=== PATIENT | male | born 1945 | race Caucasian/White ===

== ENCOUNTER 2017-01-31 17:18 | Emergency (ER) | payer OTHER, MEDICARE ==
--- NOTE | 2017-01-31 17:57 | ER Document Report ---
ED Medical Screen (RME) - General Chief Complaint: Breathing Difficulty Stated Complaint: DIFFICULTY BREATHING Time Seen by Provider: 01/31/17 17:48 Notes: Patient is complaining of chest pain that starts in the lower left mid axillary line region and goes across the front of his chest to the right side. It started today and the [facility] where the patient [facility] called the patient's daughter to come and pick him up and taken for medical care. Patient has a history of COPD and still smokes. He had a CT of his chest due to pulmonary nodules in December, exactly a month ago. He has these pulmonary nodules and no other description of his lesions. Patient has no history of heart disease. Has been a lifelong smoker. 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 Ever since then, his memory is not good. TRAVEL OUTSIDE OF THE [place] IN LAST 30 DAYS: No - Related Data Allergies/Adverse Reactions: No Known Allergies Allergy (Verified 01/31/17 17:23) Past Medical History Renal/ Medical History: Denies: Hx Peritoneal Dialysis Physical Exam - Vital signs Vitals: Temp Pulse Resp BP Pulse Ox 97.6 F 57 L 25 H 109/57 L 96 01/31/17 17:23 01/31/17 17:23 01/31/17 17:23 01/31/17 17:23 01/31/17 17:23 Course - Vital Signs Vital signs: Temp Pulse Resp BP Pulse Ox 97.6 F 57 L 25 H 109/57 L 96 01/31/17 17:23 01/31/17 17:23 01/31/17 17:23 01/31/17 17:23 01/31/17 17:23
--- NOTE | 2017-01-31 18:33 | RADIOLOGY REPORT (SQ) ---
EXAM DESCRIPTION: CHEST PA/LAT COMPLETED DATE/TIME: 01/31/2017 6:19 pm REASON FOR STUDY: Chest pain COMPARISON: None. EXAM PARAMETERS: NUMBER OF VIEWS: two views TECHNIQUE: Digital Frontal and Lateral radiographic views of the chest acquired. RADIATION DOSE: NA LIMITATIONS: none FINDINGS: LUNGS AND PLEURA: Limited ill-defined areas of opacity are seen in each lower lung field. A 15 mm nodule cannot be ruled out in the right lung. On the left, the area of opacity of concern m ay be related to a healing rib fracture. No localized pneumonia is appreciated. The lungs are hyper expanded. MEDIASTINUM AND HILAR STRUCTURES: No masses or contour abnormalities. HEART AND VASCULAR STRUCTURES: Heart normal size. No evidence for failure. BONES: No acute findings. HARDWARE: None in the chest. OTHER: No other significant finding. IMPRESSION: 1. Chronic lung changes with no acute infiltrates. 2. A right pulmonary nodule cannot be ruled out. This is not appreciated on the lateral view. 3. Possible healing rib fracture on the left TECHNICAL DOCUMENTATION: JOB ID: [id number] 1925[employer]- All Rights Reserved
[2017-01-31 19:31] LABS: ABSOLUTE BASOPHILS # (AUTO) 0.1 10^3/uL (0.0-0.2); ABSOLUTE EOSINOPHILS # (AUTO) 0.2 10^3/uL (0.0-0.6); ABSOLUTE LYMPHOCYTES (AUTO) 1.5 10^3/uL (0.5-4.7); ABSOLUTE MONOCYTES (AUTO) 0.5 10^3/uL (0.1-1.4); EOSINOPHILS % (AUTO) 4.7 % (0-6); HEMATOCRIT 40.9 % (37.9-51.0); HEMOGLOBIN 13.3 g/dL (13.5-17.0); LYMPHOCYTES % (AUTO) 28.2 % (13-45); MEAN CORPUSCULAR HEMOGLOBIN 29.9 pg (27.0-33.4); MEAN CORPUSCULAR HGB CONC 32.4 g/dL (32.0-36.0); MEAN CORPUSCULAR VOLUME 92 fl (80-97); MONOCYTES % (AUTO) 9.4 % (3-13); RED BLOOD COUNT 4.44 10^6/uL (4.35-5.55); RED CELL DISTRIBUTION WIDTH 14.8 % (11.5-14.0); SEGMENTED NEUTROPHILS % (AUTO) 56.7 % (42-78); WHITE BLOOD COUNT 5.3 10^3/uL (4.0-10.5)
[2017-01-31 19:32] LABS: APPEARANCE,URINE CLEAR; BILIRUBIN,URINE NEGATIVE (NEGATIVE); GLUCOSE, URINE NEGATIVE (NEGATIVE); KETONES,URINE NEGATIVE (NEGATIVE); LEUKOCYTE ESTERASE,URINE NEGATIVE (NEGATIVE); NITRITE,URINE NEGATIVE (NEGATIVE); PROTEIN,URINE NEGATIVE (NEGATIVE); URINE SPECIFIC GRAVITY 1.002; UROBILINOGEN,URINE NEGATIVE mg/dL (<2.0)
[2017-01-31 19:46] LABS: ALANINE AMINOTRANSFERASE 18 U/L (21-72); ALBUMIN 4.6 g/dL (3.5-5.0); ALKALINE PHOSPHATASE 81 U/L (38-126); ANION GAP 10 (5-19); ASPARTATE AMINO TRANSFERASE 15 U/L (17-59); BILIRUBIN,DIRECT 0.2 mg/dL (0.0-0.4); BILIRUBIN,TOTAL 0.4 mg/dL (0.2-1.3); BLOOD UREA NITROGEN 11 mg/dL (7-20); CALCIUM 9.3 mg/dL (8.4-10.2); CARBON DIOXIDE 32 mmol/L (22-30); CHLORIDE 96 mmol/L (98-107); CREATININE RESULT 0.93 mg/dL (0.52-1.25); GLUCOSE 94 mg/dL (75-110); POTASSIUM 4.5 mmol/L (3.6-5.0); SODIUM 138.3 mmol/L (137-145); TOTAL PROTEIN 8.3 g/dL (6.3-8.2)
[2017-01-31 19:58] LABS: CREATINE KINASE MB 1.54 ng/mL (<4.55)
[2017-01-31 19:59] LABS: TROPONIN I < 0.012 ng/mL
[2017-01-31] MEDS ORDERED: IPRATROPIUM/ALBUTEROL 0.5-2.5 MG/3 ML AMPUL NEB ONE ×2 (20:22→20:23)
--- NOTE | 2017-01-31 20:44 | RADIOLOGY REPORT (SQ) ---
EXAM DESCRIPTION: CHEST SINGLE VIEW COMPLETED DATE/TIME: 01/31/2017 8:28 pm REASON FOR STUDY: cp COMPARISON: 01/31/2017 EXAM PARAMETERS: NUMBER OF VIEWS: One view. TECHNIQUE: Single frontal radiographic view of the chest acquired. RADIATION DOSE: NA LIMITATIONS: None. FINDINGS: LUNGS AND PLEURA: The previously described chronic appearing changes appears stable. Agai n the possibility of a pulmonary nodule on the right cannot be excluded. No definite acute changes a re identified. MEDIASTINUM AND HILAR STRUCTURES: No masses. Contour normal. HEART AND VASCULAR STRUCTURES: The configuration of the heart and mediastinal structures is unchanged . BONES: No acute findings. HARDWARE: None in the chest. OTHER: No other significant finding. IMPRESSION: No significant interval change. No acute findings. Other findings as noted above TECHNICAL DOCUMENTATION: JOB ID: [id number]
--- NOTE | 2017-01-31 21:12 | EKG REPORT ---
SEVERITY:- NORMAL ECG - SINUS RHYTHM : Confirmed by: Karla Weiner 31-Jan-2017 21:12:12
--- NOTE | 2017-01-31 22:13 | ER Document Report ---
ED General - General Chief Complaint: Breathing Difficulty Stated Complaint: DIFFICULTY BREATHING Time Seen by Provider: 01/31/17 17:48 Mode of Arrival: Ambulatory Information source: Patient, Relative Notes: 71-year-old male history of COPD presents with complaints of wheezing left- sided muscle wall pain when he raises his arm. Patient denies any fevers or chills nausea vomiting or diarrhea. Patient has not been on steroids in the past year TRAVEL OUTSIDE OF THE [place] IN LAST 30 DAYS: No - HPI Onset: This morning Onset/Duration: Intermittent Quality of pain: Sharp Severity: Mild Pain Level: 1 Associated symptoms: Body/muscle aches, Nonproductive cough, Shortness of breath Exacerbated by: Movement, Deep breathing Relieved by: Denies Similar symptoms previously: Yes Recently seen / treated by doctor: Yes - Related Data Allergies/Adverse Reactions: No Known Allergies Allergy (Verified 01/31/17 17:23) Past Medical History - Social History Smoking Status: Current Every Day Smoker Cigarette use (# per day): Yes Chew tobacco use (# tins/day): No Smoking Education Provided: No Drug Abuse: None Family History: Reviewed & Not Pertinent Patient has suicidal ideation: No Patient has homicidal ideation: No Renal/ Medical History: Denies: Hx Peritoneal Dialysis Review of Systems - Review of Systems Notes: REVIEW OF SYSTEMS: CONSTITUTIONAL : Denies fever, chills, or sweats. Denies recent illness. EENT: Denies eye, ear, throat, or mouth pain or symptoms. Denies nasal or sinus congestion or discharge. Denies throat, tongue, or mouth swelling or difficulty swallowing. CARDIOVASCULAR: Denies chest pain. Denies palpitations or racing or irregular heart beat. Denies ankle edema. RESPIRATORY: Admits to shortness of breath GASTROINTESTINAL: Denies abdominal pain or distention. Denies nausea, vomiting , or diarrhea. Denies blood in vomitus, stools, or per rectum. Denies black, tarry stools. Denies constipation. GENITOURINARY: Denies difficulty urinating, painful urination, burning, frequency, blood in urine, or discharge. MUSCULOSKELETAL: Denies back or neck pain or stiffness. Denies joint pain or swelling. Admits to left chest wall tenderness when he bends his arms up SKIN: Denies rash, lesions or sores. HEMATOLOGIC : Denies easy bruising or bleeding. LYMPHATIC: Denies swollen, enlarged glands. NEUROLOGICAL: Denies confusion or altered mental status. Denies passing out or loss of consciousness. Denies dizziness or lightheadedness. Denies headache. Denies weakness or paralysis or loss of use of either side. Denies problems with gait or speech. Denies sensory loss, numbness, or tingling. Denies seizures. PSYCHIATRIC: Denies anxiety or stress. Denies depression, suicidal ideation, or homicidal ideation. ALL OTHER SYSTEMS REVIEWED AND NEGATIVE. Dictation was performed using [employer] voice recognition software PHYSICAL EXAMINATION: GENERAL: Well-appearing, well-nourished and in no acute distress. HEAD: Atraumatic, normocephalic. EYES: Pupils equal round and reactive to light, extraocular movements intact, sclera anicteric, conjunctiva are normal. ENT: Nares patent, oropharynx clear without exudates. Moist mucous membranes. NECK: Normal range of motion, supple without lymphadenopathy LUNGS: Coarse wheezing bilateral 100% O2 sat no respiratory distress HEART: Regular rate and rhythm without murmurs reproducible chest wall tenderness ABDOMEN: Soft, nontender, nondistended abdomen. No guarding, no rebound. No masses appreciated. Musculoskeletal: Normal range of motion, no pitting or edema. No cyanosis. NEUROLOGICAL: Cranial nerves grossly intact. Normal speech, normal gait. Normal sensory, motor exams PSYCH: Normal mood, normal affect. SKIN: Warm, Dry, normal turgor, no rashes or lesions noted. Physical Exam - Vital signs Vitals: Temp Pulse Resp BP Pulse Ox 97.6 F 57 L 25 H 109/57 L 96 01/31/17 17:23 01/31/17 17:23 01/31/17 17:23 01/31/17 17:23 01/31/17 17:23 Course - Re-evaluation Re-evalutation: 01/31/17 22:10 Was given duo nebs, and notes that he is breathing much better, he does become hypoxic when he is sleeping, I have explained to the daughter my concerns for sleep apnea otherwise the patient looks well is in no distress and wishes to be discharged home I will discharge home with steroids After performing a Medical Screening Examination, I estimate there is LOW risk for ACUTE CORONARY SYNDROME, RESPIRATORY FAILURE, SEPSIS OR MENINGITIS, thus I consider the discharge disposition reasonable. I have reevaluated this patient multiple times and no significant life threatening changes are noted. The patient and I have discussed the diagnosis and risks, and we agree with discharging home with close follow-up. We also discussed returning to the Emergency Department immediately if new or worsening symptoms occur. We have discussed the symptoms which are most concerning (e.g., changing or worsening pain, trouble swallowing or breathing, neck stiffness, fever) that necessitate immediate return. - Vital Signs Vital signs: Temp Pulse Resp BP Pulse Ox 97.4 F 57 L 14 101/79 100 01/31/17 20:05 01/31/17 17:23 01/31/17 20:22 01/31/17 20:10 01/31/17 20:22 - Laboratory Result Diagrams: 01/31/17 19:15 01/31/17 19:15 Laboratory results interpreted by me: 01/31/17 01/31/17 01/31/17 19:15 19:15 19:15 Hgb 13.3 L RDW 14.8 H Chloride 96 L Carbon Dioxide 32 H AST 15 L ALT 18 L Total Protein 8.3 H Urine Blood SMALL H - Diagnostic Test Radiology reviewed: Image reviewed, Reports reviewed Discharge - Discharge Clinical Impression: COPD exacerbation, Chest wall pain Condition: Stable Disposition: HOME, SELF-CARE Instructions: Chest Wall Pain ([facility]) Additional Instructions: Follow up with your physician tomorrow for further care or return to the ED IMMEDIATELY if symptoms worsen or new concerns occur. If you cannot afford to follow up with your primary care physician a list of low cost clinics have been provided at the end of your discharge papers as well. Prescriptions: Prednisone [Deltasone 20 mg Tablet] 3 tab PO DAILY 5 Days
[2017-01-31] MEDS ORDERED: PREDNISONE 20 MG TABLET PO ONE (22:21)
[2017-01-31 23:11] VITALS: BP 107/91
== END 2017-01-31 23:10 | disposition home or self-care (01) ==
LOC: ER 17:18
DX: J44.1 Chronic obstructive pulmonary disease with (acute) exacerbation (principal); R07.89 Other chest pain; R05 Cough; R06.02 Shortness of breath; F17.210 Nicotine dependence, cigarettes, uncomplicated
CPT/HCPCS: 93005; 94640 ×2; 99285; 36415; 82553; 85025; 80053; 81001; 84484; 71020; 71010; 93010; J7512; J7620

== ENCOUNTER 2017-03-03 10:08 | Emergency (ER) | payer OTHER, MEDICARE ==
[2017-03-03] MEDS ORDERED: IPRATROPIUM/ALBUTEROL 0.5-2.5 MG/3 ML AMPUL NEB ONE (10:31)
[2017-03-03] MEDS ORDERED: ASPIRIN 81 MG TABLET, CHEWABLE PO ONE (10:32)
--- NOTE | 2017-03-03 10:34 | ER Document Report ---
ED Medical Screen (RME) - General Chief Complaint: Breathing Difficulty Stated Complaint: DIFFICULTY BREATHING Time Seen by Provider: 03/03/17 10:31 Mode of Arrival: Wheelchair Information source: Patient, Relative Notes: Patient reports cough and difficulty breathing for the past 5 days. Family states that caregiver reported that he had an oxygen saturation of 70% today. Oxygen saturation on arrival was in the mid 90s. Patient has not had fever. Patient has had cough and complains of left-sided chest pain. hx: COPD TRAVEL OUTSIDE OF THE [place] IN LAST 30 DAYS: No - Related Data Allergies/Adverse Reactions: No Known Allergies Allergy (Verified 03/03/17 10:13) Past Medical History - Social History Chew tobacco use (# tins/day): No Frequency of alcohol use: None Drug Abuse: None - Past Medical History Cardiac Medical History: Reports: Hx Hypercholesterolemia Pulmonary Medical History: Reports: Hx COPD Renal/ Medical History: Denies: Hx Peritoneal Dialysis Surgical Hx: Negative - Immunizations Hx Diphtheria, Pertussis, Tetanus Vaccination: Yes Physical Exam - Vital signs Vitals: Temp Pulse Resp BP Pulse Ox 97.8 F 62 18 105/65 97 03/03/17 10:13 03/03/17 10:13 03/03/17 10:13 03/03/17 10:13 03/03/17 10:13 - Respiratory Respiratory status: No respiratory distress. No: Labored Breath sounds: Nonproductive cough, Rhonchi, Wheezing - coarse Course - Vital Signs Vital signs: Temp Pulse Resp BP Pulse Ox 97.8 F 62 16 105/65 97 03/03/17 10:13 03/03/17 10:13 03/03/17 10:25 03/03/17 10:13 03/03/17 10:13
[2017-03-03 11:25] LABS: ABSOLUTE EOSINOPHILS # (AUTO) 0.1 10^3/uL (0.0-0.6); ABSOLUTE LYMPHOCYTES (AUTO) 1.2 10^3/uL (0.5-4.7); ABSOLUTE MONOCYTES (AUTO) 0.8 10^3/uL (0.1-1.4); ABSOLUTE NEUT (AUTO) 7.6 10^3/uL (1.7-8.2); BASOPHILS % (AUTO) 0.3 % (0-2); HEMATOCRIT 43.8 % (37.9-51.0); HEMOGLOBIN 14.2 g/dL (13.5-17.0); HGB HCT DIFFERENCE -1.2; LYMPHOCYTES % (AUTO) 12.3 % (13-45); MEAN CORPUSCULAR HEMOGLOBIN 29.9 pg (27.0-33.4); MEAN CORPUSCULAR HGB CONC 32.4 g/dL (32.0-36.0); MEAN CORPUSCULAR VOLUME 92 fl (80-97); MONOCYTES % (AUTO) 7.9 % (3-13); RED BLOOD COUNT 4.74 10^6/uL (4.35-5.55); RED CELL DISTRIBUTION WIDTH 15.1 % (11.5-14.0); SEGMENTED NEUTROPHILS % (AUTO) 78.5 % (42-78); WHITE BLOOD COUNT 9.7 10^3/uL (4.0-10.5)
--- NOTE | 2017-03-03 11:38 | RADIOLOGY REPORT (SQ) ---
EXAM DESCRIPTION: CHEST PA/LAT COMPLETED DATE/TIME: 03/03/2017 11:25 am REASON FOR STUDY: cough, diff breathing COMPARISON: 01/31/2017 EXAM PARAMETERS: NUMBER OF VIEWS: two views TECHNIQUE: Digital Frontal and Lateral radiographic views of the chest acquired. RADIATION DOSE: NA LIMITATIONS: none FINDINGS: LUNGS AND PLEURA: The previously described ill-defined areas of opacity in the lower lung luna are again identified and appear unchanged. The appearance would suggest chronic changes. No acute changes are identified. There is some blunting of the left costophrenic angle most consistent with pleural reaction. I cannot exclude a component of obstructive lung disease. MEDIASTINUM AND HILAR STRUCTURES: No masses or contour abnormalities. HEART AND VASCULAR STRUCTURES: Heart normal size. No evidence for failure. BONES: No acute findings. HARDWARE: None in the chest. OTHER: No other significant finding. IMPRESSION: No significant interval change. No acute findings. Other findings as noted above. TECHNICAL DOCUMENTATION: JOB ID: [id number] [employer]- All Rights Reserved
[2017-03-03 12:14] LABS: TROPONIN I < 0.012 ng/mL
[2017-03-03] MEDS ORDERED: ALBUTEROL SULFATE 0.083% NEB 2.5 MG/3 ML AMPUL NEB ONE (12:15)
[2017-03-03] MEDS ORDERED: METHYLPREDNISOLONE INJ 125 MG/2 ML SDV IV ONE (12:15)
[2017-03-03] MEDS ORDERED: DOXYCYCLINE HYCLATE INJ 100 MG VIAL IV ONE (12:15)
[2017-03-03 12:25] LABS: ANION GAP 13 (5-19); BLOOD UREA NITROGEN 17 mg/dL (7-20); CALCIUM 9.3 mg/dL (8.4-10.2); CARBON DIOXIDE 26 mmol/L (22-30); CHLORIDE 106 mmol/L (98-107); CREATININE RESULT 0.92 mg/dL (0.52-1.25); GLUCOSE 97 mg/dL (75-110); POTASSIUM 4.1 mmol/L (3.6-5.0); SODIUM 144.6 mmol/L (137-145)
[2017-03-03] MEDS ORDERED: ALBUTEROL SULFATE HFA (90 MCG/PUFF) 8 GM MDI (1 MDI/ER DISP) IH ONE (14:33)
--- NOTE | 2017-03-03 14:54 | ER Document Report ---
ED General - General Chief Complaint: Breathing Difficulty Stated Complaint: DIFFICULTY BREATHING Time Seen by Provider: 03/03/17 10:31 Mode of Arrival: Wheelchair TRAVEL OUTSIDE OF THE [place] IN LAST 30 DAYS: No - HPI Patient complains to provider of: Difficulty in breathing Notes: Patient presents today for difficulty breathing. This been ongoing for approximately 2-3 days. Patient does have a history of COPD. According to the family patient was found to be hypoxic at a local [facility] however patient vital signs have been stable here on room air. Patient does have a inhaler however no access to nebulized bronchodilators. No recent travel no recent antibiotics. Patient looks comfortable, evaluation no signs of obvious distress. - Related Data Allergies/Adverse Reactions: No Known Allergies Allergy (Verified 03/03/17 10:13) Past Medical History - General Information source: Patient, Relative - Social History Smoking Status: Current Every Day Smoker Chew tobacco use (# tins/day): No Frequency of alcohol use: None Drug Abuse: None Family History: Reviewed & Not Pertinent Patient has suicidal ideation: No Patient has homicidal ideation: No - Past Medical History Cardiac Medical History: Reports: Hx Hypercholesterolemia Pulmonary Medical History: Reports: Hx COPD Renal/ Medical History: Denies: Hx Peritoneal Dialysis Surgical Hx: Negative - Immunizations Hx Diphtheria, Pertussis, Tetanus Vaccination: Yes Review of Systems - Review of Systems Constitutional: No symptoms reported EENT: No symptoms reported Cardiovascular: No symptoms reported Respiratory: Short of breath Gastrointestinal: No symptoms reported Genitourinary: No symptoms reported Male Genitourinary: No symptoms reported Musculoskeletal: No symptoms reported Skin: No symptoms reported Hematologic/Lymphatic: No symptoms reported Neurological/Psychological: No symptoms reported -: Yes All other systems reviewed and negative Physical Exam - Vital signs Vitals: Temp Pulse Resp BP Pulse Ox 97.8 F 62 18 105/65 97 03/03/17 10:13 03/03/17 10:13 03/03/17 10:13 03/03/17 10:13 03/03/17 10:13 Interpretation: Normal - General General appearance: Appears well, Alert - HEENT Head: Normocephalic, Atraumatic Eyes: Normal Pupils: PERRL - Respiratory Respiratory status: No respiratory distress Chest status: Nontender Breath sounds: Normal Chest palpation: Normal - Cardiovascular Rhythm: Regular Heart sounds: Normal auscultation Murmur: No - Abdominal Inspection: Normal Distension: No distension Bowel sounds: Normal Tenderness: Nontender Organomegaly: No organomegaly - Back Back: Normal, Nontender - Extremities General upper extremity: Normal inspection, Nontender, Normal color, Normal ROM , Normal temperature General lower extremity: Normal inspection, Nontender, Normal color, Normal ROM , Normal temperature, Normal weight bearing. No: Momo's sign - Neurological Neuro grossly intact: Yes Cognition: Normal [place] Coma Scale Verbal: Oriented Sofie Coma Scale Motor: Obeys Commands Speech: Normal - Psychological Associated symptoms: Normal affect, Normal mood - Skin Skin Temperature: Warm Skin Moisture: Dry Skin Color: Normal Course - Re-evaluation Re-evalutation: 03/08/17 06:56 Patient was given multiple breathing treatments here with resolution of symptoms patient was able to ambulate without any signs of hypoxia. Patient was given to the family member for nebulizer albuterol patient will be treated for COPD exacerbation. At this time the need for hospitalization patient was encouraged follow-up with primary care physician. - Vital Signs Vital signs: Temp Pulse Resp BP Pulse Ox 97.8 F 69 20 110/71 95 03/03/17 10:13 03/03/17 15:35 03/03/17 15:35 03/03/17 15:35 03/03/17 15:35 - Laboratory Result Diagrams: 03/03/17 11:10 03/03/17 11:10 Laboratory results interpreted by me: 03/03/17 03/03/17 03/03/17 11:10 11:10 14:30 RDW 15.1 H Seg Neutrophils % 78.5 H Lymphocytes % 12.3 L Creatine Kinase 41 L Urine Ascorbic Acid 20 H Discharge - Discharge Clinical Impression: Bronchitis Condition: Good Disposition: HOME, SELF-CARE Instructions: Bronchitis ([facility]) Additional Instructions: Please use the inhaler or nebulizer treatment every 4 hours for the next 5 days. Take steroids and antibiotics as prescribed. Follow with primary care physician. Prescriptions: Albuterol Sulfate [Albuterol Sulfate 2.5mg/3 mL] 2.5 mg IH Q4 #60 vial Doxycycline Hyclate [Vibramycin 100 mg Tablet] 100 mg PO BID #20 tablet Nebulizer [Nebulizer Machine] 1 each MC ASDIR PRN #1 kit PRN Reason: Prednisone [Deltasone] 60 mg PO DAILY 5 Days Referrals: ROSITA FARRIS NP [Primary Care Provider] - Follow up as needed
[2017-03-03 15:01] LABS: APPEARANCE,URINE CLEAR; BILIRUBIN,URINE NEGATIVE (NEGATIVE); GLUCOSE, URINE NEGATIVE (NEGATIVE); KETONES,URINE NEGATIVE (NEGATIVE); LEUKOCYTE ESTERASE,URINE NEGATIVE (NEGATIVE); NITRITE,URINE NEGATIVE (NEGATIVE); PROTEIN,URINE NEGATIVE (NEGATIVE); UROBILINOGEN,URINE NEGATIVE mg/dL (<2.0)
[2017-03-03 15:37] VITALS: BP 110/71
--- NOTE | 2017-03-03 18:07 | EKG REPORT ---
SEVERITY:- OTHERWISE NORMAL ECG - SINUS RHYTHM BORDERLINE LEFT AXIS DEVIATION : Confirmed by: Fredi Blair MD 03-Mar-2017 18:06:44
== END 2017-03-03 15:25 | disposition home or self-care (01) ==
LOC: ER 10:08
DX: J40 Bronchitis, not specified as acute or chronic (principal); R06.02 Shortness of breath; J44.9 Chronic obstructive pulmonary disease, unspecified; F17.200 Nicotine dependence, unspecified, uncomplicated
CPT/HCPCS: 93005; 99285; 36415; 87040; 82553; 82550; 85025; 80048; 81001; 84484; 71020; 93010; J3490 ×2; J2930; J7620

== ENCOUNTER → 2017-06-07 | Outpatient (CLI) | payer OTHER ==
--- NOTE | 2017-06-08 10:48 | RADIOLOGY REPORT (SQ) ---
EXAM DESCRIPTION: PET CT LIMITED COMPLETED DATE/TIME: 06/07/2017 9:03 pm REASON FOR STUDY: PULMONARY NODULE R91.8 OTHER NONSPECIFIC ABNORMAL FINDING OF LUNG FIELD COMPARISON: Report only, CT chest [facility], 12/31/2016 RADIONUCLIDE AND DOSE: 9.6 mCi F18 FDG The route of agent administration: Intravenous FASTING BLOOD SUGAR: 92 mg/dl CONTRAST TYPE AND DOSE: No CT contrast given. TECHNIQUE: Blood glucose level was verified. Above dose of FDG was injected intravenously. 2-D seg mented attenuation correction images were obtained from the base of the skull to the midthighs. Nonc ontrast CT images were obtained for attenuation correction and fusion with emission images. CT image s were performed without oral or intravenous contrast and are not sensitive for parenchymal lesions. A series of overlapping emission PET images were obtained. Images reviewed and manipulated at [facility] work station by the radiologist. Images stored on PACS. LIMITATIONS: None. FINDINGS: HEAD AND NECK: No areas of abnormal metabolic activity in the soft tissues of the head and neck. CHEST: There is right upper lobe bandlike scarring adjacent to the minor fissure, 2.7 x 1 cm in size on axial image 101. This is not metabolically active. There is airspace disease in the left posterior costophrenic sulcus on axial image 115. SUV 2.2 whic h is just above baseline liver activity, likely atelectasis or pneumonia. No pleural effusions. No pneumothorax. No worrisome pulmonary nodules. ABDOMEN AND PELVIS: No areas of abnormal metabolic activity in the abdomen or pelvis. Expected physi ologic activity is present in the genitourinary system and bowel. PROXIMAL LOWER EXTREMITIES: No areas of abnormal metabolic activity in the soft tissues of the lower extremities. BONES: No abnormal metabolic activity in the visualized skeleton. ADDITIONAL CT FINDINGS: 2.1 cm left upper pole renal cortical cyst. 7 mm intrarenal nonobstructive l eft lower pole stone, [address]. Moderate obstructive lung disease. OTHER: Liver background SUV 2.0. Blood pool background activity 1.7. IMPRESSION: Bandlike scarring in the right upper lobe near the minor fissure. Minimal airspace disease left posterior costophrenic sulcus. No worrisome pulmonary nodules. TECHNICAL DOCUMENTATION: JOB ID: [id number]- All Rights Reserved
== END ==
LOC: RAD 15:08
PROVIDERS: ATTEND Internal Medicine Pulmonary Disease
DX: R91.8 Other nonspecific abnormal finding of lung field (principal)
CPT/HCPCS: 78814; A9552

== ENCOUNTER 2017-09-03 13:35 | Emergency (ER) | payer OTHER, MEDICARE ==
--- NOTE | 2017-09-03 14:47 | ER Document Report ---
ED Medical Screen (RME) - General Chief Complaint: Fall Injury Stated Complaint: FELL/HEAD INJURY Time Seen by Provider: 09/03/17 14:41 Notes: 72-year-old male patient going into the garage to get a tubular soda, had unwitnessed fall. Has a large hematoma with abrasion to his right forehead. Has tenderness and pain to his right ribs. Has pain and tenderness to his right shoulder. There are minor abrasions on the left hand and wrist dorsally. His breathing is somewhat loud, family reports it is close to his baseline but has been a little worse the past few days with an increase in his cough. The respiratory symptoms started after the snow and extremely cold weather the past few days. I have greeted and performed a rapid initial assessment of this patient. A comprehensive ED assessment and evaluation of the patient, analysis of test results and completion of the medical decision making process will be conducted by additional ED providers. TRAVEL OUTSIDE OF THE [place] IN LAST 30 DAYS: No - Related Data Allergies/Adverse Reactions: No Known Allergies Allergy (Verified 03/03/17 10:13) Past Medical History - Social History Chew tobacco use (# tins/day): No Frequency of alcohol use: None Drug Abuse: None - Past Medical History Cardiac Medical History: Reports: Hx Hypercholesterolemia Pulmonary Medical History: Reports: Hx COPD Renal/ Medical History: Denies: Hx Peritoneal Dialysis Past Surgical History: Reports: Hx Appendectomy - Immunizations Hx Diphtheria, Pertussis, Tetanus Vaccination: Yes Physical Exam - Vital signs Vitals: Temp Pulse Resp BP Pulse Ox 99.7 F 72 16 113/62 98 09/03/17 13:46 09/03/17 13:46 09/03/17 13:46 09/03/17 13:46 09/03/17 13:46 Course - Vital Signs Vital signs: Temp Pulse Resp BP Pulse Ox 99.7 F 72 16 113/62 98 09/03/17 13:46 09/03/17 13:46 09/03/17 13:46 09/03/17 13:46 09/03/17 13:46
--- NOTE | 2017-09-03 15:17 | RADIOLOGY REPORT (SQ) ---
EXAM DESCRIPTION: CT HEAD WITHOUT COMPLETED DATE/TIME: 09/03/2017 3:08 pm REASON FOR STUDY: fall on concrete, hit forehead, ribs, shoulder COMPARISON: None. TECHNIQUE: Axial images acquired through the brain without intravenous contrast. Images reviewed wi th bone, brain and subdural windows. Images stored on PACS. All CT scanners at this facility use dose modulation, iterative reconstruction, and/or weight based d osing when appropriate to reduce radiation dose to as low as reasonably achievable (ALARA). [facility]: Dose Right [facility]: CareDose [facility]: Dose Right [facility]: Teradose 4D [facility]: Posse RADIATION DOSE: mGy. LIMITATIONS: None. FINDINGS: VENTRICLES: Prominent. CEREBRUM: No masses. No hemorrhage. No midline shift. Areas of low density in the white matter mos t likely due to chronic micro-vascular ischemic change. No evidence for acute infarction. CEREBELLUM: No masses. No hemorrhage. No alteration of density. No evidence for acute infarction. EXTRAAXIAL SPACES: Mild age-related involutional change. No fluid collections. No masses. ORBITS AND GLOBE: No intra- or extraconal masses. Normal contour of globe without masses. CALVARIUM: No fracture. PARANASAL SINUSES: No fluid or mucosal thickening. SOFT TISSUES: Right frontal scalp hematoma. OTHER: No other significant finding. IMPRESSION: SCALP HEMATOMA WITHOUT FRACTURE OR ACUTE INTRACRANIAL PROCESS IDENTIFIED. EVIDENCE OF ACUTE STROKE: NO. TECHNICAL DOCUMENTATION: JOB ID: [id number] Quality ID # [id number]: Final reports with documentation of one or more dose reduction techniques (e.g., Au tomated exposure control, adjustment of the mA and/or kV according to patient size, use of iterative reconstruction technique) 2010 [employer]- All Rights Reserved
--- NOTE | 2017-09-03 15:23 | RADIOLOGY REPORT (SQ) ---
EXAM DESCRIPTION: SHOULDER RIGHT 2 OR MORE VIEWS COMPLETED DATE/TIME: 09/03/2017 3:11 pm REASON FOR STUDY: fall on concrete, hit forehead, ribs, shoulder COMPARISON: None. NUMBER OF VIEWS: Three views. TECHNIQUE: Internal rotation, external rotation, and Y view images acquired of the right shoulder. LIMITATIONS: None. FINDINGS: MINERALIZATION: Normal. BONES: No acute fracture or dislocation. No worrisome bone lesions. JOINTS: No dislocation. VISUALIZED LUNGS AND RIBS: No pneumothorax. No rib fracture. SOFT TISSUES: No radiopaque foreign body. OTHER: No other significant finding. IMPRESSION: NEGATIVE STUDY OF THE RIGHT SHOULDER. NO RADIOGRAPHIC EVIDENCE OF ACUTE INJURY. TECHNICAL DOCUMENTATION: JOB ID: [id number] [employer]- All Rights Reserved
--- NOTE | 2017-09-03 15:23 | RADIOLOGY REPORT (SQ) ---
EXAM DESCRIPTION: RIBS RIGHT W/PA CHEST COMPLETED DATE/TIME: 09/03/2017 3:11 pm REASON FOR STUDY: fall on concrete, hit forehead, ribs, shoulder COMPARISON: Chest radiograph from 03/03/2017. TECHNIQUE: Frontal view of the chest and additional views of the right ribs acquired. NUMBER OF VIEWS: Four view. LIMITATIONS: None. FINDINGS: FRONTAL CXR: No pneumothorax. No pleural effusion. Stable chronic lung change/scarring. RIBS: Old healed right-sided rib fractures. No displaced rib fractures. No lytic or blastic bony le sions. OTHER: No other significant finding. IMPRESSION: NO PNEUMOTHORAX. NO DISPLACED RIB FRACTURES. COMMENT: SITE OF TRAUMA/COMPLAINT MARKED/STAMP COMPLETED: NO. TECHNICAL DOCUMENTATION: JOB ID: [id number] [employer]- All Rights Reserved
--- NOTE | 2017-09-03 15:43 | ER Document Report ---
ED Fall - General Chief Complaint: Fall Injury Stated Complaint: FELL/HEAD INJURY Time Seen by Provider: 09/03/17 14:41 Notes: The patient is a 72-year-old male who presents after he tripped and fell in his garage earlier today and hit the right side of his forehead and right shoulder. His tetanus is up-to-date. He also has some pain to his right ribs and noticed some abrasions on his left hand and wrist, but he is not having any pain in his hands or wrists. Patient is breathing loudly, but family says this is normal for him. He has had a increased cough over these past few days and takes albuterol with relief of the cough. He denies fevers, LOC, numbness, tingling, neck pain, blurry vision, chest pain, shortness of breath, syncope or back pain. TRAVEL OUTSIDE OF THE [place] IN LAST 30 DAYS: No - Related data Allergies/Adverse Reactions: No Known Allergies Allergy (Verified 03/03/17 10:13) Past Medical History - General Information source: Patient - Social History Smoking Status: Current Every Day Smoker Chew tobacco use (# tins/day): No Frequency of alcohol use: None Drug Abuse: None Family History: Reviewed & Not Pertinent Patient has suicidal ideation: No Patient has homicidal ideation: No - Past Medical History Cardiac Medical History: Reports: Hx Hypercholesterolemia Pulmonary Medical History: Reports: Hx COPD Renal/ Medical History: Denies: Hx Peritoneal Dialysis Past Surgical History: Reports: Hx Appendectomy - Immunizations Hx Diphtheria, Pertussis, Tetanus Vaccination: Yes Review of Systems - Review of Systems Notes: REVIEW OF SYSTEMS: CONSTITUTIONAL: -fevers, -chills EENT: -eye pain, -difficulty swallowing, -nasal congestion CARDIOVASCULAR: +right-sided chest pain, -syncope. RESPIRATORY: -cough, -SOB GASTROINTESTINAL: -abdominal pain, -nausea, -vomiting, -diarrhea GENITOURINARY: -dysuria, -hematuria MUSCULOSKELETAL: +right shoulder pain, -back pain, -neck pain HEMATOLOGIC: -easy bruising or bleeding. LYMPHATIC: -swollen, enlarged glands. NEUROLOGICAL: -altered mental status or loss of consciousness, +headache, - neurologic symptoms PSYCHIATRIC: -anxiety, -depression. ALL OTHER SYSTEMS REVIEWED AND NEGATIVE. Physical Exam - Vital signs Vitals: Temp Pulse Resp BP Pulse Ox 99.7 F 72 16 113/62 98 01/06/18 13:46 09/03/17 13:46 09/03/17 13:46 09/03/17 13:46 09/03/17 13:46 - Notes Notes: PHYSICAL EXAMINATION: GENERAL: Well-appearing, well-nourished and in no acute distress. HEAD: Right forehead contusion with abrasions, normocephalic. EYES: Pupils equal round and reactive to light, extraocular movements intact, sclera anicteric, conjunctiva are normal. ENT: nares patent, oropharynx clear without exudates. Moist mucous membranes. NECK: Normal range of motion, supple without lymphadenopathy LUNGS: Upper airway noise when breathing. Breath sounds clear to auscultation bilaterally and equal. No wheezes rales or rhonchi. HEART: Regular rate and rhythm without murmurs. CHEST WALL: Mild tenderness over right lateral ribs, no step-offs. ABDOMEN: Soft, nontender, normoactive bowel sounds. No guarding, no rebound. No masses appreciated. EXTREMITIES: Tenderness over right shoulder. Normal range of motion, no pitting or edema. No cyanosis. NEUROLOGICAL: Cranial nerves grossly intact. Normal speech, normal gait. Normal sensory and motor exams. PSYCH: Normal mood, normal affect. SKIN: Small abrasions over left hand and wrist. Course - Re-evaluation Re-evalutation: Patient appears well and is in no acute distress. His CT scan just shows a right frontal hematoma, but no skull fracture or intracranial bleed. His right shoulder and rib x-rays do not show any acute fractures. Patient's lungs are clear and he is in no respiratory distress. He has upper airway noise, which is normal for him per the family. He also has a history of COPD. - Vital Signs Vital signs: Temp Pulse Resp BP Pulse Ox 99.7 F 79 19 125/54 L 96 09/03/17 13:46 09/03/17 16:06 09/03/17 16:06 09/03/17 16:09/03/17 16:06 - Diagnostic Test Radiology reviewed: Image reviewed, Reports reviewed Radiology results interpreted by me: CT Head: Right frontal hematoma. Right shoulder x-ray: NAD Right rib x-ray: NAD - EKG Interpretation by Me Additional EKG results interpreted by me: CT HEAD: Right frontal hematoma Right rib x-rays: No rib fractures or PTX. Right shoulder x-ray: NAD Discharge - Discharge Clinical Impression: Shoulder contusion Qualifiers: Encounter type: initial encounter Laterality: right Qualified Code(s): S40.011A - Contusion of right shoulder, initial encounter Hematoma of scalp Qualifiers: Encounter type: initial encounter Qualified Code(s): S00.03XA - Contusion of scalp, initial encounter Condition: Stable Disposition: HOME, SELF-CARE Additional Instructions: Contusion Your injury has resulted in a contusion -- a crushing of the deep tissues. No injury to important structures was detected during the physician's exam. Contusions vary in the amount of pain they cause, and in the length of time required for healing. Typically, the area will become bruised, and will remain painful to touch for two or three weeks. However, most patients are back to working and playing within a few days. After the initial period of rest and cold-packs, your symptoms (together with the doctor's recommendations) will determine how rapidly you can get back to full activity. Usually this means "do what feels okay, but don't do things that hurt." If re-examination was recommended, it's important to follow up as instructed. Call the doctor or return any time if pain increases, if swelling becomes severe, if you develop numbness or weakness in an injured extremity, or if any other alarming symptoms occur.
[2017-09-03 16:07] VITALS: BP 125/54
== END 2017-09-03 16:26 | disposition home or self-care (01) ==
LOC: ER 13:35
DX: S40.011A Contusion of right shoulder, initial encounter (principal); S00.03XA Contusion of scalp, initial encounter; S00.83XA Contusion of other part of head, initial encounter; S60.512A Abrasion of left hand, initial encounter; S60.812A Abrasion of left wrist, initial encounter; R07.81 Pleurodynia; W19.XXXA Unspecified fall, initial encounter; J44.9 Chronic obstructive pulmonary disease, unspecified; R05 Cough; F17.200 Nicotine dependence, unspecified, uncomplicated
CPT/HCPCS: 70450; 99284

== ENCOUNTER 2018-05-04 18:15 | Emergency (ER) | payer OTHER, MEDICARE ==
--- NOTE | 2018-05-04 19:20 | ER Document Report ---
ED Medical Screen (RME) - General TRAVEL OUTSIDE OF THE [place] IN LAST 30 DAYS: No <JOSH TSAI - Last Filed: 05/04/18 19:17> <AIDEN ASCENCIO - Last Filed: 05/05/18 07:21> - General Chief Complaint: General Weakness Stated Complaint: UNABLE TO WALK/SIT UP Time Seen by Provider: 05/04/18 19:16 Notes: Patient is here to be evaluated for difficulty and inability to use his legs. This problem started last night and it has happened about 3 times and the patient is unable to stand or walk or bear weight on his legs, not even able to keep his balance sitting on a bed. He has never had this before. 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 He also walks with a very notable shuffle, almost like Parkinson's disease. He currently sees a neurologist in [place] and his last visit was just 2 days ago. The neurologist said that it could be his Neurontin that he is taking for this shuffle and plans to switch him out to another medication, but that is which has not occurred yet. Patient has had some diarrhea, but no vomiting. Slight cough. Denies shortness of breath. Family noted a low-grade fever at home this evening. Patient remains a cigarette smoker. (JOSH TSAI) Patient's daughter and son-in-law in the room with patient. daughter states this morning noted patient to have a temperature of 100.9 Fahrenheit daughter stated at that time patient was more weak than normal, could not lift his legs to get out of the car. Family had to help the patient into the house. Daughter then stated patient could move his legs normally and went to his adults daycare. Daughter states intermittently throughout the last 3 days patient will have bouts of weakness. They were to patient's neurologist Dr. Reddy at the [facility] in [place] 2 days ago who told the family they were going to try and take he Pt. off his Depakote due to him "having a shuffled gate and feeling weak." Family is very concerned because this evening he dropped his glasses and was unable to bend and move to pick them up which is very abnormal for him. Family stated he "is too weak to go home." (AIDEN ASCENCIO) - Related Data Allergies/Adverse Reactions: No Known Allergies Allergy (Verified 05/04/18 18:20) Past Medical History - Social History Chew tobacco use (# tins/day): Yes Frequency of alcohol use: None Drug Abuse: None - Past Medical History Cardiac Medical History: Reports: Hx Hypercholesterolemia Pulmonary Medical History: Reports: Hx COPD Renal/ Medical History: Denies: Hx Peritoneal Dialysis Past Surgical History: Reports: Hx Appendectomy - Immunizations Hx Diphtheria, Pertussis, Tetanus Vaccination: Yes <JOSH TSAI - Last Filed: 05/04/18 19:17> - General Information source: Patient - Social History Lives with: Family Family history: Reviewed & Not Pertinent <AIDEN ASCENCIO - Last Filed: 05/05/18 07:21> Review of Systems - Review of Systems Constitutional: See HPI EENT: No symptoms reported Cardiovascular: No symptoms reported Respiratory: No symptoms reported Gastrointestinal: No symptoms reported Genitourinary: No symptoms reported Male Genitourinary: No symptoms reported Musculoskeletal: See HPI Skin: No symptoms reported Hematologic/Lymphatic: No symptoms reported Neurological/Psychological: See HPI <AIDEN ASCENCIO - Last Filed: 05/05/18 07:21> Physical Exam <JOSH TSAI - Last Filed: 05/04/18 19:17> <AIDEN ASCENCIO - Last Filed: 05/05/18 07:21> - Vital signs Vitals: Temp Pulse Resp BP Pulse Ox 99.2 F 85 20 104/59 L 96 05/04/18 18:24 05/04/18 18:24 05/04/18 18:24 05/04/18 18:24 05/04/18 18:24 - Notes Notes: GENERAL: Alert, interacts well. Mentally at baseline. No acute distress. HEAD: Normocephalic, slight bruising noted under right eye family states that is from a fall weeks ago.. EYES: Pupils equal, round, and reactive to light. Extraocular movements intact. ENT: Oral mucosa moist, tongue midline. NECK: Full range of motion. Supple. Trachea midline. LUNGS: Clear to auscultation bilaterally, no wheezes, rales, or rhonchi. No respiratory distress. HEART: Regular rate and rhythm. No murmur ABDOMEN: Soft, non-tender. Non-distended. Bowel sounds present in all 4 quadrants. EXTREMITIES: Moves all 4 extremities spontaneously. No edema, normal radial and dorsalis pedis pulses bilaterally. No cyanosis. BL UE +4 strength, BL LE +4 strength. BACK: no cervical, thoracic, lumbar midline tenderness. No saddle anesthesia, normal distal neurovascular exam. NEUROLOGICAL: Alert and oriented to baseline per family. Normal speech. PSYCH: Normal affect, normal mood. SKIN: Warm, dry, normal turgor. No rashes or lesions noted. (AIDEN ASCENCIO) Course <EULALIOJOSH - Last Filed: 05/04/18 19:17> - Laboratory Result Diagrams: 05/04/18 19:50 05/04/18 19:50 <AIDEN ASCENCIO - Last Filed: 05/05/18 07:21> - Re-evaluation Re-evalutation: Talked to Dr. Estrada about Pt. presentation, lab results, imaging results, urine. Also discussed with her concern of son-in-law about patient currently being at baseline yet son-in-law wanted patient to be admitted. Dr. Estrada agrees with patient workup and will talk to patient and family. Dr. Estrada states she offered the family to admit or transferred pt. to another facility for neurology follow-up. Family now states patient is back at baseline , able to walk around the room with no difficulty. Patient has always been mentally at baseline. They feel comfortable with following up with Dr. Reddy, the patient's neurologist in the morning. Return precautions given. (AIDEN ASCENCIO) - Vital Signs Vital signs: Temp Pulse Resp BP Pulse Ox 99.2 F 85 17 102/78 92 05/04/18 18:24 05/04/18 18:24 05/04/18 23:26 05/04/18 23:01 05/04/18 23:26 - Laboratory Laboratory results interpreted by oh: 05/04/18 05/04/18 05/04/18 19:50 19:50 23:07 WBC 11.2 H RBC 4.20 L Hgb 12.9 L RDW 15.4 H Plt Count 143 L Seg Neuts % (Manual) 86 H Band Neutrophils % 1 L Lymphocytes % (Manual) 8 L Abs Neuts (Manual) 9.7 H ALT 17 L Urine Protein 100 H Urine Glucose (UA) 50 H Urine Blood LARGE H Urine Urobilinogen 4.0 H Doctor's Discharge <JOSH TSAI - Last Filed: 05/04/18 19:17> <AIDEN ASCENCIO - Last Filed: 05/05/18 07:21> - Discharge Clinical Impression: Weakness Condition: Stable Disposition: HOME, SELF-CARE Additional Instructions: As discussed your blood and urine will be sent for culture. Should results come back positive the hospital will contact you. Chest x-ray showed no signs of pneumonia, CT also showed no signs of bleeding. You should have close follow -up with your neurologist and Primary Care Doctor. Return to the emergency department should you have any chest discomfort, shortness of breath, increased weakness.
[2018-05-04 20:35] LABS: HEMATOCRIT 38.3 % (37.9-51.0); HEMOGLOBIN 12.9 g/dL (13.5-17.0); MEAN CORPUSCULAR HEMOGLOBIN 30.9 pg (27.0-33.4); MEAN CORPUSCULAR HGB CONC 33.8 g/dL (32.0-36.0); MEAN CORPUSCULAR VOLUME 91 fl (80-97); PLATELET COUNT 143 10^3/uL (150-450); RED CELL DISTRIBUTION WIDTH 15.4 % (11.5-14.0); WHITE BLOOD COUNT 11.2 10^3/uL (4.0-10.5)
--- NOTE | 2018-05-04 20:38 | RADIOLOGY REPORT (SQ) ---
EXAM DESCRIPTION: CHEST 2 VIEWS COMPLETED DATE/TIME: 05/04/2018 8:22 pm REASON FOR STUDY: COPD, cough. COMPARISON: 03/03/2017 EXAM PARAMETERS: NUMBER OF VIEWS: two views TECHNIQUE: Digital Frontal and Lateral radiographic views of the chest acquired. RADIATION DOSE: NA LIMITATIONS: none FINDINGS: LUNGS AND PLEURA: Hyperexpansion of the lungs. No acute infiltrate or effusion. No mass is appreciated. MEDIASTINUM AND HILAR STRUCTURES: No masses or contour abnormalities. HEART AND VASCULAR STRUCTURES: Heart normal size. No evidence for failure. BONES: No acute findings. HARDWARE: None in the chest. OTHER: No other significant finding. IMPRESSION: Chronic lung changes with no acute cardiopulmonary disease. TECHNICAL DOCUMENTATION: JOB ID: [id number] [employer]- All Rights Reserved Reading location - IP/workstation name: [email or web address]
[2018-05-04 20:51] LABS: ALANINE AMINOTRANSFERASE 17 U/L (21-72); ALBUMIN 4.1 g/dL (3.5-5.0); ALKALINE PHOSPHATASE 71 U/L (38-126); ANION GAP 10 (5-19); ASPARTATE AMINO TRANSFERASE 17 U/L (17-59); BILIRUBIN,DIRECT 0.2 mg/dL (0.0-0.4); BILIRUBIN,TOTAL 0.5 mg/dL (0.2-1.3); BLOOD UREA NITROGEN 20 mg/dL (7-20); CALCIUM 9.2 mg/dL (8.4-10.2); CARBON DIOXIDE 29 mmol/L (22-30); CHLORIDE 105 mmol/L (98-107); CREATINE KINASE 75 U/L (55-170); GLUCOSE 79 mg/dL (75-110); POTASSIUM 3.7 mmol/L (3.6-5.0); SODIUM 143.9 mmol/L (137-145); TOTAL PROTEIN 7.6 g/dL (6.3-8.2)
--- NOTE | 2018-05-04 20:52 | RADIOLOGY REPORT (SQ) ---
EXAM DESCRIPTION: CT HEAD WITHOUT COMPLETED DATE/TIME: 05/04/2018 8:40 pm REASON FOR STUDY: Weakness of both legs, difficulty standing COMPARISON: 09/03/2017 TECHNIQUE: Axial images acquired through the brain without intravenous contrast. Images reviewed wi th bone, brain and subdural windows. Additional sagittal and coronal reconstructions were generated. Images stored on PACS. All CT scanners at this facility use dose modulation, iterative reconstruction, and/or weight based d osing when appropriate to reduce radiation dose to as low as reasonably achievable (ALARA). [facility]: Dose Right [facility]: CareDose [facility]: Dose Right [facility]: Teradose 4D [facility]: NextUser RADIATION DOSE: CT Rad equipment meets quality standard of care and radiation dose reduction techniq ues were employed. CTDIvol: 23.9 mGy. DLP: 458 mGy-cm. mGy. LIMITATIONS: None. FINDINGS: VENTRICLES: Prominent ventricles secondary to involutional atrophy. CEREBRUM: Cortical atrophy. No masses. No hemorrhage. No midline shift. No evidence for acute inf arction. Few scattered areas of low density in the white matter most likely chronic small vessel isch emic changes. CEREBELLUM: No masses. No hemorrhage. No alteration of density. No evidence for acute infarction. EXTRAAXIAL SPACES: No fluid collections. No masses. ORBITS AND GLOBE: No intra- or extraconal masses. Normal contour of globe without masses. CALVARIUM: No fracture. PARANASAL SINUSES: No fluid or mucosal thickening. SOFT TISSUES: No mass or hematoma. OTHER: No other significant finding. IMPRESSION: Involutional changes of aging with chronic microvascular ischemia. No acute intracrania l imaging findings. The lateral ventricles may be disproportionately prominent to the degree of atro phy. Is there any clinical evidence of normal pressure hydrocephalus? EVIDENCE OF ACUTE STROKE: NO. COMMENT: Quality ID # [id number]: Final reports with documentation of one or more dose reduction techniques (e.g., Automated exposure control, adjustment of the mA and/or kV according to patient size, use of iterative reconstruction technique) TECHNICAL DOCUMENTATION: JOB ID: [id number] [employer]- All Rights Reserved Reading location - IP/workstation name: [email or web address]
[2018-05-04 20:54] LABS: ABSOLUTE LYMPHOCYTES# (MANUAL) 1.1 10^3/uL (0.5-4.7); ABSOLUTE MONOCYTES # (MANUAL) 0.3 10^3/uL (0.1-1.4); ABSOLUTE NEUTROPHILS# (MANUAL) 9.7 10^3/uL (1.7-8.2); BAND NEUTROPHILS % (MANUAL) 1 % (3-5); BASOPHILS % (MANUAL) 0 % (0-2); EOSINOPHILS % (MANUAL) 0 % (0-6); LYMPHOCYTES % (MANUAL) 8 % (13-45); MONOCYTES % (MANUAL) 3 % (3-13); SEGMENTED NEUTROPHILS % (MAN) 86 % (42-78); TOTAL CELLS COUNTED 100
[2018-05-04 20:55] LABS: PLATELET COMMENT ADEQUATE; RBC MORPHOLOGY COMMENT NORMO-CYTIC/CHROMIC
[2018-05-04 21:05] LABS: CREATINE KINASE MB 0.82 ng/mL (<4.55)
[2018-05-04 21:07] LABS: TROPONIN I < 0.012 ng/mL
[2018-05-04 23:26] LABS: APPEARANCE,URINE SLIGHTLY-CLOUDY; BILIRUBIN,URINE NEGATIVE (NEGATIVE); CALCIUM OXALATE CRYSTALS,URINE FEW /HPF; COLOR,URINE AMBER; GLUCOSE, URINE 50 mg/dL (NEGATIVE); KETONES,URINE NEGATIVE (NEGATIVE); LEUKOCYTE ESTERASE,URINE NEGATIVE (NEGATIVE); NITRITE,URINE NEGATIVE (NEGATIVE); PROTEIN,URINE 100 mg/dL (NEGATIVE); URINE SPECIFIC GRAVITY 1.023
[2018-05-04 23:27] VITALS: BP 102/78
--- NOTE | 2018-05-05 07:32 | EKG REPORT ---
SEVERITY:- NORMAL ECG - SINUS RHYTHM : Confirmed by: Fredi Blair MD 05-May-2018 07:31:17
== END 2018-05-05 01:53 | disposition home or self-care (01) ==
LOC: ER 18:15
DX: R53.1 Weakness (principal); R19.7 Diarrhea, unspecified; R05 Cough; J44.9 Chronic obstructive pulmonary disease, unspecified; R26.89 Other abnormalities of gait and mobility; Z79.899 Other long term (current) drug therapy; Z86.73 Personal history of transient ischemic attack (TIA), and cerebral infarction without residual deficits; Z72.0 Tobacco use
CPT/HCPCS: 36415; 70450; 71046; 80053; 80164; 81001; 82550; 82553; 84484; 85025; 93005; 93010; 99285

== ENCOUNTER 2018-08-01 14:11 | Emergency (ER) | payer OTHER, MEDICARE ==
--- NOTE | 2018-08-01 16:37 | ER Document Report ---
ED Fall - General Chief Complaint: Fall Stated Complaint: FALL/HIP AND KNEE PAIN Time Seen by Provider: 08/01/18 15:48 Mode of Arrival: Wheelchair Information source: Patient, Relative Notes: 73-year-old male with COPD presents to the emergency department after a fall at the senior home this afternoon. Fall was witnessed and he did not hit his head and there was no LOC. He was brought in by his [id number] in a wheelchair. Patient does ambulate with a shuffle and was previously seen here for ambulation problems. Per staff at the center, he tripped and fell landing on his right side. He denies any LOC, dizziness, lightheadedness, dyspnea, chest pain, nausea, vomiting, diarrhea, limb paresthesias. Versus mild pain TRAVEL OUTSIDE OF THE [place] IN LAST 30 DAYS: No - HPI Occurred: This afternoon Where: Public place Context: Tripped Associated symptoms: None. denies: Lost consciousness, Became dizzy/fainted Location of injury/pain: Elbow - right, Hip - right greater trochanter, Shoulder - right Quality of pain: Dull Severity: Mild - Related data Allergies/Adverse Reactions: No Known Allergies Allergy (Verified 08/01/18 14:12) Past Medical History - Social History Smoking Status: Former Smoker Chew tobacco use (# tins/day): No Frequency of alcohol use: None Drug Abuse: None Family History: Reviewed & Not Pertinent Patient has suicidal ideation: No Patient has homicidal ideation: No - Past Medical History Cardiac Medical History: Reports: Hx Hypercholesterolemia Pulmonary Medical History: Reports: Hx COPD Malignancy Medical History: Reports None Past Surgical History: Reports: Hx Appendectomy - Immunizations Hx Diphtheria, Pertussis, Tetanus Vaccination: Yes Physical Exam - Vital signs Vitals: Temp Pulse Resp BP Pulse Ox 97.9 F 65 20 103/62 100 08/01/18 14:19 08/01/18 14:19 08/01/18 14:19 08/01/18 14:19 08/01/18 14:19 Interpretation: Normal - General General appearance: Appears well, Alert - HEENT Head: Normocephalic, Atraumatic Eyes: Normal Pupils: PERRL - Respiratory Respiratory status: No respiratory distress Chest status: Nontender Breath sounds: Normal Chest palpation: Normal - Cardiovascular Rhythm: Regular Heart sounds: Normal auscultation Murmur: No - Abdominal Inspection: Normal Distension: No distension Bowel sounds: Normal Tenderness: Nontender Organomegaly: No organomegaly - Back Back: Normal, Nontender - Extremities General upper extremity: Normal inspection, Tender - Mild tenderness to palpation along the right trapezius muscle near the shoulder., Normal color, Normal ROM, Normal temperature General lower extremity: Normal inspection, Tender - Tenderness to palpation right greater trochanter. No edema, no erythema, no ecchymosis. Range of motion baseline, Normal color, Normal ROM, Normal temperature, Normal weight bearing. No: Momo's sign Shoulder: Normal, Nontender Elbow: Tender, Joint effusion - Area of swelling over the right olecranon. No erythema, no abrasions, warmth - Neurological Neuro grossly intact: Yes Cognition: Normal Orientation: AAOx4 Warren Coma Scale Eye Opening: Spontaneous Sofie Coma Scale Verbal: Oriented Sofie Coma Scale Motor: Obeys Commands Warren Coma Scale Total: 15 Speech: Normal Motor strength normal: LUE, RUE, LLE, RLE Sensory: Normal - Psychological Associated symptoms: Normal affect, Normal mood - Skin Skin Temperature: Warm Skin Moisture: Dry Skin Color: Normal Course - Re-evaluation Re-evalutation: 08/01/18 17:39 Right-sided rib x-ray, right elbow x-ray, right hip x-ray all negative for fracture or pathologies. Patient is at his baseline mental status. Witnessed fall with no evidence of LOC or hitting his head. At this point patient is safe and stable to discharge home. - Vital Signs Vital signs: Temp Pulse Resp BP Pulse Ox 97.9 F 65 20 103/62 100 08/01/18 14:19 08/01/18 14:19 08/01/18 14:19 08/01/18 14:19 08/01/18 14:19 Discharge - Discharge Clinical Impression: Fall Qualifiers: Encounter type: initial encounter Qualified Code(s): W19.XXXA - Unspecified fall, initial encounter Condition: Stable Disposition: HOME, SELF-CARE Additional Instructions: You have been seen in the Emergency Department (ED) today following a fall. Your workup today did not reveal any injuries that require you to stay in the hospital. You can expect, though, to be stiff and sore for the next several days. You can take Tylenol 1000 mg every 6 hours as needed for pain. You can apply a hot pack or electric heating pad to the sore areas. You can also use topical "Aspercreme with lidocaine" to sore areas as needed. Please follow up with your primary care doctor as soon as possible regarding today's ED visit and your recent fall. Call your doctor or return to the ED if you develop a sudden or severe headache , confusion, slurred speech, facial droop, weakness or numbness in any arm or leg, extreme fatigue, vomiting more than two times, severe abdominal pain, or other symptoms that concern you. Referrals: ROSITA FARRIS NP [Primary Care Provider] - Follow up as needed
--- NOTE | 2018-08-01 17:25 | RADIOLOGY REPORT (SQ) ---
EXAM DESCRIPTION: HIP RIGHT AP/LATERAL COMPLETED DATE/TIME: 08/01/2018 5:13 pm REASON FOR STUDY: fall, pain right hip pain COMPARISON: None. NUMBER OF VIEWS: Two views. TECHNIQUE: AP and frog-leg view of the right hip. LIMITATIONS: None. FINDINGS: MINERALIZATION: Normal. RIGHT HIP: No fracture or dislocation. No worrisome bone lesions. OPPOSITE HIP: No fracture or dislocation. No worrisome bone lesions. SOFT TISSUES: No findings. OTHER: No other significant finding. IMPRESSION: NEGATIVE STUDY OF THE RIGHT HIP. NO RADIOGRAPHIC EVIDENCE OF ACUTE INJURY. TECHNICAL DOCUMENTATION: JOB ID: [id number] [employer]- All Rights Reserved Reading location - IP/workstation name: [email or web address]
--- NOTE | 2018-08-01 17:28 | RADIOLOGY REPORT (SQ) ---
EXAM DESCRIPTION: RIBS RIGHT W/PA CHEST COMPLETED DATE/TIME: 08/01/2018 5:12 pm REASON FOR STUDY: fall, rib and shoulder pain COMPARISON: Chest x-ray dated 03/03/2017 TECHNIQUE: Frontal view of the chest and additional views of the right ribs acquired. NUMBER OF VIEWS: Five view. LIMITATIONS: None. FINDINGS: FRONTAL CXR: There chronic pleural and parenchymal changes in the lung bases. No pneumoth orax. No consolidation. RIBS: There is a minimally displaced 6th lateral rib. This appears chronic. There is an old right 9 th and 10th right rib fracture as well. OTHER: No other significant finding. IMPRESSION: Chronic right-sided rib fractures. Chronic basilar pleural and parenchymal changes. No acute findings. COMMENT: SITE OF TRAUMA/COMPLAINT MARKED/STAMP COMPLETED: NO. TECHNICAL DOCUMENTATION: JOB ID: [id number] [employer]- All Rights Reserved Reading location - IP/workstation name: [email or web address]
--- NOTE | 2018-08-01 17:29 | RADIOLOGY REPORT (SQ) ---
EXAM DESCRIPTION: ELBOW RIGHT OVER 2 VIEWS COMPLETED DATE/TIME: 08/01/2018 5:12 pm REASON FOR STUDY: fall COMPARISON: None. NUMBER OF VIEWS: Four views. TECHNIQUE: AP, lateral, and both oblique radiographic images acquired of the right elbow. LIMITATIONS: None. FINDINGS: MINERALIZATION: Normal. BONES: No acute fracture or dislocation. No worrisome bone lesions. JOINT: No effusion. SOFT TISSUES: There is soft tissue swelling over the olecranon. OTHER: No other significant finding. IMPRESSION: Soft tissue swelling over the olecranon. No fracture. TECHNICAL DOCUMENTATION: JOB ID: [id number] [employer]- All Rights Reserved Reading location - IP/workstation name: [email or web address]
[2018-08-01 18:06] VITALS: BP 110/64
== END 2018-08-01 18:06 | disposition home or self-care (01) ==
LOC: ER 14:11
DX: S59.901A Unspecified injury of right elbow, initial encounter (principal); S49.91XA Unspecified injury of right shoulder and upper arm, initial encounter; S79.911A Unspecified injury of right hip, initial encounter; M25.421 Effusion, right elbow; W19.XXXA Unspecified fall, initial encounter; Y93.89 Activity, other specified; Y92.199 Unspecified place in other specified residential institution as the place of occurrence of the external cause; J44.9 Chronic obstructive pulmonary disease, unspecified; Z87.891 Personal history of nicotine dependence
CPT/HCPCS: 99283

== ENCOUNTER 2018-08-03 19:21 | Emergency (ER) | payer OTHER, MEDICARE ==
--- NOTE | 2018-08-03 20:35 | RADIOLOGY REPORT (SQ) ---
EXAM DESCRIPTION: CT HEAD WITHOUT COMPLETED DATE/TIME: 08/03/2018 8:24 pm REASON FOR STUDY: fall COMPARISON: 05/04/2018 TECHNIQUE: Axial images acquired through the brain without intravenous contrast. Images reviewed wi th bone, brain and subdural windows. Additional sagittal and coronal reconstructions were generated. Images stored on PACS. All CT scanners at this facility use dose modulation, iterative reconstruction, and/or weight based d osing when appropriate to reduce radiation dose to as low as reasonably achievable (ALARA). [facility]: Dose Right [facility]: CareDose [facility]: Dose Right [facility]: Teradose 4D [facility]: Smart [employer] RADIATION DOSE: CT Rad equipment meets quality standard of care and radiation dose reduction techniq ues were employed. CTDIvol: 53.2 mGy. DLP: 991 mGy-cm. mGy. LIMITATIONS: None. FINDINGS: VENTRICLES: Prominent ventricles secondary to involutional atrophy. CEREBRUM: No masses. No hemorrhage. No midline shift. No evidence for acute infarction. Few scatte red areas of low density in the white matter most likely chronic small vessel ischemic changes. CEREBELLUM: No masses. No hemorrhage. No alteration of density. No evidence for acute infarction. EXTRAAXIAL SPACES: No fluid collections. No masses. ORBITS AND GLOBE: No intra- or extraconal masses. Normal contour of globe without masses. CALVARIUM: No fracture. PARANASAL SINUSES: No fluid or mucosal thickening. SOFT TISSUES: No mass or hematoma. OTHER: No other significant finding. IMPRESSION: Involutional changes of aging with mild chronic microvascular ischemia. No acute intrac ranial imaging findings. No interval change. EVIDENCE OF ACUTE STROKE: NO. COMMENT: Quality ID # [id number]: Final reports with documentation of one or more dose reduction techniques (e.g., Automated exposure control, adjustment of the mA and/or kV according to patient size, use of iterative reconstruction technique) TECHNICAL DOCUMENTATION: JOB ID: [id number] [employer]- All Rights Reserved Reading location - IP/workstation name: [email or web address]
--- NOTE | 2018-08-03 20:40 | RADIOLOGY REPORT (SQ) ---
EXAM DESCRIPTION: CT CERVICAL SPINE WITHOUT COMPLETED DATE/TIME: 08/03/2018 8:24 pm REASON FOR STUDY: fall COMPARISON: None. TECHNIQUE: Axial images acquired through the cervical spine without intravenous contrast. Images re viewed with lung, soft tissue and bone windows. Reconstructed coronal and sagittal MPR images review ed. Images stored on PACS. All CT scanners at this facility use dose modulation, iterative reconstruction, and/or weight based d osing when appropriate to reduce radiation dose to as low as reasonably achievable (ALARA). [facility]: Dose Right [facility]: CareDose [facility]: Dose Right [facility]: Teradose 4D [facility]: Smart [employer] RADIATION DOSE: CT Rad equipment meets quality standard of care and radiation dose reduction techniq ues were employed. CTDIvol: 19.7 mGy. DLP: 868 mGy-cm. mGy. LIMITATIONS: Motion artifact. FINDINGS: ALIGNMENT: Anatomic. MINERALIZATION: Normal. VERTEBRAL BODIES: No fractures or dislocation. DISCS: Disc spaces are narrowed from C4-C7 with anterior and posterior osteophytes. FACETS, LATERAL MASSES, POSTERIOR ELEMENTS: Hypertrophic facet changes are present multiple levels. HARDWARE: None in the spine. VISUALIZED RIBS: No fractures. LUNG APICES AND SOFT TISSUES: No significant or acute findings. OTHER: No other significant finding. IMPRESSION: Multilevel degenerative disc disease, spondylosis, and facet arthropathy. No acute find ings. TECHNICAL DOCUMENTATION: JOB ID: [id number] Quality ID # [id number]: Final reports with documentation of one or more dose reduction techniques (e.g., Au tomated exposure control, adjustment of the mA and/or kV according to patient size, use of iterative reconstruction technique) 2010 [employer]- All Rights Reserved Reading location - IP/workstation name: [email or web address]
[2018-08-03] MEDS ORDERED: LORAZEPAM 1 MG TABLET PO ONE (21:06)
--- NOTE | 2018-08-03 22:07 | ER Document Report ---
HPI - HPI Patient complains to provider of: face laceration Time Seen by Provider: 08/03/18 19:30 Pain Level: Denies Context: Patient is a 73-year-old male presenting to the emergency department status post fall. Patient is from [facility] which is a nursing facility. Nursing facility stated they did not witness the patient fall but they did find him on the ground and he had sustained a laceration to the left side of his face. Patient does have a history of dementia and a traumatic brain injury and staff states he tries to get up by his self multiple times throughout the day. Patient was seen here a few days ago for another fall. Initially patient was by himself brought in by EMS but patient's Daughter is now at bedside. Past medical history: Traumatic brain injury, dementia, COPD Meds: trazadone, simbicort, Lamictal, ativan Allergies: none - DERM Skin Color: Normal Past Medical History - General Information source: Relative - Social History Smoking Status: Unknown if Ever Smoked Lives with: Assisted Family History: Reviewed & Not Pertinent Patient has suicidal ideation: No Patient has homicidal ideation: No - Past Medical History Cardiac Medical History: Reports: Hx Hypercholesterolemia Pulmonary Medical History: Reports: Hx COPD Renal/ Medical History: Denies: Hx Peritoneal Dialysis Past Surgical History: Reports: Hx Appendectomy - Immunizations Hx Diphtheria, Pertussis, Tetanus Vaccination: Yes Vertical Provider Document - CONSTITUTIONAL Agree With Documented VS: Yes Notes: GENERAL: Alert, interacts well. No acute distress. asking for his glasses HEAD: Normocephalic EYES: Pupils equal, round, and reactive to light. Extraocular movements intact. ENT: Oral mucosa moist, tongue midline. Nares patent, no nasal septal hematoma, TM's intact. NECK: Full range of motion. Supple. Trachea midline. LUNGS: Clear to auscultation bilaterally, no wheezes, rales, or rhonchi. No respiratory distress. HEART: Regular rate and rhythm. No murmur ABDOMEN: Soft, non-tender. Non-distended. Bowel sounds present in all 4 quadrants. EXTREMITIES: Moves all 4 extremities spontaneously. No edema, normal radial and dorsalis pedis pulses bilaterally. No cyanosis. BACK: no cervical, thoracic, lumbar midline tenderness. No saddle anesthesia, normal distal neurovascular exam. NEUROLOGICAL: Alert to his name but unable to tell staff what happened or where he is, daughter at bedside stated that was his baseline PSYCH: Normal affect, normal mood. SKIN: Warm, dry, normal turgor. one 2 cm vertical superficial laceration noted to the left cheek. one 1 cm vertical laceration noted under the initial 2 cm laceration. Also superficial in nature. - INFECTION CONTROL TRAVEL OUTSIDE OF THE [place] IN LAST 30 DAYS: No Course - Re-evaluation Re-evalutation: 08/03/18 22:[address] scans were negative for intracranial bleeding or fractures of the C- spine. Discussed this at length with daughter at bedside. Daughter states they do need to give the patient "calming medication" often at the nursing facility. I initially tried to clean the patient's wound and he kept grabbing at my hands and was very agitated. Ativan was then ordered. Wound was unable to be cleaned without any difficulties. Dermabond was placed over the very superficial laceration versus abrasion. Pt. is at his baseline neurologically per daughter and she is okay with his discharge home. Patient stable for discharge at this time. - Vital Signs Vital signs: Temp Pulse Resp BP Pulse Ox 98.2 F 76 18 114/71 96 08/03/18 19:22 08/03/18 19:22 08/03/18 19:22 08/03/18 19:22 08/03/18 19:22 Discharge - Discharge Clinical Impression: Facial laceration Qualifiers: Encounter type: initial encounter Qualified Code(s): S01.81XA - Laceration without foreign body of other part of head, initial encounter Head injury Qualifiers: Encounter type: initial encounter Qualified Code(s): S09.90XA - Unspecified injury of head, initial encounter Fall Qualifiers: Encounter type: initial encounter Qualified Code(s): W19.XXXA - Unspecified fall, initial encounter Condition: Stable Disposition: HOME, SELF-CARE Instructions: Laceration Care ([facility]), Tetanus Immunization Given ([facility]) Additional Instructions: Dermabond (Skin Adhesive Closure) Skin adhesive (such as Dermabond) is a quick-drying glue that remains slightly flexible while it holds wound edges together. It can substitute for stitches on some cuts. The film will usually fall off the skin after 5 to 10 days. Keep the wound area clean and dry. Do not soak or scrub the wound. Don't swim. You can shower briefly after 24 hours. Gently blot the area dry with a soft towel. Don't apply ointments. If there is a dressing, change it immediately if it gets wet. Do not place tape directly over the adhesive film, because the tape may pull the film off your skin as you remove it. Don't bump the wound area. If there's risk of injury, keep the area well- padded. Avoid stretching of the skin. Do not scratch or pick at the adhesive film. Avoid prolonged exposure to sunlight or tanning lamps. Return if there is increasing pain, swelling, redness, or drainage, or if the wound edges seem to open or separate. Referrals: ROSITA FARRIS NP [Primary Care Provider] - Follow up as needed
[2018-08-03] MEDS ORDERED: DIPH/PERTUSS(ACELL)/TETANUS VAC/PF 0.5 ML SYR (>=10YO) IM ONE (22:16)
[2018-08-03 22:45] VITALS: BP 116/76
== END 2018-08-03 22:45 ==
LOC: ER 19:21
DX: S01.81XA Laceration without foreign body of other part of head, initial encounter (principal); S09.90XA Unspecified injury of head, initial encounter; W18.30XA Fall on same level, unspecified, initial encounter; Y92.129 Unspecified place in nursing home as the place of occurrence of the external cause; F03.90 Unspecified dementia, unspecified severity, without behavioral disturbance, psychotic disturbance, mood disturbance, and anxiety; Z87.820 Personal history of traumatic brain injury; J44.9 Chronic obstructive pulmonary disease, unspecified; E78.00 Pure hypercholesterolemia, unspecified; Z23 Encounter for immunization
CPT/HCPCS: 70450; 72125; 90471; 90715; 99284

== ENCOUNTER 2018-08-07 11:18 | Emergency (ER) | payer OTHER, MEDICARE ==
[2018-08-07 11:25] VITALS: BP 124/73
--- NOTE | 2018-08-07 11:46 | ER Document Report ---
ED General - General Mode of Arrival: Medic Information source: Patient, Emergency Med Personnel TRAVEL OUTSIDE OF THE [place] IN LAST 30 DAYS: No <GASTON DUNNE - Last Filed: 08/07/18 11:40> <IRMA THOMPSON - Last Filed: 08/07/18 13:04> - General Chief Complaint: Fall Stated Complaint: RIGHT ARM PAIN Time Seen by Provider: 08/07/18 11:22 Notes: Patient is a 73 year old male with dementia presents to the emergency department via EMS from [facility] complaining of right arm pain, right hip pain and right leg pain secondary a fall. Patient states he was attempting to go to the bathroom and fell. No further history was obtained due to patients mental status. According to [facility] records patient has had 3 falls within the last seven days. (GASTON DUNNE) - Related Data Allergies/Adverse Reactions: No Known Allergies Allergy (Verified 08/01/18 14:12) Past Medical History - General Information source: Patient, Emergency Med Personnel - Social History Smoking Status: Unknown if Ever Smoked Family History: Reviewed & Not Pertinent - Past Medical History Cardiac Medical History: Reports: Hx Hypercholesterolemia Pulmonary Medical History: Reports: Hx COPD Past Surgical History: Reports: Hx Appendectomy - Immunizations Hx Diphtheria, Pertussis, Tetanus Vaccination: Yes <GASTON DUNNE - Last Filed: 08/07/18 11:40> Review of Systems - Review of Systems Constitutional: No symptoms reported EENT: No symptoms reported Cardiovascular: No symptoms reported Respiratory: No symptoms reported Gastrointestinal: No symptoms reported Genitourinary: No symptoms reported Male Genitourinary: No symptoms reported Musculoskeletal: See HPI Skin: No symptoms reported Hematologic/Lymphatic: No symptoms reported Neurological/Psychological: No symptoms reported -: Yes All other systems reviewed and negative <GASTON DUNNE - Last Filed: 08/07/18 11:40> Physical Exam <GASTON DUNNE - Last Filed: 08/07/18 11:40> <IRMA THOMPSON - Last Filed: 08/07/18 13:04> - Vital signs Vitals: Temp Pulse Resp BP Pulse Ox 98.4 F 58 L 24 H 124/73 100 08/07/18 11:24 08/07/18 11:24 08/07/18 11:24 08/07/18 11:24 08/07/18 11:24 - Notes Notes: GENERAL: Alert, interacts well. No acute distress. HEAD: Normocephalic. Left zygoma region has an old healing abrasion. EYES: Pupils equal, round, and reactive to light. Extraocular movements intact. ENT: Oral mucosa moist, tongue midline. NECK: Full range of motion. Supple. Trachea midline. LUNGS: Clear to auscultation bilaterally, no wheezes, rales, or rhonchi. No respiratory distress. HEART: Regular rate and rhythm. No murmurs, gallops, or rubs. ABDOMEN: Soft, non-tender. Non-distended. Bowel sounds present in all 4 quadrants. EXTREMITIES: Moves all 4 extremities spontaneously. Right proximal forearm is grossly swollen just below the elbow. Tender to palpation to the right proximal anteriolateral knee, just lateral to midline, with a small amount of swelling and an old abrasion. Right hip tender to palpation. Pitting edema to the right ankle. NEUROLOGICAL: Demented at baseline. Alert, making jokes. Normal speech. PSYCH: Normal affect, normal mood. SKIN: Warm, dry. 3 skins tears distal to the right elbow on the dorsal ulnar forearm, approximately 2 cm in size. (GASTON DUNNE) Course - Diagnostic Test Radiology reviewed: Image reviewed, Reports reviewed - X-rays of the right forearm, right hip, and right tibia do not show fractures but do show the soft tissue swelling in the forearm and the proximal tibial region. <IRMA THOMPSON - Last Filed: 08/07/18 13:04> - Vital Signs Vital signs: Temp Pulse Resp BP Pulse Ox 98.4 F 58 L 24 H 124/73 100 08/07/18 11:24 08/07/18 11:24 08/07/18 11:24 08/07/18 11:24 08/07/18 11:24 Discharge <GASTON DUNNE - Last Filed: 08/07/18 11:40> <IRMA THOMPSON - Last Filed: 08/07/18 13:04> - Discharge Clinical Impression: Right hip pain Fall Qualifiers: Encounter type: initial encounter Qualified Code(s): W19.XXXA - Unspecified fall, initial encounter Pain and swelling of forearm Qualifiers: Laterality: right Qualified Code(s): M79.631 - Pain in right forearm; M79.89 - Other specified soft tissue disorders; M79.89 - Other specified soft tissue disorders Skin tear of right forearm without complication Qualifiers: Encounter type: initial encounter Qualified Code(s): S51.811A - Laceration without foreign body of right forearm, initial encounter Contusion of knee and lower leg Qualifiers: Encounter type: initial encounter Laterality: right Qualified Code(s): S80.01XA - Contusion of right knee, initial encounter; S80.11XA - Contusion of right lower leg, initial encounter; S80.11XA - Contusion of right lower leg, initial encounter Condition: Stable Disposition: HOME, SELF-CARE Additional Instructions: Skin Tear Your wound is a skin tear. These wounds are difficult and sometimes impossible to suture because the skin is so fragile that it may not hold the sutures. The skin condition can be due to aging and sometimes medications. The best care for such skin tears is sometimes to not try to suture them. Rather, it is best to position the skin as closely as possible to its original location and apply a bandage that can remain in place for several days at a time and sometimes these bandages are left in place until the wound has healed. Most skin tears will heal in about two weeks. Because they are so difficult to care for, skin tears should be expected to leave some scarring. Abrasions An abrasion is a scraping injury of the skin. Some scarring may result. The seriousness of an abrasion is not always obvious at first. Hidden tissue damage may be present and infection may occur despite proper care. Complete healing may take from ten days to as long as a month. The healing time depends on the depth of the abrasion, and on the amount of crushing of underlying tissues from the injury. Keep the wound and dressing clean. Do not shower or bathe the area until okayed by the doctor. If the dressing gets wet, remove it and blot the wound dry, then reapply a clean dressing. Dressings should be changed every day. Sunscreen should be used for six months after the skin is healed. If any signs of infection occur (swelling, redness, increasing tenderness, red streaks, profuse purulent drainage from the abrasion, tender lumps in the armpit or groin above the abrasion, or fever), see the doctor immediately. Contusion Your injury has resulted in a contusion -- a crushing of the deep tissues. No injury to important structures was detected during the physician's exam. Contusions vary in the amount of pain they cause, and in the length of time required for healing. Typically, the area will become bruised, and will remain painful to touch for two or three weeks. However, most patients are back to working and playing within a few days. After the initial period of rest and cold-packs, your symptoms (together with the doctor's recommendations) will determine how rapidly you can get back to full activity. Usually this means "do what feels okay, but don't do things that hurt." If re-examination was recommended, it's important to follow up as instructed. Call the doctor or return any time if pain increases, if swelling becomes severe, if you develop numbness or weakness in an injured extremity, or if any other alarming symptoms occur. X-rays of the right swollen forearm, the painful right hip, and the swollen right proximal leg not show fractures. Keep the forearm abrasions clean and dressed. Follow-up with your doctor as needed. RETURN TO THE EMERGENCY ROOM IF ANY NEW OR WORSENING SYMPTOMS. Referrals: ROSITA FARRIS NP [Primary Care Provider] - Follow up as needed Scribe Attestation: 08/07/18 12:10 I personally performed the services described in the documentation, reviewed and edited the documentation which was dictated to the scribe in my presence, and it accurately records my words and actions. (IRMA THOMPSON) Scribe Documentation - Scribe Written by Leroy:: Leroy Villeags, 08/07/2018 11:55 acting as scribe for :: Elva <GASTON DUNNE - Last Filed: 08/07/18 11:40>
--- NOTE | 2018-08-07 12:40 | RADIOLOGY REPORT (SQ) ---
EXAM DESCRIPTION: TIBIA FIBULA RIGHT COMPLETED DATE/TIME: 08/07/2018 12:21 pm REASON FOR STUDY: Fall, proximal cheri-lateral leg grossly swollen COMPARISON: None. NUMBER OF VIEWS: Two views. TECHNIQUE: Two radiographic images acquired of the right tibia and fibula to include the knee and an kle in at least one projection. LIMITATIONS: None. FINDINGS: MINERALIZATION: Normal. BONES: No acute fracture or dislocation. No worrisome bone lesions. SOFT TISSUES: No obvious swelling or foreign body. OTHER: No other significant finding. IMPRESSION: No fracture or dislocation of the right tibia or fibula. No radiographic abnormality of the proximal lateral lower leg. TECHNICAL DOCUMENTATION: JOB ID: [id number] [employer]- All Rights Reserved Reading location - IP/workstation name: [email or web address]
--- NOTE | 2018-08-07 12:44 | RADIOLOGY REPORT (SQ) ---
EXAM DESCRIPTION: FOREARM RIGHT COMPLETED DATE/TIME: 08/07/2018 12:21 pm REASON FOR STUDY: Fall, proximal forearm grossly swollen COMPARISON: None. NUMBER OF VIEWS: Two views. TECHNIQUE: Two radiographic images acquired of the right forearm, including elbow and wrist in at le ast one projection. LIMITATIONS: None. FINDINGS: MINERALIZATION: Normal. BONES: No acute fracture. No worrisome bone lesions. Small calcifications adjacent the olecranon fe lt represent some tendinous calcification. Some tendinous calcification is also noted adjacent to th e lateral epicondyles SOFT TISSUES: Soft tissue swelling dorsally with suggestion of skin injury. OTHER: No other significant finding. IMPRESSION: Soft tissue swelling involving the right forearm without evidence of fracture. TECHNICAL DOCUMENTATION: JOB ID: [id number] [employer]- All Rights Reserved Reading location - IP/workstation name: [email or web address]
--- NOTE | 2018-08-07 12:47 | RADIOLOGY REPORT (SQ) ---
EXAM DESCRIPTION: HIP RIGHT AP/LATERAL COMPLETED DATE/TIME: 08/07/2018 12:21 pm REASON FOR STUDY: Fall, hip tender COMPARISON: None. NUMBER OF VIEWS: Two views. TECHNIQUE: AP pelvis and additional frog-leg view of the right hip. LIMITATIONS: None. FINDINGS: MINERALIZATION: Normal. RIGHT HIP: No fracture or dislocation. No worrisome bone lesions. LEFT HIP: No fracture or dislocation. No worrisome bone lesions. PUBIS AND ISCHIUM: No fracture. PELVIS: No fracture. SACRUM: No fracture or dislocation. No worrisome bone lesions. LOWER LUMBAR SPINE: No fracture or dislocation. No worrisome bone lesions. No significant disc disea se. SOFT TISSUES: No findings. OTHER: No other significant finding. IMPRESSION: NEGATIVE STUDY OF THE RIGHT HIP. NO RADIOGRAPHIC EVIDENCE OF ACUTE INJURY. TECHNICAL DOCUMENTATION: JOB ID: [id number] [employer]- All Rights Reserved Reading location - IP/workstation name: [email or web address]
== END 2018-08-07 13:37 | disposition home or self-care (01) ==
LOC: ER 11:18
DX: S51.811A Laceration without foreign body of right forearm, initial encounter (principal); S80.01XA Contusion of right knee, initial encounter; S80.11XA Contusion of right lower leg, initial encounter; M79.601 Pain in right arm; M25.551 Pain in right hip; W18.30XA Fall on same level, unspecified, initial encounter; Y92.129 Unspecified place in nursing home as the place of occurrence of the external cause; E78.00 Pure hypercholesterolemia, unspecified; J44.9 Chronic obstructive pulmonary disease, unspecified; F03.90 Unspecified dementia, unspecified severity, without behavioral disturbance, psychotic disturbance, mood disturbance, and anxiety
CPT/HCPCS: 99284

== ENCOUNTER 2018-08-12 06:06 | Inpatient (IN) | payer OTHER, MEDICARE ==
--- NOTE | 2018-08-12 06:12 | ER Document Report ---
ED Fall - General Stated Complaint: FALL Time Seen by Provider: 08/12/18 06:12 Notes: 73-year-old male presents from a skilled nursing after fall. Had laceration noted to the right temporal frontal area of his scalp. Patient has severe dementia from a anoxic brain injury due to severe COPD. Has had multiple falls recently. At the [facility]. Patient nonverbal. EMS was called. They placed bandage on head as well as placing C-spine immobilization with c- collar. TRAVEL OUTSIDE OF THE [place] IN LAST 30 DAYS: No - HPI Occurred: Just prior to arrival Where: [facility] Location of injury/pain: Head Prehospital interventions: C-collar - Related data Allergies/Adverse Reactions: No Known Allergies Allergy (Verified 08/01/18 14:12) Past Medical History - General Information source: [facility] Records, Outside Facility Records Cannot obtain history due to: Dementia - Social History Smoking Status: Former Smoker Lives with: [facility] Family History: Reviewed & Not Pertinent - Past Medical History Cardiac Medical History: Reports: Hx Hypercholesterolemia Pulmonary Medical History: Reports: Hx COPD Renal/ Medical History: Denies: Hx Peritoneal Dialysis Past Surgical History: Reports: Hx Appendectomy - Immunizations Hx Diphtheria, Pertussis, Tetanus Vaccination: Yes Review of Systems - Review of Systems -: Yes ROS unobtainable due to patient's medical condition - Due to severe dementia. Run report reviewed. detention records reviewe Physical Exam - Vital signs Vitals: Resp BP Pulse Ox 13 106/68 98 08/12/18 06:23 08/12/18 06:23 08/12/18 06:23 Interpretation: Normal - General General appearance: Appears well, Alert - HEENT Head: Normocephalic, Other - Laceration on the right frontal temporal area of the scalp. Eyes: Normal Pupils: PERRL Tympanic membrane: Normal. No: Hemotympanum Mouth/Lips: Normal Mucous membranes: Normal Pharynx: Normal Neck: Normal - Respiratory Respiratory status: No respiratory distress Chest status: Nontender Breath sounds: Normal Chest palpation: Normal - Cardiovascular Rhythm: Regular Heart sounds: Normal auscultation Murmur: No - Abdominal Inspection: Normal Distension: No distension Bowel sounds: Normal Tenderness: Nontender Organomegaly: No organomegaly - Back Back: Normal, Nontender. No: Deformity/step-off, Vertebra tenderness - Extremities General upper extremity: Normal inspection, Nontender, Normal color, Normal ROM , Normal temperature General lower extremity: Normal inspection, Nontender, Normal color, Normal ROM , Normal temperature, Other - The right ankle appears more swollen than the left. No obvious deformities. No: Moom's sign - Neurological Cognition: Confused, Short term memory loss Motor strength normal: LUE, RUE, LLE, RLE - Skin Skin Temperature: Warm Skin Moisture: Dry Skin Color: Normal, Other - There is a 2 cm curvilinear laceration noted to the right temporal scalp. There is a large blood bruise noted on the right anterior chest. There is bruising noted around the right eye. Course - Re-evaluation Re-evalutation: 08/12/18 07:[address] 08/12/18 06:18 IMPRESSION: 1. No acute intracranial abnormality by CT criteria. This exam was performed according to our departmental dose-optimization program, which includes automated exposure control, adjustment of the mA and/or kV according to patient size and/or use of iterative reconstruction technique. Cervical Spine CT 08/12/18 06:19 IMPRESSION: 1. No acute fracture or subluxation of the cervical spine. 2. Moderate multilevel degenerative change throughout the cervical spine. This exam was performed according to our departmental dose-optimization program, which includes automated exposure control, adjustment of the mA and/or kV according to patient size and/or use of iterative reconstruction technique. Ankle X-Ray 08/12/18 06:28 IMPRESSION: 1. No acute fracture or dislocation. copyright 2010 [employer]- All Rights Reserved Chest X-Ray 08/12/18 06:34 IMPRESSION: 1. No acute pulmonary process identified. Chronic changes are stable. 08/12/18 08:04 Patient has elevated WBC count, elevated cardiac troponin, elevated LFTs. Patient also has a significantly prolonged QT on EKG. Based on these acute findings I did immediately call his daughter who is his power of associate attorney and medical power of associate attorney. Patient is a DNR. She does not want any heroic procedures done. At this time I think that is completely appropriate as patient has no quality of life. I was able to get the full story of why patient has these conditions at his age. Apparently he tried to hang himself when he was 27. The patient's daughter was only 4 months old at that time. Patient was taking care of by his mother until she then taken care of by his sister until she . The adult daughter is now the power of associate attorney. At this time we will keep patient comfortable. Will evaluate for possible surgical abdomen with these LFTs that are elevated and will likely consult with cardiology and keep patient here doing medical management for his NSTEMI. Of note patient also has extremely elevated creatinine kinase. Likely in rhabdo. Fluids are being started at this time. 08/12/18 10:06 - Vital Signs Vital signs: Temp Pulse Resp BP Pulse Ox 98.1 F 14 102/67 100 08/12/18 09:30 08/12/18 09:30 08/12/18 09:30 08/12/18 09:30 - Laboratory Result Diagrams: 08/12/18 06:34 08/12/18 06:34 Laboratory results interpreted by me: 08/12/18 08/12/18 08/12/18 06:34 06:34 06:34 WBC 13.9 H RBC 3.65 L Hgb 11.3 L Hct 32.8 L RDW 14.4 H Seg Neuts % (Manual) 82 H Lymphocytes % (Manual) 7 L Abs Neuts (Manual) 11.4 H Abs Monocytes (Manual) 1.5 H Carbon Dioxide 31 H Anion Gap 4 L BUN 27 H AST 386 H ALT 121 H Creatine Kinase CK-MB (CK-2) 24.10 H 08/12/18 08:37 WBC RBC Hgb Hct RDW Seg Neuts % (Manual) Lymphocytes % (Manual) Abs Neuts (Manual) Abs Monocytes (Manual) Carbon Dioxide Anion Gap BUN AST ALT Creatine Kinase 06844 H CK-MB (CK-2) - EKG Interpretation by Me EKG shows normal: Sinus rhythm, [place], QRS Complexes, ST-T Waves Additional EKG results interpreted by me: 08/12/18 07:38 Prolonged QTC at 516. Borderline LVH Procedures - Laceration/Wound Repair Right Head Time completed: 08:03 Wound length (cm): 2 Wound's Depth, Shape: Flap Anesthetic type: 1% Lidocaine Volume Anesthetic (mLs): 5 Wound explored: Clean Irrigated w/ Saline (mLs): 500 Wound Repaired With: Sutures Suture Size/Type: 4:0 Number of Sutures: 6 Layer Closure?: No Post-procedure wound care: Sterile dressing applied Complications: No Notes: 08/12/18 08:04 completed by YOUSIF Acosta Critical Care Note - Critical Care Note Total time excluding time spent on procedures (mins): 45 Comments: Acute cardiac event, syncope and collapse, closed head injury, consultation with family members, coordination of care. Discharge - Discharge Clinical Impression: NSTEMI (non-ST elevated myocardial infarction), Acute hepatitis, Prolonged Q-T interval on ECG Leukocytosis, unspecified Qualifiers: Leukocytosis type: unspecified Qualified Code(s): D72.829 - Elevated white blood cell count, unspecified Closed head injury Qualifiers: Encounter type: initial encounter Qualified Code(s): S09.90XA - Unspecified injury of head, initial encounter Laceration of head Qualifiers: Encounter type: initial encounter Location of open wound of head: scalp Foreign body presence: without foreign body Qualified Code(s): S01.01XA - Laceration without foreign body of scalp, initial encounter Rhabdomyolysis Qualifiers: Rhabdomyolysis type: non-traumatic Qualified Code(s): M62.82 - Rhabdomyolysis Condition: Fair Disposition: ADMITTED INPATIENT Admitting Provider: Hospitalist Unit Admitted: Medical Floor - [facility]
[2018-08-12 07:05] LABS: HEMATOCRIT 32.8 % (37.9-51.0); HEMOGLOBIN 11.3 g/dL (13.5-17.0); MEAN CORPUSCULAR HGB CONC 34.4 g/dL (32.0-36.0); MEAN CORPUSCULAR VOLUME 90 fl (80-97); PLATELET COUNT 308 10^3/uL (150-450); RED BLOOD COUNT 3.65 10^6/uL (4.35-5.55); RED CELL DISTRIBUTION WIDTH 14.4 % (11.5-14.0); WHITE BLOOD COUNT 13.9 10^3/uL (4.0-10.5)
--- NOTE | 2018-08-12 07:07 | RADIOLOGY REPORT (SQ) ---
EXAM DESCRIPTION: CT HEAD WITHOUT IV CONTRAST COMPLETED DATE/TME: 08/12/2018 06:18 CLINICAL HISTORY: fall, ams, headlac COMPARISON: 08/03/2028 2 TECHNIQUE: Axial CT of the head obtained from the skull apex to the skull base without contrast. FINDINGS: No acute intracranial hemorrhage identified. No mass, mass effect, shift of the midline, abnormal extra-axial fluid collection or CT evidence of acute ischemic change identified. The ventricular system and sulcal spaces are mildly enlarged compatible with mild cerebral atrophy. Confluent areas of hypodensity throughout the supratentorial white matter are nonspecific and may be related to chronic small vessel ischemic change. The visualized paranasal sinuses and the mastoids are clear. No skull fracture identified. Visualized orbits and globes are unremarkable. Atherosclerotic calcification of the intracranial internal carotid arteries. DLP: 1017.17 mGy-cm IMPRESSION: 1. No acute intracranial abnormality by CT criteria. This exam was performed according to our departmental dose-optimization program, which includes automated exposure control, adjustment of the mA and/or kV according to patient size and/or use of iterative reconstruction technique.
[2018-08-12] MEDS ORDERED: LIDOCAINE 1% INJ-PF (10 MG/ML) 30 ML SDV INJ ONE (07:08)
--- NOTE | 2018-08-12 07:15 | RADIOLOGY REPORT (SQ) ---
EXAM DESCRIPTION: CT CERVICAL SPINE WITHOUT IV CONTRAST COMPLETED DATE/TME: 08/12/2018 06:19 CLINICAL HISTORY: fall, altered COMPARISON: 08/03/2018 TECHNIQUE: Axial CT of the cervical spine obtained without contrast. FINDINGS: Alignment of the cervical spine is maintained without evidence of subluxation. The atlantoaxial, atlantodental, and occipitoatlantal intervals are preserved. No fracture identified. Vertebral body height preserved. Prevertebral soft tissues are unremarkable. Mild to moderate loss of intervertebral disc height with endplate spondylosis, uncovertebral spurring, facet arthropathy. Mild multilevel osseous neural foraminal narrowing. No definite osseous central canal narrowing. Visualized skull base is intact. No fracture of the visualized facial bones. Visualized mastoid air cells and paranasal sinuses are well aerated. Visualized thyroid is unremarkable. No cervical lymphadenopathy. No pneumothorax in the visualized lung apices. Centrilobular emphysematous change. Atherosclerotic vascular calcification. DLP: 363.2 mGy-cm IMPRESSION: 1. No acute fracture or subluxation of the cervical spine. 2. Moderate multilevel degenerative change throughout the cervical spine. This exam was performed according to our departmental dose-optimization program, which includes automated exposure control, adjustment of the mA and/or kV according to patient size and/or use of iterative reconstruction technique.
[2018-08-12 07:16] LABS: ALANINE AMINOTRANSFERASE 121 U/L (21-72); ALBUMIN 3.6 g/dL (3.5-5.0); ALKALINE PHOSPHATASE 94 U/L (38-126); ASPARTATE AMINO TRANSFERASE 386 U/L (17-59); BILIRUBIN,DIRECT 0.1 mg/dL (0.0-0.4); BILIRUBIN,TOTAL 0.8 mg/dL (0.2-1.3); BLOOD UREA NITROGEN 27 mg/dL (7-20); CALCIUM 8.9 mg/dL (8.4-10.2); GLUCOSE 103 mg/dL (75-110); TOTAL PROTEIN 6.4 g/dL (6.3-8.2)
--- NOTE | 2018-08-12 07:20 | RADIOLOGY REPORT (SQ) ---
EXAM DESCRIPTION: XR CHEST 2 VIEWS COMPLETED DATE/TME: 08/12/2018 06:34 EXAM DESCRIPTION: 2 views of the chest CLINICAL HISTORY: fall/injury COMPARISON: 05/04/2018 FINDINGS: Frontal and lateral views of the chest. Atherosclerotic calcification tortuosity of thoracic aorta. Heart is not enlarged. No pneumothorax. Stable discoid atelectasis versus scarring in the right midlung. Stable blunting of the left costophrenic angle. No definite acute osseous abnormalities identified. Upper abdominal soft tissues are unremarkable. IMPRESSION: 1. No acute pulmonary process identified. Chronic changes are stable.
[2018-08-12 07:22] LABS: CARBON DIOXIDE 31 mmol/L (22-30); CHLORIDE 104 mmol/L (98-107); SODIUM 138.7 mmol/L (137-145)
--- NOTE | 2018-08-12 07:22 | RADIOLOGY REPORT (SQ) ---
EXAM DESCRIPTION: XR ANKLE 2 VIEWS COMPLETED DATE/TME: 08/12/2018 06:28 CLINICAL HISTORY: 73 years, Male, fall/injury COMPARISON: None. FINDINGS: 2 views of the right ankle. No acute fracture or dislocation. Osteopenia. IMPRESSION: 1. No acute fracture or dislocation. copyright 2010 [employer]- All Rights Reserved
[2018-08-12 07:31] LABS: ABSOLUTE MONOCYTES # (MANUAL) 1.5 10^3/uL (0.1-1.4); ABSOLUTE NEUTROPHILS# (MANUAL) 11.4 10^3/uL (1.7-8.2); BASOPHILS % (MANUAL) 0 % (0-2); EOSINOPHILS % (MANUAL) 0 % (0-6); LYMPHOCYTES % (MANUAL) 7 % (13-45); MONOCYTES % (MANUAL) 11 % (3-13); SEGMENTED NEUTROPHILS % (MAN) 82 % (42-78); TOTAL CELLS COUNTED 100
[2018-08-12 07:32] LABS: ANION GAP 4 (5-19); ANISOCYTOSIS SLIGHT; PLATELET COMMENT ADEQUATE; PLATELET LARGE PRESENT
[2018-08-12] MEDS ORDERED: ASPIRIN 300 MG SUPP, RECTAL PR ONE (07:43)
--- NOTE | 2018-08-12 07:48 | EKG REPORT ---
SEVERITY:- ABNORMAL ECG - SINUS RHYTHM BORDERLINE LEFT AXIS DEVIATION PROLONGED QT INTERVAL : Confirmed by: Vero Bravo MD 12-Aug-2018 07:47:35
[2018-08-12] MEDS ORDERED: ONDANSETRON HCL INJ/PF 4 MG/2 ML SDV IV PRN (08:49)
--- NOTE | 2018-08-12 08:50 | RADIOLOGY REPORT (SQ) ---
EXAM DESCRIPTION: U/S ABDOMEN COMPLETE W/O DOP COMPLETED DATE/TIME: 08/12/2018 8:25 am REASON FOR STUDY: elevated lft, syncope COMPARISON: None. TECHNIQUE: Dynamic and static grayscale images acquired of the abdomen and recorded on PACS. Additio nal selected color Doppler and spectral images recorded. Note: Study does not meet criteria for complete doppler/duplex scan LIMITATIONS: Pancreatic tail and distal aorta obscured by overlying bowel gas. FINDINGS: PANCREAS: No masses. Visualized pancreatic duct normal caliber. LIVER: No masses. Echotexture normal. LIVER VASCULATURE: Normal directional flow of the main portal vein and hepatic veins. GALLBLADDER: No stones. Normal wall thickness. No pericholecystic fluid. ULTRASOUND-DETECTED GUTIERREZ'S SIGN: Negative. INTRAHEPATIC DUCTS AND COMMON DUCT: CBD and intrahepatic ducts normal caliber. No filling defects. INFERIOR VENA CAVA: Normal flow. AORTA: No aneurysm. RIGHT KIDNEY: Normal size. Cortical thinning. No solid or suspicious masses. No hydronephrosis . No calcifications. LEFT KIDNEY: Normal size. Cortical thinning. No solid or suspicious masses. No hydronephrosis. No calcifications. SPLEEN: Normal size. No solid masses. PERITONEAL AND PLEURAL SPACES: No ascites or effusions. OTHER: No other significant finding. IMPRESSION: No acute findings. TECHNICAL DOCUMENTATION: JOB ID: [id number] [employer]- All Rights Reserved Reading location - IP/workstation name: [email or web address]
[2018-08-12 09:09] LABS: LIPASE 39.8 U/L (23-300)
[2018-08-12] MEDS ORDERED: NICOTINE 14 MG/24 HR PATCH.TD24 TD PRN (09:13)
--- NOTE | 2018-08-12 09:14 | PDOC H&P ---
History of Present Illness Admission Date/PCP: 08/12/18 08:39 ROSITA FARRIS NP Patient complains of: Fall at longterm History of Present Illness: JUMANA HENDRIX is a 73 year old male with history of living in longterm, history of some severe dementia secondary to anoxic brain brain injury due to attempted suicidal attempt at the age of 27, COPD, smoker, brought to the emergency room from [facility] after a fall. He was evaluated in the ER found to have a small laceration on the scar which was sutured CT head was negative CT spine was negative. ER physician [place] abnormal EKG with prolonged QT interval on also noticed elevated troponins initial troponin is more than prior to 07 and is also noticed elevated LFTs expressed concern about possible cholecystitis. The ER physician spoke to the patient's daughter who is the power of candy polisher and she wants the patient under DNR/DNI chart she does not want any aggressive measures but as per the ER physician she is okay in case patient need a cholecystectomy. So he called me for medical consult for admission to rule out PR. On examination patient able to communicate okay is a neck collar there is a bruise around his right eye he able to tell his name able to give a little bit of information like he is a smoker is falling in a longterm lately and he has a history of COPD and he was at [facility]. Denies any problems other than the follow-ups. Past Medical History Cardiac Medical History: Reports: Hyperlipidema Pulmonary Medical History: Reports: Chronic Obstructive Pulmonary Disease (COPD) Neurological Medical History: Reports: Other - Anoxic brain injury. Psychiatric Medical History: Reports: Dementia Past Surgical History Past Surgical History: Reports: Appendectomy Social History Lives with: [facility]term Smoking Status: Current Every Day Smoker Frequency of Alcohol Use: Occasional Hx Recreational Drug Use: No - Advance Directive Resuscitation Status: Do Not Resuscitate Family History Family History: Reviewed & Not Pertinent Parental Family History Reviewed: Yes Children Family History Reviewed: Yes Sibling(s) Family History Reviewed.: Yes Medication/Allergy Home Medications: Prednisone [Deltasone 20 mg Tablet] 3 tab PO DAILY 5 Days tablet 01/31/17 Albuterol Sulfate [Albuterol Sulfate 2.5mg/3 mL] 2.5 mg IH Q4 #60 vial 03/03/17 Doxycycline Hyclate [Vibramycin 100 mg Tablet] 100 mg PO BID #20 tablet Nebulizer [Nebulizer Machine] 1 each MC ASDIR PRN #1 kit 03/03/17 Prednisone [Deltasone] 60 mg PO DAILY 5 Days tablet 03/03/17 Allergies/Adverse Reactions: No Known Allergies Allergy (Verified 08/01/18 14:12) Review of Systems Constitutional: ABSENT: fever(s), headache(s) Eyes: ABSENT: visual disturbances Ears: ABSENT: hearing changes Cardiovascular: ABSENT: chest pain, dyspnea on exertion, edema Respiratory: ABSENT: cough, dyspnea Gastrointestinal: ABSENT: diarrhea, melena, nausea, vomiting Genitourinary: ABSENT: dysuria, hematuria Neurological: PRESENT: frequent falls Psychiatric: ABSENT: anxiety, depression, homidical ideation, suicidal ideation Endocrine: ABSENT: cold intolerance, heat intolerance, polydipsia, polyuria Physical Exam Vital Signs: Normal stable General appearance: PRESENT: no acute distress Head exam: PRESENT: atraumatic Eye exam: PRESENT: PERRLA, other - Bruise around the right eye Mouth exam: PRESENT: moist Neck exam: PRESENT: other - Neck collar in place Respiratory exam: PRESENT: decreased breath sounds Cardiovascular exam: PRESENT: RRR. ABSENT: diastolic murmur, rubs, systolic murmur GI/Abdominal exam: PRESENT: normal bowel sounds, soft. ABSENT: distended, guarding, mass, organolmegaly, rebound, tenderness Extremities exam: PRESENT: full ROM. ABSENT: calf tenderness, clubbing, pedal edema Neurological exam: PRESENT: alert, awake, CN II-XII grossly intact. ABSENT: motor sensory deficit Psychiatric exam: PRESENT: appropriate affect, normal mood. ABSENT: homicidal ideation, suicidal ideation Results Impressions: Head CT 08/12/18 06:18 IMPRESSION: 1. No acute intracranial abnormality by CT criteria. This exam was performed according to our departmental dose-optimization program, which includes automated exposure control, adjustment of the mA and/or kV according to patient size and/or use of iterative reconstruction technique. Cervical Spine CT 08/12/18 06:19 IMPRESSION: 1. No acute fracture or subluxation of the cervical spine. 2. Moderate multilevel degenerative change throughout the cervical spine. This exam was performed according to our departmental dose-optimization program, which includes automated exposure control, adjustment of the mA and/or kV according to patient size and/or use of iterative reconstruction technique. Ankle X-Ray 08/12/18 06:28 IMPRESSION: 1. No acute fracture or dislocation. copyright 2010 [employer]- All Rights Reserved Chest X-Ray 08/12/18 06:34 IMPRESSION: 1. No acute pulmonary process identified. Chronic changes are stable. Abdomen Ultrasound 08/12/18 07:47 IMPRESSION: No acute findings. Assessment & Plan - Diagnosis (1) NSTEMI (non-ST elevated myocardial infarction) Is this a current diagnosis for this admission?: Yes Plan: 08/12/2018-patient denies any chest pains. The troponin levels are 0.739. Initial EKG sinus rhythm second EKG indicates prolonged QT interval. Planning to do the serial cardiac enzymes cardiology consult was requested. We are going to put him on aspirin ,Lovenox and statins. And also on oxygen 2 L nasal cannula. Requested lipid panel. (2) Prolonged Q-T interval on ECG Is this a current diagnosis for this admission?: Yes Plan: 08/12/2018 EKG indicates prolonged QT interval. He is on Lamictal and trazodone at home. Good with her dose medications if necessary request for psych evaluation. To adjust medications. (3) Closed head injury Qualifiers: Encounter type: initial encounter Qualified Code(s): S09.90XA - Unspecified injury of head, initial encounter Is this a current diagnosis for this admission?: Yes Plan: 08/12/2018 patient came with a fall with head injury. CT head was negative C- spines are negative. The open wound was sutured in the ER. Aspiration, fall, Seizure precautions were requested. PT consult was requested. (4) Leukocytosis, unspecified Qualifiers: Leukocytosis type: unspecified Qualified Code(s): D72.829 - Elevated white blood cell count, unspecified Is this a current diagnosis for this admission?: Yes Plan: 08/12/2018-admission WBC is 13.9. No history of fever or chills or Reiger's. Chest x-ray was normal. I am going to request for lactic acid levels. Blood cultures urine cultures are pending. Started on levofloxacin 500 mg p.o. daily. (5) Elevated LFTs Is this a current diagnosis for this admission?: Yes Plan: 08/12/2018-AST is 386. ALT is 121. Patient denies any abdominal pains, nausea , vomiting or diarrhea. The ultrasound for the gallbladder is normal. (6) Smoker Is this a current diagnosis for this admission?: Yes Plan: 08/12/2018-patient states he smokes around one pack per day. We are going to put him on nicotine patch. Smoking counseling was provided. - Time Time Spent: 30 to 50 Minutes Critical Time spent with patient: Less than 15 minutes Smoking Cessation Education: over 10 minutes Medications reviewed and adjusted accordingly: Yes Anticipated discharge: SNF
[2018-08-12] MEDS ORDERED: IPRATROPIUM/ALBUTEROL 0.5-2.5 MG/3 ML AMPUL NEB ONE (10:00)
[2018-08-12] MEDS ORDERED: SODIUM CHLORIDE 5% OPH SOLN 15 ML OU PRN (12:29)
[2018-08-12] MEDS ORDERED: LORAZEPAM 0.5 MG TABLET PO PRN (12:29)
[2018-08-12] MEDS ORDERED: ALBUTEROL SULFATE 0.042% NEB (1.25 MG/3 ML) AMPUL NEB PRN (13:07)
[2018-08-12 13:50] LABS: TROPONIN I 0.601 ng/mL
[2018-08-12] MEDS: ENOXAPARIN SODIUM INJ 40 MG/0.4 ML DISP.SYRIN SUBCUT SCH (15:47)
[2018-08-12] MEDS: LEVOFLOXACIN 500 MG/D5W RTU 500 MG/100 ML RTUPB IV SCH (15:47)
[2018-08-12] MEDS: FAMOTIDINE 20 MG TABLET PO SCH ×2 (15:48→22:48)
[2018-08-12] MEDS: NORMAL SALINE 1000 ML 1,000 ML IV PRN (15:49)
[2018-08-12 17:27] LABS: CREATINE KINASE MB 15.1 ng/mL (<4.55)
[2018-08-12 17:34] LABS: TROPONIN I 0.502 ng/mL
[2018-08-12 18:00] LABS: APPEARANCE,URINE CLOUDY; BILIRUBIN,URINE NEGATIVE (NEGATIVE); COLOR,URINE YELLOW; GLUCOSE, URINE NEGATIVE (NEGATIVE); KETONES,URINE NEGATIVE (NEGATIVE); LEUKOCYTE ESTERASE,URINE TRACE (NEGATIVE); NITRITE,URINE NEGATIVE (NEGATIVE); PROTEIN,URINE 100 mg/dL (NEGATIVE); URINE SPECIFIC GRAVITY 1.024
[2018-08-12] MEDS ORDERED: MINERAL OIL OU SCH (22:00)
[2018-08-12] MEDS ORDERED: LAMOTRIGINE PO SCH (22:00)
[2018-08-12] MEDS ORDERED: PETROLATUM WHITE OU SCH (22:00)
[2018-08-12] MEDS ORDERED: [UNRECOGNIZED DRUG - OTHER] OU SCH (22:00)
[2018-08-12 22:36] LABS: CREATINE KINASE MB 11.5 ng/mL (<4.55)
[2018-08-12 22:43] LABS: TROPONIN I 0.353 ng/mL
[2018-08-12] MEDS: TRAZODONE HCL 50 MG TABLET PO SCH (22:48)
[2018-08-12] MEDS: MINERAL OIL/PETROLATUM,WHITE OPH OINT 3.5 GM OU SCH (22:48)
[2018-08-12] MEDS: SIMVASTATIN 10 MG TABLET PO SCH (22:48)
[2018-08-12] MEDS: LAMOTRIGINE 25 MG TAB.CHEW PO SCH (22:50)
[2018-08-12] MEDS: BUDESONIDE/FORMOTEROL 160-4.5 MCG 60 PUFF/6 GM MDI IH SCH (22:53)
[2018-08-13] MEDS: NORMAL SALINE 1000 ML 1,000 ML IV PRN ×3 (06:42→21:47)
[2018-08-13] MEDS: ASPIRIN 325 MG TABLET PO SCH (10:26)
[2018-08-13] MEDS: LAMOTRIGINE 25 MG TAB.CHEW PO SCH ×2 (10:27→21:46)
[2018-08-13] MEDS: LEVOFLOXACIN 500 MG/D5W RTU 500 MG/100 ML RTUPB IV SCH (10:29)
[2018-08-13] MEDS: FAMOTIDINE 20 MG TABLET PO SCH ×2 (10:30→21:46)
[2018-08-13] MEDS: BUDESONIDE/FORMOTEROL 160-4.5 MCG 60 PUFF/6 GM MDI IH SCH ×2 (10:31→21:45)
[2018-08-13] MEDS: TIOTROPIUM BROMIDE DPI 5 CAP/KIT (18 MCG/CAP) IH SCH (10:32)
[2018-08-13] MEDS: ENOXAPARIN SODIUM INJ 40 MG/0.4 ML DISP.SYRIN SUBCUT SCH (10:35)
--- NOTE | 2018-08-13 15:04 | PDOC PROGRESS REPORT ---
Subjective Progress Note for:: 08/13/18 Subjective:: Patient is comfortably sitting the chair no complaints. Communicating okay. No acute events in the last 24 hours. Patient found to be in rhabdomyolysis with CK of 11,000 started on IV fluids yesterday. Reason For Visit: ELEVATED TROPONIN TO R/O ME/SYNCOPE Physical Exam Vital Signs: Temp Pulse Resp BP Pulse Ox 97.8 F 99 16 120/105 H 99 08/13/18 11:00 08/13/18 11:00 08/13/18 11:00 08/13/18 11:00 08/13/18 11:00 Intake & Output 08/12/18 08/13/18 08/14/18 06:59 06:59 06:59 Intake Total 1266 172 Output Total 900 Balance 366 172 Weight 63 kg General appearance: PRESENT: no acute distress Head exam: PRESENT: atraumatic Eye exam: PRESENT: PERRLA Mouth exam: PRESENT: moist Neck exam: ABSENT: carotid bruit, JVD, lymphadenopathy, thyromegaly Respiratory exam: PRESENT: clear to auscultation gama. ABSENT: rales, rhonchi, wheezes Cardiovascular exam: PRESENT: RRR. ABSENT: diastolic murmur, rubs, systolic murmur GI/Abdominal exam: PRESENT: normal bowel sounds, soft. ABSENT: distended, guarding, mass, organolmegaly, rebound, tenderness Neurological exam: PRESENT: alert, awake, oriented to person, oriented to place , oriented to time, oriented to situation, CN II-XII grossly intact. ABSENT: motor sensory deficit Psychiatric exam: PRESENT: appropriate affect, normal mood. ABSENT: homicidal ideation, suicidal ideation Results Laboratory Results: 08/12/18 17:30 Urine Color YELLOW Urine Appearance CLOUDY Urine pH 5.0 Ur Specific [place] 1.024 Urine Protein 100 H Urine Glucose (UA) NEGATIVE Urine Ketones NEGATIVE Urine Blood LARGE H Urine Nitrite NEGATIVE Ur Leukocyte Esterase TRACE H Urine WBC (Auto) 5 Urine RBC (Auto) >182 08/12/18 08/12/18 08/12/18 12:45 12:45 16:00 Creatine Kinase 9872 H 6312 H CK-MB (CK-2) 20.00 H Troponin I 0.601 08/12/18 08/12/18 08/12/18 16:00 22:00 22:00 Creatine Kinase 5823 H CK-MB (CK-2) 15.10 H 11.50 H Troponin I 0.502 0.353 Impressions: Head CT 08/12/18 06:18 IMPRESSION: 1. No acute intracranial abnormality by CT criteria. This exam was performed according to our departmental dose-optimization program, which includes automated exposure control, adjustment of the mA and/or kV according to patient size and/or use of iterative reconstruction technique. Cervical Spine CT 08/12/18 06:19 IMPRESSION: 1. No acute fracture or subluxation of the cervical spine. 2. Moderate multilevel degenerative change throughout the cervical spine. This exam was performed according to our departmental dose-optimization program, which includes automated exposure control, adjustment of the mA and/or kV according to patient size and/or use of iterative reconstruction technique. Ankle X-Ray 08/12/18 06:28 IMPRESSION: 1. No acute fracture or dislocation. copyright 2010 [employer]- All Rights Reserved Chest X-Ray 08/12/18 06:34 IMPRESSION: 1. No acute pulmonary process identified. Chronic changes are stable. Abdomen Ultrasound 08/12/18 07:47 IMPRESSION: No acute findings. Assessment & Plan - Diagnosis (1) NSTEMI (non-ST elevated myocardial infarction) Is this a current diagnosis for this admission?: Yes Plan: 08/12/2018-patient denies any chest pains. The troponin levels are 0.739. Initial EKG sinus rhythm second EKG indicates prolonged QT interval. Planning to do the serial cardiac enzymes cardiology consult was requested. We are going to put him on aspirin ,Lovenox and statins. And also on oxygen 2 L nasal cannula. Requested lipid panel. 08/13/2018-patient denies any chest pains. Latest troponin is 0.03. Patient is on aspirin Lovenox and statins. Is patient is a DNR/DNI. Family does not want any aggressive measures. (2) Prolonged Q-T interval on ECG Is this a current diagnosis for this admission?: Yes Plan: 08/12/2018 EKG indicates prolonged QT interval. He is on Lamictal and trazodone at home. Good with her dose medications if necessary request for psych evaluation. To adjust medications. All 2017 EKG with prolonged QT interval may be due to Lamictal and trazodone. We discontinued those medications. (3) Closed head injury Qualifiers: Encounter type: initial encounter Qualified Code(s): S09.90XA - Unspecified injury of head, initial encounter Is this a current diagnosis for this admission?: Yes Plan: 08/12/2018 patient came with a fall with head injury. CT head was negative C- spines are negative. The open wound was sutured in the ER. Aspiration, fall, Seizure precautions were requested. PT consult was requested. 2017-patient denies any chest headaches dizzy spells. (4) Leukocytosis, unspecified Qualifiers: Leukocytosis type: unspecified Qualified Code(s): D72.829 - Elevated white blood cell count, unspecified Is this a current diagnosis for this admission?: Yes Plan: 08/12/2018-admission WBC is 13.9. No history of fever or chills or Reiger's. Chest x-ray was normal. I am going to request for lactic acid levels. Blood cultures urine cultures are pending. Started on levofloxacin 500 mg p.o. daily. 08/13/2018 admission WBC is 13,900 afebrile he was on levofloxacin 400 mg p.o. daily going to repeat the CBC tomorrow. (5) Elevated LFTs Is this a current diagnosis for this admission?: Yes Plan: 08/12/2018-AST is 386. ALT is 121. Patient denies any abdominal pains, nausea , vomiting or diarrhea. The ultrasound for the gallbladder is normal. (6) Smoker Is this a current diagnosis for this admission?: Yes (7) Rhabdomyolysis Qualifiers: Rhabdomyolysis type: non-traumatic Qualified Code(s): M62.82 - Rhabdomyolysis Is this a current diagnosis for this admission?: Yes Plan: CK levels initially 11,300. With IV fluids came down to 5800. Plan is to continue the IV fluids. - Time Time Spent with patient: Less than 15 minutes Smoking Cessation Education: 3 to 10 minutes Medications reviewed and adjusted accordingly: Yes Anticipated discharge: SNF
[2018-08-13] MEDS: MINERAL OIL/PETROLATUM,WHITE OPH OINT 3.5 GM OU SCH (21:45)
[2018-08-13] MEDS: TRAZODONE HCL 50 MG TABLET PO SCH (21:46)
[2018-08-13] MEDS: SIMVASTATIN 10 MG TABLET PO SCH (21:46)
[2018-08-14 06:17] LABS: ABSOLUTE BASOPHILS # (AUTO) 0.1 10^3/uL (0.0-0.2); ABSOLUTE EOSINOPHILS # (AUTO) 0.2 10^3/uL (0.0-0.6); ABSOLUTE LYMPHOCYTES (AUTO) 0.9 10^3/uL (0.5-4.7); ABSOLUTE MONOCYTES (AUTO) 0.8 10^3/uL (0.1-1.4); ABSOLUTE NEUT (AUTO) 8.5 10^3/uL (1.7-8.2); BASOPHILS % (AUTO) 0.9 % (0-2); EOSINOPHILS % (AUTO) 1.9 % (0-6); HEMATOCRIT 30.1 % (37.9-51.0); HEMOGLOBIN 10.4 g/dL (13.5-17.0); LYMPHOCYTES % (AUTO) 8.3 % (13-45); MEAN CORPUSCULAR HEMOGLOBIN 31.2 pg (27.0-33.4); MEAN CORPUSCULAR HGB CONC 34.5 g/dL (32.0-36.0); MEAN CORPUSCULAR VOLUME 90 fl (80-97); MONOCYTES % (AUTO) 7.9 % (3-13); PLATELET COUNT 283 10^3/uL (150-450); RED BLOOD COUNT 3.33 10^6/uL (4.35-5.55); RED CELL DISTRIBUTION WIDTH 14.6 % (11.5-14.0); TOTAL CELLS COUNTED % (AUTO) 100 %; WHITE BLOOD COUNT 10.5 10^3/uL (4.0-10.5)
[2018-08-14] MEDS: LEVOFLOXACIN 500 MG/D5W RTU 500 MG/100 ML RTUPB IV SCH (10:38)
[2018-08-14] MEDS: NORMAL SALINE 1000 ML 1,000 ML IV PRN (10:39)
[2018-08-14] MEDS: TIOTROPIUM BROMIDE DPI 5 CAP/KIT (18 MCG/CAP) IH SCH (10:41)
[2018-08-14] MEDS: ASPIRIN 325 MG TABLET PO SCH (10:41)
[2018-08-14] MEDS: FAMOTIDINE 20 MG TABLET PO SCH ×2 (10:41→21:18)
[2018-08-14] MEDS: BUDESONIDE/FORMOTEROL 160-4.5 MCG 60 PUFF/6 GM MDI IH SCH ×2 (10:42→21:18)
[2018-08-14] MEDS: ENOXAPARIN SODIUM INJ 40 MG/0.4 ML DISP.SYRIN SUBCUT SCH (10:45)
[2018-08-14] MEDS: LAMOTRIGINE 25 MG TAB.CHEW PO SCH ×2 (11:02→21:17)
[2018-08-14] MEDS ORDERED: NICOTINE 21 MG/24 HR PATCH.TD24 TD PRN (14:04)
[2018-08-14] MEDS ORDERED: NORMAL SALINE 1000 ML 1,000 ML IV PRN (15:28)
--- NOTE | 2018-08-14 15:36 | PDOC PROGRESS REPORT ---
Subjective Progress Note for:: 08/14/18 Subjective:: Patient is comfortably sitting the chair no complaints. Communicating okay. No acute events in the last 24 hours. Patient found to be in rhabdomyolysis with CK of 11,000 started on IV fluids yesterday. 08/14/2018-patient is under one-to-one observation. He is not anxious or agitated but he is tried to pull off the IV lines. No acute events in the last 24 hours. Reason For Visit: ELEVATED TROPONIN TO R/O RI/SYNCOPE Physical Exam Vital Signs: Temp Pulse Resp BP Pulse Ox 97.9 F 57 L 24 H 107/59 L 99 08/14/18 07:19 08/14/18 07:19 08/14/18 07:19 08/14/18 07:19 08/14/18 07:19 Intake & Output 08/13/18 08/14/18 08/15/18 06:59 06:59 06:59 Intake Total 1266 2372 1000 Output Total 900 1150 Balance 366 1222 1000 Weight 63 kg 61.6 kg General appearance: PRESENT: no acute distress Head exam: PRESENT: atraumatic Eye exam: PRESENT: PERRLA Neck exam: ABSENT: carotid bruit, JVD, lymphadenopathy, thyromegaly Respiratory exam: PRESENT: clear to auscultation gama. ABSENT: rales, rhonchi, wheezes Cardiovascular exam: PRESENT: RRR. ABSENT: diastolic murmur, rubs, systolic murmur GI/Abdominal exam: PRESENT: normal bowel sounds, soft. ABSENT: distended, guarding, mass, organolmegaly, rebound, tenderness Extremities exam: PRESENT: full ROM. ABSENT: calf tenderness, clubbing, pedal edema Neurological exam: PRESENT: alert, awake, oriented to person, oriented to place , oriented to time, oriented to situation, CN II-XII grossly intact. ABSENT: motor sensory deficit Psychiatric exam: PRESENT: appropriate affect, normal mood. ABSENT: homicidal ideation, suicidal ideation Results Laboratory Results: 08/14/18 05:12 08/14/18 05:12 WBC 10.5 RBC 3.33 L Hgb 10.4 L Hct 30.1 L MCV 90 MCH 31.2 MCHC 34.5 RDW 14.6 H Plt Count 283 Seg Neutrophils % 81.0 H Lymphocytes % 8.3 L Monocytes % 7.9 Eosinophils % 1.9 Basophils % 0.9 Absolute Neutrophils 8.5 H Absolute Lymphocytes 0.9 Absolute Monocytes 0.8 Absolute Eosinophils 0.2 Absolute Basophils 0.1 08/12/18 17:30 Clean Catch Midstream Urine Culture - Final Group B Beta Streptococcus Mixed Urogenital Janelle 08/12/18 08/12/18 08/12/18 12:45 12:45 16:00 Creatine Kinase 9872 H 6312 H CK-MB (CK-2) 20.00 H Troponin I 0.601 08/12/18 08/12/18 08/12/18 16:00 22:00 22:00 Creatine Kinase 5823 H CK-MB (CK-2) 15.10 H 11.50 H Troponin I 0.502 0.353 08/13/18 15:00 Creatine Kinase 4416 H CK-MB (CK-2) Troponin I Impressions: Head CT 08/12/18 06:18 IMPRESSION: 1. No acute intracranial abnormality by CT criteria. This exam was performed according to our departmental dose-optimization program, which includes automated exposure control, adjustment of the mA and/or kV according to patient size and/or use of iterative reconstruction technique. Cervical Spine CT 08/12/18 06:19 IMPRESSION: 1. No acute fracture or subluxation of the cervical spine. 2. Moderate multilevel degenerative change throughout the cervical spine. This exam was performed according to our departmental dose-optimization program, which includes automated exposure control, adjustment of the mA and/or kV according to patient size and/or use of iterative reconstruction technique. Ankle X-Ray 08/12/18 06:28 IMPRESSION: 1. No acute fracture or dislocation. copyright 2011 [employer]- All Rights Reserved Chest X-Ray 08/12/18 06:34 IMPRESSION: 1. No acute pulmonary process identified. Chronic changes are stable. Abdomen Ultrasound 08/12/18 07:47 IMPRESSION: No acute findings. Assessment & Plan - Diagnosis (1) NSTEMI (non-ST elevated myocardial infarction) Is this a current diagnosis for this admission?: Yes Plan: 08/12/2018-patient denies any chest pains. The troponin levels are 0.739. Initial EKG sinus rhythm second EKG indicates prolonged QT interval. Planning to do the serial cardiac enzymes cardiology consult was requested. We are going to put him on aspirin ,Lovenox and statins. And also on oxygen 2 L nasal cannula. Requested lipid panel. 08/13/2018-patient denies any chest pains. Latest troponin is 0.03. Patient is on aspirin Lovenox and statins. Is patient is a DNR/DNI. Family does not want any aggressive measures. 08/14/2018-no chest pains during the the hospital stay. Patient is relatively stable. Is DNR/DNI. He is on aspirin, Lovenox, statins. (2) Prolonged Q-T interval on ECG Is this a current diagnosis for this admission?: Yes Plan: 08/12/2018 EKG indicates prolonged QT interval. He is on Lamictal and trazodone at home. Good with her dose medications if necessary request for psych evaluation. To adjust medications. 08/13/2018 EKG with prolonged QT interval may be due to Lamictal and trazodone. We discontinued those medications. EKG shows prolonged QT intervals at the time of admission without it may be secondary to Keppra and trazodone. Which was discontinued. The Levaquin was discontinued. Patient was started on Augmentin. (3) Closed head injury Qualifiers: Encounter type: initial encounter Qualified Code(s): S09.90XA - Unspecified injury of head, initial encounter Is this a current diagnosis for this admission?: Yes Plan: 08/12/2018 patient came with a fall with head injury. CT head was negative C- spines are negative. The open wound was sutured in the ER. Aspiration, fall, Seizure precautions were requested. PT consult was requested. 2017-patient denies any chest headaches dizzy spells. 08/14/2018 patient with history of falls at home had a head injury. Small laceration on the side of the head which was sutured in the ER. (4) Leukocytosis, unspecified Qualifiers: Leukocytosis type: unspecified Qualified Code(s): D72.829 - Elevated white blood cell count, unspecified Is this a current diagnosis for this admission?: Yes Plan: 08/12/2018-admission WBC is 13.9. No history of fever or chills or Reiger's. Chest x-ray was normal. I am going to request for lactic acid levels. Blood cultures urine cultures are pending. Started on levofloxacin 500 mg p.o. daily. 08/13/2018 admission WBC is 13,900 afebrile he was on levofloxacin 400 mg p.o. daily going to repeat the CBC tomorrow. 08/14/2018-WBC is normal today 10,500. Is afebrile. (5) Elevated LFTs Is this a current diagnosis for this admission?: Yes Plan: 08/12/2018-AST is 386. ALT is 121. Patient denies any abdominal pains, nausea , vomiting or diarrhea. The ultrasound for the gallbladder is normal. 08/14/2018 patient came in with elevated LFTs is concerned about gallbladder disease ultrasound was negative for acute cholecystitis. (6) Smoker Is this a current diagnosis for this admission?: Yes Plan: 08/12/2018-patient states he smokes around one pack per day. We are going to put him on nicotine patch. Smoking counseling was provided. 08/14/2018 patient is a chronic smoker we started him on nicotine patch. (7) Rhabdomyolysis Qualifiers: Rhabdomyolysis type: non-traumatic Qualified Code(s): M62.82 - Rhabdomyolysis Is this a current diagnosis for this admission?: Yes Plan: CK levels initially 11,300. With IV fluids came down to 5800. Plan is to continue the IV fluids. 08/14/2018 CPK levels are still 4600. Is getting IV fluids. I am going to decrease the fluids to 75 cc/h. - Time Time Spent with patient: 15-24 minutes Smoking Cessation Education: over 10 minutes Medications reviewed and adjusted accordingly: Yes Anticipated discharge: SNF
[2018-08-14] MEDS ORDERED: HALOPERIDOL LACTATE INJ 5 MG/1 ML VIAL ONE (20:29)
[2018-08-14] MEDS ORDERED: HALOPERIDOL LACTATE INJ 5 MG/1 ML VIAL IM PRN (20:59)
[2018-08-14] MEDS: AMOXICILLIN TR/POT CLAVULANATE 500-125 MG TAB PO SCH (21:16)
[2018-08-14] MEDS: MINERAL OIL/PETROLATUM,WHITE OPH OINT 3.5 GM OU SCH (21:17)
[2018-08-14] MEDS: TRAZODONE HCL 50 MG TABLET PO SCH (21:17)
[2018-08-14] MEDS: SIMVASTATIN 10 MG TABLET PO SCH (21:19)
[2018-08-15] MEDS ORDERED: HALOPERIDOL LACTATE INJ 5 MG/1 ML VIAL IM PRN (05:30)
[2018-08-15] MEDS: AMOXICILLIN TR/POT CLAVULANATE 500-125 MG TAB PO SCH ×3 (06:36→21:42)
[2018-08-15 07:43] LABS: TRIGLYCERIDES 47 mg/dL (<150)
[2018-08-15 07:53] LABS: DIRECT LDL 53 mg/dL (<100)
[2018-08-15] MEDS: FAMOTIDINE 20 MG TABLET PO SCH ×2 (09:55→21:44)
[2018-08-15] MEDS: ASPIRIN 325 MG TABLET PO SCH (09:55)
[2018-08-15] MEDS: LAMOTRIGINE 25 MG TAB.CHEW PO SCH ×2 (09:56→21:43)
[2018-08-15] MEDS: ENOXAPARIN SODIUM INJ 40 MG/0.4 ML DISP.SYRIN SUBCUT SCH (09:56)
[2018-08-15] MEDS: TIOTROPIUM BROMIDE DPI 5 CAP/KIT (18 MCG/CAP) IH SCH (09:57)
[2018-08-15] MEDS: BUDESONIDE/FORMOTEROL 160-4.5 MCG 60 PUFF/6 GM MDI IH SCH ×2 (10:02→21:44)
--- NOTE | 2018-08-15 18:51 | PDOC PROGRESS REPORT ---
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 The patient was seen on afternoon rounds with his daughter present. He was found sitting up to the bedside chair, comfortably on room air. He denies complaints at this time; denies headache, dizziness, chest pain, difficulty breathing. ROS is limited secondary to the patient's baseline mental status. Per the patient's daughter, he has been comfortable and without complaints today. She reports that he initially presented to the emergency department after a fall and laceration to his scalp requiring sutures and found to have an elevated troponin. She does confirm that she would wish for her father to be medically managed only and has no interest in pursuing cardiac stress testing or catheterization. He is a confirmed DNR/DNI. She does admit that the patient has had multiple falls at his [facility] and is interested in speaking with discharge planning with regards to placement at long-term memory care facility. Otherwise, she has no questions or concerns today. No concerns per nursing. Reason For Visit: ELEVATED TROPONIN TO R/O VA/SYNCOPE Physical Exam Vital Signs: Temp Pulse Resp BP Pulse Ox 98.3 F 66 16 112/60 96 08/15/18 16:00 08/15/18 16:00 08/15/18 16:00 08/15/18 16:00 08/15/18 16:00 Intake & Output 08/14/18 08/15/18 08/16/18 06:59 06:59 06:59 Intake Total 2372 2980 2420 Output Total 1150 2635 1050 Balance 4139 834 0490 Weight 61.6 kg 62.4 kg General appearance: PRESENT: no acute distress, cooperative, well-developed, well-nourished Head exam: PRESENT: normocephalic, other - Right temporal scalp laceration; well approximated with sutures. No surrounding erythema. Eye exam: PRESENT: conjunctiva pink, EOMI, PERRLA. ABSENT: scleral icterus Ear exam: PRESENT: normal external ear exam Mouth exam: PRESENT: moist, tongue midline Neck exam: ABSENT: carotid bruit, JVD, lymphadenopathy, thyromegaly Respiratory exam: PRESENT: clear to auscultation gama, symmetrical, unlabored. ABSENT: rales, rhonchi, wheezes Cardiovascular exam: PRESENT: RRR, +S1, +S2. ABSENT: diastolic murmur, rubs, systolic murmur Pulses: PRESENT: normal dorsalis pedis pul Vascular exam: PRESENT: normal capillary refill GI/Abdominal exam: PRESENT: normal bowel sounds, soft. ABSENT: distended, guarding, mass, organolmegaly, rebound, tenderness Rectal exam: PRESENT: deferred Extremities exam: PRESENT: full ROM. ABSENT: calf tenderness, clubbing, pedal edema Musculoskeletal exam: PRESENT: ambulatory - unsteady gait Neurological exam: PRESENT: alert, awake, oriented to person, oriented to place, oriented to time, oriented to situation, CN II-XII grossly intact, other - Technically oriented x4; short-term memory loss, pleasantly confused, impulsive. ABSENT: motor sensory deficit Psychiatric exam: PRESENT: appropriate affect, normal mood. ABSENT: homicidal ideation, suicidal ideation Skin exam: PRESENT: dry, intact, warm. ABSENT: cyanosis, rash Results Laboratory Results: 08/14/18 05:12 08/15/18 06:15 Triglycerides 47 Cholesterol 105.50 LDL Cholesterol Direct 53 VLDL Cholesterol 9.0 L HDL Cholesterol 55 08/12/18 08/12/18 08/12/18 12:45 12:45 16:00 Creatine Kinase 9872 H 6312 H CK-MB (CK-2) 20.00 H Troponin I 0.601 08/12/18 08/12/18 08/12/18 16:00 22:00 22:00 Creatine Kinase 5823 H CK-MB (CK-2) 15.10 H 11.50 H Troponin I 0.502 0.353 08/13/18 08/14/18 15:00 05:12 Creatine Kinase 4416 H 2829 H CK-MB (CK-2) Troponin I Impressions: Head CT 08/12/18 06:18 IMPRESSION: 1. No acute intracranial abnormality by CT criteria. This exam was performed according to our departmental dose-optimization program, which includes automated exposure control, adjustment of the mA and/or kV according to patient size and/or use of iterative reconstruction technique. Cervical Spine CT 08/12/18 06:19 IMPRESSION: 1. No acute fracture or subluxation of the cervical spine. 2. Moderate multilevel degenerative change throughout the cervical spine. This exam was performed according to our departmental dose-optimization program, which includes automated exposure control, adjustment of the mA and/or kV according to patient size and/or use of iterative reconstruction technique. Ankle X-Ray 08/12/18 06:28 IMPRESSION: 1. No acute fracture or dislocation. copyright 2011 [employer]- All Rights Reserved Chest X-Ray 08/12/18 06:34 IMPRESSION: 1. No acute pulmonary process identified. Chronic changes are stable. Abdomen Ultrasound 08/12/18 07:47 IMPRESSION: No acute findings. Assessment & Plan - Diagnosis (1) NSTEMI (non-ST elevated myocardial infarction) Is this a current diagnosis for this admission?: Yes Plan: The patient presented to the emergency department after a fall resulting in scalp laceration requiring sutures and incidentally found to have an elevated troponin of 0.739. The patient has consistently denied chest pain, however, of note he has advanced dementia secondary to a remote anoxic brain injury. Troponins have trended down to 0.353. EKG demonstrates a sinus rhythm with prolonged QT interval but without acute changes. Chest x-ray is benign. Lipid panel is acceptable. The patient's daughter has requested medical management only; no interest in cardiac stress testing or catheterization. He has been admitted to the medical floor; initially placed on continuous cardiac telemetry, however patient now is refusing to wear telemetry device. The patient's family is aware and asks that this be respected. He has been placed on full dose aspirin and daily statin therapy. Recommend outpatient cardiology follow up. (2) Closed head injury Qualifiers: Encounter type: initial encounter Qualified Code(s): S09.90XA - Unspecified injury of head, initial encounter Is this a current diagnosis for this admission?: Yes Plan: Patient presented after a fall resulting in scalp laceration. Of note, he has a remote anoxic brain injury from suicide attempt. Head and C-spine CTs were negative for acute findings. Wounds were sutured by the ED physician. Fall, aspiration, seizure precautions are in place. Utilize bed and chair alarm. PT consultation requested. Patient is highly impulsive; may benefit from one-to-one sitter. Discharge planning is consulted; recommend long-term memory care placement at discharge. (3) Elevated LFTs Is this a current diagnosis for this admission?: Yes Plan: Was incidentally found to have an elevated AST (386) and ALT (121) on admission. Remaining LFTs were benign. Abdominal ultrasound is negative for acute findings. Patient denies abdominal discomfort, nausea, vomiting, and diarrhea. The panel is acceptable. Possibly related to Lamictal. Will reassess with a.m. labs. (4) Leukocytosis, unspecified Qualifiers: Leukocytosis type: unspecified Qualified Code(s): D72.829 - Elevated white blood cell count, unspecified Is this a current diagnosis for this admission?: Yes (5) Rhabdomyolysis Qualifiers: Rhabdomyolysis type: non-traumatic Qualified Code(s): M62.82 - Rhabdomyolysis Is this a current diagnosis for this admission?: Yes (6) Dementia following hypoxic-ischemic injury Is this a current diagnosis for this admission?: Yes Plan: Stable; at baseline mental status per family. Fall, seizure, aspiration precautions. Bed and chair alarm. Consider one-to-one sitter for safety. Discharge planning is consulted. (7) Tobacco dependence Is this a current diagnosis for this admission?: Yes Plan: Smoking cessation is encouraged; nicotine replacement therapies are provided. (8) Prolonged Q-T interval on ECG Is this a current diagnosis for this admission?: Yes Plan: Avoid QTC prolonging agents as able. Levaquin was discontinued; transition to Augmentin. Possibly secondary to Keppra and trazodone; both discontinued. (9) Leukocytosis Is this a current diagnosis for this admission?: Yes Plan: Resolved; secondary to #1. (10) Rhabdomyolysis Qualifiers: Rhabdomyolysis type: non-traumatic Qualified Code(s): M62.82 - Rhabdomyolysis Is this a current diagnosis for this admission?: Yes Plan: Secondary to #1. Creatinine kinase trending down; 86533--> 2829 Patien removed multiple IV lines; family request to leave saline well out. Encourage p.o. fluids. - Time Time Spent with patient: 25-34 minutes Anticipated discharge: SNF Within: within 24 hours
[2018-08-15] MEDS: TRAZODONE HCL 50 MG TABLET PO SCH (21:42)
[2018-08-15] MEDS: MINERAL OIL/PETROLATUM,WHITE OPH OINT 3.5 GM OU SCH (21:42)
[2018-08-15] MEDS: SIMVASTATIN 10 MG TABLET PO SCH (21:44)
[2018-08-16] MEDS: AMOXICILLIN TR/POT CLAVULANATE 500-125 MG TAB PO SCH ×2 (06:39→16:10)
[2018-08-16 07:07] LABS: ALANINE AMINOTRANSFERASE 111 U/L (21-72); ALBUMIN 3.6 g/dL (3.5-5.0); ALKALINE PHOSPHATASE 84 U/L (38-126); ANION GAP 6 (5-19); ASPARTATE AMINO TRANSFERASE 136 U/L (17-59); BILIRUBIN,DIRECT 0.3 mg/dL (0.0-0.4); BILIRUBIN,TOTAL 0.8 mg/dL (0.2-1.3); BLOOD UREA NITROGEN 13 mg/dL (7-20); CALCIUM 9.2 mg/dL (8.4-10.2); CARBON DIOXIDE 33 mmol/L (22-30); CHLORIDE 102 mmol/L (98-107); GLUCOSE 83 mg/dL (75-110); SODIUM 140.6 mmol/L (137-145); TOTAL PROTEIN 6.6 g/dL (6.3-8.2)
[2018-08-16 09:38] LABS: CREATINE KINASE 2290 U/L (55-170)
[2018-08-16] MEDS ORDERED: NICOTINE 21 MG/24 HR PATCH.TD24 TD SCH (10:00)
[2018-08-16] MEDS: ASPIRIN 325 MG TABLET PO SCH (11:21)
[2018-08-16] MEDS: LAMOTRIGINE 25 MG TAB.CHEW PO SCH (11:22)
[2018-08-16] MEDS: TIOTROPIUM BROMIDE DPI 5 CAP/KIT (18 MCG/CAP) IH SCH (11:23)
[2018-08-16] MEDS: FAMOTIDINE 20 MG TABLET PO SCH (11:23)
[2018-08-16] MEDS: BUDESONIDE/FORMOTEROL 160-4.5 MCG 60 PUFF/6 GM MDI IH SCH (11:24)
[2018-08-16] MEDS: ENOXAPARIN SODIUM INJ 40 MG/0.4 ML DISP.SYRIN SUBCUT SCH (11:24)
[2018-08-16 12:29] VITALS: BP 131/63
--- NOTE | 2018-08-16 16:34 | PDOC DISCHARGE SUMMARY ---
General - Admit/Disc Date/PCP Admission Date/Primary Care Provider: 08/12/18 08:39 ROSITA FARRIS NP Discharge Date: 08/16/18 - Discharge Diagnosis (1) NSTEMI (non-ST elevated myocardial infarction) Is this a current diagnosis for this admission?: Yes Summary: The patient presented to the emergency department after a fall resulting in scalp laceration requiring sutures and incidentally found to have an elevated troponin of 0.739; have trended down to 0.050. The patient has consistently denied chest pain EKG demonstrates a sinus rhythm with prolonged QT interval but without acute changes. Chest x-ray is benign. Lipid panel is acceptable. The patient's daughter has requested medical management only; no interest in cardiac stress testing or catheterization. The patient was admitted to the medical floor and monitored on continuous cardiac telemetry; no abnormal EKG changes. He has denied chest pain throughout his admission. His troponins have trended down to 0.050 on day of discharge. He has been placed on full dose aspirin and daily statin therapy; recommend continuing both at discharge. The patient and family are encouraged to reduce his cigarette use with goal of complete cessation. Cardiology consultation was offered; family have declined as they wish for medi julian management only. The patient and family are reminded that they may elect to follow-up with a community engagement representative on an outpatient basis. At time of discharge, the patient is asymptomatic and hemodynamically stable. He is discharged to the [facility] where he is an established resident with prescriptions for aspirin, simvastatin, and NicoDerm patches. Recommend following up with primary care provider within 1 week and returning to the emergency department for any concerning symptoms. (2) Closed head injury Is this a current diagnosis for this admission?: Yes Summary: Patient presented after a fall resulting in scalp laceration. Of note, he has a remote anoxic brain injury from suicide attempt. Head and C-spine CTs were negative for acute findings. Wounds were sutured by the ED physician; recommend removal on 08/19/18. (3) Elevated LFTs Is this a current diagnosis for this admission?: Yes Summary: Unclear etiology; the patient was incidentally found to have an elevated AST (386) and ALT (121) on admission. Remaining LFTs were benign. Abdominal ultrasound is negative for acute findings. Patient denies abdominal discomfort, nausea, vomiting, and diarrhea. Transaminases now trending down. (4) Leukocytosis, unspecified Is this a current diagnosis for this admission?: Yes Summary: Resolved; secondary to #1. Blood cultures are negative at 4 days. Urine culture positive for group A strep; patient is being discharged with a prescription for 5-day course of Augmentin. (5) Rhabdomyolysis Is this a current diagnosis for this admission?: Yes Summary: Secondary to #1. Creatinine kinase trending down; 97197--> 2290 Patient removed multiple IV lines; family requested to leave saline well out. He was encouraged to drink p.o. fluids. Follow up CK this morning demonstrates continue downward trend. Recommend follow up chemistry and creatinine kinase in 1 week. (6) Dementia following hypoxic-ischemic injury Is this a current diagnosis for this admission?: Yes Summary: Stable and at baseline. (7) Tobacco dependence Is this a current diagnosis for this admission?: Yes Summary: Smoking cessation is encouraged. Patient is provided a prescription for NicoDerm patches on discharge. (8) UTI (urinary tract infection) Is this a current diagnosis for this admission?: Yes Summary: Urinalysis is suggestive for UTI. Urine culture did grow Group B streptococcus. Patient has been placed on p.o. Augmentin. (9) Prolonged Q-T interval on ECG Is this a current diagnosis for this admission?: Yes - Additional Information Resuscitation Status: Do Not Resuscitate Discharge Diet: Cardiac Discharge Activity: Activity As Tolerated, Balance Activity w/Rest, Supervised Activity Prescriptions: Amox Tr/Potassium Clavulanate [Augmentin "500" Tablet] 1 tab PO Q8 #12 tablet Aspirin [Ecotrin 81 mg EC Tablet] 81 mg PO DAILY #90 tab Nicotine [Nicoderm 21 mg/24 Hr Transderm Patch] 1 each TD DAILY #30 patch.td24 Simvastatin [Zocor 10 mg Tablet] 20 mg PO QHS #30 tablet Home Medications: Budesonide/Formoterol Fumarate [Symbicort HFA 160-4.5 mcg Inhaler 6 gm] 2 puff IH Q12 08/12/18 Lamotrigine [Lamictal] 62.5 mg PO Q12 18 Lorazepam [Ativan 0.5 mg Tablet] 0.5 mg PO Q12HP PRN 08/12/18 Mineral Oil/Petrolatum,White [Systane Nighttime Eye Ointment] 1 applic OU QHS 12/15/18 Sodium Chloride [Carolina-128 Oph Soln 5% 15 ml] 1 drop OU Q6HP PRN 08/12/18 Tiotropium Amo [Spiriva Handihaler 5 Cap/Kit (18 Mcg/Cap)] 1 cap IH DAILY 08/12/18 Trazodone HCl [Desyrel 50 mg Tablet] 50 mg PO QHS 08/12/18 Amox Tr/Potassium Clavulanate [Augmentin "500" Tablet] 1 tab PO Q8 #12 tablet 08/16/18 Aspirin [Ecotrin 81 mg EC Tablet] 81 mg PO DAILY #90 tab 08/16/18 Nicotine [Nicoderm 21 mg/24 Hr Transderm Patch] 1 each TD DAILY #30 patch.td24 08/16/18 Simvastatin [Zocor 10 mg Tablet] 20 mg PO QHS #30 tablet 08/16/18 History of Present Illness History of Present Illness: Per H&P by Dr. Rangel: JUMANA HENDRIX is a 73 year old male with history of living in penitentiary, history of some severe dementia secondary to anoxic brain brain injury due to attempted suicidal attempt at the age of 27, COPD, smoker, brought to the emergency room from [facility] after a fall. He was ev aluated in the ER found to have a small laceration on the scar which was sutured CT head was negative CT spine was negative. ER physician [place] abnormal EKG with prolonged QT interval on also noticed elevated troponins initial troponin is more than prior to 07 and is also noticed elevated LFTs expressed concern about possible cholecystitis. The ER physician spoke to the patient's daughter who is the power of assistant district attorney and she wants the patient under DNR/DNI chart she does not want any aggressive measures but as per the ER physician she is okay in case patient need a cholecystectomy. So he called me for medical consult for admission to rule out AK. On examination patient able to communicate okay is a neck collar there is a bruise around his right eye he able to tell his name able to give a little bit of information like he is a smoker is falling in a penitentiary lately and he has a history of COPD and he was at [facility]. Denies any problems other than the follow-ups. Physical Exam Vital Signs: Temp Pulse Resp BP Pulse Ox 97.8 F 69 22 H 131/63 H 91 L 08/16/18 12:00 12/19/18 12:00 08/16/18 12:00 08/16/18 12:00 08/16/18 12:00 Intake & Output 08/15/18 08/16/18 08/17/18 06:59 06:59 06:59 Intake Total 2980 3920 2204 Output Total 2635 2250 725 Balance 345 1670 1479 Weight 62.4 kg 60.4 kg General appearance: PRESENT: no acute distress, cooperative, thin, well- developed, well-nourished Head exam: PRESENT: normocephalic, other - Right temporal scalp laceration; well approximated with sutures. No surrounding erythema, ecchymosis, or drainage Eye exam: PRESENT: conjunctiva pink, EOMI, PERRLA. ABSENT: scleral icterus Ear exam: PRESENT: normal external ear exam Mouth exam: PRESENT: moist, tongue midline Neck exam: ABSENT: carotid bruit, JVD, lymphadenopathy, thyromegaly Respiratory exam: PRESENT: clear to auscultation gama, symmetrical, unlabored. ABSENT: rales, rhonchi, wheezes Cardiovascular exam: PRESENT: RRR, +S1, +S2. ABSENT: diastolic murmur, rubs, systolic murmur Pulses: PRESENT: normal dorsalis pedis pul Vascular exam: PRESENT: normal capillary refill GI/Abdominal exam: PRESENT: normal bowel sounds, soft. ABSENT: distended, guarding, mass, organolmegaly, rebound, tenderness Rectal exam: PRESENT: deferred Extremities exam: PRESENT: full ROM. ABSENT: calf tenderness, clubbing, pedal edema Neurological exam: PRESENT: alert, awake, oriented to person, oriented to place, oriented to time, oriented to situation, CN II-XII grossly intact, other - Technically oriented x4; short-term memory loss, pleasantly confused, impulsive.. ABSENT: motor sensory deficit Psychiatric exam: PRESENT: appropriate affect, normal mood. ABSENT: homicidal ideation, suicidal ideation Skin exam: PRESENT: dry, intact, warm. ABSENT: cyanosis, rash Results Laboratory Results: 08/14/18 05:12 08/16/18 04:31 08/16/18 04:31 Sodium 140.6 Potassium 4.0 Chloride 102 Carbon Dioxide 33 H Anion Gap 6 BUN 13 Creatinine 0.76 Est GFR ( Amer) > 60 Est GFR (Non-Af Amer) > 60 Glucose 83 Calcium 9.2 Total Bilirubin 0.8 AST 136 H ALT 111 H Alkaline Phosphatase 84 Total Protein 6.6 Albumin 3.6 08/12/18 08/12/18 08/12/18 06:34 06:34 08:37 Creatine Kinase 45579 H CK-MB (CK-2) 24.10 H Troponin I 0.739 08/12/18 08/12/18 08/12/18 08:37 12:45 12:45 Creatine Kinase 40555 H 9872 H CK-MB (CK-2) 20.00 H Troponin I 0.601 08/12/18 08/12/18 08/12/18 16:00 16:00 22:00 Creatine Kinase 6312 H 5823 H CK-MB (CK-2) 15.10 H Troponin I 0.502 08/12/18 08/13/18 08/14/18 22:00 15:00 05:12 Creatine Kinase 4416 H 2829 H CK-MB (CK-2) 11.50 H Troponin I 0.353 08/16/18 08/16/18 04:31 04:31 Creatine Kinase 2290 H CK-MB (CK-2) Troponin I 0.050 Impressions: Head CT 08/12/18 06:18 IMPRESSION: 1. No acute intracranial abnormality by CT criteria. This exam was performed according to our departmental dose-optimization program, which includes automated exposure control, adjustment of the mA and/or kV according to patient size and/or use of iterative reconstruction technique. Cervical Spine CT 08/12/18 06:19 IMPRESSION: 1. No acute fracture or subluxation of the cervical spine. 2. Moderate multilevel degenerative change throughout the cervical spine. This exam was performed according to our departmental dose-optimization program, which includes automated exposure control, adjustment of the mA and/or kV according to patient size and/or use of iterative reconstruction technique. Ankle X-Ray 08/12/18 06:28 IMPRESSION: 1. No acute fracture or dislocation. copyright 2010 [employer]- All Rights Reserved Chest X-Ray 08/12/18 06:34 IMPRESSION: 1. No acute pulmonary process identified. Chronic changes are stable. Abdomen Ultrasound 08/12/18 07:47 IMPRESSION: No acute findings. Qualifiers - * PATIENT BEING DISCHARGED WITH ANY OF THE FOLLOWING DIAGNOSIS: AK AK Pt being discharged on Aspirin therapy?: Yes AK Pt being discharged on Statins?: Yes AK Pt discharged ACEI/ARBS?: Yes Plan Discharge Plan: Discharge to the [facility] for the patient is an established resident. Recommend following up with primary care provider within 1 week. Nursing staff is asked to encourage p.o. fluids; especially water. Recommend follow-up BMP and creatinine kinase labs in 5-7 days. Time Spent: Less than 30 Minutes
== END 2018-08-16 17:35 | DRG 281 ==
LOC: ER 06:06 → EH 08:39 → 4W 10:27
PROVIDERS: ADMIT Family Medicine; ATTEND Family Medicine
PROC: 0HQ0XZZ Repair Scalp Skin, External Approach (ICD-10-PCS; principal; 2018-08-12)
DX: I21.4 Non-ST elevation (NSTEMI) myocardial infarction (principal); M62.82 Rhabdomyolysis; G93.1 Anoxic brain damage, not elsewhere classified; N39.0 Urinary tract infection, site not specified; F17.210 Nicotine dependence, cigarettes, uncomplicated; S01.01XA Laceration without foreign body of scalp, initial encounter; W18.30XA Fall on same level, unspecified, initial encounter; D72.829 Elevated white blood cell count, unspecified; R94.5 Abnormal results of liver function studies; B95.1 Streptococcus, group B, as the cause of diseases classified elsewhere; Z66 Do not resuscitate; F03.90 Unspecified dementia, unspecified severity, without behavioral disturbance, psychotic disturbance, mood disturbance, and anxiety; J44.9 Chronic obstructive pulmonary disease, unspecified; E78.5 Hyperlipidemia, unspecified; Z71.6 Tobacco abuse counseling; Z91.5 Personal history of self-harm; Z90.49 Acquired absence of other specified parts of digestive tract; Y92.129 Unspecified place in nursing home as the place of occurrence of the external cause
CPT/HCPCS: 36415; 70450; 71046; 72125; 76700; 80053; 80061; 80175; 81001; 82550; 82553; 83690; 84484; 85025; 87040; 87086; 87088; 93005; 93010; 99291; J1630; J1650; J1956; J3490; J7030

== ENCOUNTER 2018-08-18 18:03 | Emergency (ER) | payer OTHER, MEDICARE ==
[2018-08-18 19:35] LABS: ABSOLUTE BASOPHILS # (AUTO) 0.1 10^3/uL (0.0-0.2); ABSOLUTE EOSINOPHILS # (AUTO) 0.3 10^3/uL (0.0-0.6); ABSOLUTE LYMPHOCYTES (AUTO) 1.1 10^3/uL (0.5-4.7); ABSOLUTE MONOCYTES (AUTO) 1.1 10^3/uL (0.1-1.4); ABSOLUTE NEUT (AUTO) 7.8 10^3/uL (1.7-8.2); BASOPHILS % (AUTO) 0.7 % (0-2); EOSINOPHILS % (AUTO) 2.6 % (0-6); HEMATOCRIT 31.9 % (37.9-51.0); HEMOGLOBIN 10.9 g/dL (13.5-17.0); LYMPHOCYTES % (AUTO) 10.4 % (13-45); MEAN CORPUSCULAR VOLUME 91 fl (80-97); MONOCYTES % (AUTO) 11.1 % (3-13); PLATELET COUNT 424 10^3/uL (150-450); RED CELL DISTRIBUTION WIDTH 14.8 % (11.5-14.0); SEGMENTED NEUTROPHILS % (AUTO) 75.2 % (42-78); TOTAL CELLS COUNTED % (AUTO) 100 %; WHITE BLOOD COUNT 10.3 10^3/uL (4.0-10.5)
--- NOTE | 2018-08-18 19:37 | RADIOLOGY REPORT (SQ) ---
EXAM DESCRIPTION: TIBIA FIBULA RIGHT COMPLETED DATE/TIME: 08/18/2018 7:22 pm REASON FOR STUDY: fall, pain COMPARISON: None. NUMBER OF VIEWS: Two views. TECHNIQUE: Two radiographic images acquired of the right tibia and fibula to include the knee and an kle in at least one projection. LIMITATIONS: None. FINDINGS: MINERALIZATION: Normal. BONES: No acute fracture or dislocation. No worrisome bone lesions. SOFT TISSUES: No obvious swelling or foreign body. OTHER: No other significant finding. IMPRESSION: NEGATIVE STUDY OF THE RIGHT TIBIA AND FIBULA. NO RADIOGRAPHIC EVIDENCE OF ACUTE INJURY. TECHNICAL DOCUMENTATION: JOB ID: [id number] [employer]- All Rights Reserved Reading location - IP/workstation name: [email or web address]
--- NOTE | 2018-08-18 19:38 | RADIOLOGY REPORT (SQ) ---
EXAM DESCRIPTION: HIP RIGHT AP/LATERAL COMPLETED DATE/TIME: 08/18/2018 7:22 pm REASON FOR STUDY: fall COMPARISON: 08/07/2018 NUMBER OF VIEWS: Two views. TECHNIQUE: AP pelvis and additional frog-leg view of the right hip. LIMITATIONS: None. FINDINGS: MINERALIZATION: Normal. RIGHT HIP: No fracture or dislocation. No worrisome bone lesions. LEFT HIP: No fracture or dislocation. No worrisome bone lesions. PUBIS AND ISCHIUM: No fracture. PELVIS: No fracture. SACRUM: No fracture or dislocation. No worrisome bone lesions. LOWER LUMBAR SPINE: No fracture or dislocation. No worrisome bone lesions. No significant disc disea se. SOFT TISSUES: No findings. OTHER: No other significant finding. IMPRESSION: NEGATIVE STUDY OF THE RIGHT HIP. NO RADIOGRAPHIC EVIDENCE OF ACUTE INJURY. TECHNICAL DOCUMENTATION: JOB ID: [id number] [employer]- All Rights Reserved Reading location - IP/workstation name: [email or web address]
[2018-08-18 20:04] LABS: ALANINE AMINOTRANSFERASE 87 U/L (21-72); ALBUMIN 3.5 g/dL (3.5-5.0); ALKALINE PHOSPHATASE 83 U/L (38-126); ANION GAP 5 (5-19); ASPARTATE AMINO TRANSFERASE 70 U/L (17-59); BILIRUBIN,DIRECT 0.3 mg/dL (0.0-0.4); BILIRUBIN,TOTAL 0.6 mg/dL (0.2-1.3); BLOOD UREA NITROGEN 21 mg/dL (7-20); CALCIUM 8.9 mg/dL (8.4-10.2); CARBON DIOXIDE 31 mmol/L (22-30); CHLORIDE 103 mmol/L (98-107); CREATINE KINASE 358 U/L (55-170); GLUCOSE 92 mg/dL (75-110); POTASSIUM 4.1 mmol/L (3.6-5.0); SODIUM 138.7 mmol/L (137-145); TOTAL PROTEIN 6.8 g/dL (6.3-8.2)
[2018-08-18 20:08] LABS: CREATINE KINASE MB 4.69 ng/mL (<4.55); TROPONIN I 0.018 ng/mL
[2018-08-18] MEDS ORDERED: NORMAL SALINE 1000 ML 1,000 ML IV ONE (21:37)
--- NOTE | 2018-08-18 21:37 | ER Document Report ---
ED General - General Chief Complaint: Swelling of Lower Extremity Stated Complaint: LEG PAIN Time Seen by Provider: 08/18/18 18:15 Notes: This is a 73-year-old male who arrives to the emergency department via EMS for evaluation of lower extremity pain. Patient is a [facility] patient. Reportedly has a "swollen like". Patient does not complain of anything at this time. Only wants to sleep. Patient is arousable and will answer a few qu estions. TRAVEL OUTSIDE OF THE [place] IN LAST 30 DAYS: No - HPI Onset: Just prior to arrival Associated symptoms: None Exacerbated by: Denies - Related Data Allergies/Adverse Reactions: No Known Allergies Allergy (Verified 08/18/18 18:47) Past Medical History - General Information source: Patient, [facility] Records, Outside Facility Records Cannot obtain history due to: Dementia, Mentally challenged - Social History Smoking Status: Unknown if Ever Smoked Lives with: Alf Family History: Reviewed & Not Pertinent Patient has suicidal ideation: No Patient has homicidal ideation: No - Past Medical History Cardiac Medical History: Reports: Hx Hypercholesterolemia Pulmonary Medical History: Reports: Hx COPD Renal/ Medical History: Denies: Hx Peritoneal Dialysis Psychiatric Medical History: Reports: Hx Dementia Past Surgical History: Reports: Hx Appendectomy - Immunizations Hx Diphtheria, Pertussis, Tetanus Vaccination: Yes Review of Systems - Review of Systems -: Yes ROS unobtainable due to patient's medical condition - Due to dementia Physical Exam - Vital signs Vitals: Resp Pulse Ox 14 98 08/18/18 18:13 08/18/18 18:13 Interpretation: Normal - General General appearance: Appears well - HEENT Head: Normocephalic, Atraumatic Eyes: Normal Pupils: PERRL Mucous membranes: Dry Pharynx: Normal - Respiratory Respiratory status: No respiratory distress Chest status: Nontender Breath sounds: Normal Chest palpation: Normal - Cardiovascular Rhythm: Regular Heart sounds: Normal auscultation Murmur: No - Abdominal Inspection: Normal Distension: No distension Bowel sounds: Normal Tenderness: Nontender Organomegaly: No organomegaly - Back Back: Normal, Nontender - Extremities General upper extremity: Normal inspection, Nontender, Normal color, Normal ROM, Normal temperature General lower extremity: Normal inspection, Nontender, Normal color, Normal ROM, Normal temperature. No: Momo's sign - Neurological Neuro grossly intact: Yes Sofie Coma Scale Verbal: Confused Sofie Coma Scale Motor: Localizes to Pain Speech: Normal, Dysarthria Sensory: Normal - Psychological Associated symptoms: Normal mood - Skin Skin Temperature: Warm Skin Moisture: Dry Skin Color: Normal Course - Re-evaluation Re-evalutation: 08/18/18 21:39 Patient is a [facility] patient with dementia. Not getting a real good history. At this time I have ordered imaging studies of the hip and the right lower extremity as well as some basic labs and an ultrasound of the right lower extremity due to the possibility of swelling. The workup today is fairly unremarkable with exception of a mildly elevated creatinine kinase. At this time we will hydrate and DC. 08/18/18 21:40 Laboratory 08/18/18 08/18/18 08/18/18 19:10 19:10 19:10 WBC 10.3 RBC 3.50 L Hgb 10.9 L Hct 31.9 L MCV 91 MCH 31.0 MCHC 34.0 RDW 14.8 H Plt Count 424 Seg Neutrophils % 75.2 Lymphocytes % 10.4 L Monocytes % 11.1 Eosinophils % 2.6 Basophils % 0.7 Absolute Neutrophils 7.8 Absolute Lymphocytes 1.1 Absolute Monocytes 1.1 Absolute Eosinophils 0.3 Absolute Basophils 0.1 Sodium 138.7 Potassium 4.1 Chloride 103 Carbon Dioxide 31 H Anion Gap 5 BUN 21 H Creatinine 0.76 Est GFR ( Amer) > 60 Est GFR (Non-Af Amer) > 60 Glucose 92 Calcium 8.9 Total Bilirubin 0.6 Direct Bilirubin 0.3 Neonat Total Bilirubin Not Reportable Neonat Direct Bilirubin Not Reportable Neonat Indirect Bili Not Reportable AST 70 H ALT 87 H Alkaline Phosphatase 83 Creatine Kinase 358 H CK-MB (CK-2) 4.69 H Troponin I 0.018 Total Protein 6.8 Albumin 3.5 Patient has slightly elevated CK and chronically elevated troponin. He is a DNR. I find nothing acute that we can treat at this time. We will give him some fluid and then discharge. - Vital Signs Vital signs: Temp Pulse Resp BP Pulse Ox 15 99/59 L 96 08/18/18 19:01 08/18/18 19:01 08/18/18 19:01 - Laboratory Result Diagrams: 08/18/18 19:10 08/18/18 19:10 Laboratory results interpreted by me: 08/18/18 08/18/18 08/18/18 19:10 19:10 19:10 RBC 3.50 L Hgb 10.9 L Hct 31.9 L RDW 14.8 H Lymphocytes % 10.4 L Carbon Dioxide 31 H BUN 21 H AST 70 H ALT 87 H Creatine Kinase 358 H CK-MB (CK-2) 4.69 H Discharge - Discharge Clinical Impression: Elevated creatine kinase Condition: Good Disposition: HOME, SELF-CARE Instructions: Leg Pain Nonspecific ([facility]) Additional Instructions: The ultrasound, x-rays and labs were fairly unremarkable. Some IV fluid was given. Return for any worsening symptoms or concerns. Please follow-up with your primary care doctor. Referrals: ROSITA FARRIS NP [Primary Care Provider] - Follow up as needed
[2018-08-18] MEDS ORDERED: KETOROLAC TROMETHAMINE 60 MG/2 ML SDV IM ONE (23:18)
[2018-08-18] MEDS ORDERED: KETOROLAC TROMETHAMINE INJ/PF 30 MG/1 ML SDV IV ONE (23:29)
--- NOTE | 2018-08-18 23:42 | RADIOLOGY REPORT (SQ) ---
EXAM DESCRIPTION: XR FOOT 1-2 VIEWS COMPLETED DATE/TME: 08/18/2018 23:16 CLINICAL HISTORY: 73 years, Male, pain and swelling COMPARISON: None. NUMBER OF VIEWS: TECHNIQUE: LIMITATIONS: None. FINDINGS: There is soft tissue swelling, particularly dorsally. No fracture or dislocation. No evidence of arthritis. IMPRESSION: Soft tissue swelling. copyright 2010 [employer]- All Rights Reserved
[2018-08-19 00:12] VITALS: BP 110/50
--- NOTE | 2018-08-19 09:26 | VASCULAR PRELIM REPORT ---
Provider Note Provider Note: Right lower extremity and left commom Femoral vein negative for DVT. Complete report to follow
--- NOTE | 2018-08-19 16:17 | XCELERA REPORT ---
[address] [place] [facility] [address] Lower Extremity Venous Evaluation Procedure: Color flow and duplex imaging of the veins of the right lower extremity as well as the left Common Femoral vein. Right Sided Venous Evaluation Normal vessel filling wall to wall, compression and augmentation as well as Colour flow down to the infrageniculate veins. Left Sided Venous Evaluation The left common femoral vein is fully compressible. Spontaneous and phasic flow is present in the left common femoral vein. Interpretation Summary No duplex evidence of DVT or obstruction in the right lower extremity nor in the left Common Femoral vein. Name: JUMANA HENDRIX Norma Age: 73 yrs Gender: Male : 1945 Patient Status: Emergency Patient Location: ER Study Date: 08/18/2018 07:55 PM Reason For Study: right calf pain and swelling Ordering Physician: MAY FU Performed By: Madhuri Velarde : MAY FU > Hasmukh Quintana
== END 2018-08-19 00:13 ==
LOC: ER 18:03
DX: R74.8 Abnormal levels of other serum enzymes (principal); M79.89 Other specified soft tissue disorders; M79.606 Pain in leg, unspecified; J44.9 Chronic obstructive pulmonary disease, unspecified
CPT/HCPCS: 99285; 96361; 96374; 36415; 82553; 82550; 85025; 80053; 84484; 93971 ×2; 73620; 73502; 73590; L1902; J1885; J7030

== ENCOUNTER 2018-08-20 16:01 | Emergency (ER) | payer OTHER, MEDICARE ==
--- NOTE | 2018-08-20 17:24 | RADIOLOGY REPORT (SQ) ---
EXAM DESCRIPTION: WRIST RIGHT 2 VIEWS COMPLETED DATE/TIME: 08/20/2018 4:41 pm REASON FOR STUDY: fall COMPARISON: None. NUMBER OF VIEWS: Three views. TECHNIQUE: AP, lateral, and oblique radiographic images acquired of the right wrist. LIMITATIONS: None. FINDINGS: MINERALIZATION: Normal. BONES: No acute fracture or dislocation. No worrisome bone lesions. Normal alignment. SOFT TISSUES: No soft tissue swelling. No foreign body. OTHER: No other significant finding. IMPRESSION: NEGATIVE STUDY OF THE RIGHT WRIST. NO RADIOGRAPHIC EVIDENCE OF ACUTE INJURY. TECHNICAL DOCUMENTATION: JOB ID: [id number] [employer]- All Rights Reserved Reading location - IP/workstation name: [email or web address]
--- NOTE | 2018-08-20 17:25 | RADIOLOGY REPORT (SQ) ---
EXAM DESCRIPTION: SHOULDER RIGHT 2 OR MORE VIEWS COMPLETED DATE/TIME: 08/20/2018 4:41 pm REASON FOR STUDY: fall COMPARISON: 09/03/2017 NUMBER OF VIEWS: Three views. TECHNIQUE: Internal rotation, external rotation, and Y view images acquired of the right shoulder. LIMITATIONS: None. FINDINGS: MINERALIZATION: Normal. BONES: No acute fracture or dislocation. No worrisome bone lesions. JOINTS: No dislocation. VISUALIZED LUNGS AND RIBS: No pneumothorax. No rib fracture. SOFT TISSUES: No radiopaque foreign body. OTHER: No other significant finding. IMPRESSION: NEGATIVE STUDY OF THE RIGHT SHOULDER. NO RADIOGRAPHIC EVIDENCE OF ACUTE INJURY. TECHNICAL DOCUMENTATION: JOB ID: [id number] [employer]- All Rights Reserved Reading location - IP/workstation name: [email or web address]
--- NOTE | 2018-08-20 17:25 | RADIOLOGY REPORT (SQ) ---
EXAM DESCRIPTION: HIP RIGHT AP/LATERAL COMPLETED DATE/TIME: 08/20/2018 4:41 pm REASON FOR STUDY: fall COMPARISON: None. NUMBER OF VIEWS: Two views. TECHNIQUE: AP pelvis and additional frog-leg view of the right hip. LIMITATIONS: None. FINDINGS: MINERALIZATION: Normal. RIGHT HIP: No fracture or dislocation. No worrisome bone lesions. LEFT HIP: No fracture or dislocation. No worrisome bone lesions. PUBIS AND ISCHIUM: No fracture. PELVIS: No fracture. SACRUM: No fracture or dislocation. No worrisome bone lesions. LOWER LUMBAR SPINE: No fracture or dislocation. No worrisome bone lesions. No significant disc disea se. SOFT TISSUES: No findings. OTHER: No other significant finding. IMPRESSION: NEGATIVE STUDY OF THE RIGHT HIP. NO RADIOGRAPHIC EVIDENCE OF ACUTE INJURY. TECHNICAL DOCUMENTATION: JOB ID: [id number] [employer]- All Rights Reserved Reading location - IP/workstation name: [email or web address]
--- NOTE | 2018-08-20 17:27 | RADIOLOGY REPORT (SQ) ---
EXAM DESCRIPTION: ELBOW RIGHT OVER 2 VIEWS COMPLETED DATE/TIME: 08/20/2018 4:41 pm REASON FOR STUDY: fall COMPARISON: 08/01/2018 NUMBER OF VIEWS: Four views. TECHNIQUE: AP, lateral, and both oblique radiographic images acquired of the right elbow. LIMITATIONS: None. FINDINGS: MINERALIZATION: Normal. BONES: There is minimal irregularity of the right radial head. Corticated ossicles over the olecrano n and medial epicondyle. JOINT: No effusion. SOFT TISSUES: No soft tissue swelling. No foreign body. OTHER: No other significant finding. IMPRESSION: 1. Minimal irregularity of the right radial head, which is unchanged appearance from rec ent prior radiographs and of uncertain acuity or significance. There is no associated elbow joint ef fusion to suggest radiographically occult fracture. Correlate for acute point tenderness. MRI may b e used to more sensitively evaluate subtle fracture of the radial head or neck if suspected. 2. Soft tissue swelling over the olecranon, decreased compared to recent prior radiographs. TECHNICAL DOCUMENTATION: JOB ID: [id number] [employer]- All Rights Reserved Reading location - IP/workstation name: [email or web address]
--- NOTE | 2018-08-20 18:22 | ER Document Report ---
ED General - General Chief Complaint: Fall Stated Complaint: FALL Time Seen by Provider: 08/20/18 16:07 TRAVEL OUTSIDE OF THE [place] IN LAST 30 DAYS: No - HPI Patient complains to provider of: Fall Notes: Patient coming in with a history of dementia from a group home after a fall. Fall was unwitnessed. Patient tells a story that he was standing next to his right ureter when he fell landing on his right side not his head. Report from EMS was that the patient fell out of his bed. Patient otherwise looks to be quite well only complaining of right shoulder and right elbow pain. Patient denies any fever chills nausea vomiting - Related Data Allergies/Adverse Reactions: No Known Allergies Allergy (Verified 08/18/18 18:47) Past Medical History - Social History Smoking Status: Current Every Day Smoker Family History: Reviewed & Not Pertinent Patient has suicidal ideation: No Patient has homicidal ideation: No - Past Medical History Cardiac Medical History: Reports: Hx Hypercholesterolemia Pulmonary Medical History: Reports: Hx COPD Renal/ Medical History: Denies: Hx Peritoneal Dialysis Psychiatric Medical History: Reports: Hx Dementia Past Surgical History: Reports: Hx Appendectomy - Immunizations Hx Diphtheria, Pertussis, Tetanus Vaccination: Yes Review of Systems - Review of Systems Constitutional: No symptoms reported EENT: No symptoms reported Cardiovascular: No symptoms reported Respiratory: No symptoms reported Gastrointestinal: No symptoms reported Genitourinary: No symptoms reported Male Genitourinary: No symptoms reported Musculoskeletal: Other - Right arm pain Skin: No symptoms reported Hematologic/Lymphatic: No symptoms reported Neurological/Psychological: No symptoms reported -: Yes All other systems reviewed and negative Physical Exam - Vital signs Vitals: Temp Pulse Resp BP Pulse Ox 98.9 F 63 20 123/76 99 08/20/18 16:06 08/20/18 16:06 08/20/18 16:06 08/20/18 16:06 08/20/18 16:06 Interpretation: Normal - General General appearance: Appears well, Alert - HEENT Head: Normocephalic, Atraumatic Eyes: Normal Pupils: PERRL - Respiratory Respiratory status: No respiratory distress Chest status: Nontender Breath sounds: Normal Chest palpation: Normal - Cardiovascular Rhythm: Regular Heart sounds: Normal auscultation Murmur: No - Abdominal Inspection: Normal Distension: No distension Bowel sounds: Normal Tenderness: Nontender Organomegaly: No organomegaly - Back Back: Normal, Nontender - Extremities General upper extremity: Normal inspection, Tender - Tenderness to palpation of the right shoulder patient with equal business specialist strength patient with normal range of motion of the right elbow right wrist right shoulder, Normal color, Normal ROM, Normal temperature General lower extremity: Normal inspection, Nontender, Normal color, Normal ROM, Normal temperature, Normal weight bearing. No: Momo's sign - Neurological Neuro grossly intact: Yes Cognition: Normal Orientation: AAOx4 Sofie Coma Scale Eye Opening: Spontaneous Isabel Coma Scale Verbal: Oriented Sofie Coma Scale Motor: Obeys Commands Sofie Coma Scale Total: 15 Speech: Normal Motor strength normal: LUE, RUE, LLE, RLE Sensory: Normal - Psychological Associated symptoms: Normal affect, Normal mood - Skin Skin Temperature: Warm Skin Moisture: Dry Skin Color: Normal Course - Re-evaluation Re-evalutation: 08/20/18 22:19 X-ray of the right elbow shows a chronic radial head deformity however examination the patient not reveal any radial head tenderness elbow tenderness patient is able to move his elbow without difficulty. I did not suspect that the findings are acute. Shoulder is also negative for any signs of fracture. Patient remained alert and oriented during his stay here in ER. [facility] agrees take the patient back to the assisted living facility. - Vital Signs Vital signs: Temp Pulse Resp BP Pulse Ox 97.9 F 59 L 16 119/67 99 08/20/18 18:31 08/20/18 18:31 08/20/18 18:31 08/20/18 18:31 08/20/18 18:31 Discharge - Discharge Clinical Impression: Smoker Fall Qualifiers: Encounter type: initial encounter Qualified Code(s): W19.XXXA - Unspecified fall, initial encounter Condition: Good Disposition: HOME, SELF-CARE Instructions: Arm Pain, Nonspecific ([facility]) Additional Instructions: Your x-rays today do not show any signs of fracture. I highly recommend she follow-up with your primary care physician please create a safe environment to prevent falls. Tomorrow he may note some bruising I would recommend taking Tylenol for your pain control. Referrals: ROSITA FARRIS NP [Primary Care Provider] - Follow up as needed
[2018-08-20 18:33] VITALS: BP 119/67
== END 2018-08-20 18:31 | disposition home or self-care (01) ==
LOC: ER 16:01
DX: F03.90 Unspecified dementia, unspecified severity, without behavioral disturbance, psychotic disturbance, mood disturbance, and anxiety (principal); M25.521 Pain in right elbow; M25.511 Pain in right shoulder; W19.XXXA Unspecified fall, initial encounter; Y92.129 Unspecified place in nursing home as the place of occurrence of the external cause; J44.9 Chronic obstructive pulmonary disease, unspecified; F17.200 Nicotine dependence, unspecified, uncomplicated
CPT/HCPCS: 99284

== ENCOUNTER 2018-08-31 00:09 | Emergency (ER) | payer OTHER, MEDICARE ==
--- NOTE | 2018-08-31 00:19 | ER Document Report ---
ED Fever - General Chief Complaint: Fever Stated Complaint: SWELLING Time Seen by Provider: 08/31/18 00:16 Mode of Arrival: Stretcher Information source: Patient, Emergency Med Personnel, Outside Facility Records Cannot obtain history due to: Dementia Notes: Patient is a 73-year old male with multiple chronic conditions including advanced dementia who presents with fever and leg pain. Patient is unsure of why he is here but does report recent cough that he reports as nonproductive, has been having intermittent fevers according to facility staff, no chest pain or shortness of breath, no known sick contacts. Patient recently fell several days ago onto his right hip and has developed a large hematoma that is painful, however the patient does report being able to move his legs and ambulate per his baseline. He denies dysuria or hematuria, no chest pain or shortness of breath, no nausea or vomiting, no diarrhea. TRAVEL OUTSIDE OF THE [place] IN LAST 30 DAYS: No - HPI Onset: Just prior to arrival Onset/Duration: Sudden Quality of pain: Achy Severity: Mild Pain Level: 1 Context: Cough Associated symptoms: Fever Similar symptoms previously: No Recently seen / treated by doctor: No - Related Data Allergies/Adverse Reactions: No Known Allergies Allergy (Verified 08/18/18 18:47) Past Medical History - General Information source: Patient, Emergency Med Personnel, Outside Facility Records Cannot obtain history due to: Dementia - Social History Smoking Status: Former Smoker Frequency of alcohol use: None Drug Abuse: None Lives with: Assisted Family History: Reviewed & Not Pertinent Patient has suicidal ideation: No Patient has homicidal ideation: No - Past Medical History Cardiac Medical History: Reports: Hx Hypercholesterolemia Pulmonary Medical History: Reports: Hx COPD EENT Medical History: Reports: None Neurological Medical History: Reports: None Endocrine Medical History: Reports: None Renal/ Medical History: Reports: None. Denies: Hx Peritoneal Dialysis Malignancy Medical History: Reports None GI Medical History: Reports: None Musculoskeletal Medical History: Reports None Skin Medical History: Reports None Psychiatric Medical History: Reports: Hx Dementia Traumatic Medical History: Reports: None Infectious Medical History: Reports: None Past Surgical History: Reports: Hx Appendectomy - Immunizations Immunizations up to date: Yes Hx Diphtheria, Pertussis, Tetanus Vaccination: Yes Review of Systems - Review of Systems -: Yes ROS unobtainable due to patient's medical condition Constitutional: See HPI, Fever EENT: No symptoms reported Cardiovascular: No symptoms reported Respiratory: See HPI, Cough Gastrointestinal: No symptoms reported Genitourinary: No symptoms reported Male Genitourinary: No symptoms reported Musculoskeletal: No symptoms reported Skin: No symptoms reported Hematologic/Lymphatic: No symptoms reported Neurological/Psychological: No symptoms reported -: Yes All other systems reviewed and negative Physical Exam - Vital signs Vitals: Resp 21 H 08/31/18 00:20 Interpretation: Normal - Notes Notes: Well-appearing in no acute distress - General General appearance: Appears well, Alert - HEENT Head: Normocephalic, Atraumatic Eyes: Normal Pupils: PERRL - Respiratory Respiratory status: No respiratory distress Chest status: Nontender Breath sounds: Normal Chest palpation: Normal - Cardiovascular Rhythm: Regular Heart sounds: Normal auscultation Murmur: No - Abdominal Inspection: Normal Distension: No distension Bowel sounds: Normal Tenderness: Nontender Organomegaly: No organomegaly - Rectal Notes: Deferred - Genitourinary Notes: Deferred - Back Back: Normal, Nontender - Extremities General upper extremity: Normal inspection, Nontender, Normal color, Normal ROM, Normal temperature General lower extremity: Normal color, Normal ROM, Normal temperature, Normal weight bearing, Other - Large subcutaneous hematoma involving the entire right hip and proximal thigh that extends to the medial femur. No: Momo's sign - Neurological Neuro grossly intact: Yes Cognition: Normal Orientation: AAOx4 [place] Coma Scale Eye Opening: Spontaneous Sofie Coma Scale Verbal: Oriented Sofie Coma Scale Motor: Obeys Commands Sofie Coma Scale Total: 15 Speech: Normal Motor strength normal: LUE, RUE, LLE, RLE Sensory: Normal - Psychological Associated symptoms: Normal affect, Normal mood - Skin Skin Temperature: Warm Skin Moisture: Dry Skin Color: Normal Course - Re-evaluation Re-evalutation: 08/31/18 02:32 Patient is unsure why he is here, therefore will obtain broad workup including blood work and chest x-ray. 08/31/18 04:01 Blood work shows mildly elevated white blood cell count, negative cardiac enzymes, negative urinalysis. Chest x-ray shows developing right sided pneumonia. Patient continues to be in no acute distress. He will be given a dose of IV Ceftriaxone and will be discharged back to his facility with return precautions. Patient voices understanding and agreeing with the plan. - Vital Signs Vital signs: Temp Pulse Resp BP Pulse Ox 99.9 F 20 95 01/03/19 00:25 08/31/18 03:00 08/31/18 03:00 - Laboratory Result Diagrams: 08/31/18 00:31 08/31/18 00:31 Laboratory results interpreted by me: 08/31/18 08/31/18 08/31/18 00:31 00:31 02:17 WBC 17.3 H RBC 2.80 L Hgb 8.5 L Hct 25.4 L RDW 14.8 H Seg Neuts % (Manual) 91 H Lymphocytes % (Manual) 2 L Abs Neuts (Manual) 15.7 H Abs Lymphs (Manual) 0.3 L BUN 22 H Glucose 168 H Total Protein 6.1 L Albumin 3.3 L Urine Glucose (UA) 50 H Urine Blood SMALL H Urine Urobilinogen 2.0 H - Diagnostic Test Radiology reviewed: Reports reviewed - EKG Interpretation by Me EKG shows normal: Sinus rhythm Rate: Normal Rhythm: NSR [place]/QRS: No: Right axis deviation, Left axis deviation, RBBB, LBBB, IVCD, LAHB/LAFB, LPHB/LPFB, Bifasicular block P Waves: No: KEHINDE, LAE, Absent, AV Dissociation, Other Heart block present: No: 1st Degree, Mobitz 1, Mobitz 2, CHB (3rd degree block) When compared to previous EKG there are: No significant change Discharge - Discharge Clinical Impression: Cough Community acquired pneumonia Qualifiers: Laterality: right Lung location: middle lobe of lung Qualified Code(s): J18.1 - Lobar pneumonia, unspecified organism Condition: Good Disposition: HOME, SELF-CARE Instructions: Pneumonia ([facility]) Additional Instructions: Please follow-up with your primary physician as instructed and take your antibiotics until they are completed. Return to the emergency department if you experience chest pain, trouble breathing, or have any other concerning symptom. Prescriptions: Benzonatate [Tessalon Perles 100 mg Capsule] 100 mg PO Q8HP PRN #40 capsule PRN Reason: Levofloxacin [Levaquin 500 mg Tablet] 500 mg PO DAILY #10 tablet Referrals: ROSITA FARRIS NP [Primary Care Provider] - Follow up as needed Print Language: Bruneian
--- NOTE | 2018-08-31 02:19 | RADIOLOGY REPORT (SQ) ---
CLINICAL HISTORY: Cough COMPARISON: None. TECHNIQUE: XR CHEST 1 VIEW 08/31/2018 2:05 AM SURVEY CREW CHIEF FINDINGS: Cardiac silhouette is normal in size. There is a minimal focus of airspace disease in the medial right lung base. The lung apices are obscured by patient's chin. There is no pleural effusion. There is no pneumothorax. There are no acute osseous findings. IMPRESSION: Possible developing right medial basilar pneumonia.
[2018-08-31 02:21] LABS: HEMATOCRIT 25.4 % (37.9-51.0); HEMOGLOBIN 8.5 g/dL (13.5-17.0); MEAN CORPUSCULAR HEMOGLOBIN 30.3 pg (27.0-33.4); MEAN CORPUSCULAR HGB CONC 33.5 g/dL (32.0-36.0); MEAN CORPUSCULAR VOLUME 91 fl (80-97); PLATELET COUNT 365 10^3/uL (150-450); RED CELL DISTRIBUTION WIDTH 14.8 % (11.5-14.0); WHITE BLOOD COUNT 17.3 10^3/uL (4.0-10.5)
[2018-08-31 02:27] LABS: ALANINE AMINOTRANSFERASE 21 U/L (21-72); ALBUMIN 3.3 g/dL (3.5-5.0); ALKALINE PHOSPHATASE 86 U/L (38-126); ANION GAP 9 (5-19); ASPARTATE AMINO TRANSFERASE 19 U/L (17-59); BILIRUBIN,DIRECT 0.2 mg/dL (0.0-0.4); BILIRUBIN,TOTAL 0.3 mg/dL (0.2-1.3); BLOOD UREA NITROGEN 22 mg/dL (7-20); CALCIUM 8.7 mg/dL (8.4-10.2); CARBON DIOXIDE 27 mmol/L (22-30); CHLORIDE 102 mmol/L (98-107); CREATINE KINASE 68 U/L (55-170); GLUCOSE 168 mg/dL (75-110); POTASSIUM 4.1 mmol/L (3.6-5.0); SODIUM 137.5 mmol/L (137-145); TOTAL PROTEIN 6.1 g/dL (6.3-8.2)
[2018-08-31 02:40] LABS: ABSOLUTE LYMPHOCYTES# (MANUAL) 0.3 10^3/uL (0.5-4.7); ABSOLUTE MONOCYTES # (MANUAL) 0.9 10^3/uL (0.1-1.4); ABSOLUTE NEUTROPHILS# (MANUAL) 15.7 10^3/uL (1.7-8.2); ANISOCYTOSIS SLIGHT; BASOPHILS % (MANUAL) 0 % (0-2); EOSINOPHILS % (MANUAL) 2 % (0-6); LYMPHOCYTES % (MANUAL) 2 % (13-45); MONOCYTES % (MANUAL) 5 % (3-13); NT PRO BNP 534 pg/mL (5-900); POIKILOCYTOSIS SLIGHT; POLYCHROMASIA SLIGHT; SEGMENTED NEUTROPHILS % (MAN) 91 % (42-78); TOTAL CELLS COUNTED 100; TOXIC GRANULATION 1+
[2018-08-31 02:41] LABS: PLATELET COMMENT ADEQUATE; PLATELET GIANT PRESENT; PLATELET LARGE PRESENT; SCHISTOCYTES 1+
[2018-08-31 02:44] LABS: TROPONIN I < 0.012 ng/mL
[2018-08-31 03:02] LABS: APPEARANCE,URINE CLOUDY; BILIRUBIN,URINE NEGATIVE (NEGATIVE); COLOR,URINE YELLOW; GLUCOSE, URINE 50 mg/dL (NEGATIVE); KETONES,URINE NEGATIVE (NEGATIVE); LEUKOCYTE ESTERASE,URINE NEGATIVE (NEGATIVE); NITRITE,URINE NEGATIVE (NEGATIVE); PROTEIN,URINE NEGATIVE (NEGATIVE); URINE SPECIFIC GRAVITY 1.023
[2018-08-31] MEDS ORDERED: CEFTRIAXONE 1 GM/D5W RTU 1 GM/50 ML RTUPB IV ONE (03:45)
[2018-08-31 08:01] VITALS: BP 106/59
== END 2018-08-31 08:01 | disposition home or self-care (01) ==
LOC: ER 00:09
DX: J18.1 Lobar pneumonia, unspecified organism (principal); R50.9 Fever, unspecified; F03.90 Unspecified dementia, unspecified severity, without behavioral disturbance, psychotic disturbance, mood disturbance, and anxiety; M79.604 Pain in right leg; E78.00 Pure hypercholesterolemia, unspecified; J44.9 Chronic obstructive pulmonary disease, unspecified
CPT/HCPCS: 99284; 96365; 36415; 87086; 82550; 85025; 80053; 81001; 84484; 83605; 83880; 71045; J0696

== ENCOUNTER 2018-09-05 05:06 | Emergency (ER) | payer OTHER, MEDICARE ==
--- NOTE | 2018-09-05 06:09 | ER Document Report ---
ED General - General Chief Complaint: Fall Injury Stated Complaint: FALL Time Seen by Provider: 09/05/18 06:05 Notes: Patient is a 73-year-old male with dementia that presents to the emergency department for chief complaint of facial injury after fall. Patient states that he lost his balance and fell, and he does have dementia and currently resides in a nursing facility. He apparently hit his face, which developed a bloody nose. At this time he denies having any headache or pain. He is a overall poor historian. Denies having any neck pain, nausea, vomiting, chest pain, shortness of breath or difficulty breathing. Past Medical History: COPD, dementia, hypertension, Parkinson's, history of anoxic brain injury Past Surgical History: Not obtainable at this time Social History: No current tobacco, alcohol or drug use, former smoker Family History: Reviewed and noncontributory for presenting illness Allergies: Reviewed, see documented allergy list. REVIEW OF SYSTEMS: Complete review of systems is not obtainable secondary to the patient's dementia PHYSICAL EXAMINATION: Vital signs reviewed, nursing noted reviewed. GENERAL: Well-appearing, well-nourished and in no acute distress. HEAD: Normocephalic EYES: Eyes appear normal, extraocular movements intact, sclera anicteric, conjunctiva are normal. ENT: nares patent, no septal hematoma, TMs appear normal bilaterally, there is dried blood in both nares, without active bleeding, obvious deformity to the nose, oropharynx clear without exudates. Moist mucous membranes. NECK: Normal range of motion, supple without lymphadenopathy LUNGS: Coarse lung sounds, no respiratory distress HEART: Regular rate and rhythm without murmurs ABDOMEN: Soft, nontender, normoactive bowel sounds. No rebound, guarding, or rigidity. No masses appreciated. EXTREMITIES: Nontender, good range of motion, no pitting or edema. NEUROLOGICAL: No focal neurological deficits. Moves all extremities spontaneously Motor and sensory grossly intact on exam. PSYCH: Normal mood, normal affect. SKIN: Warm, Dry, normal turgor, no rashes or lesions noted on exposed skin TRAVEL OUTSIDE OF THE [place] IN LAST 30 DAYS: No - Related Data Allergies/Adverse Reactions: No Known Allergies Allergy (Verified 08/18/18 18:47) Past Medical History - Social History Smoking Status: Unknown if Ever Smoked Family History: Reviewed & Not Pertinent Patient has suicidal ideation: No Patient has homicidal ideation: No - Past Medical History Cardiac Medical History: Reports: Hx Hypercholesterolemia Pulmonary Medical History: Reports: Hx COPD Renal/ Medical History: Denies: Hx Peritoneal Dialysis Psychiatric Medical History: Reports: Hx Dementia Past Surgical History: Reports: Hx Appendectomy - Immunizations Immunizations up to date: Yes Hx Diphtheria, Pertussis, Tetanus Vaccination: Yes Physical Exam - Vital signs Vitals: Temp Pulse Resp BP Pulse Ox 97.9 F 76 23 H 114/50 L 95 09/05/18 05:15 09/05/18 05:15 09/05/18 05:15 09/05/18 05:15 09/05/18 05:15 Course - Re-evaluation Re-evalutation: Patient seen and examined vital signs reviewed. Imaging ordered as appropriate for the patient's presenting symptoms and complaint, with consideration of any critical or life threatening conditions that may be associated with their obtained history and exam as noted above. Patient was treated with wound care, he was not complaining of any pain Results were reviewed when available and demonstrated bilateral nasal fractures, negative CT imaging for intracranial injury, negative CT imaging for cervical spine injury. The patient was re-evaluated and was stable, wounds were dressed, he has received a tetanus recently, will discharge him back to the nursing facility, with a prescription for Keflex for his nasal injury, for 5 days and to have him follow-up with a primary care. Evaluation was most consistent with closed head injury, fall, nasal bone fracture Results were discussed with the patient at this point, after careful consideration I feel that that patient can be discharged from the emergency department, the patient was educated treatments and reasons to return to the emergency department based on their presumed diagnosis as noted above, they were advised to followup with a primary care physician in 2-3 days. Patient was agreeable to plan of care. *Note is created using voice recognition software and may contain spelling, syntax or grammatical errors. Head CT 09/05/18 06:28 IMPRESSION: 1. There is no evidence of acute intracranial pathology. 2. 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 Overall, no significant change when compared to the prior study. Cervical Spine CT 09/05/18 06:29 IMPRESSION: 1. No evidence of acute osseous injury involving the cervical spine. 2. There is multilevel degenerative disc disease and degenerative joint disease similar when compared to the prior study. 3. Moderate centrilobular emphysematous changes in the visualized lung apices. Facial Bones CT 09/05/18 06:29 IMPRESSION: 1. Acute minimally displaced bilateral nasal bone fractures. 2. Inflammatory paranasal sinus disease. This exam was performed according to our departmental dose-optimization program, which includes automated exposure control, adjustment of the mA and/or kV according to patient size and/or use of iterative reconstruction technique. - Vital Signs Vital signs: Temp Pulse Resp BP Pulse Ox 97.9 F 76 23 H 125/74 98 09/05/18 05:15 09/05/18 05:15 09/05/18 05:15 09/05/18 07:16 09/05/18 07:16 Procedures - Laceration/Wound Repair Face Wound length (cm): 0.5 Wound's Depth, Shape: Superficial Laceration pre-procedure: Shur-Clens applied Wound explored: Clean Wound Repaired With: Steri-strips Complications: No Discharge - Discharge Clinical Impression: Nasal bone fracture Qualifiers: Encounter type: initial encounter Fracture type: closed Qualified Code(s): S02.2XXA - Fracture of nasal bones, initial encounter for closed fracture Fall Qualifiers: Encounter type: initial encounter Qualified Code(s): W19.XXXA - Unspecified fall, initial encounter Closed head injury Qualifiers: Encounter type: initial encounter Qualified Code(s): S09.90XA - Unspecified injury of head, initial encounter Facial laceration Qualifiers: Encounter type: initial encounter Qualified Code(s): S01.81XA - Laceration without foreign body of other part of head, initial encounter Condition: Stable Disposition: HOME-SNF (ED ONLY) Instructions: Fracture of the Nose ([facility]) Additional Instructions: Please take the Keflex 3 times daily for 5 days, and avoid further falls if possible. Prescriptions: Cephalexin Monohydrate [Keflex 500 mg Capsule] 500 mg PO Q8 5 Days #15 capsule Referrals: ROSITA FARRIS NP [Primary Care Provider] - Follow up in 3-5 days
[2018-09-05] MEDS ORDERED: DIPH/PERTUSS(ACELL)/TETANUS VAC/PF 0.5 ML SYR (>=10YO) IM ONE (06:29)
--- NOTE | 2018-09-05 07:28 | RADIOLOGY REPORT (SQ) ---
CLINICAL DATA: fall, head injury TECHNICAL DATA: Multiple axial CT images of the brain were performed followed by sagittal and coronal reconstructed images. The CT study is performed according to ALARA (as low as reasonably achievable) or ALARA/IMAGE GENTLY, with automatic adjustment of mA and/or kV according to patient size. Performed on: 09/05/2018 at 6:49 AM Comparisons: Prior head CT performed on 08/12/2018. FINDINGS: There is no evidence of mass, acute mass effect or midline shift. There are no acute extra-axial fluid collections. There is no evidence of acute intracranial hemorrhage. There is a small lipoma along the cerebellar tentorium to the left of midline. The cerebral sulci and ventricles are prominent consistent with moderate cerebral volume loss. There are scattered patchy areas of decreased subcortical and periventricular attenuation most consistent with mild chronic microangiopathy.. . There is mild mucosal thickening of the paranasal sinuses. The mastoid air cells are clear. The orbital contents are grossly unremarkable. No acute osseous abnormalities are identified. No focal soft tissue abnormalities are identified. IMPRESSION: 1. There is no evidence of acute intracranial pathology. 2. 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 Overall, no significant change when compared to the prior study.
--- NOTE | 2018-09-05 07:36 | RADIOLOGY REPORT (SQ) ---
CLINICAL DATA: 73-year-old male status post fall with head injury. TECHNICAL DATA: Multiple high-resolution thin axial CT images were performed through the cervical spine followed by sagittal and coronal reconstructed images. The CT study is performed according to ALARA (as low as reasonably achievable) or ALARA/IMAGE GENTLY, with automatic adjustment of mA and/or kV according to patient size. Performed on: 09/05/2018 at 6:55 AM COMPARISONS: Prior CT cervical spine performed on 08/12/2018. FINDINGS: The cervical vertebrae are normal in height. There is normal alignment of the vertebrae. There is marked disc space narrowing at C7-T1 and mild to moderate disc space narrowing from C4-C5 through the visualized upper thoracic spine. Bone mineralization is normal. The atlanto-axial articulation is preserved and the odontoid process is intact. There is normal alignment of the facet joints on the parasagittal images. There are multilevel degenerative changes of the cervical spine. There is no evidence of acute fracture or subluxation. There is no significant canal stenosis. There is multilevel mild to moderate and moderate to severe bilateral neural foraminal stenosis secondary to uncovertebral joint and facet joint hypertrophy. The paravertebral and paraspinal soft tissues are unremarkable. The lung apices reveal moderate centrilobular emphysematous changes. IMPRESSION: 1. No evidence of acute osseous injury involving the cervical spine. 2. There is multilevel degenerative disc disease and degenerative joint disease similar when compared to the prior study. 3. Moderate centrilobular emphysematous changes in the visualized lung apices.
--- NOTE | 2018-09-05 07:42 | RADIOLOGY REPORT (SQ) ---
EXAM DESCRIPTION: CT MAXILLOFACIAL WITHOUT IV CONTRAST COMPLETED DATE/TME: 09/05/2018 06:29 CLINICAL HISTORY: fall, facial injury COMPARISON: None available TECHNIQUE: Axial CT of the facial bone obtained without contrast. Coronal and sagittal reformatted images available. DLP: 1171.00 mGy-cm FINDINGS: Orbits: Orbital floors and woody are intact. Intraorbital contents: The globes are intact. Extraocular muscles are symmetric. No intraconal fat stranding. Nasal bones: Minimally displaced bilateral nasal bone fractures. Maxilla: The maxillary hard palate is intact. Maxillary antral woody are intact. Sinuses: Mild mucosal thickening throughout the paranasal sinuses. Zygomatic processes: Intact Pterygoid plates: Intact Mandible: Intact. No mandibular condylar dislocation. Skull base/cervical spine: Visualized portions of the skull base and cervical spine are intact. Visualized mastoid air cells are well aerated. Subcutaneous soft tissues: Contusion in nasal subcutaneous soft tissues. Neck soft tissues: No definite abnormality involving the nasopharynx, oropharynx, or hypopharynx. Fossa of [place] are clear. Parotid glands and submandibular glands are unremarkable. No cervical lymphadenopathy. Atherosclerotic vascular calcification. IMPRESSION: 1. Acute minimally displaced bilateral nasal bone fractures. 2. Inflammatory paranasal sinus disease. This exam was performed according to our departmental dose-optimization program, which includes automated exposure control, adjustment of the mA and/or kV according to patient size and/or use of iterative reconstruction technique.
[2018-09-05 14:09] VITALS: BP 101/84
== END 2018-09-05 14:09 ==
LOC: ER 05:06
PROC: 0HQ1XZZ Repair Face Skin, External Approach (ICD-10-PCS; principal; 2018-09-05)
DX: S02.2XXA Fracture of nasal bones, initial encounter for closed fracture (principal); S01.81XA Laceration without foreign body of other part of head, initial encounter; S09.90XA Unspecified injury of head, initial encounter; F03.90 Unspecified dementia, unspecified severity, without behavioral disturbance, psychotic disturbance, mood disturbance, and anxiety; R04.0 Epistaxis; W19.XXXA Unspecified fall, initial encounter; J44.9 Chronic obstructive pulmonary disease, unspecified; I10 Essential (primary) hypertension; G20 Parkinson's disease
CPT/HCPCS: 70450; 70486; 72125; 90471; 99284

== ENCOUNTER 2018-10-10 21:47 | Inpatient (IN) | payer OTHER, MEDICARE ==
--- NOTE | 2018-10-10 23:07 | RADIOLOGY REPORT (SQ) ---
EXAM DESCRIPTION: XR CHEST 1 VIEW COMPLETED DATE/TME: 10/10/2018 22:21 CLINICAL HISTORY: 73 years Male, Fever, cough COMPARISON:08/31/2018, 08/12/18, 01/31/17 NUMBER OF VIEWS/TECHNIQUE: 1/AP FINDINGS: Adequate lung volume, moderate chronic patchy opacities of both lower lung luna suggestive of fibrosis/scar, new additional small left basilar opacity, normal cardiac silhouette, and intact bony thorax. IMPRESSION: 1. New small left basilar pneumonia/atelectasis. 2. Chronic underlying pulmonary fibrosis pattern.
[2018-10-10 23:09] LABS: VENOUS BLOOD BASE EXCESS 1.8 mmol/L; VENOUS BLOOD HCO3 27.1 mmol/L (20-32); VENOUS BLOOD PCO2 44.8 mmHg (35-63); VENOUS BLOOD PH 7.4 (7.30-7.42)
[2018-10-10 23:10] LABS: HEMATOCRIT 36.7 % (37.9-51.0); HEMOGLOBIN 11.8 g/dL (13.5-17.0); MEAN CORPUSCULAR HGB CONC 32.1 g/dL (32.0-36.0); MEAN CORPUSCULAR VOLUME 87 fl (80-97); PLATELET COUNT 317 10^3/uL (150-450); RED BLOOD COUNT 4.21 10^6/uL (4.35-5.55); RED CELL DISTRIBUTION WIDTH 15.1 % (11.5-14.0); WHITE BLOOD COUNT 14.4 10^3/uL (4.0-10.5)
[2018-10-10 23:21] LABS: INTERNATIONAL RATION (INR) 0.99; PROTHROMBIN TIME 13.6 SEC (11.4-15.4)
[2018-10-10 23:26] LABS: ALANINE AMINOTRANSFERASE 24 U/L (21-72); ALBUMIN 4.3 g/dL (3.5-5.0); ALKALINE PHOSPHATASE 108 U/L (38-126); ANION GAP 9 (5-19); ASPARTATE AMINO TRANSFERASE 22 U/L (17-59); BILIRUBIN,DIRECT 0.1 mg/dL (0.0-0.4); BILIRUBIN,TOTAL 0.3 mg/dL (0.2-1.3); BLOOD UREA NITROGEN 23 mg/dL (7-20); CALCIUM 9.4 mg/dL (8.4-10.2); CARBON DIOXIDE 28 mmol/L (22-30); CHLORIDE 108 mmol/L (98-107); GLUCOSE 118 mg/dL (75-110); POTASSIUM 4.1 mmol/L (3.6-5.0); SODIUM 145.4 mmol/L (137-145); TOTAL PROTEIN 7.4 g/dL (6.3-8.2)
[2018-10-10 23:32] LABS: ABSOLUTE LYMPHOCYTES# (MANUAL) 0.6 10^3/uL (0.5-4.7); ABSOLUTE MONOCYTES # (MANUAL) 1.2 10^3/uL (0.1-1.4); ABSOLUTE NEUTROPHILS# (MANUAL) 12.4 10^3/uL (1.7-8.2); ANISOCYTOSIS 1+; BASOPHILS % (MANUAL) 1 % (0-2); EOSINOPHILS % (MANUAL) 1 % (0-6); LYMPHOCYTES % (MANUAL) 3 % (13-45); MONOCYTES % (MANUAL) 8 % (3-13); PLATELET COMMENT ADEQUATE; SEGMENTED NEUTROPHILS % (MAN) 86 % (42-78); TOTAL CELLS COUNTED 100
[2018-10-11 00:08] LABS: AMORPHOUS SEDIMENT,URINE TRACE /HPF; APPEARANCE,URINE SLIGHTLY-CLOUDY; BILIRUBIN,URINE NEGATIVE (NEGATIVE); COLOR,URINE YELLOW; GLUCOSE, URINE NEGATIVE (NEGATIVE); KETONES,URINE NEGATIVE (NEGATIVE); LEUKOCYTE ESTERASE,URINE NEGATIVE (NEGATIVE); NITRITE,URINE NEGATIVE (NEGATIVE); PROTEIN,URINE NEGATIVE (NEGATIVE)
[2018-10-11] MEDS ORDERED: CEFEPIME 2 GM/D5W RTU 2 GM/50 ML RTUPB IV ONE (00:56)
--- NOTE | 2018-10-11 00:56 | ER Document Report ---
ED General - General Chief Complaint: Fever Stated Complaint: FEVER Time Seen by Provider: 10/10/18 22:10 Primary Care Provider: ROSITA FARRIS NP [Primary Care Provider] - Follow up as needed TRAVEL OUTSIDE OF THE [place] IN LAST 30 DAYS: No - HPI Notes: Patient is a 73-year-old dominant sent in for evaluation of possible sepsis. He was febrile at the [facility]. They reported a diminished level of consciousness. The patient states he has been coughing severely. He is a poor historian. Denies any pain at this time. No nausea or vomiting. States he is urinating normally. - Related Data Allergies/Adverse Reactions: No Known Allergies Allergy (Verified 08/18/18 18:47) Past Medical History - General Information source: Patient, Outside Facility Records - Social History Smoking Status: Current Every Day Smoker Chew tobacco use (# tins/day): No Frequency of alcohol use: None Drug Abuse: None Family History: Reviewed & Not Pertinent Patient has suicidal ideation: No Patient has homicidal ideation: No - Past Medical History Cardiac Medical History: Reports: Hx Hypercholesterolemia Pulmonary Medical History: Reports: Hx COPD Renal/ Medical History: Denies: Hx Peritoneal Dialysis Psychiatric Medical History: Reports: Hx Dementia Past Surgical History: Reports: Hx Appendectomy - Immunizations Immunizations up to date: Yes Hx Diphtheria, Pertussis, Tetanus Vaccination: Yes Review of Systems - Review of Systems Constitutional: Fever, Malaise, Weakness EENT: No symptoms reported Cardiovascular: No symptoms reported Respiratory: Cough, Short of breath Musculoskeletal: No symptoms reported, Other - Right shoulder pain Skin: No symptoms reported Neurological/Psychological: No symptoms reported Physical Exam - Vital signs Vitals: Temp Pulse Resp BP Pulse Ox 99.3 F 88 22 H 125/86 H 96 10/10/18 21:48 10/10/18 21:48 10/10/18 21:48 10/10/18 21:48 10/10/18 21:48 - Notes Notes: Cachectic appearing 73-year-old gentleman in no acute distress. Head is normocephalic and atraumatic. Pupils are equal round reactive to light. All mucosas dry with extensive mucus in the posterior pharynx. Heart is regular, l ungs show diminished breath sounds in the left base. Abdomen soft nontender with normal active bowel sounds. Extremities without cyanosis or clubbing, no posterior calf tenderness. Skin is warm and dry. Course - Re-evaluation Re-evalutation: 10/11/18 01:32 Patient presents to the emergency department for evaluation. He is 73 with a history of COPD. He was febrile prior to arrival. He has a leukocytosis. He does meet sepsis criteria at this time given his source. He was treated for healthcare associated pneumonia with cefepime and vancomycin. He remained stable throughout the course of his stay. I spoke with Dr. Abdi who will admit him for further care. - Vital Signs Vital signs: Temp Pulse Resp BP Pulse Ox 99.0 F 88 22 H 125/86 H 96 10/11/18 01:26 10/10/18 21:48 10/10/18 21:48 10/10/18 21:48 10/10/18 21:48 - Laboratory Result Diagrams: 10/10/18 22:52 10/10/18 22:52 Laboratory results interpreted by me: 10/10/18 10/10/18 10/10/18 22:52 22:52 23:35 WBC 14.4 H RBC 4.21 L Hgb 11.8 L Hct 36.7 L RDW 15.1 H Seg Neuts % (Manual) 86 H Lymphocytes % (Manual) 3 L Abs Neuts (Manual) 12.4 H Sodium 145.4 H Chloride 108 H BUN 23 H Glucose 118 H Urine Blood MODERATE H Urine Urobilinogen 2.0 H - Diagnostic Test Radiology reviewed: Reports reviewed - Sinus mechanism with a rate of 95 bpm. Left axis deviation, incomplete right bundle branch block. No significant change from prior studies. - Consults Jin Consulted provider: will see as inpatient Discharge - Discharge Clinical Impression: Pneumonia, Sepsis Condition: Fair Disposition: ADMITTED INPATIENT Admitting Provider: Hospitalist Unit Admitted: Medical Floor Referrals: ROSITA FARRIS NP [Primary Care Provider] - Follow up as needed
[2018-10-11] MEDS ORDERED: VANCOMYCIN HCL INJ 1000 MG VIAL IV ONE (00:57)
[2018-10-11] MEDS ORDERED: IPRATROPIUM/ALBUTEROL 0.5-2.5 MG/3 ML AMPUL NEB PRN (01:34)
[2018-10-11] MEDS ORDERED: GUAIFENESIN SYRP 200 MG/10 ML UDC PO PRN (01:34)
[2018-10-11] MEDS ORDERED: VANCOMYCIN HCL 0 MG in DEXTROSE 5%-WATER 250 ML IV NR (01:45)
[2018-10-11] MEDS ORDERED: NORMAL SALINE 1000 ML 1,000 ML IV PRN ×3 (01:45→12:52)
[2018-10-11] MEDS ORDERED: VANCOMYCIN HCL INJ 1000 MG VIAL IV PRN (01:46)
[2018-10-11] MEDS ORDERED: CHLORPHENIRAMINE MALEATE 4 MG TABLET PO ONE (02:00)
[2018-10-11] MEDS: IPRATROPIUM/ALBUTEROL 0.5-2.5 MG/3 ML AMPUL NEB SCH ×4 (02:10→21:42)
[2018-10-11] MEDS ORDERED: VANCOMYCIN HCL 1,250 MG in DEXTROSE 5%-WATER 250 ML IV ONE (03:00)
[2018-10-11] MEDS ORDERED: DEXTROSE 50%-WATER 25 GM/50 ML DISP.SYRIN IV ONE (03:10)
[2018-10-11] MEDS: HEPARIN SOD (PORCINE) 5,000 UNIT/ML 1 ML SYRINGE SUBCUT SCH ×3 (05:50→21:59)
[2018-10-11] MEDS ORDERED: LORAZEPAM 0.5 MG TABLET PO PRN (06:36)
--- NOTE | 2018-10-11 06:36 | PDOC H&P ---
History of Present Illness Admission Date/PCP: 10/11/18 01:52 ROSITA FARRIS NP Patient complains of: Fever and cough History of Present Illness: JUMANA HENDRIX is a 73 year old male retirement resident with a history of an anoxic brain injury at the age of 27, dementia, COPD with tobacco dependence. Is brought to the emergency room for evaluation after found by retirement staff to be short of breath with cough and fever. Patient is a poor historian with disorganized speech and unable to provide history but denies pain. In the emergency room is found to have fever, tachypnea and nonproductive cough, leukocytosis and a chest x-ray suggestive of pulmonary fibrosis with right lower lobe infiltrate. He started on empiric antibiotics and referred to the hospitalist for admission. Patient's daughter and power of stunt man verified CODE STATUS is DNR, DNI on August 12 2018. Past Medical History Cardiac Medical History: Reports: Hyperlipidema Pulmonary Medical History: Reports: Chronic Obstructive Pulmonary Disease (COPD) Neurological Medical History: Reports: Other - And anoxic brain injury at 27 years old Psychiatric Medical History: Reports: Dementia, Other Past Surgical History Past Surgical History: Reports: Appendectomy Social History Information Source: Patient, Emergency Med Personnel, [facility] Records Lives with: Shelter Smoking Status: Current Every Day Smoker Frequency of Alcohol Use: None Hx Recreational Drug Use: No Drugs: None Hx Prescription Drug Abuse: No - Advance Directive Resuscitation Status: Do Not Resuscitate Family History Family History: Other - Unobtainable Parental Family History Reviewed: No - Unobtainable Children Family History Reviewed: No Sibling(s) Family History Reviewed.: No - Unobtainable Medication/Allergy Home Medications: Budesonide/Formoterol Fumarate [Symbicort HFA 160-4.5 mcg Inhaler 6 gm] 2 puff IH Q12 18 Lamotrigine [Lamictal] 62.5 mg PO Q12 /15/18 Lorazepam [Ativan 0.5 mg Tablet] 0.5 mg PO Q12HP PRN /15/18 Mineral Oil/Petrolatum,White [Systane Nighttime Eye Ointment] 1 applic OU QHS 18 Sodium Chloride [[place]-128 Oph Soln 5% 15 ml] 1 drop OU Q6HP PRN 08/12/18 Tiotropium [place] [Spiriva Handihaler 5 Cap/Kit (18 Mcg/Cap)] 1 cap IH DAILY 08/12/18 Trazodone HCl [Desyrel 50 mg Tablet] 50 mg PO QHS 08/12/18 Amox Tr/Potassium Clavulanate [Augmentin "500" Tablet] 1 tab PO Q8 #12 tablet 08/16/18 Aspirin [Ecotrin 81 mg EC Tablet] 81 mg PO DAILY #90 tab 08/16/18 Nicotine [Nicoderm 21 mg/24 Hr Transderm Patch] 1 each TD DAILY #30 patch.td24 08/16/18 Simvastatin [Zocor 10 mg Tablet] 20 mg PO QHS #30 tablet 08/16/18 Benzonatate [Tessalon Perles 100 mg Capsule] 100 mg PO Q8HP PRN #40 capsule 08/31/18 Levofloxacin [Levaquin 500 mg Tablet] 500 mg PO DAILY #10 tablet 08/31/18 Cephalexin Monohydrate [Keflex 500 mg Capsule] 500 mg PO Q8 5 Days #15 capsule 09/05/18 Allergies/Adverse Reactions: No Known Allergies Allergy (Verified 08/18/18 18:47) Review of Systems ROS unobtainable: Due to mental status - Dementia Physical Exam Vital Signs: Temp Pulse Resp BP Pulse Ox 99.0 F 86 16 114/84 96 10/11/18 01:26 10/11/18 05:30 10/11/18 02:12 10/11/18 02:01 10/11/18 01:01 Intake & Output 10/09/18 10/10/18 10/11/18 11:59 11:59 11:59 Intake Total 300 Balance 300 Weight 58.6 kg General appearance: PRESENT: cooperative, disheveled, mild distress, thin Head exam: PRESENT: atraumatic, normocephalic Eye exam: PRESENT: conjunctival injection Ear exam: PRESENT: normal external ear exam Mouth exam: PRESENT: moist, tongue midline Neck exam: ABSENT: carotid bruit, JVD, lymphadenopathy, thyromegaly Respiratory exam: PRESENT: accessory muscle use, crackles, prolonged expiratory phas, rhonchi, symmetrical, tachypnea. ABSENT: stridor, wheezes Cardiovascular exam: PRESENT: RRR. ABSENT: diastolic murmur, rubs, systolic murmur Pulses: PRESENT: normal dorsalis pedis pul Vascular exam: PRESENT: normal capillary refill GI/Abdominal exam: PRESENT: normal bowel sounds, soft. ABSENT: distended, guarding, mass, organolmegaly, rebound, tenderness Rectal exam: PRESENT: deferred Extremities exam: PRESENT: full ROM. ABSENT: calf tenderness, clubbing, pedal edema Neurological exam: PRESENT: alert, awake, oriented to person, oriented to place, oriented to time, oriented to situation, CN II-XII grossly intact. ABSENT: motor sensory deficit Psychiatric exam: PRESENT: unusual affect. ABSENT: homicidal ideation, suicidal ideation Skin exam: PRESENT: dry, intact, warm. ABSENT: cyanosis, rash Results Laboratory Results: 10/10/18 22:52 10/10/18 22:52 10/10/18 10/10/18 10/10/18 22:52 22:52 22:52 WBC 14.4 H RBC 4.21 L Hgb 11.8 L Hct 36.7 L MCV 87 MCH 28.0 MCHC 32.1 RDW 15.1 H Plt Count 317 Seg Neutrophils % Not Reportable Lymphocytes % Not Reportable Monocytes % Not Reportable Eosinophils % Not Reportable Basophils % Not Reportable Absolute Neutrophils Not Reportable Absolute Lymphocytes Not Reportable Absolute Monocytes Not Reportable Absolute Eosinophils Not Reportable Absolute Basophils Not Reportable VBG pH VBG pCO2 VBG HCO3 VBG Base Excess Sodium 145.4 H Potassium 4.1 Chloride 108 H Carbon Dioxide 28 Anion Gap 9 BUN 23 H Creatinine 1.04 Est GFR ( Amer) > 60 Est GFR (Non-Af Amer) > 60 Glucose 118 H Lactic Acid 1.0 Calcium 9.4 Total Bilirubin 0.3 AST 22 ALT 24 Alkaline Phosphatase 108 Total Protein 7.4 Albumin 4.3 Urine Color Urine Appearance Urine pH Ur Specific [place] Urine Protein Urine Glucose (UA) Urine Ketones Urine Blood Urine Nitrite Ur Leukocyte Esterase Urine WBC (Auto) Urine RBC (Auto) 10/10/18 10/10/18 22:52 23:35 WBC RBC Hgb Hct MCV MCH MCHC RDW Plt Count Seg Neutrophils % Lymphocytes % Monocytes % Eosinophils % Basophils % Absolute Neutrophils Absolute Lymphocytes Absolute Monocytes Absolute Eosinophils Absolute Basophils VBG pH 7.40 VBG pCO2 44.8 VBG HCO3 27.1 VBG Base Excess 1.8 Sodium Potassium Chloride Carbon Dioxide Anion Gap BUN Creatinine Est GFR ( Amer) Est GFR (Non-Af Amer) Glucose Lactic Acid Calcium Total Bilirubin AST ALT Alkaline Phosphatase Total Protein Albumin Urine Color YELLOW Urine Appearance SLIGHTLY-CLOUDY Urine pH 6.0 Ur Specific [place] 1.020 Urine Protein NEGATIVE Urine Glucose (UA) NEGATIVE Urine Ketones NEGATIVE Urine Blood MODERATE H Urine Nitrite NEGATIVE Ur Leukocyte Esterase NEGATIVE Urine WBC (Auto) 3 Urine RBC (Auto) 70 Impressions: Chest X-Ray 10/10/18 22:21 IMPRESSION: 1. New small left basilar pneumonia/atelectasis. 2. Chronic underlying pulmonary fibrosis pattern. Assessment & Plan - Diagnosis (1) Pneumonia Is this a current diagnosis for this admission?: Yes Plan: Pneumonia care set, supplemental oxygen, incentive spirometry, flutter valve. Follow-up CBC and culture (2) Sepsis Is this a current diagnosis for this admission?: Yes Plan: Secondary to #1, IV fluid challenge, follow-up CBC, chemistry and blood culture (3) Tobacco dependence Is this a current diagnosis for this admission?: Yes Plan: Tobacco Dependence patient received tobacco cessation counseling and offered nicotine replacement options - Time Time Spent: 30 to 50 Minutes
[2018-10-11] MEDS ORDERED: NICOTINE 7 MG/24 HR PATCH.TD24 TD ONE ×2 (06:45→11:30)
--- NOTE | 2018-10-11 07:33 | EKG REPORT ---
SEVERITY:- ABNORMAL ECG - SINUS RHYTHM LEFT AXIS DEVIATION : Confirmed by: Vero Bravo MD 11-Oct-2018 07:32:55
[2018-10-11] MEDS: FLUTICASONE NASAL SPRAY 50 MCG/SPRY 120 SPRAY/16 GM NASL SCH ×2 (09:43→21:59)
[2018-10-11] MEDS: ASPIRIN 81 MG TABLET, ENT COATED PO SCH (09:43)
[2018-10-11] MEDS: CEFEPIME 1 GM/D5W RTU 1 GM/50 ML RTUPB IV SCH ×2 (09:44→22:00)
[2018-10-11] MEDS ORDERED: LAMOTRIGINE PO SCH (10:00)
[2018-10-11] MEDS: VANCOMYCIN HCL 750 MG in DEXTROSE 5%-WATER 250 ML IV SCH ×2 (10:41→23:29)
--- NOTE | 2018-10-11 14:30 | Progress Note ---
Provider Note Provider Note: This is a very pleasant 73 years old male patient brought from assisted with chief complaint of fever, productive cough and shortness of breath and admitted this morning for pneumonia. His chest x-ray revealed left lower lobe pneumonia. Patient has been started on cefepime and vancomycin. I seen patient sitting up at the bedside he is awake alert and is not in pain or distress. Accept this patient and will be his primary attending
[2018-10-11] MEDS: LAMOTRIGINE 25 MG TAB.CHEW PO SCH (22:00)
[2018-10-11] MEDS: TRAZODONE HCL 50 MG TABLET PO SCH (22:01)
[2018-10-11] MEDS ORDERED: HALOPERIDOL LACTATE INJ 5 MG/1 ML VIAL ONE (23:03)
[2018-10-11] MEDS ORDERED: HALOPERIDOL LACTATE INJ 5 MG/1 ML VIAL IM ONE (23:45)
[2018-10-12] MEDS: IPRATROPIUM/ALBUTEROL 0.5-2.5 MG/3 ML AMPUL NEB SCH ×4 (01:57→20:28)
[2018-10-12] MEDS: HEPARIN SOD (PORCINE) 5,000 UNIT/ML 1 ML SYRINGE SUBCUT SCH ×3 (06:17→22:18)
[2018-10-12 06:39] LABS: ABSOLUTE BASOPHILS # (AUTO) 0.1 10^3/uL (0.0-0.2); ABSOLUTE EOSINOPHILS # (AUTO) 0.2 10^3/uL (0.0-0.6); ABSOLUTE LYMPHOCYTES (AUTO) 1.2 10^3/uL (0.5-4.7); ABSOLUTE MONOCYTES (AUTO) 0.9 10^3/uL (0.1-1.4); ABSOLUTE NEUT (AUTO) 5.5 10^3/uL (1.7-8.2); BASOPHILS % (AUTO) 0.9 % (0-2); EOSINOPHILS % (AUTO) 2.6 % (0-6); HEMATOCRIT 31.4 % (37.9-51.0); HEMOGLOBIN 10.5 g/dL (13.5-17.0); LYMPHOCYTES % (AUTO) 15.8 % (13-45); MEAN CORPUSCULAR HEMOGLOBIN 28.7 pg (27.0-33.4); MEAN CORPUSCULAR HGB CONC 33.3 g/dL (32.0-36.0); MEAN CORPUSCULAR VOLUME 86 fl (80-97); MONOCYTES % (AUTO) 10.9 % (3-13); PLATELET COUNT 230 10^3/uL (150-450); RED BLOOD COUNT 3.64 10^6/uL (4.35-5.55); RED CELL DISTRIBUTION WIDTH 15.2 % (11.5-14.0); SEGMENTED NEUTROPHILS % (AUTO) 69.8 % (42-78); TOTAL CELLS COUNTED % (AUTO) 100 %; WHITE BLOOD COUNT 7.9 10^3/uL (4.0-10.5)
[2018-10-12 06:54] LABS: ANION GAP 8 (5-19); BLOOD UREA NITROGEN 16 mg/dL (7-20); CALCIUM 8.6 mg/dL (8.4-10.2); CARBON DIOXIDE 27 mmol/L (22-30); CHLORIDE 104 mmol/L (98-107); GLUCOSE 84 mg/dL (75-110); POTASSIUM 3.7 mmol/L (3.6-5.0); SODIUM 138.8 mmol/L (137-145)
[2018-10-12] MEDS: ASPIRIN 81 MG TABLET, ENT COATED PO SCH (09:12)
[2018-10-12] MEDS: LAMOTRIGINE 25 MG TAB.CHEW PO SCH ×2 (09:12→22:19)
[2018-10-12] MEDS: NICOTINE 7 MG/24 HR PATCH.TD24 TD SCH (09:14)
[2018-10-12] MEDS: FLUTICASONE NASAL SPRAY 50 MCG/SPRY 120 SPRAY/16 GM NASL SCH ×2 (09:15→22:19)
[2018-10-12] MEDS: CEFEPIME 1 GM/D5W RTU 1 GM/50 ML RTUPB IV SCH (09:15)
[2018-10-12] MEDS ORDERED: HALOPERIDOL 5 MG TABLET PO PRN (12:17)
--- NOTE | 2018-10-12 18:50 | PDOC PROGRESS REPORT ---
Subjective Progress Note for:: 10/12/18 Subjective:: This is a very pleasant 73 years old male [facility] with chief complaint of fever, productive cough and shortness of breath and admitted this morning for pneumonia. His chest x-ray revealed left lower lobe pneumonia. Patient has been started on cefepime and vancomycin. Patient is clinically stable and his blood cultures negative. I switched his cefepime and vancomycin to Levaquin. This morning I seen patient resting in bed he is awake alert he is a bit agitated and we started him on Haldol 5 mg p.o. 3 times daily. Reason For Visit: COPD EXACERBATION,PNEUOMONIA Physical Exam Vital Signs: Temp Pulse Resp BP Pulse Ox 99.3 F 70 16 107/68 96 10/12/18 17:14 10/12/18 17:14 10/12/18 17:14 10/12/18 17:14 10/12/18 17:14 Intake & Output 10/11/18 10/12/18 10/13/18 06:59 06:59 06:59 Intake Total 300 1440 50 Output Total 1450 Balance 300 -10 50 Weight 58.3 kg 57.5 kg General appearance: PRESENT: no acute distress Head exam: PRESENT: atraumatic Eye exam: PRESENT: conjunctiva pink Respiratory exam: PRESENT: crackles Cardiovascular exam: PRESENT: RRR. ABSENT: diastolic murmur, rubs, systolic murmur Results Laboratory Results: 10/12/18 05:49 10/12/18 05:49 10/12/18 10/12/18 05:49 05:49 WBC 7.9 RBC 3.64 L Hgb 10.5 L Hct 31.4 L MCV 86 MCH 28.7 MCHC 33.3 RDW 15.2 H Plt Count 230 Seg Neutrophils % 69.8 Lymphocytes % 15.8 Monocytes % 10.9 Eosinophils % 2.6 Basophils % 0.9 Absolute Neutrophils 5.5 Absolute Lymphocytes 1.2 Absolute Monocytes 0.9 Absolute Eosinophils 0.2 Absolute Basophils 0.1 Sodium 138.8 Potassium 3.7 Chloride 104 Carbon Dioxide 27 Anion Gap 8 BUN 16 Creatinine 0.88 Est GFR ( Amer) > 60 Est GFR (Non-Af Amer) > 60 Glucose 84 Calcium 8.6 Impressions: Chest X-Ray 10/10/18 22:21 IMPRESSION: 1. New small left basilar pneumonia/atelectasis. 2. Chronic underlying pulmonary fibrosis pattern. Assessment & Plan - Diagnosis (1) Pneumonia Is this a current diagnosis for this admission?: Yes Plan: His antibiotics switched from vancomycin and cefepime to Levaquin. (2) Sepsis Is this a current diagnosis for this admission?: Yes Plan: #1 (3) COPD exacerbation Is this a current diagnosis for this admission?: Yes Plan: Continue supplemental oxygen, bronchodilators and steroid. (4) Hyperlipidemia Qualifiers: Hyperlipidemia type: unspecified Qualified Code(s): E78.5 - Hyperlipidemia, unspecified Is this a current diagnosis for this admission?: Yes Plan: Continue home medication (5) History of anoxic brain damage Is this a current diagnosis for this admission?: Yes Plan: Stable.
[2018-10-12] MEDS: METHYLPREDNISOLONE INJ 40 MG/1 ML SDV IV SCH (22:18)
[2018-10-12] MEDS: TRAZODONE HCL 50 MG TABLET PO SCH (22:18)
[2018-10-13] MEDS: IPRATROPIUM/ALBUTEROL 0.5-2.5 MG/3 ML AMPUL NEB SCH ×2 (02:04→08:39)
[2018-10-13] MEDS: METHYLPREDNISOLONE INJ 40 MG/1 ML SDV IV SCH (05:34)
[2018-10-13] MEDS: HEPARIN SOD (PORCINE) 5,000 UNIT/ML 1 ML SYRINGE SUBCUT SCH (05:34)
--- NOTE | 2018-10-13 08:09 | PDOC TRANSFER SUMMARY ---
General - Admit/Disc Date/PCP Admission Date/Primary Care Provider: 10/11/18 01:52 [facility] Discharge Date: 10/13/18 - Discharge Diagnosis (1) Pneumonia Is this a current diagnosis for this admission?: Yes (2) Sepsis Is this a current diagnosis for this admission?: Yes (3) COPD exacerbation Is this a current diagnosis for this admission?: Yes (4) Hyperlipidemia Is this a current diagnosis for this admission?: Yes (5) History of anoxic brain damage Is this a current diagnosis for this admission?: Yes - Additional Information Resuscitation Status: Do Not Resuscitate Home Medications: Budesonide/Formoterol Fumarate [Symbicort HFA 160-4.5 mcg Inhaler 6 gm] 2 puff IH Q12 08/12/18 Lamotrigine [Lamictal] 62.5 mg PO Q12 08/12/18 Mineral Oil/Petrolatum,White [Systane Nighttime Eye Ointment] 1 applic OU QHS 08/12/18 Sodium Chloride [Carolina-128 Oph Soln 5% 15 ml] 1 drop OU Q6HP PRN 08/12/18 Tiotropium [place] [Spiriva Handihaler 5 Cap/Kit (18 Mcg/Cap)] 1 cap IH DAILY 08/12/18 Aspirin [Ecotrin 81 mg EC Tablet] 81 mg PO DAILY #90 tab 08/16/18 Simvastatin [Zocor 10 mg Tablet] 20 mg PO QHS #30 tablet 08/16/18 Benzonatate [Tessalon Perles 100 mg Capsule] 100 mg PO Q8HP PRN #40 capsule 08/31/18 Albuterol Sulfate [Ventolin 0.083% Neb 2.5 mg/3 ml Ampul] 2.5 mg NEB QIDP PRN 10/11/18 Albuterol Sulfate [Ventolin Hfa 8 gm Mdi (1 Mdi/ER Disp)] 2 puff IH Q6HP PRN 10/11/18 Haloperidol [Haldol 5 mg Tablet] 5 mg PO Q8HP PRN 10/11/18 Multivitamin [Daily Multiple Vitamin] 1 each PO DAILY 10/11/18 Olanzapine [Zyprexa 5 mg Tablet] 5 mg PO Q12 10/11/18 Olanzapine [Zyprexa] 1.25 mg PO Q8HP PRN 10/11/18 Olanzapine [Zyprexa] 10 mg PO QHS 10/11/18 Ranitidine HCl 150 mg PO BID 10/11/18 History of Present Illness Admission Date/PCP: 10/11/18 01:52 [facility] History of Present Illness: JUMANA HENDRIX is a 73 year old male alf resident with a history of an anoxic brain injury at the age of 27, dementia, COPD with tobacco dependence. Is brought to the emergency room for evaluation after found by alf staff to be short of breath with cough and fever. Patient is a poor historian with disorganized speech and unable to provide history but denies pain. In the emergency room is found to have fever, tachypnea and nonproductive cough, leukocytosis and a chest x-ray suggestive of pulmonary fibrosis with right lower lobe infiltrate. He started on empiric antibiotics and referred to the hospitalist for admission. Patient's daughter and power of trade mark attorney verified CODE STATUS is DNR, DNI on August 12 2018. Hospital Course Hospital Course: This is a very pleasant 73 years old male patient brought from alf with chief complaint of fever, productive cough and shortness of breath and admitted this morning for pneumonia. His chest x-ray revealed left lower lobe pneumonia. Patient has been started on cefepime and vancomycin. Patient is clinically stable and his blood cultures negative so I switched his cefepime and vancomycin to Levaquin. This morning I seen patient while dressing himself.He is awake alert, and he is not in pain or distress.His vitals are within normal limit.Patient is stable for discharge.I will continue all his home meds and send him with Levaquin 500 daily for 5 days. Physical Exam Vital Signs: Temp Pulse Resp BP Pulse Ox 97.9 F 62 20 105/66 95 10/13/18 03:47 10/13/18 07:00 10/13/18 03:47 10/13/18 03:47 10/13/18 03:47 Intake & Output 10/12/18 10/13/18 10/14/18 06:59 06:59 06:59 Intake Total 1440 1198 Output Total 1450 Balance -10 1198 Weight 57.5 kg 57.9 kg General appearance: PRESENT: no acute distress Head exam: PRESENT: normocephalic Eye exam: PRESENT: conjunctiva pink Mouth exam: PRESENT: moist Neck exam: ABSENT: carotid bruit, JVD, lymphadenopathy, thyromegaly Respiratory exam: PRESENT: clear to auscultation gama. ABSENT: rales, rhonchi, wheezes Vascular exam: PRESENT: normal capillary refill Neurological exam: PRESENT: alert, awake Results Laboratory Results: 10/12/18 05:49 10/12/18 05:49 Impressions: Chest X-Ray 10/10/18 22:21 IMPRESSION: 1. New small left basilar pneumonia/atelectasis. 2. Chronic underlying pulmonary fibrosis pattern. Transfer Plan - Time Spent with Patient Time spent with patient: Greater than 30 Minutes Qualifiers - * PATIENT BEING DISCHARGED WITH ANY OF THE FOLLOWING DIAGNOSIS: No
[2018-10-13] MEDS: ASPIRIN 81 MG TABLET, ENT COATED PO SCH (09:16)
[2018-10-13] MEDS: LAMOTRIGINE 25 MG TAB.CHEW PO SCH (09:16)
[2018-10-13] MEDS: NICOTINE 7 MG/24 HR PATCH.TD24 TD SCH (09:17)
[2018-10-13] MEDS: FLUTICASONE NASAL SPRAY 50 MCG/SPRY 120 SPRAY/16 GM NASL SCH (09:18)
[2018-10-13] MEDS ORDERED: LEVOFLOXACIN 750 MG/D5W RTU 750 MG/150 ML RTUPB IV SCH (10:00)
[2018-10-13 11:17] LABS: VANCOMYCIN,TROUGH < 5.0 ug/mL (5.0-20.0)
[2018-10-13 12:23] VITALS: BP 110/73
== END 2018-10-13 13:43 | DRG 871 ==
LOC: ER 21:47 → EH 10-11 01:52 → 4S 10-11 04:45
PROVIDERS: ADMIT Internal Medicine; ATTEND Internal Medicine
DX: A41.9 Sepsis, unspecified organism (principal); J18.9 Pneumonia, unspecified organism; J44.1 Chronic obstructive pulmonary disease with (acute) exacerbation; J44.0 Chronic obstructive pulmonary disease with (acute) lower respiratory infection; F03.90 Unspecified dementia, unspecified severity, without behavioral disturbance, psychotic disturbance, mood disturbance, and anxiety; F17.200 Nicotine dependence, unspecified, uncomplicated; E78.5 Hyperlipidemia, unspecified; Z66 Do not resuscitate; M25.511 Pain in right shoulder; Z87.820 Personal history of traumatic brain injury; Z79.82 Long term (current) use of aspirin
CPT/HCPCS: 36415; 71045; 80048; 80053; 80202; 81001; 82803; 83605; 85025; 85610; 87040; 87086; 93005; 93010; 94640; 94799; 96365; 99285; J0692; J1630; J1644; J1956; J2920; J3370; J3490; J7060; J7620

== ENCOUNTER 2018-11-15 02:26 | Emergency (ER) | payer OTHER, MEDICARE ==
--- NOTE | 2018-11-15 02:43 | ER Document Report ---
ED Fall - General Stated Complaint: FALL Time Seen by Provider: 11/15/18 02:38 Primary Care Provider: KERA,KJ [Primary Care Provider] - Follow up as needed Notes: Patient is a 73-year-old male with a history of dementia [facility] EMS for chief complaint of falling out of his bed. EMS states he was on his back, this was unwitnessed, patient noted to have a new abrasion to the right knee, multiple old healing abrasions to both arms, and he is reporting neck pain. He denies headache or head injury. He is not on a blood thinner. No other history reported to me. Patient has DNR paperwork with him. TRAVEL OUTSIDE OF THE [place] IN LAST 30 DAYS: No - Related data Allergies/Adverse Reactions: No Known Allergies Allergy (Verified 08/18/18 18:47) Past Medical History - General Information source: Patient, Transfer Record, Emergency Med Personnel - Social History Smoking Status: Never Smoker Frequency of alcohol use: None Drug Abuse: None Lives with: Family Family History: Other - Unobtainable - Past Medical History Cardiac Medical History: Reports: Hx Hypercholesterolemia Pulmonary Medical History: Reports: Hx COPD Renal/ Medical History: Denies: Hx Peritoneal Dialysis Psychiatric Medical History: Reports: Hx Dementia Past Surgical History: Reports: Hx Appendectomy - Immunizations Immunizations up to date: Yes Hx Diphtheria, Pertussis, Tetanus Vaccination: Yes Review of Systems - Review of Systems Constitutional: No symptoms reported EENT: No symptoms reported Cardiovascular: No symptoms reported Respiratory: No symptoms reported Gastrointestinal: No symptoms reported Genitourinary: No symptoms reported Male Genitourinary: No symptoms reported Musculoskeletal: See HPI Skin: No symptoms reported Hematologic/Lymphatic: No symptoms reported Neurological/Psychological: See HPI Physical Exam - Vital signs Vitals: Temp Pulse Ox 98.8 F 92 11/15/18 02:35 11/15/18 02:35 - Notes Notes: GENERAL: Sleeping but easily aroused, interacts well. No acute distress. HEAD: Normocephalic, old bruise under the right eye EYES: Pupils equal, round, and reactive to light. Extraocular movements intact. ENT: Oral mucosa moist, tongue midline. Oropharynx unremarkable. Airway patent. Nares patent, no nasal septal hematoma, TM's intact. NECK: Full range of motion. Supple. Trachea midline. LUNGS: Clear to auscultation bilaterally, no wheezes, rales, or rhonchi. No respiratory distress. No signs of trauma over the chest. HEART: Regular rate and rhythm. No murmur ABDOMEN: Soft, non-tender. Non-distended. Bowel sounds present in all 4 quadrants. No signs of trauma over the abdomen. GENITOURINARY: No abnormality or signs of trauma noted. EXTREMITIES: Bruise noted over the right hip, minimal pain over hips bilaterally, abrasions over the right knee, normal lower extremity exam otherwise. Old bruises and picked areas over the forearms with no tenderness or acute findings noted. BACK: no cervical, thoracic, lumbar midline tenderness. No saddle anesthesia, normal distal neurovascular exam. No signs of trauma. NEUROLOGICAL: Alert but confused. Follows commands. Normal speech. [cranial nerves II through XII grossly intact]. PSYCH: Normal affect, normal mood. SKIN: Warm, dry, normal turgor. No rashes or lesions noted. Course - Re-evaluation Re-evalutation: Patient is pleasant and smiling. He does have a large bruise on his right hip but this does not appear to be new. He does have pain on evaluation of both hips. He has a small abrasion which is fresh over the right knee. He tells me his neck hurts "sometimes", he does not have any signs of trauma over the head except for an old bruise under the right eye. He denies headache or head pain. Does not appear to have had a head injury. X-rays unremarkable, patient has no complaints on reevaluation. No decompensation. Patient is reportedly at his baseline per EMS, he is conversational and pleasant although he is confused. Patient will be discharged back home with return precautions. - Vital Signs Vital signs: Temp Pulse Resp BP Pulse Ox 98.5 F 14 117/85 97 11/15/18 05:23 11/15/18 05:23 11/15/18 05:23 11/15/18 05:23 Discharge - Discharge Clinical Impression: Neck pain Fall Qualifiers: Encounter type: initial encounter Qualified Code(s): W19.XXXA - Unspecified fall, initial encounter Knee abrasion Qualifiers: Encounter type: initial encounter Laterality: right Qualified Code(s): S80.211A - Abrasion, right knee, initial encounter Hip pain Qualifiers: Laterality: bilateral Qualified Code(s): M25.551 - Pain in right hip Condition: Stable Disposition: HOME, SELF-CARE Additional Instructions: The imaging does not show any concerning findings, no concerning findings are noted on evaluation. Keep the abrasions over the right knee clean, clean with soap and water, keep clean dressing with topical antibiotic over the area while it heals. Give Tylenol if needed for pain. Return for any concerning symptoms including swelling, severe pain, developing or spreading redness, or any other concerning or worsening symptoms. [facility]errals: [facility] [[facility] - Follow up as needed
--- NOTE | 2018-11-15 03:46 | RADIOLOGY REPORT (SQ) ---
EXAM DESCRIPTION: XR HIP 1 VIEW BILATERAL COMPLETED DATE/TME: 11/15/2018 02:38 CLINICAL HISTORY: 73 years, Male, fall, pain COMPARISON: 08/20/2018 pelvis NUMBER OF VIEWS: 3 TECHNIQUE: AP pelvis and single view of each hip LIMITATIONS: None. FINDINGS: Osteopenia. Negative for acute fracture or dislocation. [id number] degenerative change of the hips bilaterally. IMPRESSION: Osteopenia with degenerative change copyright 2010 [employer]- All Rights Reserved
--- NOTE | 2018-11-15 03:47 | RADIOLOGY REPORT (SQ) ---
EXAM DESCRIPTION: XR KNEE 4 OR MORE VIEWS COMPLETED DATE/TME: 11/15/2018 02:38 CLINICAL HISTORY: 73 years, Male, fall, pain COMPARISON: None. NUMBER OF VIEWS: 4 TECHNIQUE: 4 views right knee LIMITATIONS: None. FINDINGS: Osteopenia. Negative for acute fracture or dislocation. Mild tricompartmental degenerative change. Soft tissues are unremarkable IMPRESSION: Osteopenia with mild degenerative change copyright 2010 [employer]- All Rights Reserved
--- NOTE | 2018-11-15 03:52 | RADIOLOGY REPORT (SQ) ---
EXAM DESCRIPTION: CT CERVICAL SPINE WITHOUT IV CONTRAST COMPLETED DATE/TME: 11/15/2018 02:38 CLINICAL HISTORY: 73 years, Male, fall, pain COMPARISON: CT cervical spine 09/05/2018 TECHNIQUE: 611 Images stored on PACS. All CT scanners at this facility use dose modulation, iterative reconstruction, and/or weight based dosing when appropriate to reduce radiation dose to as low as reasonably achievable (ALARA). [facility]: Dose Right [facility]: CareDose [facility]: Dose Right [facility]: Teradose 4D [facility]: [employer] LIMITATIONS: None. FINDINGS: Motion artifact degrades image quality. Vertebral body height and alignment is preserved. The atlantoaxial space is preserved. The lateral masses are not displaced. Diffuse/multilevel degenerative change throughout the cervical spine with disc space narrowing, osteophytic spurring, facet arthropathy and uncovertebral joint hypertrophy. Limited evaluation of extraspinal anatomic structures demonstrate severe emphysematous changes in the lung apices with biapical pleural thickening. IMPRESSION: No CT evidence for acute C-spine abnormality. Diffuse degenerative changes. TECHNICAL DOCUMENTATION: Quality ID # 436: Final reports with documentation of one or more dose reduction techniques (e.g., Automated exposure control, adjustment of the mA and/or kV according to patient size, use of iterative reconstruction technique) copyright 2010 [employer]- All Rights Reserved
[2018-11-15 05:35] VITALS: BP 117/85
== END 2018-11-15 05:35 | disposition home or self-care (01) ==
LOC: ER 02:26
DX: S80.211A Abrasion, right knee, initial encounter (principal); M54.2 Cervicalgia; W06.XXXA Fall from bed, initial encounter; Y92.193 Bedroom in other specified residential institution as the place of occurrence of the external cause; M25.551 Pain in right hip; S70.01XA Contusion of right hip, initial encounter; X58.XXXA Exposure to other specified factors, initial encounter; S00.11XD Contusion of right eyelid and periocular area, subsequent encounter; S50.12XD Contusion of left forearm, subsequent encounter; S50.11XD Contusion of right forearm, subsequent encounter; X58.XXXD Exposure to other specified factors, subsequent encounter; J44.9 Chronic obstructive pulmonary disease, unspecified; Z66 Do not resuscitate
CPT/HCPCS: 99284; 73564; 73522; 72125; L0120

== ENCOUNTER 2018-12-17 15:51 | Emergency (ER) | payer OTHER, MEDICARE ==
[2018-12-17 15:59] VITALS: BP 130/66
--- NOTE | 2018-12-17 17:13 | RADIOLOGY REPORT (SQ) ---
EXAM DESCRIPTION: CT HEAD WITHOUT COMPLETED DATE/TIME: 12/17/2018 4:56 pm REASON FOR STUDY: fall COMPARISON: CT brain 09/03/2017, 08/12/2018, 09/05/2018 TECHNIQUE: Axial images acquired through the brain without intravenous contrast. Images reviewed wi th bone, brain and subdural windows. Additional sagittal and coronal reconstructions were generated. Images stored on PACS. All CT scanners at this facility use dose modulation, iterative reconstruction, and/or weight based d osing when appropriate to reduce radiation dose to as low as reasonably achievable (ALARA). [facility]: Dose Right [facility]: CareDose [facility]: Dose Right [facility]: Teradose 4D [facility]: [employer] RADIATION DOSE: CT Rad equipment meets quality standard of care and radiation dose reduction techniq ues were employed. CTDIvol: 53.2 mGy. DLP: 1150 mGy-cm.mGy. LIMITATIONS: None. FINDINGS: VENTRICLES: Prominent. CEREBRUM: No masses. No hemorrhage. No midline shift. Areas of low density in the white matter mos t likely due to chronic micro-vascular ischemic change. No evidence for acute infarction. CEREBELLUM: No masses. No hemorrhage. No alteration of density. No evidence for acute infarction. EXTRAAXIAL SPACES: Age-related involutional change. No fluid collections. No masses. ORBITS AND GLOBE: No intra- or extraconal masses. Post bilateral cataract surgery CALVARIUM: No fracture. PARANASAL SINUSES: No fluid or mucosal thickening. SOFT TISSUES: No mass or hematoma. OTHER: No other significant finding. IMPRESSION: CHRONIC CHANGES OF ATROPHY AND MICROVASCULAR ISCHEMIA. NO ACUTE PROCESS. EVIDENCE OF ACUTE STROKE: NO. TECHNICAL DOCUMENTATION: JOB ID: [id number] Quality ID # 436: Final reports with documentation of one or more dose reduction techniques (e.g., Au tomated exposure control, adjustment of the mA and/or kV according to patient size, use of iterative reconstruction technique) 2010 [employer]- All Rights Reserved Reading location - IP/workstation name: [email or web address]
--- NOTE | 2018-12-17 17:20 | RADIOLOGY REPORT (SQ) ---
EXAM DESCRIPTION: HAND RIGHT 3 VIEWS COMPLETED DATE/TIME: 12/17/2018 5:07 pm REASON FOR STUDY: Fell and injured hand. COMPARISON: None. EXAM PARAMETERS: NUMBER OF VIEWS: Three views. TECHNIQUE: AP, lateral and oblique radiographic images acquired of the right hand. LIMITATIONS: None. FINDINGS: Overall normal bone density for age. Along the 3rd and 4th fingers, there is soft tissue swelling at the PIP joints. No acute fracture at the 3rd finger PIP joint. Small avulsion fragment off the radial aspect of the 4th PIP joint marked with an arrow. No malalignment. Remainder of the right hand three views is otherwise unremarkable. IMPRESSION: Soft tissue swelling at the right 3rd and 4th PIP joints Small acute avulsion fragment off the radial aspect right 4th PIP joint marked with an arrow. Donor site for the fracture fragment difficult to identify TECHNICAL DOCUMENTATION: JOB ID: [id number] [employer]- All Rights Reserved Reading location - IP/workstation name: [email or web address]
--- NOTE | 2018-12-17 17:21 | RADIOLOGY REPORT (SQ) ---
EXAM DESCRIPTION: HIP RIGHT AP/LATERAL COMPLETED DATE/TIME: 12/17/2018 5:07 pm REASON FOR STUDY: Reportedly fell on hip COMPARISON: Hip films 11/15/2018, 08/20/2018, 08/18/2018, 08/07/2018 NUMBER OF VIEWS: Two views. TECHNIQUE: AP pelvis and additional frog-leg view of the right hip. LIMITATIONS: None. FINDINGS: MINERALIZATION: Normal for age RIGHT HIP: No fracture or dislocation. No worrisome bone lesions. LEFT HIP: No fracture or dislocation. No worrisome bone lesions. PUBIS AND ISCHIUM: No fracture. PELVIS: No fracture. SACRUM: No fracture or dislocation. No worrisome bone lesions. LOWER LUMBAR SPINE: Not well seen SOFT TISSUES: No findings. OTHER: No other significant finding. IMPRESSION: NEGATIVE STUDY OF THE RIGHT HIP. NO RADIOGRAPHIC EVIDENCE OF ACUTE INJURY. TECHNICAL DOCUMENTATION: JOB ID: [id number] [employer]- All Rights Reserved Reading location - IP/workstation name: [email or web address]
--- NOTE | 2018-12-17 17:42 | ER Document Report ---
ED Fall - General Chief Complaint: Fall Stated Complaint: HEAD PAIN Time Seen by Provider: 12/17/18 16:28 Primary Care Provider: KJ COTE [Primary Care Provider] - Follow up as needed Notes: Patient is a resident at [facility]. He was found on the floor today and apparently had fallen. Patient is a very poor historian because he has dementia and is very difficult to understand anything he is saying. He does seem to understand requests and moves appropriately for command. Somehow or other, staff at the alf determined that the patient had hit his head, right hip, and right hand. Little other information was provided and no one from [facility] is here. No family member present. Patient is a DNR. TRAVEL OUTSIDE OF THE [place] IN LAST 30 DAYS: No - Related data Allergies/Adverse Reactions: No Known Allergies Allergy (Verified 08/18/18 18:47) Past Medical History - Social History Smoking Status: Current Every Day Smoker Chew tobacco use (# tins/day): No Frequency of alcohol use: None Drug Abuse: None, Prescription drugs Family History: Reviewed & Not Pertinent, Other - Unobtainable Patient has suicidal ideation: No Patient has homicidal ideation: No - Past Medical History Cardiac Medical History: Reports: Hx Hypercholesterolemia Pulmonary Medical History: Reports: Hx COPD, Hx Pneumonia Psychiatric Medical History: Reports: Hx Dementia Past Surgical History: Reports: Hx Appendectomy - Immunizations Immunizations up to date: Yes Hx Diphtheria, Pertussis, Tetanus Vaccination: Yes Review of Systems - Review of Systems -: Yes ROS unobtainable due to patient's medical condition - Patient is unable to answer questions or provide any review of systems. Physical Exam - Vital signs Vitals: Temp Pulse Resp BP Pulse Ox 98.7 F 66 16 130/66 H 100 12/17/18 15:57 12/17/18 15:57 12/17/18 15:57 12/17/18 15:57 12/17/18 15:57 Interpretation: Normal Notes: PHYSICAL EXAMINATION: GENERAL: Well-appearing, in no acute distress. HEAD: Atraumatic, normocephalic. I can find no spot on this patient's head where it is bruised, swollen, abraded, or any other injury. No blood present anywhere in his scalp. EYES: Pupils equal round and reactive to light, extraocular movements intact. ENT: oropharynx clear without exudates. Moist mucous membranes. NECK: Normal range of motion, supple. Nontender anywhere. LUNGS: Breath sounds clear and equal bilaterally. HEART: Regular rate and rhythm without murmurs. ABDOMEN: Soft, nontender. No guarding or rebound. No masses. BACK: No tenderness throughout entire back. EXTREMITIES: Normal range of motion without pain. Points to the right hip when asked which hip hurts. However, relatively full range of motion of that hip joint does not elicit any significant pain. Patient's right hand shows some bruising of the dorsal aspect of his third, fourth, and fifth fingers. There is some bruising discoloration, soft tissue swelling, but very minimal tenderness. At the area where the patient is supposed to have a small evulsion fracture at the PIP joint of the ring finger, patient does not have any significant tenderness at all there and I question whether this is actual significant clinical chip of that bone. Full range of motion of the entire right upper extremity without any significant pain. NEUROLOGICAL: Patient was able to stand at bedside and give us a urine specimen. He tries to speak but is very difficult to understand anything he says. Normal sensory, motor, and reflex exams. Awake, alert, but not oriented x3. PSYCH: Normal mood, normal affect. SKIN: Warm, dry, no rashes. Course - Vital Signs Vital signs: Temp Pulse Resp BP Pulse Ox 98.7 F 66 16 130/66 H 100 12/17/18 15:57 12/17/18 15:57 12/17/18 15:57 12/17/18 15:57 12/17/18 15:57 - Diagnostic Test Radiology reviewed: Image reviewed, Reports reviewed - CT scan of the head is normal. X-ray of the right hip is normal. X-ray of the hand reveals a small questionable avulsion fracture of the PIP joint of the right ring finger. Not clinically tender in that area so fracture is questionable and of no significant clinical significance. No splint is being placed. Discharge - Discharge Clinical Impression: Fall, Contusion of head, Contusion of right hip, Fracture of phalanx of finger of right hand Condition: Stable Disposition: HOME, SELF-CARE Additional Instructions: HEAD INJURY PRECAUTIONS: At this point, there is no evidence that your head injury is serious. Observation is necessary, however. Take only clear liquids for the first few hours, unless told otherwise by the doctor. If no pain medication was prescribed, you may take acetaminophen according to the directions on the bottle. Do not take any medication that may alter your level of alertness (unless you've discussed it with the doctor first). Limit activity for the first 24 hours. Bed rest is best. During the first 24 hours, check to see approximately every two to three hours that the patient is easily arousable, responds normally, and can perform common tasks such as walking without difficulty. Contact your doctor or go to the hospital if any of the following things occur: Persistent vomiting, difficulty in arousing the patient, worsening or continued headache, or failure to improve as expected. Head injuries can cause symptoms that persist for a few days or even a few weeks. CONTUSION right hip: Your injury has resulted in a contusion -- a crushing of the deep tissues. No injury to important structures was detected during the physician's exam. Contusions vary in the amount of pain they cause, and in the length of time required for healing. Typically, the area will become bruised, and will remain painful to touch for two or three weeks. However, most patients are back to working and playing within a few days. After the initial period of rest and cold-packs, your symptoms (together with the doctor's recommendations) will determine how rapidly you can get back to full activity. Usually this means "do what feels okay, but don't do things that hurt." If re-examination was recommended, it's important to follow up as instructed. Call the doctor or return any time if pain increases, if swelling becomes severe, if you develop numbness or weakness in an injured extremity, or if any other alarming symptoms occur. Many old BRASIONS: An abrasion is a scraping injury of the skin. Some scarring may result. The seriousness of an abrasion is not always obvious at first. Hidden tissue damage may be present and infection may occur despite proper care. Complete healing may take from ten days to as long as a month. The healing time depends on the depth of the abrasion, and on the amount of crushing of underlying tissues from the injury. Keep the wound and dressing clean. Do not shower or bathe the area until okayed by the doctor. If the dressing gets wet, remove it and blot the wound dry, then reapply a clean dressing. Dressings should be changed every day. Sunscreen should be used for six months after the skin is healed. If any signs of infection occur (swelling, redness, increasing tenderness, red streaks, profuse purulent drainage from the abrasion, tender lumps in the armpit or groin above the abrasion, or fever), see the doctor immediately. USE OF TYLENOL (ACETAMINOPHEN): Acetaminophen may be taken for pain relief or fever control. It's much safer than aspirin, offering a wider range of "safe" dosages. It is safe during . Some brand names are Tylenol, Panadol, Datril, Anacin 3, Tempra, and Liquiprin. Acetaminophen can be repeated every four hours. The following are maximum recommended dosages: WEIGHT Dose Drops Elixir Chewable(80mg) (LBS.) drprs=droppers tsp=teaspoon >89 pounds or adults 650 mg to 900 mg Acetaminophen can be repeated every four hours. Maximum dose not to exceed 4000 mg a day. These maximum recommended dosages are slightly higher than the dosages written on the product container, but these dosages are very safe and below the toxic dosage for acetaminophen. Fractured Finger There is a minor chip fracture in your finger. The bone is straight and in good position to heal. The doctor has assessed the seriousness of the fracture and has explained your treatment plan. Some degree of bruising is normal with a finger fracture. FOLLOW-UP CARE: If you have been referred to a physician for follow-up care, call the physicians office for an appointment as you were instructed or within the next two days. If you experience worsening or a significant change in your symptoms, notify the physician immediately or return to the Emergency Department at any time for re-evaluation. [facility]errals: [facility] [[facility]] - Follow up as needed
== END 2018-12-17 18:17 | disposition home or self-care (01) ==
LOC: ER 15:51
DX: S00.93XA Contusion of unspecified part of head, initial encounter (principal); S70.01XA Contusion of right hip, initial encounter; S62.604A Fracture of unspecified phalanx of right ring finger, initial encounter for closed fracture; W18.30XA Fall on same level, unspecified, initial encounter; F03.90 Unspecified dementia, unspecified severity, without behavioral disturbance, psychotic disturbance, mood disturbance, and anxiety; F17.200 Nicotine dependence, unspecified, uncomplicated; E78.00 Pure hypercholesterolemia, unspecified; J44.9 Chronic obstructive pulmonary disease, unspecified
CPT/HCPCS: 70450; 99285

== ENCOUNTER 2018-12-29 23:59 | Emergency (ER) | payer OTHER, MEDICARE ==
[2018-12-30 00:46] LABS: ABSOLUTE BASOPHILS # (AUTO) 0.1 10^3/uL (0.0-0.2); ABSOLUTE EOSINOPHILS # (AUTO) 0.3 10^3/uL (0.0-0.6); ABSOLUTE LYMPHOCYTES (AUTO) 1.3 10^3/uL (0.5-4.7); BASOPHILS % (AUTO) 0.9 % (0-2); EOSINOPHILS % (AUTO) 2.8 % (0-6); HEMATOCRIT 34.5 % (37.9-51.0); HEMOGLOBIN 11.3 g/dL (13.5-17.0); LYMPHOCYTES % (AUTO) 13.8 % (13-45); MEAN CORPUSCULAR HGB CONC 32.7 g/dL (32.0-36.0); MEAN CORPUSCULAR VOLUME 86 fl (80-97); MONOCYTES % (AUTO) 10.3 % (3-13); PLATELET COUNT 305 10^3/uL (150-450); RED BLOOD COUNT 4.01 10^6/uL (4.35-5.55); RED CELL DISTRIBUTION WIDTH 17.7 % (11.5-14.0); SEGMENTED NEUTROPHILS % (AUTO) 72.2 % (42-78); TOTAL CELLS COUNTED % (AUTO) 100 %; WHITE BLOOD COUNT 9.7 10^3/uL (4.0-10.5)
[2018-12-30 00:55] LABS: APPEARANCE,URINE CLOUDY; BILIRUBIN,URINE NEGATIVE (NEGATIVE); COLOR,URINE YELLOW; GLUCOSE, URINE NEGATIVE (NEGATIVE); KETONES,URINE NEGATIVE (NEGATIVE); LEUKOCYTE ESTERASE,URINE TRACE (NEGATIVE); NITRITE,URINE NEGATIVE (NEGATIVE); PROTEIN,URINE 100 mg/dL (NEGATIVE); URINE SPECIFIC GRAVITY 1.014; UROBILINOGEN,URINE NEGATIVE mg/dL (<2.0)
[2018-12-30 01:04] LABS: ALANINE AMINOTRANSFERASE 28 U/L (21-72); ALBUMIN 3.5 g/dL (3.5-5.0); ALKALINE PHOSPHATASE 98 U/L (38-126); ANION GAP 6 (5-19); ASPARTATE AMINO TRANSFERASE 15 U/L (17-59); BILIRUBIN,DIRECT 0.2 mg/dL (0.0-0.4); BILIRUBIN,TOTAL 0.3 mg/dL (0.2-1.3); BLOOD UREA NITROGEN 14 mg/dL (7-20); CALCIUM 8.9 mg/dL (8.4-10.2); CARBON DIOXIDE 31 mmol/L (22-30); CHLORIDE 103 mmol/L (98-107); GLUCOSE 91 mg/dL (75-110); POTASSIUM 4.1 mmol/L (3.6-5.0); SODIUM 139.8 mmol/L (137-145); TOTAL PROTEIN 6.8 g/dL (6.3-8.2)
--- NOTE | 2018-12-30 03:20 | ER Document Report ---
ED General - General Chief Complaint: Other Stated Complaint: ALTERED MENTAL STATUS Time Seen by Provider: 12/30/18 02:34 Primary Care Provider: KERA,KJ [Primary Care Provider] - Follow up as needed Notes: 73-year-old male sent in from [facility] for altered mental status per staff. Per assisted staff they are concerned because the patient has been sleeping this evening and normally at this time of night he would be awake. Of note, the patient arrived in the emergency department at [id number]. Patient denies any complaints at this time. TRAVEL OUTSIDE OF THE [place] IN LAST 30 DAYS: No - Related Data Allergies/Adverse Reactions: No Known Allergies Allergy (Verified 12/30/18 00:13) Past Medical History - General Information source: Patient - Poor historian due to dementia, [facility] Records - Social History Smoking Status: Unknown if Ever Smoked Lives with: [facility] Family History: Other - Unobtainable due to dementia Patient has suicidal ideation: No Patient has homicidal ideation: No - Past Medical History Cardiac Medical History: Reports: Hx Hypercholesterolemia Pulmonary Medical History: Reports: Hx COPD, Hx Pneumonia Renal/ Medical History: Denies: Hx Peritoneal Dialysis Psychiatric Medical History: Reports: Hx Dementia Past Surgical History: Reports: Hx Appendectomy - Immunizations Immunizations up to date: Yes Hx Diphtheria, Pertussis, Tetanus Vaccination: Yes Review of Systems - Review of Systems -: Yes ROS unobtainable due to patient's medical condition Constitutional: See HPI - Sleeping in the middle of the night per assisted. Physical Exam - Vital signs Vitals: Temp Pulse Resp BP Pulse Ox 97.9 F 52 L 20 131/72 H 99 12/30/18 00:13 12/30/18 00:13 12/30/18 00:13 12/30/18 00:13 12/30/18 00:13 Interpretation: Normal - Notes Notes: GENERAL: Sleeping, after repeated shaking and shouting patient awakens tells me to leave him alone and falls back asleep. Did wake up several times while he was here and demonstrate goal-directed behavior such as taking off his pants and when asked what he was doing he states I want my my pants off so I am taking off my pants.. HEAD: Normocephalic, atraumatic EYES: Pupils equal, round and reactive to light, extraocular movements intact. ENT: Oral mucosa moist, tongue midline. NECK: Full range of motion, supple, trachea midline. LUNGS: Clear to auscultation bilaterally, no wheezes, rales or rhonchi, no respiratory distress. HEART: Regular rate and rhythm, no murmurs, gallops, rubs. ABDOMEN: Soft, nontender, nondistended, bowel sounds present in all 4 quadrants. EXTREMITIES: Moves all 4 extremities spontaneously, no edema, radial and dorsalis pedis pulses 2/4 bilaterally. No cyanosis. NEUROLOGICAL: Sleeping, awakens with repeated stimulation, moves all 4 extremities spontaneously, is able to be redirected towards sleep. PSYCH: Normal mood, normal affect. SKIN: Warm, Dry, normal turgor, multiple bruises in multiple stages of healing. Course - Re-evaluation Re-evalutation: 12/30/18 03:23 CBC shows chronic anemia with hemoglobin 11.3 otherwise unremarkable, CMP unremarkable, urinalysis shows large blood and trace leukocyte esterase, this was sent be sent for culture although he has no signs of urinary tract infecti on. Old lab studies have been reviewed and he has frequently had blood in his urine in the past. At present I find no etiology for his altered mental status and quite frankly I am not that concerned by a 73-year-old male who was asleep around 11:00 or midnight in the middle of the night. Patient will be discharged back to the assisted. - Vital Signs Vital signs: Temp Pulse Resp BP Pulse Ox 97.9 F 52 L 20 131/72 H 99 12/30/18 00:13 12/30/18 00:13 12/30/18 00:13 12/30/18 00:13 12/30/18 00:13 - Laboratory Result Diagrams: 12/30/18 00:32 12/30/18 00:32 Laboratory results interpreted by me: 12/30/18 12/30/18 12/30/18 00:32 00:32 00:32 RBC 4.01 L Hgb 11.3 L Hct 34.5 L RDW 17.7 H Carbon Dioxide 31 H AST 15 L Urine Protein 100 H Urine Blood LARGE H Ur Leukocyte Esterase TRACE H Discharge - Discharge Clinical Impression: Sleeping, Dementia following hypoxic-ischemic injury Condition: Stable Disposition: HOME-ASSISTED LIVING Additional Instructions: As usual he has blood in his urine. There were no new findings on his examination. There were no new findings on his blood work. [facility] [[facility] - Follow up as needed
[2018-12-30 05:39] VITALS: BP 132/68
== END 2018-12-30 05:20 | disposition home health service (06) ==
LOC: ER 23:59
DX: G47.9 Sleep disorder, unspecified (principal); R41.82 Altered mental status, unspecified; F03.90 Unspecified dementia, unspecified severity, without behavioral disturbance, psychotic disturbance, mood disturbance, and anxiety; E78.00 Pure hypercholesterolemia, unspecified; J44.9 Chronic obstructive pulmonary disease, unspecified
CPT/HCPCS: 36415; 51701; 80053; 81001; 85025; 87086; 99285

== ENCOUNTER 2019-01-13 17:08 | Inpatient (IN) | payer OTHER, MEDICARE ==
[2019-01-13] MEDS ORDERED: NORMAL SALINE 1000 ML 1,000 ML IV ONE (17:22)
[2019-01-13 17:45] LABS: INTERNATIONAL RATION (INR) 0.97; PROTHROMBIN TIME 13.4 SEC (11.4-15.4)
[2019-01-13 17:51] LABS: HEMATOCRIT 34.2 % (37.9-51.0); HEMOGLOBIN 11.3 g/dL (13.5-17.0); MEAN CORPUSCULAR HEMOGLOBIN 28.5 pg (27.0-33.4); MEAN CORPUSCULAR VOLUME 86 fl (80-97); PLATELET COUNT 320 10^3/uL (150-450); RED BLOOD COUNT 3.96 10^6/uL (4.35-5.55); RED CELL DISTRIBUTION WIDTH 17.5 % (11.5-14.0); WHITE BLOOD COUNT 14.8 10^3/uL (4.0-10.5)
[2019-01-13 17:59] LABS: ALANINE AMINOTRANSFERASE 23 U/L (21-72); ALBUMIN 3.9 g/dL (3.5-5.0); ALKALINE PHOSPHATASE 115 U/L (38-126); ANION GAP 12 (5-19); ASPARTATE AMINO TRANSFERASE 27 U/L (17-59); BILIRUBIN,DIRECT 0.2 mg/dL (0.0-0.4); BILIRUBIN,TOTAL 0.3 mg/dL (0.2-1.3); BLOOD UREA NITROGEN 21 mg/dL (7-20); CALCIUM 9.2 mg/dL (8.4-10.2); CARBON DIOXIDE 26 mmol/L (22-30); CHLORIDE 100 mmol/L (98-107); SODIUM 137.8 mmol/L (137-145); TOTAL PROTEIN 7.2 g/dL (6.3-8.2)
[2019-01-13 18:02] LABS: VENOUS BLOOD BASE EXCESS 1.1 mmol/L; VENOUS BLOOD HCO3 27.1 mmol/L (20-32); VENOUS BLOOD PCO2 48.1 mmHg (35-63); VENOUS BLOOD PH 7.37 (7.30-7.42)
[2019-01-13 18:07] LABS: GLUCOSE 69 mg/dL (75-110)
[2019-01-13] MEDS ORDERED: RINGERS SOLUTION,LACTATED 1,000 ML IV ONE ×2 (18:16→19:38)
[2019-01-13 18:18] LABS: ABSOLUTE LYMPHOCYTES# (MANUAL) 1.2 10^3/uL (0.5-4.7); ABSOLUTE MONOCYTES # (MANUAL) 0.3 10^3/uL (0.1-1.4); ANISOCYTOSIS 1+; BASOPHILS % (MANUAL) 1 % (0-2); EOSINOPHILS % (MANUAL) 0 % (0-6); LYMPHOCYTES % (MANUAL) 8 % (13-45); MONOCYTES % (MANUAL) 2 % (3-13); POIKILOCYTOSIS 1+; SEGMENTED NEUTROPHILS % (MAN) 89 % (42-78); TOTAL CELLS COUNTED 100
[2019-01-13 18:19] LABS: OVALOCYTES 1+; PLATELET CLUMPS PRESENT; PLATELET COMMENT ADEQUATE
[2019-01-13] MEDS ORDERED: DEXTROSE 50%-WATER 25 GM/50 ML DISP.SYRIN IV ONE (18:27)
--- NOTE | 2019-01-13 18:27 | ER Document Report ---
ED General - General Chief Complaint: Fever Stated Complaint: ALTERED MENTAL STATUS Time Seen by Provider: 01/13/19 18:11 Cannot obtain history due to: Dementia, Unstable vital signs, Altered mental status Notes: Patient is a 73-year-old male who presents from [facility] due to concerns of suppressed mental status. Patient is demented, lethargic at time of my assessment, unable to provide meaningful history of any kind. Per EMS the patient had a fever of 100.5 degrees rectal in route to the hospital. Staff at the facility reports that the patient had not been acting like himself and EMS was subsequently called. No family at the bedside for additional history taking at the time of my evaluation. TRAVEL OUTSIDE OF THE [place] IN LAST 30 DAYS: No - Related Data Allergies/Adverse Reactions: No Known Allergies Allergy (Verified 12/30/18 00:13) Past Medical History - General Information source: Emergency Med Personnel Cannot obtain history due to: Dementia - Social History Smoking Status: Unknown if Ever Smoked Frequency of alcohol use: None Drug Abuse: None Lives with: [facility] Family History: Other - Unobtainable due to dementia - Past Medical History Cardiac Medical History: Reports: Hx Hypercholesterolemia Pulmonary Medical History: Reports: Hx COPD, Hx Pneumonia Renal/ Medical History: Denies: Hx Peritoneal Dialysis Psychiatric Medical History: Reports: Hx Dementia Past Surgical History: Reports: Hx Appendectomy - Immunizations Immunizations up to date: Yes Hx Diphtheria, Pertussis, Tetanus Vaccination: Yes Physical Exam - Vital signs Vitals: Resp 20 01/13/19 17:15 Interpretation: Hypotensive Notes: PHYSICAL EXAMINATION: GENERAL: Elderly male, appears older than stated age. Unwell in appearance but in no overt distress. HEAD: Atraumatic, normocephalic. EYES: Pupils equal round and reactive to light, extraocular movements intact, s clera anicteric, conjunctiva are normal. ENT: nares patent, oropharynx clear without exudates. Very dry mucous membranes. NECK: Normal range of motion, supple without lymphadenopathy LUNGS: Mildly diminished at the right base. No tachypnea or distress. HEART: Regular rate and rhythm without murmurs ABDOMEN: Soft, nontender, normoactive bowel sounds. No guarding, no rebound. No masses appreciated. EXTREMITIES: no pitting or edema. No cyanosis. NEUROLOGICAL: No focal neurological deficits. Moves all extremities spontaneously and on command. PSYCH: Answers his name correctly lethargic but does wake to loud voice. SKIN: Warm, Dry, normal turgor, no rashes or lesions noted. Course - Re-evaluation Re-evalutation: 01/13/19 18:25 Patient presents somnolent but wakes to noxious stimuli or loud voice. Is able to state his name and knows his location, has dementia at baseline. Initial vitals show borderline hypoxemia saturations of 92 to 93% on room air. Patient is also noted to be moderately hypotensive with pressures as low as 70s systolic which have improved after receiving IV fluid resuscitation. Currently his blood pressure is 91 and 52 and is receiving a second liter fluid bolus. Initial laboratories show a neutrophilic predominance of a moderate leukocytosis, no evidence of acidemia, specifically no evidence of hypercapnia. Blood sugar moderately decreased at 69 but would not account for the patient's altered mental status. Patient did have a fever for EMS to 100.5 F and did receive acetaminophen prior to arrival. Chest x-ray appears to show chronic scarring at the right base unchanged from a previous x-ray although I await radiology interpretation. Urinalysis is pending. Will continue to reassess at regular intervals. Patient is in guarded condition given his suppressed mental status, hypotension and borderline oxygen saturation. 01/13/19 19:38 Chest x-ray shows possible superimposed pneumonia in the right lower lobe per radiology. Given patient's fever, leukocytosis, I have initiated empiric treatment for this. Patient's blood pressure remains somewhat soft currently 91 on 54. Third L of IV fluids will be initiated. Urinalysis is pending. Lactate thankfully under 2. Patient will require hospitalization. Will continue to reassess at regular. 01/13/19 20:53 Patient remains overall clinically unchanged. Pressure currently 94 on 61. Saturating 92% on room air. I did contact Dr. Garcia and he will contact me back when he has a moment to discuss hospitalization for this patient 01/13/19 21:58 Patient's blood pressure has continued to improve now into the low 100 systolic. I have discussed this case with Dr. Garcia who has accepted the patient. - Vital Signs Vital signs: Temp Pulse Resp BP Pulse Ox 97.3 F 58 L 22 H 80/46 L 95 01/14/19 00:34 01/14/19 00:34 01/14/19 00:34 01/14/19 00:34 01/14/19 00:34 - Laboratory Result Diagrams: 01/13/19 16:50 01/13/19 16:50 Laboratory results interpreted by me: 01/13/19 01/13/19 01/13/19 16:50 16:50 18:35 WBC 14.8 H RBC 3.96 L Hgb 11.3 L Hct 34.2 L RDW 17.5 H Seg Neuts % (Manual) 89 H Lymphocytes % (Manual) 8 L Monocytes % (Manual) 2 L Abs Neuts (Manual) 13.2 H BUN 21 H Est GFR (Non-Af Amer) 59 L Glucose 69 L POC Glucose Urine Protein 30 H Urine Blood SMALL H 01/13/19 19:00 WBC RBC Hgb Hct RDW Seg Neuts % (Manual) Lymphocytes % (Manual) Monocytes % (Manual) Abs Neuts (Manual) BUN Est GFR (Non-Af Amer) Glucose POC Glucose 228 H Urine Protein Urine Blood - Diagnostic Test Radiology reviewed: Image reviewed, Reports reviewed Radiology results interpreted by me: 01/13/19 21:58 Chest x-ray: Chronic scarring to the right lower lobe with possible superimposed pneumonia - EKG Interpretation by Me Additional EKG results interpreted by me: 01/13/19 21:58 Sinus rhythm, rate 68. No ST elevations or depressions. QTC is 439. Critical Care Note - Critical Care Note Total time excluding time spent on procedures (mins): 36 Comments: Critical care time spent obtaining history from patient or surrogate, discussions with consultants, development of treatment plan with patient or surrogate, evaluation of patient's response to treatment, examination of patient, ordering and performing treatments and interventions, ordering and review of laboratory studies, re-evaluation of patient's condition, ordering and review of radiographic studies and review of old charts Discharge - Discharge Clinical Impression: Pneumonia Qualifiers: Pneumonia type: due to unspecified organism Laterality: right Lung location: lower lobe of lung Qualified Code(s): J18.1 - Lobar pneumonia, unspecified organism Sepsis Qualifiers: Sepsis type: sepsis due to unspecified organism Qualified Code(s): A41.9 - Sep sis, unspecified organism Altered mental status Qualifiers: Altered mental status type: somnolence Qualified Code(s): R40.0 - Somnolence Condition: Fair Disposition: ADMITTED INPATIENT Admitting Provider: Jose (Hospitalist) Unit Admitted: I[facility]U
--- NOTE | 2019-01-13 18:36 | RADIOLOGY REPORT (SQ) ---
EXAM DESCRIPTION: And earlier CHEST SINGLE VIEW COMPLETED DATE/TIME: 01/13/2019 6:18 pm REASON FOR STUDY: 10/10/2018 COMPARISON: None. EXAM PARAMETERS: NUMBER OF VIEWS: One view. TECHNIQUE: Single frontal radiographic view of the chest acquired. RADIATION DOSE: NA LIMITATIONS: None. FINDINGS: LUNGS AND PLEURA: Minimally worsened appearance of the right basilar opacity. Mildly impr forest left basilar opacity. No new airspace opacities. No pleural effusion or pneumothorax. MEDIASTINUM AND HILAR STRUCTURES: No masses. Contour normal. HEART AND VASCULAR STRUCTURES: Heart normal in size. Normal vasculature. BONES: No acute findings. HARDWARE: None in the chest. OTHER: No other significant finding. IMPRESSION: 1. Slightly worsened appearance of the chronic right lower lobe opacity representing patient's known fibrotic changes; however, findings may represent superimposed pneumonia in the appropriate clinical setting. 2. Mildly improved left lower lobe opacity. TECHNICAL DOCUMENTATION: JOB ID: [id number] [employer]- All Rights Reserved Reading location - IP/workstation name: [email or web address]
--- NOTE | 2019-01-13 19:26 | RADIOLOGY REPORT (SQ) ---
EXAM DESCRIPTION: CT HEAD WITHOUT COMPLETED DATE/TIME: 01/13/2019 6:58 pm REASON FOR STUDY: ams, hx subdural COMPARISON: [id number] and earlier TECHNIQUE: Axial images acquired through the brain without intravenous contrast. Images reviewed wi th bone, brain and subdural windows. Additional sagittal and coronal reconstructions were generated. Images stored on PACS. All CT scanners at this facility use dose modulation, iterative reconstruction, and/or weight based d osing when appropriate to reduce radiation dose to as low as reasonably achievable (ALARA). [facility]: Dose Right [facility]: CareDose [facility]: Dose Right [facility]: Teradose 4D [facility]: Smart [place] RADIATION DOSE: CT Rad equipment meets quality standard of care and radiation dose reduction techniq ues were employed. CTDIvol: 53.2 mGy. DLP: 1017 mGy-cm. mGy. LIMITATIONS: None. FINDINGS: VENTRICLES: Prominent ventricles secondary to involutional atrophy and appears similar to prior. CEREBRUM: No masses. No hemorrhage. No midline shift. No evidence for acute infarction. Mild scatt ered areas of low density in the white matter most likely chronic small vessel ischemic changes. CEREBELLUM: No masses. No hemorrhage. No alteration of density. No evidence for acute infarction. EXTRAAXIAL SPACES: No fluid collections. 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 Otherwise, no masses. ORBITS AND GLOBE: No intra- or extraconal masses. Normal contour of globe without masses. CALVARIUM: No fracture. PARANASAL SINUSES: No fluid or mucosal thickening. SOFT TISSUES: No mass or hematoma. OTHER: No other significant finding. IMPRESSION: MICROVASCULAR ISCHEMIA AND GENERALIZED ATROPHY. NO ACUTE IMAGING FINDINGS IN THE BRAIN EVIDENCE OF ACUTE STROKE: NO. COMMENT: Quality ID # [id number]: Final reports with documentation of one or more dose reduction techniques (e.g., Automated exposure control, adjustment of the mA and/or kV according to patient size, use of iterative reconstruction technique) TECHNICAL DOCUMENTATION: JOB ID: [id number] [employer]- All Rights Reserved Reading location - IP/workstation name: [email or web address]
[2019-01-13] MEDS ORDERED: AZITHROMYCIN INJ 500 MG VIAL IV ONE (19:34)
[2019-01-13] MEDS ORDERED: CEFTRIAXONE INJ 1000 MG VIAL IV ONE (19:34)
[2019-01-13 19:37] LABS: AMORPHOUS SEDIMENT,URINE TRACE /HPF; APPEARANCE,URINE CLEAR; BILIRUBIN,URINE NEGATIVE (NEGATIVE); GLUCOSE, URINE NEGATIVE (NEGATIVE); KETONES,URINE NEGATIVE (NEGATIVE); LEUKOCYTE ESTERASE,URINE NEGATIVE (NEGATIVE); NITRITE,URINE NEGATIVE (NEGATIVE); PROTEIN,URINE 30 mg/dL (NEGATIVE); URINE SPECIFIC GRAVITY 1.017; UROBILINOGEN,URINE NEGATIVE mg/dL (<2.0)
[2019-01-13 19:39] LABS: COLOR,URINE YELLOW
--- NOTE | 2019-01-13 22:02 | EKG REPORT ---
SEVERITY:- NORMAL ECG - SINUS RHYTHM : Confirmed by: Fredi Blair MD 13-Jan-2019 22:01:34
[2019-01-13] MEDS ORDERED: GUAIFENESIN SYRP 200 MG/10 ML UDC PO PRN (22:04)
[2019-01-13] MEDS ORDERED: NALBUPHINE HCL INJ 10 MG/1 ML AMPULE IV PRN (22:10)
[2019-01-13] MEDS ORDERED: LEVALBUTEROL HCL NEB 0.63 MG/3 ML AMPUL NEB PRN (22:10)
[2019-01-13] MEDS: RINGERS SOLUTION,LACTATED 1,000 ML IV PRN (23:43)
[2019-01-14] MEDS: LEVALBUTEROL HCL NEB 1.25 MG/3 ML AMPUL NEB SCH ×3 (01:09→16:13)
[2019-01-14] MEDS: IPRATROPIUM BROMIDE 0.02% NEB 0.5 MG/2.5 ML AMPUL NEB SCH ×3 (01:09→16:13)
[2019-01-14] MEDS: RINGERS SOLUTION,LACTATED 1,000 ML IV PRN ×4 (01:14→14:03)
--- NOTE | 2019-01-14 02:34 | PDOC H&P ---
History of Present Illness Admission Date/PCP: 01/13/2019 [facility] Patient complains of: Lethargy History of Present Illness: JUMANA HENDRIX is a 73 year old male who presented to the emergency room via EMS due to acute lethargy developed at a [facility] where he lives a short time prior to his emergency room arrival. Patient has severe dementia and is unable to provide any meaningful input into his medical care. Information obtained from the [facility] indicates that he was noted to be progressively lethargic over the course of the afternoon on observation by his caretakers. EMS noted upon their arrival that his oxygen saturation was 92% on room air and he was somewhat hypotensive with a systolic blood pressure in the 70s and febrile with a temperature of 100.5 F. In the emergency room he was found to have mild arterial hypotension with blood pressure of 91/52 and his oxygen saturation continued to be 92 to 93% without supplemental oxygen support. He did respond well to IV fluids, supplemental oxygen via nasal cannula and Tylenol. A chest x-ray revealed an increase in the opacity of his right lower lung field and a likelihood of pneumonia due to the clinical situation was entertained. Patient was subsequently admitted to the hospital for further evaluation and treatment. Past Medical History Past Medical History: Due to the patient's significant dementia all past medical history, past surgical history, social history and family medical history is obtained from current and previous records as well as any reliable source available. Cardiac Medical History: Reports: Hyperlipidema Denies: Coronary Artery Disease, Hypertension Pulmonary Medical History: Reports: Chronic Obstructive Pulmonary Disease (COPD), Pneumonia, Respiratory Failure EENT Medical History: Denies: Cataracts, Eyes - Prescription glasses, Ears - Hearing aids Neurological Medical History: Denies: Hemorrhagic CVA, Ischemic CVA, Seizures Endocrine Medical History: Reports: Diabetes Mellitus Type 2 Denies: Diabetes Mellitus Type 1 Renal/ Medical History: Denies: Chronic Kidney Disease, Nephrolithiasis Malignancy Medical History: Reports: None GI Medical History: Denies: Cirrhosis, Hepatitis Musculoskeltal Medical History: Denies: Arthritis, Gout Skin Medical History: Denies: Eczema, Psoriasis Psychiatric Medical History: Reports: Dementia, Tobacco Dependency Denies: Alcohol Dependency, Substance Abuse Traumatic Medical History: Reports: None Hematology: Reports: Anemia Denies: Bleeding Tendencies Infectious Medical History: Reports: None Past Surgical History Past Surgical History: Due to the patient's significant dementia all past medical history, past surgical history, social history and family medical history is obtained from current and previous records as well as any reliable source available. Past Surgical History: Reports: Appendectomy Social History Information Source: Relative, Emergency Med Personnel, [facility] Records Lives with: Other - [facility] Smoking Status: Current Every Day Smoker Frequency of Alcohol Use: None Hx Recreational Drug Use: No Drugs: None Hx Prescription Drug Abuse: No Past Social History Note: Due to the patient's significant dementia all past medical history, past surgical history, social history and family medical history is obtained from current and previous records as well as any reliable source available. - Advance Directive Resuscitation Status: Do Not Resuscitate Surrogate healthcare decision maker:: Designated medical surrogate is Consuelo Guzman his daughter Family History Family History: Other - Unobtainable due to dementia Family History: Due to the patient's significant dementia all past medical history, past surgical history, social history and family medical history is obtained from current and previous records as well as any reliable source available. Parental Family History Reviewed: No Children Family History Reviewed: No Sibling(s) Family History Reviewed.: No Medication/Allergy Home Medications: Budesonide/Formoterol Fumarate [Symbicort HFA 160-4.5 mcg Inhaler 6 gm] 2 puff IH Q12 08/12/18 Lamotrigine [Lamictal] 62.5 mg PO Q12 08/12/18 Mineral Oil/Petrolatum,White [Systane Nighttime Eye Ointment] 1 applic OU QHS 08/12/18 Sodium Chloride [[place]-128 Oph Soln 5% 15 ml] 1 drop OU Q6HP PRN 08/12/18 Tiotropium [place] [Spiriva Handihaler 5 Cap/Kit (18 Mcg/Cap)] 1 cap IH DAILY 08/12/18 Aspirin [Ecotrin 81 mg EC Tablet] 81 mg PO DAILY #90 tab 08/16/18 Simvastatin [Zocor 10 mg Tablet] 20 mg PO QHS #30 tablet 08/16/18 Benzonatate [Tessalon Perles 100 mg Capsule] 100 mg PO Q8HP PRN #40 capsule 08/31/18 Albuterol Sulfate [Ventolin 0.083% Neb 2.5 mg/3 mL Ampul] 2.5 mg NEB QIDP PRN 10/11/18 Albuterol Sulfate [Ventolin Hfa 8 gm Mdi (1 Mdi/ER Disp)] 2 puff IH Q6HP PRN 10/11/18 Haloperidol [Haldol 5 mg Tablet] 5 mg PO Q8HP PRN 10/11/18 Multivitamin [Daily Multiple Vitamin] 1 each PO DAILY 10/11/18 Olanzapine [Zyprexa 5 mg Tablet] 5 mg PO Q12 10/11/18 Olanzapine [Zyprexa] 1.25 mg PO Q8HP PRN 10/11/18 Olanzapine [Zyprexa] 10 mg PO QHS 10/11/18 Ranitidine HCl 150 mg PO BID 10/11/18 Levofloxacin [Levaquin 500 mg Tablet] 500 mg PO DAILY #5 tablet 10/13/18 Allergies/Adverse Reactions: No Known Allergies Allergy (Verified 12/30/18 00:13) Review of Systems ROS unobtainable: Due to mental status - Severe dementia Physical Exam Vital Signs: Temp Pulse Resp BP Pulse Ox 99.4 F 20 112/65 96 01/13/19 17:23 01/13/19 21:31 01/13/19 21:31 01/13/19 21:31 Intake & Output 01/11/19 01/12/19 01/13/19 23:59 23:59 23:59 Intake Total 3000 Balance 3000 Weight 64.1 kg General appearance: PRESENT: no acute distress, cooperative, thin Head exam: PRESENT: atraumatic, normocephalic Eye exam: ABSENT: conjunctival injection, scleral icterus Ear exam: PRESENT: normal external ear exam. ABSENT: bleeding, drainage Mouth exam: PRESENT: dry mucosa, neck supple Neck exam: ABSENT: JVD, thyromegaly, tracheal deviation Respiratory exam: PRESENT: prolonged expiratory phas - Minimally prolonged expiratory, rales - Coarse rales in the right anterior and lateral lower lung luna, rhonchi - Coarse rhonchi in the right anterior and lateral lower lung luna, symmetrical, wheezes - Occasional scattered wheezes Cardiovascular exam: PRESENT: RRR. ABSENT: clicks, gallop, rubs Pulses: PRESENT: normal radial pulses, normal dorsalis pedis pul Vascular exam: PRESENT: normal capillary refill, pallor - Mild generalized pallor GI/Abdominal exam: PRESENT: normal bowel sounds, soft Rectal exam: PRESENT: deferred Extremities exam: ABSENT: joint swelling, pedal edema Musculoskeletal exam: ABSENT: deformity, dislocation Neurological exam: PRESENT: altered - Lethargic but arousable, CN II-XII grossly intact - Very limited exam. ABSENT: oriented to person, oriented to place, oriented to time, oriented to situation Psychiatric exam: PRESENT: other - Lethargic and unable to further evaluate Skin exam: PRESENT: dry, intact, pallor - Mild generalized pallor, warm. ABSENT: jaundice, rash, urticaria Results Laboratory Results: 01/13/19 16:50 01/13/19 16:50 01/13/19 01/13/19 01/13/19 16:50 16:50 17:36 WBC 14.8 H RBC 3.96 L Hgb 11.3 L Hct 34.2 L MCV 86 MCH 28.5 MCHC 33.0 RDW 17.5 H Plt Count 320 Seg Neutrophils % Not Reportable Lymphocytes % Not Reportable Monocytes % Not Reportable Eosinophils % Not Reportable Basophils % Not Reportable Absolute Neutrophils Not Reportable Absolute Lymphocytes Not Reportable Absolute Monocytes Not Reportable Absolute Eosinophils Not Reportable Absolute Basophils Not Reportable VBG pH VBG pCO2 VBG HCO3 VBG Base Excess Sodium 137.8 Potassium 4.0 Chloride 100 Carbon Dioxide 26 Anion Gap 12 BUN 21 H Creatinine 1.21 Est GFR ( Amer) > 60 Est GFR (Non-Af Amer) 59 L Glucose 69 L Lactic Acid 1.8 Calcium 9.2 Total Bilirubin 0.3 AST 27 ALT 23 Alkaline Phosphatase 115 Total Protein 7.2 Albumin 3.9 Urine Color Urine Appearance Urine pH Ur Specific [place] Urine Protein Urine Glucose (UA) Urine Ketones Urine Blood Urine Nitrite Ur Leukocyte Esterase Urine WBC (Auto) Urine RBC (Auto) 01/13/19 01/13/19 17:36 18:35 WBC RBC Hgb Hct MCV MCH MCHC RDW Plt Count Seg Neutrophils % Lymphocytes % Monocytes % Eosinophils % Basophils % Absolute Neutrophils Absolute Lymphocytes Absolute Monocytes Absolute Eosinophils Absolute Basophils VBG pH 7.37 VBG pCO2 48.1 VBG HCO3 27.1 VBG Base Excess 1.1 Sodium Potassium Chloride Carbon Dioxide Anion Gap BUN Creatinine Est GFR ( Amer) Est GFR (Non-Af Amer) Glucose Lactic Acid Calcium Total Bilirubin AST ALT Alkaline Phosphatase Total Protein Albumin Urine Color YELLOW Urine Appearance CLEAR Urine pH 5.0 Ur Specific [place] 1.017 Urine Protein 30 H Urine Glucose (UA) NEGATIVE Urine Ketones NEGATIVE Urine Blood SMALL H Urine Nitrite NEGATIVE Ur Leukocyte Esterase NEGATIVE Urine WBC (Auto) 2 Urine RBC (Auto) 16 Impressions: Chest X-Ray 01/13/19 00:00 IMPRESSION: 1. Slightly worsened appearance of the chronic right lower lobe opacity representing patient's known fibrotic changes; however, findings may represent superimposed pneumonia in the appropriate clinical setting. 2. Mildly improved left lower lobe opacity. Head CT 01/13/19 18:25 IMPRESSION: MICROVASCULAR ISCHEMIA AND GENERALIZED ATROPHY. NO ACUTE IMAGING FINDINGS IN THE BRAIN EVIDENCE OF ACUTE STROKE: NO. Assessment and Plan - Diagnosis (1) Acute on chronic respiratory failure with hypoxia Is this a current diagnosis for this admission?: Yes Plan: Patient be treated with oxygen supplementation via nasal cannula or other noninvasive devices as required. His O2 sat will be monitored on a regular basis. (2) Pneumonia Qualifiers: Pneumonia type: due to unspecified organism Laterality: right Lung location: lower lobe of lung Qualified Code(s): J18.1 - Lobar pneumonia, unspecified organism Is this a current diagnosis for this admission?: Yes Plan: Patient's community-acquired pneumonia will be treated with intravenous Rocephin and Zithromax initially. He will receive an aggressive pulmonary toilet with nebulized Xopenex, Atrovent, Pulmicort and Mucomyst. A daily CBC will be obtained to assess efficacy of therapy. (3) Hypotension Qualifiers: Hypotension type: hypotension due to hypovolemia Qualified Code(s): I95.89 - Other hypotension; E86.1 - Hypovolemia Is this a current diagnosis for this admission?: Yes Plan: Patient is being treated with IV fluid repletion/supplementation initially for his hypotension. He will be monitored closely with frequent vital sign determinations and further intervention with a renal dose dopamine infusion will be considered if needed. (4) Altered mental status Qualifiers: Altered mental status type: somnolence Qualified Code(s): R40.0 - Somnolen ce Is this a current diagnosis for this admission?: Yes Plan: The patient's altered mental status will be treated by addressing his underlying physical illnesses and symptoms, otherwise providing supportive and symptomatic cares as required. - Time Time Spent with patient: 15-24 minutes Medications reviewed and adjusted accordingly: Yes - Inpatient Certification Based on my medical assessment, after consideration of the patient's comorbidities, presenting symptoms, or acuity I expect that the services needed warrant INPATIENT care.: Yes I certify that my determination is in accordance with my understanding of Medicare's requirements for reasonable and necessary INPATIENT services [42 CFR 412.3e].: Yes Medical Necessity: Significant Comorbidiites Make Outpatient Treatment Too [place]is [place], Need Close Monitoring Due to Risk of Patient Decompensation, Need For IV Fluids, Need For Continuous Telemetry Monitoring, Need for Nebulizer Therapy and Monitoring of Response, Need for IV Antibiotics, Risk of Complication if Not Cared For in Hospital
[2019-01-14 06:05] LABS: ABSOLUTE LYMPHOCYTES (AUTO) 0.6 10^3/uL (0.5-4.7); ABSOLUTE MONOCYTES (AUTO) 0.6 10^3/uL (0.1-1.4); BASOPHILS % (AUTO) 0.1 % (0-2); HEMATOCRIT 31.4 % (37.9-51.0); HEMOGLOBIN 10.5 g/dL (13.5-17.0); MEAN CORPUSCULAR HEMOGLOBIN 29.1 pg (27.0-33.4); MEAN CORPUSCULAR HGB CONC 33.4 g/dL (32.0-36.0); MEAN CORPUSCULAR VOLUME 87 fl (80-97); MONOCYTES % (AUTO) 6.7 % (3-13); PLATELET COUNT 260 10^3/uL (150-450); RED CELL DISTRIBUTION WIDTH 16.9 % (11.5-14.0); SEGMENTED NEUTROPHILS % (AUTO) 86.2 % (42-78); TOTAL CELLS COUNTED % (AUTO) 100 %; WHITE BLOOD COUNT 9.3 10^3/uL (4.0-10.5)
[2019-01-14] MEDS: HEPARIN SOD (PORCINE) 5,000 UNIT/ML 1 ML SYRINGE SUBCUT SCH ×3 (06:27→23:06)
[2019-01-14 06:32] LABS: ANION GAP 7 (5-19); BLOOD UREA NITROGEN 14 mg/dL (7-20); CALCIUM 8.4 mg/dL (8.4-10.2); CARBON DIOXIDE 25 mmol/L (22-30); CHLORIDE 109 mmol/L (98-107); GLUCOSE 105 mg/dL (75-110); POTASSIUM 4.2 mmol/L (3.6-5.0); SODIUM 140.7 mmol/L (137-145)
[2019-01-14] MEDS: BUDESONIDE NEB 0.5 MG/2 ML AMPUL NEB SCH ×2 (07:52→20:23)
[2019-01-14] MEDS: ACETYLCYSTEINE 20% SOLN 800 MG/4 ML VIAL.NEB NEB SCH ×2 (08:11→20:23)
[2019-01-14] MEDS: FAMOTIDINE 20 MG TABLET PO SCH ×2 (09:13→23:06)
--- NOTE | 2019-01-14 16:42 | PDOC PROGRESS REPORT ---
Subjective Progress Note for:: 01/14/19 Subjective:: 73 y.o. M with a PMH of anoxic brain injury (at age 27 y.o.), COPD, parkinsonism and HLD. He presented to [facility] ED for acute lethargy. He currently lives at an assisted living facility, [facility]. Patient has severe dementia and is unable to provide any meaningful input. Patient was seen this morning on rounds, he is resting comfortably in bed. He does not appear to be in any distress. The patient is arousable to verbal and tactile stimuli. The patient has severe dementia and is unable to participate in the interview. Coarse lung sounds R>L. Blood pressure has increased from SBP 88-->106 following IVF resuscitation. Nursing staff states the patient was able to eat his breakfast entirely this morning. Additionally, he was able to cough up a large amount of sputum. Reason For Visit: RLL PNEUMONIA Physical Exam Vital Signs: Temp Pulse Resp BP Pulse Ox 98.1 F 84 22 H 95/62 L 90 L 01/14/19 16:04 01/14/19 16:04 01/14/19 16:04 01/14/19 16:04 01/14/19 16:04 Intake & Output 01/13/19 01/14/19 01/15/19 06:59 06:59 06:59 Intake Total 5980 Output Total 900 Balance 5080 Weight 63.1 kg General appearance: PRESENT: no acute distress, well-developed, well-nourished Head exam: PRESENT: atraumatic, normocephalic Eye exam: PRESENT: conjunctiva pink, EOMI, PERRLA. ABSENT: scleral icterus Ear exam: PRESENT: normal external ear exam Mouth exam: PRESENT: moist, tongue midline Teeth exam: PRESENT: edentulous Neck exam: ABSENT: carotid bruit, JVD, lymphadenopathy, thyromegaly Respiratory exam: PRESENT: clear to auscultation gama, rhonchi - bilaterally. R>L, symmetrical, unlabored. ABSENT: rales, wheezes Cardiovascular exam: PRESENT: RRR. ABSENT: diastolic murmur, rubs, systolic murmur Pulses: PRESENT: normal radial pulses, normal dorsalis pedis pul Vascular exam: PRESENT: normal capillary refill GI/Abdominal exam: PRESENT: normal bowel sounds, soft. ABSENT: distended, guarding, mass, organolmegaly, rebound, tenderness Rectal exam: PRESENT: deferred Extremities exam: PRESENT: full ROM. ABSENT: calf tenderness, clubbing, pedal edema, tenderness Neurological exam: PRESENT: alert, awake, oriented to person. ABSENT: oriented to place, oriented to time, oriented to situation Psychiatric exam: PRESENT: normal mood. ABSENT: appropriate affect Skin exam: PRESENT: dry, intact, warm. ABSENT: cyanosis, rash Results Laboratory Results: 01/14/19 05:17 01/14/19 05:17 01/13/19 01/13/19 01/13/19 16:50 16:50 17:36 WBC 14.8 H RBC 3.96 L Hgb 11.3 L Hct 34.2 L MCV 86 MCH 28.5 MCHC 33.0 RDW 17.5 H Plt Count 320 Seg Neutrophils % Not Reportable Lymphocytes % Not Reportable Monocytes % Not Reportable Eosinophils % Not Reportable Basophils % Not Reportable Absolute Neutrophils Not Reportable Absolute Lymphocytes Not Reportable Absolute Monocytes Not Reportable Absolute Eosinophils Not Reportable Absolute Basophils Not Reportable VBG pH VBG pCO2 VBG HCO3 VBG Base Excess Sodium 137.8 Potassium 4.0 Chloride 100 Carbon Dioxide 26 Anion Gap 12 BUN 21 H Creatinine 1.21 Est GFR ( Amer) > 60 Est GFR (Non-Af Amer) 59 L Glucose 69 L Lactic Acid 1.8 Calcium 9.2 Total Bilirubin 0.3 AST 27 ALT 23 Alkaline Phosphatase 115 Total Protein 7.2 Albumin 3.9 Urine Color Urine Appearance Urine pH Ur Specific [place] Urine Protein Urine Glucose (UA) Urine Ketones Urine Blood Urine Nitrite Ur Leukocyte Esterase Urine WBC (Auto) Urine RBC (Auto) 01/13/19 01/13/19 01/14/19 17:36 18:35 05:17 WBC 9.3 RBC 3.60 L Hgb 10.5 L Hct 31.4 L MCV 87 MCH 29.1 MCHC 33.4 RDW 16.9 H Plt Count 260 Seg Neutrophils % 86.2 H Lymphocytes % 7.0 L Monocytes % 6.7 Eosinophils % 0.0 Basophils % 0.1 Absolute Neutrophils 8.0 Absolute Lymphocytes 0.6 Absolute Monocytes 0.6 Absolute Eosinophils 0.0 Absolute Basophils 0.0 VBG pH 7.37 VBG pCO2 48.1 VBG HCO3 27.1 VBG Base Excess 1.1 Sodium Potassium Chloride Carbon Dioxide Anion Gap BUN Creatinine Est GFR ( Amer) Est GFR (Non-Af Amer) Glucose Lactic Acid Calcium Total Bilirubin AST ALT Alkaline Phosphatase Total Protein Albumin Urine Color YELLOW Urine Appearance CLEAR Urine pH 5.0 Ur Specific [place] 1.017 Urine Protein 30 H Urine Glucose (UA) NEGATIVE Urine Ketones NEGATIVE Urine Blood SMALL H Urine Nitrite NEGATIVE Ur Leukocyte Esterase NEGATIVE Urine WBC (Auto) 2 Urine RBC (Auto) 16 01/14/19 05:17 WBC RBC Hgb Hct MCV MCH MCHC RDW Plt Count Seg Neutrophils % Lymphocytes % Monocytes % Eosinophils % Basophils % Absolute Neutrophils Absolute Lymphocytes Absolute Monocytes Absolute Eosinophils Absolute Basophils VBG pH VBG pCO2 VBG HCO3 VBG Base Excess Sodium 140.7 Potassium 4.2 Chloride 109 H Carbon Dioxide 25 Anion Gap 7 BUN 14 Creatinine 0.65 Est GFR ( Amer) > 60 Est GFR (Non-Af Amer) > 60 Glucose 105 Lactic Acid Calcium 8.4 Total Bilirubin AST ALT Alkaline Phosphatase Total Protein Albumin Urine Color Urine Appearance Urine pH Ur Specific [place] Urine Protein Urine Glucose (UA) Urine Ketones Urine Blood Urine Nitrite Ur Leukocyte Esterase Urine WBC (Auto) Urine RBC (Auto) Impressions: Chest X-Ray 01/13/19 00:00 IMPRESSION: 1. Slightly worsened appearance of the chronic right lower lobe opacity representing patient's known fibrotic changes; however, findings may represent superimposed pneumonia in the appropriate clinical setting. 2. Mildly improved left lower lobe opacity. Head CT 01/13/19 18:25 IMPRESSION: MICROVASCULAR ISCHEMIA AND GENERALIZED ATROPHY. NO ACUTE IMAGING FINDINGS IN THE BRAIN EVIDENCE OF ACUTE STROKE: NO. Status: Imported from PACS Assessment and Plan - Diagnosis (1) Acute on chronic respiratory failure with hypoxia Is this a current diagnosis for this admission?: Yes Plan: Secondary to pneumonia RLL PNA seen on CXR Initially treated with azithromycin and Rocephin for community-acquired pneumonia, but patient lives at assisted living facility and should be covered for healthcare associated pneumonia Will broaden antibiotic coverage to vancomycin and Zosyn Blood and sputum cultures pending Supplemental oxygen via nasal cannula for SPO2> 88% Scheduled and as needed nebulizer treatments (2) Pneumonia Qualifiers: Pneumonia type: due to unspecified organism Laterality: right Lung location: lower lobe of lung Qualified Code(s): J18.1 - Lobar pneumonia, unspecified organism Is this a current diagnosis for this admission?: Yes Plan: PNA seen on CXR Plan as above (3) Altered mental status Qualifiers: Altered mental status type: somnolence Qualified Code(s): R40.0 - Somnolence Is this a current diagnosis for this admission?: Yes Plan: Head CT negative History of severe dementia and anoxic brain injury at the age of 27 Daughter states that the patient has the mental capacity of a 9-year-old Unclear if he is currently at baseline Supportive and symptomatic care as required (4) Hypotension Qualifiers: Hypotension type: hypotension due to hypovolemia Qualified Code(s): I95.89 - Other hypotension; E86.1 - Hypovolemia Is this a current diagnosis for this admission?: Yes Plan: Secondary to dehydration and infection IVF resuscitation in the emergency department SBP increased from 88-->106 today Patient is able to sustain on p.o. intake - Time Time Spent with patient: 15-24 minutes Medications reviewed and adjusted accordingly: Yes Anticipated discharge: Home Within: within 72 hours - Inpatient Certification Based on my medical assessment, after consideration of the patient's comorbidities, presenting symptoms, or acuity I expect that the services needed warrant INPATIENT care.: Yes I certify that my determination is in accordance with my understanding of Medicare's requirements for reasonable and necessary INPATIENT services [42 CFR 412.3e].: Yes Medical Necessity: Need for IV Antibiotics, Risk of Complication if Not Cared For in Hospital
[2019-01-14] MEDS ORDERED: AZITHROMYCIN 500 MG in DEXTROSE 5%-WATER 250 ML IV SCH (18:00)
[2019-01-14] MEDS ORDERED: CEFTRIAXONE 1 GM/D5W RTU 1 GM/50 ML RTUPB IV SCH (22:00)
[2019-01-14] MEDS ORDERED: CEFTRIAXONE SODIUM 1,000 MG in DEXTROSE 5%-WATER 50 ML IV SCH (22:00)
[2019-01-15] MEDS: IPRATROPIUM BROMIDE 0.02% NEB 0.5 MG/2.5 ML AMPUL NEB SCH ×3 (00:24→16:17)
[2019-01-15] MEDS: LEVALBUTEROL HCL NEB 1.25 MG/3 ML AMPUL NEB SCH ×3 (00:24→16:17)
[2019-01-15] MEDS: RINGERS SOLUTION,LACTATED 1,000 ML IV PRN (01:13)
[2019-01-15 04:29] LABS: ABSOLUTE BASOPHILS # (AUTO) 0.1 10^3/uL (0.0-0.2); ABSOLUTE EOSINOPHILS # (AUTO) 0.2 10^3/uL (0.0-0.6); ABSOLUTE LYMPHOCYTES (AUTO) 1.5 10^3/uL (0.5-4.7); ABSOLUTE NEUT (AUTO) 6.3 10^3/uL (1.7-8.2); BASOPHILS % (AUTO) 0.9 % (0-2); EOSINOPHILS % (AUTO) 2.5 % (0-6); HEMATOCRIT 30.1 % (37.9-51.0); HEMOGLOBIN 10.1 g/dL (13.5-17.0); LYMPHOCYTES % (AUTO) 16.8 % (13-45); MEAN CORPUSCULAR HEMOGLOBIN 29.1 pg (27.0-33.4); MEAN CORPUSCULAR HGB CONC 33.7 g/dL (32.0-36.0); MEAN CORPUSCULAR VOLUME 86 fl (80-97); PLATELET COUNT 224 10^3/uL (150-450); RED BLOOD COUNT 3.49 10^6/uL (4.35-5.55); RED CELL DISTRIBUTION WIDTH 17.3 % (11.5-14.0); SEGMENTED NEUTROPHILS % (AUTO) 68.8 % (42-78); TOTAL CELLS COUNTED % (AUTO) 100 %; WHITE BLOOD COUNT 9.1 10^3/uL (4.0-10.5)
[2019-01-15 04:59] LABS: ANION GAP 5 (5-19); BLOOD UREA NITROGEN 14 mg/dL (7-20); CALCIUM 7.9 mg/dL (8.4-10.2); CARBON DIOXIDE 29 mmol/L (22-30); CHLORIDE 105 mmol/L (98-107); GLUCOSE 77 mg/dL (75-110); POTASSIUM 3.7 mmol/L (3.6-5.0); SODIUM 139.2 mmol/L (137-145)
[2019-01-15] MEDS: HEPARIN SOD (PORCINE) 5,000 UNIT/ML 1 ML SYRINGE SUBCUT SCH ×3 (06:12→23:26)
[2019-01-15] MEDS ORDERED: BENZONATATE 100 MG CAPSULE PO PRN (08:08)
[2019-01-15] MEDS: ACETYLCYSTEINE 20% SOLN 800 MG/4 ML VIAL.NEB NEB SCH ×2 (08:40→20:26)
[2019-01-15] MEDS: BUDESONIDE NEB 0.5 MG/2 ML AMPUL NEB SCH ×2 (08:40→20:26)
[2019-01-15] MEDS ORDERED: (PENDING PHARMACY ID) (Lamotrigine [Lamictal] 25 MG) PO SCH (10:00)
[2019-01-15] MEDS ORDERED: CEFEPIME 2 GM/D5W RTU 2 GM/50 ML RTUPB IV SCH (10:00)
[2019-01-15] MEDS ORDERED: (PENDING PHARMACY ID) (Ranitidine Hcl [Zantac 150 Mg Tablet] 150 MG) PO SCH (10:00)
[2019-01-15] MEDS: ASPIRIN 81 MG TABLET, ENT COATED PO SCH (10:25)
[2019-01-15] MEDS: OLANZAPINE 5 MG TABLET PO SCH ×3 (10:25→23:28)
[2019-01-15] MEDS: FAMOTIDINE 20 MG TABLET PO SCH ×3 (10:26→17:14)
[2019-01-15] MEDS: TIOTROPIUM BROMIDE DPI 5 CAP/KIT (18 MCG/CAP) IH SCH (10:26)
[2019-01-15] MEDS: MULTIVITAMIN TABLET PO SCH (10:26)
[2019-01-15] MEDS: CEFEPIME HCL 2 GM in DEXTROSE 5%-WATER 50 ML IV SCH ×2 (10:26→23:27)
[2019-01-15] MEDS: LAMOTRIGINE 25 MG TAB.CHEW PO SCH ×2 (11:54→23:26)
[2019-01-15] MEDS: NICOTINE 14 MG/24 HR PATCH.TD24 TD SCH (14:40)
[2019-01-15] MEDS ORDERED: ADENOSINE INJ/PF 6 MG/2 ML SDV IV ONE (21:13)
[2019-01-15] MEDS ORDERED: (PENDING PHARMACY ID) (Olanzapine [Zyprexa] 10 MG) PO SCH (22:00)
[2019-01-15 22:46] LABS: ALANINE AMINOTRANSFERASE 31 U/L (21-72); ALBUMIN 3.1 g/dL (3.5-5.0); ALKALINE PHOSPHATASE 92 U/L (38-126); ANION GAP 7 (5-19); ASPARTATE AMINO TRANSFERASE 29 U/L (17-59); BILIRUBIN,DIRECT 0.2 mg/dL (0.0-0.4); BILIRUBIN,TOTAL 0.2 mg/dL (0.2-1.3); BLOOD UREA NITROGEN 14 mg/dL (7-20); CALCIUM 8.5 mg/dL (8.4-10.2); CARBON DIOXIDE 29 mmol/L (22-30); CHLORIDE 104 mmol/L (98-107); GLUCOSE 120 mg/dL (75-110); POTASSIUM 3.7 mmol/L (3.6-5.0); SODIUM 140.4 mmol/L (137-145); TOTAL PROTEIN 6.1 g/dL (6.3-8.2)
[2019-01-15] MEDS: SIMVASTATIN 40 MG TABLET PO SCH (23:26)
[2019-01-16] MEDS: LEVALBUTEROL HCL NEB 1.25 MG/3 ML AMPUL NEB SCH ×3 (00:07→16:34)
[2019-01-16] MEDS: IPRATROPIUM BROMIDE 0.02% NEB 0.5 MG/2.5 ML AMPUL NEB SCH ×3 (00:07→16:34)
[2019-01-16] MEDS: HEPARIN SOD (PORCINE) 5,000 UNIT/ML 1 ML SYRINGE SUBCUT SCH ×3 (05:20→21:33)
[2019-01-16 06:15] LABS: ABSOLUTE BASOPHILS # (AUTO) 0.1 10^3/uL (0.0-0.2); ABSOLUTE EOSINOPHILS # (AUTO) 0.2 10^3/uL (0.0-0.6); ABSOLUTE LYMPHOCYTES (AUTO) 1.3 10^3/uL (0.5-4.7); ABSOLUTE NEUT (AUTO) 5.8 10^3/uL (1.7-8.2); BASOPHILS % (AUTO) 0.8 % (0-2); EOSINOPHILS % (AUTO) 2.7 % (0-6); HEMOGLOBIN 11.8 g/dL (13.5-17.0); LYMPHOCYTES % (AUTO) 15.8 % (13-45); MEAN CORPUSCULAR HEMOGLOBIN 28.6 pg (27.0-33.4); MEAN CORPUSCULAR HGB CONC 32.9 g/dL (32.0-36.0); MEAN CORPUSCULAR VOLUME 87 fl (80-97); MONOCYTES % (AUTO) 11.4 % (3-13); PLATELET COUNT 251 10^3/uL (150-450); RED BLOOD COUNT 4.13 10^6/uL (4.35-5.55); RED CELL DISTRIBUTION WIDTH 16.9 % (11.5-14.0); SEGMENTED NEUTROPHILS % (AUTO) 69.3 % (42-78); TOTAL CELLS COUNTED % (AUTO) 100 %; WHITE BLOOD COUNT 8.3 10^3/uL (4.0-10.5)
[2019-01-16 06:26] LABS: ANION GAP 7 (5-19); BLOOD UREA NITROGEN 13 mg/dL (7-20); CALCIUM 8.6 mg/dL (8.4-10.2); CARBON DIOXIDE 33 mmol/L (22-30); CHLORIDE 102 mmol/L (98-107); GLUCOSE 85 mg/dL (75-110); POTASSIUM 3.6 mmol/L (3.6-5.0); SODIUM 141.9 mmol/L (137-145)
--- NOTE | 2019-01-16 07:01 | PDOC PROGRESS REPORT ---
Subjective Progress Note for:: 01/15/19 Subjective:: 73 y.o. M with a PMH of anoxic brain injury (at age 27 y.o.), COPD, parkinsonism and HLD. He presented to [facility] for acute lethargy. He currently lives at an assisted living facility, [facility]. Patient has severe dementia and is unable to provide any meaningful input. Patient was seen this morning on rounds, he is resting comfortably in bed. He does not appear to be in any distress. The patient is arousable to verbal and tactile stimuli. The patient has severe dementia and is unable to participate in the interview. Improving exam, lung sounds mildly coarse R>L. No peripheral or central cyanosis. Antibiotics changed to cover healthcare associated PNA. Patient continues to improve clincally, likely d/c back to [facility] in 24-48 hours. Reason For Visit: RLL PNEUMONIA Physical Exam Vital Signs: Temp Pulse Resp BP Pulse Ox 97.9 F 68 17 120/71 99 01/16/19 03:39 01/16/19 03:39 01/16/19 03:39 01/16/19 03:39 01/16/19 03:39 Intake & Output 01/14/19 01/15/19 01/16/19 06:59 06:59 06:59 Intake Total 5980 1892 2509 Output Total 900 2225 1900 Balance 5080 -333 609 Weight 63.1 kg 62.7 kg 62.1 kg General appearance: PRESENT: no acute distress, well-developed, well-nourished Head exam: PRESENT: atraumatic, normocephalic Eye exam: PRESENT: conjunctiva pink, EOMI, PERRLA. ABSENT: scleral icterus Ear exam: PRESENT: normal external ear exam Mouth exam: PRESENT: moist, tongue midline Teeth exam: PRESENT: edentulous Neck exam: ABSENT: carotid bruit, JVD, lymphadenopathy, thyromegaly Respiratory exam: PRESENT: symmetrical, unlabored, other - COARSE LUNG SOUNDS. ABSENT: rales, rhonchi, wheezes Cardiovascular exam: PRESENT: RRR. ABSENT: diastolic murmur, rubs, systolic murmur Pulses: PRESENT: normal radial pulses, normal dorsalis pedis pul Vascular exam: PRESENT: normal capillary refill GI/Abdominal exam: PRESENT: normal bowel sounds, soft. ABSENT: distended, guarding, mass, organolmegaly, rebound, tenderness Rectal exam: PRESENT: deferred Extremities exam: PRESENT: full ROM. ABSENT: calf tenderness, clubbing, pedal edema Neurological exam: PRESENT: alert, awake, oriented to person, oriented to place. ABSENT: oriented to time, oriented to situation Psychiatric exam: PRESENT: appropriate affect, normal mood Skin exam: PRESENT: dry, intact, warm. ABSENT: cyanosis, rash Results Laboratory Results: 01/16/19 05:05 01/16/19 05:05 01/15/19 01/16/19 01/16/19 22:14 05:05 05:05 WBC 8.3 RBC 4.13 L Hgb 11.8 L Hct 36.0 L MCV 87 MCH 28.6 MCHC 32.9 RDW 16.9 H Plt Count 251 Seg Neutrophils % 69.3 Lymphocytes % 15.8 Monocytes % 11.4 Eosinophils % 2.7 Basophils % 0.8 Absolute Neutrophils 5.8 Absolute Lymphocytes 1.3 Absolute Monocytes 1.0 Absolute Eosinophils 0.2 Absolute Basophils 0.1 Sodium 140.4 141.9 Potassium 3.7 3.6 Chloride 104 102 Carbon Dioxide 29 33 H Anion Gap 7 7 BUN 14 13 Creatinine 0.82 0.80 Est GFR ( Amer) > 60 > 60 Est GFR (Non-Af Amer) > 60 > 60 Glucose 120 H 85 Calcium 8.5 8.6 Magnesium 2.0 Total Bilirubin 0.2 AST 29 ALT 31 Alkaline Phosphatase 92 Total Protein 6.1 L Albumin 3.1 L 01/15/19 06:25 Sputum Gram Stain - Final 01/15/19 06:25 Sputum Sputum Culture - Final 01/13/19 18:35 Catheterized Urine Urine Culture - Final NO GROWTH 2 DAYS Impressions: Chest X-Ray 01/13/19 00:00 IMPRESSION: 1. Slightly worsened appearance of the chronic right lower lobe opacity representing patient's known fibrotic changes; however, findings may represent superimposed pneumonia in the appropriate clinical setting. 2. Mildly improved left lower lobe opacity. Head CT 01/13/19 18:25 IMPRESSION: MICROVASCULAR ISCHEMIA AND GENERALIZED ATROPHY. NO ACUTE IMAGING FINDINGS IN THE BRAIN EVIDENCE OF ACUTE STROKE: NO. Status: Imported from PACS Assessment and Plan - Diagnosis (1) Acute on chronic respiratory failure with hypoxia Is this a current diagnosis for this admission?: Yes Plan: Secondary to pneumonia RLL PNA seen on CXR Initially treated with azithromycin and Rocephin for community-acquired pneumonia, but patient lives at assisted living facility and should be covered for healthcare associated pneumonia Will broaden antibiotic coverage to vancomycin and Zosyn Blood and sputum cultures pending Supplemental oxygen via nasal cannula for SPO2> 88% Scheduled and as needed nebulizer treatments (2) Pneumonia Qualifiers: Pneumonia type: due to unspecified organism Laterality: right Lung location: lower lobe of lung Qualified Code(s): J18.1 - Lobar pneumonia, unspecified organism Is this a current diagnosis for this admission?: Yes Plan: PNA seen on CXR Plan as above (3) Altered mental status Qualifiers: Altered mental status type: somnolence Qualified Code(s): R40.0 - Somnolence Is this a current diagnosis for this admission?: Yes Plan: Head CT negative History of severe dementia and anoxic brain injury at the age of 27 Daughter states that the patient has the mental capacity of a 7-year-old Unclear if he is currently at baseline Supportive and symptomatic care as required (4) Hypotension Qualifiers: Hypotension type: hypotension due to hypovolemia Qualified Code(s): I95.89 - Other hypotension; E86.1 - Hypovolemia Is this a current diagnosis for this admission?: Yes Plan: RESOLVED Secondary to dehydration and infection IVF resuscitation in the emergency department SBP increased from 88-->120 today Patient is able to sustain on p.o. intake discontinue IVF - Time Time Spent with patient: 15-24 minutes Medications reviewed and adjusted accordingly: Yes Anticipated discharge: Home - Inpatient Certification Based on my medical assessment, after consideration of the patient's comor bidities, presenting symptoms, or acuity I expect that the services needed warrant INPATIENT care.: Yes I certify that my determination is in accordance with my understanding of Medicare's requirements for reasonable and necessary INPATIENT services [42 CFR 412.3e].: Yes Medical Necessity: Need for IV Antibiotics, Risk of Complication if Not Cared For in Hospital
[2019-01-16] MEDS: ACETYLCYSTEINE 20% SOLN 800 MG/4 ML VIAL.NEB NEB SCH ×2 (07:53→21:18)
[2019-01-16] MEDS: BUDESONIDE NEB 0.5 MG/2 ML AMPUL NEB SCH ×2 (07:53→21:18)
[2019-01-16] MEDS: TIOTROPIUM BROMIDE DPI 5 CAP/KIT (18 MCG/CAP) IH SCH (10:05)
[2019-01-16] MEDS: OLANZAPINE 5 MG TABLET PO SCH ×3 (10:06→21:21)
[2019-01-16] MEDS: LAMOTRIGINE 25 MG TAB.CHEW PO SCH ×2 (10:06→21:21)
[2019-01-16] MEDS: NICOTINE 14 MG/24 HR PATCH.TD24 TD SCH (10:06)
[2019-01-16] MEDS: MULTIVITAMIN TABLET PO SCH (10:07)
[2019-01-16] MEDS: FAMOTIDINE 20 MG TABLET PO SCH ×2 (10:07→17:56)
[2019-01-16] MEDS: ASPIRIN 81 MG TABLET, ENT COATED PO SCH (10:07)
[2019-01-16] MEDS: CEFEPIME HCL 2 GM in DEXTROSE 5%-WATER 50 ML IV SCH (10:09)
[2019-01-16] MEDS ORDERED: VANCOMYCIN HCL 0 MG in DEXTROSE 5%-WATER 250 ML IV NR (10:45)
[2019-01-16] MEDS ORDERED: VANCOMYCIN HCL 1,250 MG in DEXTROSE 5%-WATER 250 ML IV ONE (12:00)
--- NOTE | 2019-01-16 19:40 | PDOC PROGRESS REPORT ---
Subjective Progress Note for:: 01/16/19 Subjective:: 73 y.o. M with a PMH of anoxic brain injury (at age 27 y.o.), COPD, parkinsonism and HLD. [facility] He currently lives at an assisted living facility, [facility]. Patient has severe dementia and is unable to provide any meaningful input. Patient was seen on morning rounds. He was found to be resting in bed comfortably on room air. He is awake, alert and oriented to self, he is socially appropriate and conversational, however remains impulsive and requires one-to-one sitter. He denies all symptoms; no fever, chills, chest pain, palpitations, dyspnea, cough, abdominal pain, nausea vomiting or diarrhea. He has no questions or concerns at this time. Reason For Visit: RLL PNEUMONIA Physical Exam Vital Signs: Temp Pulse Resp BP Pulse Ox 98.9 F 83 18 105/55 L 93 01/16/19 16:04 01/16/19 16:34 01/16/19 16:34 01/16/19 16:04 01/16/19 16:34 Intake & Output 01/15/19 01/16/19 01/17/19 06:59 06:59 06:59 Intake Total 1892 2509 600 Output Total 2225 1900 400 Balance -333 609 200 Weight 62.7 kg 62.1 kg General appearance: PRESENT: no acute distress, cooperative, thin, well- developed Head exam: PRESENT: atraumatic, normocephalic Eye exam: PRESENT: conjunctiva pink, EOMI, PERRLA. ABSENT: scleral icterus Mouth exam: PRESENT: moist, tongue midline Teeth exam: PRESENT: poor dentation Neck exam: ABSENT: carotid bruit, JVD, lymphadenopathy, thyromegaly Respiratory exam: PRESENT: rhonchi, symmetrical, unlabored. ABSENT: rales, wheezes Cardiovascular exam: PRESENT: RRR, +S1, +S2. ABSENT: diastolic murmur, rubs, systolic murmur Pulses: PRESENT: normal dorsalis pedis pul Vascular exam: PRESENT: normal capillary refill GI/Abdominal exam: PRESENT: normal bowel sounds, soft. ABSENT: distended, guarding, mass, organolmegaly, rebound, tenderness Rectal exam: PRESENT: deferred Extremities exam: PRESENT: full ROM. ABSENT: calf tenderness, clubbing, pedal edema Neurological exam: PRESENT: alert, awake, oriented to person, oriented to place, CN II-XII grossly intact. ABSENT: motor sensory deficit Psychiatric exam: PRESENT: appropriate affect, normal mood. ABSENT: homicidal ideation, suicidal ideation Skin exam: PRESENT: dry, intact, warm. ABSENT: cyanosis, rash Results Laboratory Results: 01/16/19 05:05 01/16/19 05:05 01/15/19 01/16/19 01/16/19 22:14 05:05 05:05 WBC 8.3 RBC 4.13 L Hgb 11.8 L Hct 36.0 L MCV 87 MCH 28.6 MCHC 32.9 RDW 16.9 H Plt Count 251 Seg Neutrophils % 69.3 Lymphocytes % 15.8 Monocytes % 11.4 Eosinophils % 2.7 Basophils % 0.8 Absolute Neutrophils 5.8 Absolute Lymphocytes 1.3 Absolute Monocytes 1.0 Absolute Eosinophils 0.2 Absolute Basophils 0.1 Sodium 140.4 141.9 Potassium 3.7 3.6 Chloride 104 102 Carbon Dioxide 29 33 H Anion Gap 7 7 BUN 14 13 Creatinine 0.82 0.80 Est GFR ( Amer) > 60 > 60 Est GFR (Non-Af Amer) > 60 > 60 Glucose 120 H 85 Calcium 8.5 8.6 Magnesium 2.0 Total Bilirubin 0.2 AST 29 ALT 31 Alkaline Phosphatase 92 Total Protein 6.1 L Albumin 3.1 L 01/13/19 17:36 Blood Blood Culture - Final Mrsa (Meth Resis Staph Aureus) 01/15/19 06:25 Sputum Gram Stain - Final 01/15/19 06:25 Sputum Sputum Culture - Final Impressions: Chest X-Ray 01/13/19 00:00 IMPRESSION: 1. Slightly worsened appearance of the chronic right lower lobe opacity representing patient's known fibrotic changes; however, findings may represent superimposed pneumonia in the appropriate clinical setting. 2. Mildly improved left lower lobe opacity. Head CT 01/13/19 18:25 IMPRESSION: MICROVASCULAR ISCHEMIA AND GENERALIZED ATROPHY. NO ACUTE IMAGING FINDINGS IN THE BRAIN EVIDENCE OF ACUTE STROKE: NO. Assessment and Plan - Diagnosis (1) Bacteremia Is this a current diagnosis for this admission?: Yes Plan: Patient has 1/4 bottles positive for MRSA. Unclear source. Treated for PNA this admission, though sputum cultures are still pending. No MRSA in any previous cultures on file. No skin breakdown identified. Antibiotics escalated to Vancomycin and Zosyn today for MRSA bacteremia and HCAP PNA. 1st doses today. Will obtain TTE to look for endocarditis (low suspicion) and consult infectious disease for antibiotic guidance. (2) Acute on chronic respiratory failure with hypoxia Is this a current diagnosis for this admission?: Yes Plan: Secondary to pneumonia RLL PNA seen on CXR BLood culture (09/01) positive for MRSA. Sputum culture pending. Initially treated with azithromycin and Rocephin. Will broaden antibiotic coverage to vancomycin and Zosyn for HCAP. Supplemental oxygen via nasal cannula for SPO2> 88% Scheduled and as needed nebulizer treatments Continue Pulmicort and Mucomyst nebulizer treatments. (3) Altered mental status Qualifiers: Altered mental status type: somnolence Qualified Code(s): R40.0 - Somnolence Is this a current diagnosis for this admission?: Yes Plan: Head CT negative History of severe dementia and anoxic brain injury at the age of 27 Daughter states that the patient has the mental capacity of a 7-year-old Unclear if he is currently at baseline; patient was socially appropriate, conversational, though impulsive. Supportive and symptomatic care as required Fall precautions. 1:1 sitter for safety. (4) Hypotension Qualifiers: Hypotension type: hypotension due to hypovolemia Qualified Code(s): I95.89 - Other hypotension; E86.1 - Hypovolemia Is this a current diagnosis for this admission?: Yes Plan: RESOLVED Secondary to dehydration and infection IVF resuscitation in the emergency department Patient is able to sustain on p.o. intake (5) Pneumonia Qualifiers: Pneumonia type: due to unspecified organism Laterality: right Lung location: lower lobe of lung Qualified Code(s): J18.1 - Lobar pneumonia, unspecified organism Is this a current diagnosis for this admission?: Yes Plan: PNA seen on CXR Plan as above - Time Time Spent with patient: 25-34 minutes Medications reviewed and adjusted accordingly: Yes Anticipated discharge: Home - Resident at [facility] Within: within 72 hours
[2019-01-16] MEDS: SIMVASTATIN 40 MG TABLET PO SCH (21:20)
[2019-01-16] MEDS: VANCOMYCIN HCL 750 MG in DEXTROSE 5%-WATER 250 ML IV SCH (21:30)
[2019-01-16] MEDS ORDERED: PIPERACILLIN/TAZOBACTAM 3.375 GM VIAL IV PRN (22:40)
[2019-01-17] MEDS ORDERED: PIPERACILLIN/TAZOBACTAM 3.375 GM VIAL IV ONE (00:43)
[2019-01-17] MEDS: IPRATROPIUM BROMIDE 0.02% NEB 0.5 MG/2.5 ML AMPUL NEB SCH ×3 (00:48→16:28)
[2019-01-17] MEDS: LEVALBUTEROL HCL NEB 1.25 MG/3 ML AMPUL NEB SCH ×3 (00:48→16:28)
[2019-01-17] MEDS: PIPERACILLIN SODIUM/TAZOBACTAM 3.375 GM in NORMAL SALINE 100 ML IV SCH ×5 (01:39→23:52)
[2019-01-17] MEDS: NYSTATIN 500000 UNIT/5 ML UDCUP PO SCH ×4 (01:40→18:20)
[2019-01-17] MEDS: HEPARIN SOD (PORCINE) 5,000 UNIT/ML 1 ML SYRINGE SUBCUT SCH ×3 (05:17→23:05)
[2019-01-17] MEDS ORDERED: LORAZEPAM INJ 2 MG/1 ML VIAL ONE ×2 (06:44→17:14)
[2019-01-17] MEDS ORDERED: LORAZEPAM INJ 2 MG/1 ML VIAL IV ONE (07:15)
[2019-01-17] MEDS ORDERED: OLANZAPINE INJ/PF 10 MG SDV IM ONE ×3 (08:00→23:30)
[2019-01-17] MEDS: ACETYLCYSTEINE 20% SOLN 800 MG/4 ML VIAL.NEB NEB SCH (08:51)
[2019-01-17] MEDS: BUDESONIDE NEB 0.5 MG/2 ML AMPUL NEB SCH (08:51)
[2019-01-17] MEDS: MULTIVITAMIN TABLET PO SCH (10:04)
[2019-01-17] MEDS: ASPIRIN 81 MG TABLET, ENT COATED PO SCH (10:04)
[2019-01-17] MEDS: FAMOTIDINE 20 MG TABLET PO SCH ×2 (10:04→18:20)
[2019-01-17] MEDS: VANCOMYCIN HCL 750 MG in DEXTROSE 5%-WATER 250 ML IV SCH (10:11)
[2019-01-17] MEDS: OLANZAPINE 5 MG TABLET PO SCH (10:11)
--- NOTE | 2019-01-17 10:25 | EKG REPORT ---
SEVERITY:- ABNORMAL ECG - SINUS TACHYCARDIA ATRIAL PREMATURE COMPLEX CONSIDER INFERIOR INFARCT, AGE INDETERMINATE : Confirmed by: Karla Weiner 17-Jan-2019 10:24:59
--- NOTE | 2019-01-17 10:25 | EKG REPORT ---
SEVERITY:- ABNORMAL ECG - SUPRAVENTRICULAR TACHYCARDIA BORDERLINE LEFT AXIS DEVIATION CONSIDER POSTERIOR INFARCT REPOLARIZATION ABNORMALITY, PROB RATE RELATED VS ISCHEMIA : Confirmed by: Karla Weiner 17-Jan-2019 10:24:19
[2019-01-17] MEDS: NICOTINE 14 MG/24 HR PATCH.TD24 TD SCH (15:13)
[2019-01-17] MEDS: LAMOTRIGINE 25 MG TAB.CHEW PO SCH (15:15)
[2019-01-17] MEDS: TIOTROPIUM BROMIDE DPI 5 CAP/KIT (18 MCG/CAP) IH SCH (15:15)
[2019-01-17] MEDS ORDERED: RISPERIDONE 0.25 MG TABLET PO PRN (17:26)
--- NOTE | 2019-01-17 17:30 | Progress Note ---
Provider Note Provider Note: ID Consult Note Asked to review patient's chart. Pt not seen or examiend. Mr. Hunter is a 73 year old man admitted on 01/13/19 due to lethargy. He has PMH including dementia and anoxic brain injury. He was febrile, hypotensive, had rhonchi appreciated in the R lower lung luna on exam, leukocytosis on admission labs, and had CXR read as showing minimally worsened appearance of R basilar opacity compared to Sep 2018. Based on these findings he was suspected of having pneumonia. He was initially given Rocephin and azithromycin for CAP, which was changed to cefepime, then on 01/16 to vancomycin and Zosyn. His blood cultures yeilded growth of MRSA in one blood culture bottle only. The other set was negative. Repeat blood cultures from 01/16 are negative. Sputum submitted on 01/15 was a poor sample. Impression I was asked to comment on the growth of MRSA from one blood culture bottle. This may represent uncomplicated, low grade bacteremia, possibly secondary to pneumonia. Although it is also possible it could be a contaminant, but this is generally not a prudent assumption to make. All that can really be said is that here there is no sustained Staph aureus bacteremia. Jovanny et al.'s study of positive blood cultures in adult inpatients hospitals around the country suggested that certain organisms, including Staphylococcus aureus, should almost always be thought to represent true bloodstream infection when isolated from a blood culture. The Staph aureus was present in one bottle. Repeat blood cultures without intervening anti-MRSA treatment have been negative (albeit for 24h incubation at this point). Pt has no history of valve replacement or ICD or PPM or prosthetic joint that might also complicate Staph aureus bacteremia. Recommendations - Obtain TTE to screen for IE if not already ordered - Standard of care would be to treat the patient with IV vancomycin for 2 weeks from blood culture clearance with IV vancomycin, assuming the set from 01/16 are negative and TTE shows no vegetations. Avel Alejandro MD [facility] Infectious Diseases pager [phone]
--- NOTE | 2019-01-17 18:25 | PDOC PROGRESS REPORT ---
Subjective Progress Note for:: 01/17/19 Subjective:: 73 y.o. M with a PMH of anoxic brain injury (at age 27 y.o.), COPD, parkinsonism and HLD. He presented to [facility] ED for acute lethargy. He currently lives at an assisted living facility, [facility]. Patient has severe dementia and is unable to provide any meaningful input. Patient was seen on morning rounds. He was found to be resting in bed comfortably on room air. He is awake, alert and oriented to self, and impulsive/agitated this morning. Per nursing, patient was combative w/ staff after pulling at IV lines and attempting to get out of bed w/o assistance. ROS is limited secondary to mental status/participation. No questions or concerns per nursing. Reason For Visit: RLL PNEUMONIA Physical Exam Vital Signs: Temp Pulse Resp BP Pulse Ox 98.8 F 79 20 113/59 L 96 01/17/19 15:14 01/17/19 15:14 01/17/19 15:14 01/17/19 15:14 01/17/19 15:14 Intake & Output 01/16/19 01/17/19 01/18/19 06:59 06:59 06:59 Intake Total 2509 950 500 Output Total 1900 1325 Balance 609 -375 500 Weight 62.1 kg 57.7 kg General appearance: PRESENT: no acute distress, disheveled, thin, well- developed. ABSENT: cooperative Head exam: PRESENT: atraumatic, normocephalic Eye exam: PRESENT: conjunctiva pink, EOMI, PERRLA. ABSENT: scleral icterus Ear exam: PRESENT: normal external ear exam Mouth exam: PRESENT: moist, tongue midline Neck exam: ABSENT: carotid bruit, JVD, lymphadenopathy, thyromegaly Respiratory exam: PRESENT: clear to auscultation gama, symmetrical, unlabored. ABSENT: rales, rhonchi, wheezes Cardiovascular exam: PRESENT: RRR, +S1, +S2. ABSENT: diastolic murmur, rubs, systolic murmur Pulses: PRESENT: normal dorsalis pedis pul Vascular exam: PRESENT: normal capillary refill GI/Abdominal exam: PRESENT: normal bowel sounds, soft. ABSENT: distended, guarding, mass, organolmegaly, rebound, tenderness Rectal exam: PRESENT: deferred Extremities exam: PRESENT: full ROM - moves all extremities spontaneously. ABSENT: calf tenderness, clubbing, pedal edema Neurological exam: PRESENT: alert, altered, awake, oriented to person, CN II-XII grossly intact. ABSENT: motor sensory deficit Psychiatric exam: PRESENT: agitated Skin exam: PRESENT: dry, intact, warm. ABSENT: cyanosis, rash Results Laboratory Results: 01/16/19 05:05 01/16/19 05:05 Impressions: Chest X-Ray 01/13/19 00:00 IMPRESSION: 1. Slightly worsened appearance of the chronic right lower lobe opacity representing patient's known fibrotic changes; however, findings may represent superimposed pneumonia in the appropriate clinical setting. 2. Mildly improved left lower lobe opacity. Head CT 01/13/19 18:25 IMPRESSION: MICROVASCULAR ISCHEMIA AND GENERALIZED ATROPHY. NO ACUTE IMAGING FINDINGS IN THE BRAIN EVIDENCE OF ACUTE STROKE: NO. Assessment and Plan - Diagnosis (1) Bacteremia Is this a current diagnosis for this admission?: Yes Plan: Patient has 1/4 bottles positive for MRSA. Repeat blood cultures negative at 24 hours. Unclear source. Treated for PNA this admission, though sputum cultures are still pending. No MRSA in any previous cultures on file. No skin breakdown identified. Antibiotics escalated to Vancomycin and Zosyn today for MRSA bacteremia and HCAP PNA. 1st doses yesterday Will obtain TTE to look for endocarditis (low suspicion) . Consulted infectious disease for antibiotic guidance; recommends minimum 2 weeks IV antibiotics pending echo results. (2) Acute on chronic respiratory failure with hypoxia Is this a current diagnosis for this admission?: Yes Plan: Improved. No maintaining oxygen saturations on room air with improved lung sounds. Secondary to pneumonia RLL PNA seen on CXR Blood culture (/) positive for MRSA. Sputum culture pending. Initially treated with azithromycin and Rocephin. Will broaden antibiotic coverage to vancomycin and Zosyn for HCAP. Supplemental oxygen via nasal cannula for SPO2> 88% Scheduled and as needed nebulizer treatments (3) Altered mental status Qualifiers: Altered mental status type: somnolence Qualified Code(s): R40.0 - Somnolence Is this a current diagnosis for this admission?: Yes Plan: Head CT negative History of severe dementia and anoxic brain injury at the age of 27 Daughter states that the patient has the mental capacity of a 7-year-old Unclear if he is currently at baseline; patient was socially appropriate, conversational, though impulsive yesterday. Now with increased agitation and combativeness with staff; patient stating that he wants to go outside to smoke. Supportive and symptomatic care as required Fall precautions. 1:1 sitter for safety. Mental health services was consulted; advised multiple medication changes. Have discontinued the patient's Zyprexa and Lamictal. Start Depakote, BuSpar, with Risperdal as needed for agitation. (4) Hypotension Qualifiers: Hypotension type: hypotension due to hypovolemia Qualified Code(s): I95.89 - Other hypotension; E86.1 - Hypovolemia Is this a current diagnosis for this admission?: Yes Plan: RESOLVED Secondary to dehydration and infection IVF resuscitation in the emergency department Patient is able to sustain on p.o. intake (5) Pneumonia Qualifiers: Pneumonia type: due to unspecified organism Laterality: right Lung location: lower lobe of lung Qualified Code(s): J18.1 - Lobar pneumonia, unspecified organism Is this a current diagnosis for this admission?: Yes Plan: PNA seen on CXR Plan as above - Time Time Spent with patient: 25-34 minutes Medications reviewed and adjusted accordingly: Yes Anticipated discharge: Home Within: Other - ~2 weeks
[2019-01-17] MEDS ORDERED: BUSPIRONE HCL 10 MG TABLET PO ONE (18:30)
[2019-01-17] MEDS ORDERED: DIVALPROEX SODIUM 250 MG TABLET.DR PO SCH (22:00)
[2019-01-17 22:32] LABS: VANCOMYCIN,TROUGH 10.1 ug/mL (5.0-20.0)
[2019-01-17] MEDS: SIMVASTATIN 40 MG TABLET PO SCH (22:57)
[2019-01-17] MEDS: LORAZEPAM INJ 2 MG/1 ML VIAL IV PRN (22:57)
[2019-01-17] MEDS ORDERED: VANCOMYCIN HCL INJ 1000 MG VIAL ONE (23:08)
[2019-01-18] MEDS: IPRATROPIUM BROMIDE 0.02% NEB 0.5 MG/2.5 ML AMPUL NEB SCH ×4 (00:07→21:00)
[2019-01-18] MEDS: LEVALBUTEROL HCL NEB 1.25 MG/3 ML AMPUL NEB SCH ×4 (00:08→21:00)
[2019-01-18] MEDS: VANCOMYCIN HCL 750 MG in DEXTROSE 5%-WATER 250 ML IV SCH ×3 (00:36→21:26)
[2019-01-18] MEDS: NYSTATIN 500000 UNIT/5 ML UDCUP PO SCH ×4 (00:52→20:01)
[2019-01-18] MEDS: LORAZEPAM INJ 2 MG/1 ML VIAL IV PRN ×3 (05:22→12:50)
[2019-01-18] MEDS: HEPARIN SOD (PORCINE) 5,000 UNIT/ML 1 ML SYRINGE SUBCUT SCH ×3 (05:24→21:25)
[2019-01-18] MEDS: PIPERACILLIN SODIUM/TAZOBACTAM 3.375 GM in NORMAL SALINE 100 ML IV SCH ×2 (05:25→12:20)
--- NOTE | 2019-01-18 07:11 | PSYCHOLOGICAL NOTE ---
Psych Note - Psych Note Date seen by psych provider: 01/18/19 Psych Note: Reason for Consult: medication recommendations 73 y.o. M with a PMH of anoxic brain injury (at age 27 y.o.), COPD, parkinsonism and HLD. He [facility] for acute lethargy. He currently lives at an assisted living facility, [facility]. Patient has severe dementia and is unable to provide any meaningful input. Chart review conducted Medication recommendations per [facility]'s contracted psychiatrist Dr. Edward PITTS are as follows: Please discontinue lamictal, zyprexa and nubain please start depakote 250mg twice daily please start Buspar 5mg every morning and 10mg every evening Rispirdone 0.25mg every 12 hours as needed for agitation Attending physicians are asked to consider to avoid prescribing benzodiazepines (e.g. Ativan, Xanax, Valium, Klonopin), antipsychotics (e.g. Haldol, Geodon, Zyprexa, Seroquel), some sleep aids (e.g. Ambien, Lunesta, Sonata), narcotic pain medications, and high doses of steroids (prednisone) as these have been known to cause and/or increased symptoms of aggression, psychosis and/or paranoia in patients with neurodegenerative processes such as dementia, Alzheimer's disease, traumatic brain injury, etc.
[2019-01-18] MEDS: MULTIVITAMIN TABLET PO SCH (16:34)
[2019-01-18] MEDS: TIOTROPIUM BROMIDE DPI 5 CAP/KIT (18 MCG/CAP) IH SCH (16:35)
[2019-01-18] MEDS: FAMOTIDINE 20 MG TABLET PO SCH ×2 (16:36→18:27)
[2019-01-18] MEDS: NICOTINE 14 MG/24 HR PATCH.TD24 TD SCH (16:36)
[2019-01-18] MEDS: LAMOTRIGINE 25 MG TAB.CHEW PO SCH ×2 (16:36→21:25)
[2019-01-18] MEDS: ASPIRIN 81 MG TABLET, ENT COATED PO SCH (16:37)
[2019-01-18] MEDS: BUSPIRONE HCL 10 MG TABLET PO SCH ×2 (16:37→16:42)
--- NOTE | 2019-01-18 17:08 | PDOC PROGRESS REPORT ---
Subjective Progress Note for:: 01/18/19 Subjective:: 73 y.o. M with a PMH of anoxic brain injury (at age 27 y.o.), COPD, parkinsonism and HLD. He presented to [facility] for acute lethargy. He currently lives at an assisted living facility, [facility]. Patient has severe dementia and is unable to provide any meaningful input. Patient was seen on morning rounds. He was found to be resting in bed comfortably on room air. He is awake and alert but does not answer questions or follow commands. He continues to be agitated and fights attempts to swing at/kick nurses during hygiene, meals, and possition changes. ROS is limited secondary to mental status/participation. No questions or concerns per nursing. Reason For Visit: RLL PNEUMONIA Physical Exam Vital Signs: Temp Pulse Resp BP Pulse Ox 98.7 F 100 22 H 127/89 H 92 01/18/19 15:21 01/18/19 15:21 01/18/19 15:21 01/18/19 15:21 01/18/19 15:21 Intake & Output 01/17/19 01/18/19 01/19/19 06:59 06:59 06:59 Intake Total 950 1400 50 Output Total 1325 Balance -375 1400 50 Weight 57.7 kg 57.7 kg General appearance: PRESENT: no acute distress, disheveled, hard of hearing, thin, well-developed. ABSENT: cooperative Head exam: PRESENT: atraumatic, normocephalic Eye exam: PRESENT: conjunctiva pink, EOMI, PERRLA. ABSENT: scleral icterus Mouth exam: PRESENT: moist, tongue midline Neck exam: ABSENT: carotid bruit, JVD, lymphadenopathy, thyromegaly Respiratory exam: PRESENT: clear to auscultation gama, symmetrical, unlabored. ABSENT: rales, rhonchi, wheezes Cardiovascular exam: PRESENT: RRR, +S1, +S2. ABSENT: diastolic murmur, rubs, systolic murmur Pulses: PRESENT: normal dorsalis pedis pul Vascular exam: PRESENT: normal capillary refill GI/Abdominal exam: PRESENT: normal bowel sounds, soft. ABSENT: distended, guarding, mass, organolmegaly, rebound, tenderness Rectal exam: PRESENT: deferred Extremities exam: PRESENT: full ROM. ABSENT: calf tenderness, clubbing, pedal edema Neurological exam: PRESENT: alert, altered, awake, CN II-XII grossly intact. ABSENT: motor sensory deficit Psychiatric exam: PRESENT: agitated. ABSENT: homicidal ideation, suicidal ideation Skin exam: PRESENT: dry, intact, warm. ABSENT: cyanosis, rash Results Laboratory Results: 01/16/19 05:05 01/17/19 21:53 01/17/19 21:53 Creatinine 1.05 Est GFR ( Amer) > 60 Est GFR (Non-Af Amer) > 60 Impressions: Chest X-Ray 01/13/19 00:00 IMPRESSION: 1. Slightly worsened appearance of the chronic right lower lobe opacity representing patient's known fibrotic changes; however, findings may represent superimposed pneumonia in the appropriate clinical setting. 2. Mildly improved left lower lobe opacity. Head CT 01/13/19 18:25 IMPRESSION: MICROVASCULAR ISCHEMIA AND GENERALIZED ATROPHY. NO ACUTE IMAGING FINDINGS IN THE BRAIN EVIDENCE OF ACUTE STROKE: NO. Assessment and Plan - Diagnosis (1) Bacteremia Is this a current diagnosis for this admission?: Yes Plan: Patient has 1/4 bottles positive for MRSA. Repeat blood cultures negative at 48 hours. Unclear source. Treated for PNA this admission, though sputum cultures are still pending. No MRSA in any previous cultures on file. No skin breakdown identified. Antibiotics escalated to Vancomycin and Zosyn today for MRSA bacteremia and HCAP PNA. Day #3 TTE obtained today; report pending. Consulted infectious disease for antibiotic guidance; recommends minimum 2 weeks IV antibiotics pending echo results. (2) Acute on chronic respiratory failure with hypoxia Is this a current diagnosis for this admission?: Yes Plan: Resolved. Now maintaining oxygen saturations on room air with improved lung sounds. Secondary to pneumonia RLL PNA seen on CXR Blood culture (/) positive for MRSA. Sputum culture pending. Initially treated with azithromycin and Rocephin. Will broaden antibiotic coverage to vancomycin and Zosyn for HCAP. Will stop Zosyn today as lung sounds are clear, patient is afebrile with nml WBC. Supplemental oxygen via nasal cannula for SPO2> 88% Scheduled and as needed nebulizer treatments; decrease neb schedule (3) Altered mental status Qualifiers: Altered mental status type: somnolence Qualified Code(s): R40.0 - Somnolence Is this a current diagnosis for this admission?: Yes Plan: Head CT negative History of severe dementia and anoxic brain injury at the age of 27 Daughter states that the patient has the mental capacity of a 7-year-old Now with increased agitation and combativeness with staff; patient stating that he wants to go outside to smoke. ? hospital psychosis Supportive and symptomatic care as required Fall precautions. 1:1 sitter for safety. Discussed with Dr. Robles today; have resumed patient's Zyprexa and Lamictal. C ontinue BuSpar. IV ativan as needed. (4) Hypotension Qualifiers: Hypotension type: hypotension due to hypovolemia Qualified Code(s): I95.89 - Other hypotension; E86.1 - Hypovolemia Is this a current diagnosis for this admission?: Yes Plan: RESOLVED Secondary to dehydration and infection IVF resuscitation in the emergency department Patient is able to sustain on p.o. intake (5) Pneumonia Qualifiers: Pneumonia type: due to unspecified organism Laterality: right Lung location: lower lobe of lung Qualified Code(s): J18.1 - Lobar pneumonia, unsp ecified organism Is this a current diagnosis for this admission?: Yes Plan: PNA seen on CXR Plan as above - Time Time Spent with patient: 35 or more minutes Medications reviewed and adjusted accordingly: Yes Within: Other - 01/30/19
--- NOTE | 2019-01-18 18:18 | XCELERA REPORT ---
[address] [address] Transthoracic Echocardiogram Report Name: SIMEON JUMANA Norma Age: 73 yrs Gender: Male : 1945 Patient Status: Inpatient Patient Location: [address] [place], [place] [address] Study Date: 01/17/2019 08:31 PM Height: 72 in Weight: 127 lb BSA: 1.8 m2 Procedure: A two-dimensional transthoracic echocardiogram with color flow and Doppler was performed. The study was technically difficult with many images being suboptimal in quality. Reason For Study: staph bacteremia; r/o endocarditis (ID requested) History: staph bacteremia; r/o endocarditis. Ordering Physician: JUSTIN GRANGER Performed By: Alisa Mcgarry Interpretation Summary The left ventricle is normal in size. There is normal left ventricular wall thickness. LV EF is > than 60% The left ventricular ejection fraction is within normal limits. Doppler measurements suggest impaired left ventricular relaxation, which is associated with grade I/IV or mild diastolic dysfunction The left ventricular wall motion is normal. There is no thrombus. Cannot assess ASD ,VSD ,or PFO in this stdy. Right atrium not well visualized secondary to technical limitations There is no evidence of mitral valve prolapse. There is no vegetation seen on the mitral valve. There is no mitral valve stenosis. There is no mitral regurgitation noted. There is no aortic valvular vegetation. There is no aortic valve stenosis There is aortic sclerosis without aortic stenosis. No aortic regurgitation is present. Tricuspid Valve not well seen,hence cannot comment on vegetations,TR and RVSP. There is no pericardial effusion. MMode/2D Measurements & Calculations RVDd: 3.6 cm LVIDd: 3.8 cm FS: 38.0 % Ao root diam: 3.5 cm IVSd: 1.0 cm LVIDs: 2.4 cm EDV(Teich): 62.9 ml Ao root area: 9.9 cm2 LVPWd: 0.97 cm ESV(Teich): 19.6 ml LA dimension: 3.3 cm EF(Teich): 68.9 % Doppler Measurements & Calculations MV E max bruce: MV P1/2t max bruce: Ao V2 max: PA V2 max: 80.5 cm/sec 81.4 cm/sec 160.6 cm/sec 141.7 cm/sec MV A max bruce: MV P1/2t: 50.1 msec Ao max PG: PA max P.1 cm/sec MVA(P1/2t): 4.4 cm2 10.3 mmHg 8.0 mmHg MV E/A: 0.72 MV dec slope: 476.0 cm/sec2 MV P1/2t-pr_phl: 50.1 msec Left Ventricle The left ventricle is normal in size. There is normal left ventricular wall thickness. LV EF is > than 60%. The left ventricular ejection fraction is within normal limits. Doppler measurements suggest impaired left ventricular relaxation, which is associated with grade I/IV or mild diastolic dysfunction. The left ventricular wall motion is normal. There is no thrombus. Cannot assess ASD ,VSD ,or PFO in this stdy. Right Ventricle The right ventricle is not well visualized secondary to technical limitations. Atria Right atrium not well visualized secondary to technical limitations. Mitral Valve There is no evidence of mitral valve prolapse. There is no vegetation seen on the mitral valve. There is no mitral valve stenosis. There is no mitral regurgitation noted. Aortic Valve There is no aortic valvular vegetation. There is no aortic valve stenosis. There is aortic sclerosis without aortic stenosis. No aortic regurgitation is present. Tricuspid Valve Tricuspid Valve not well seen,hence cannot comment on vegetations,TR and RVSP. Pulmonic Valve The pulmonic valve is not well visualized. Effusions There is no pericardial effusion. : JUSTIN GRANGER > Vero Bravo
[2019-01-18] MEDS: SIMVASTATIN 40 MG TABLET PO SCH (21:25)
[2019-01-18] MEDS: OLANZAPINE 5 MG TABLET PO SCH (21:26)
[2019-01-19] MEDS: NYSTATIN 500000 UNIT/5 ML UDCUP PO SCH ×5 (00:37→23:13)
[2019-01-19 04:58] LABS: HEMOGLOBIN 11.4 g/dL (13.5-17.0); MEAN CORPUSCULAR HEMOGLOBIN 28.9 pg (27.0-33.4); MEAN CORPUSCULAR HGB CONC 33.4 g/dL (32.0-36.0); MEAN CORPUSCULAR VOLUME 87 fl (80-97); PLATELET COUNT 269 10^3/uL (150-450); RED BLOOD COUNT 3.93 10^6/uL (4.35-5.55); RED CELL DISTRIBUTION WIDTH 16.9 % (11.5-14.0)
[2019-01-19 05:16] LABS: ALANINE AMINOTRANSFERASE 32 U/L (21-72); ALBUMIN 3.4 g/dL (3.5-5.0); ALKALINE PHOSPHATASE 103 U/L (38-126); ANION GAP 10 (5-19); ASPARTATE AMINO TRANSFERASE 24 U/L (17-59); BILIRUBIN,DIRECT 0.2 mg/dL (0.0-0.4); BILIRUBIN,TOTAL 0.5 mg/dL (0.2-1.3); BLOOD UREA NITROGEN 17 mg/dL (7-20); CARBON DIOXIDE 25 mmol/L (22-30); CHLORIDE 104 mmol/L (98-107); GLUCOSE 85 mg/dL (75-110); POTASSIUM 3.9 mmol/L (3.6-5.0); SODIUM 139.3 mmol/L (137-145); TOTAL PROTEIN 6.5 g/dL (6.3-8.2)
[2019-01-19] MEDS: HEPARIN SOD (PORCINE) 5,000 UNIT/ML 1 ML SYRINGE SUBCUT SCH ×3 (05:29→22:45)
[2019-01-19] MEDS: LEVALBUTEROL HCL NEB 1.25 MG/3 ML AMPUL NEB SCH ×2 (08:53→20:26)
[2019-01-19] MEDS: IPRATROPIUM BROMIDE 0.02% NEB 0.5 MG/2.5 ML AMPUL NEB SCH ×2 (08:53→20:26)
[2019-01-19] MEDS: TIOTROPIUM BROMIDE DPI 5 CAP/KIT (18 MCG/CAP) IH SCH (10:03)
[2019-01-19] MEDS: BUSPIRONE HCL 10 MG TABLET PO SCH ×2 (10:04→17:15)
[2019-01-19] MEDS: MULTIVITAMIN TABLET PO SCH (10:05)
[2019-01-19] MEDS: LAMOTRIGINE 25 MG TAB.CHEW PO SCH ×2 (10:05→22:49)
[2019-01-19] MEDS: OLANZAPINE 5 MG TABLET PO SCH ×2 (10:05→22:45)
[2019-01-19] MEDS: ASPIRIN 81 MG TABLET, ENT COATED PO SCH (10:05)
[2019-01-19] MEDS: FAMOTIDINE 20 MG TABLET PO SCH ×2 (10:05→17:15)
[2019-01-19] MEDS: VANCOMYCIN HCL 750 MG in DEXTROSE 5%-WATER 250 ML IV SCH (10:06)
[2019-01-19] MEDS: NICOTINE 14 MG/24 HR PATCH.TD24 TD SCH (10:06)
--- NOTE | 2019-01-19 12:36 | PDOC PROGRESS REPORT ---
Subjective Progress Note for:: 01/19/19 Subjective:: 73 y.o. M with a PMH of anoxic brain injury (at age 27 y.o.), COPD, parkinsonism and HLD. He presented to [facility] ED for acute lethargy. He currently lives at an assisted living facility, [facility]. Patient has severe dementia and is unable to provide any meaningful input. Patient was seen on morning rounds. He was found to be resting in bed comfortably on room air. He is awake and alert, and socially appropriate (he shakes my hand this morning and smiles). He answers a few questions, bot overall, is unable to communicate effectively. ROS is limited secondary to mental status/participation; does deny pain and difficulty eating. Now out of restraints; nursing requests Speech eval due to difficulty clearing secretions/swallowing. Reason For Visit: RLL PNEUMONIA Physical Exam Vital Signs: Temp Pulse Resp BP Pulse Ox 97.5 F 81 17 95/51 L 95 01/19/19 07:32 01/19/19 08:53 01/19/19 08:53 01/19/19 07:32 01/19/19 08:53 Intake & Output 01/18/19 01/19/19 01/20/19 06:59 06:59 06:59 Intake Total 1400 460 Output Total 375 Balance 1400 85 Weight 57.7 kg 58.1 kg General appearance: PRESENT: no acute distress, cooperative, hard of hearing, well-developed Head exam: PRESENT: atraumatic, normocephalic Eye exam: PRESENT: conjunctiva pink, EOMI, PERRLA. ABSENT: scleral icterus Ear exam: PRESENT: normal external ear exam Mouth exam: PRESENT: moist, tongue midline Neck exam: ABSENT: carotid bruit, JVD, lymphadenopathy, thyromegaly Respiratory exam: PRESENT: clear to auscultation gama, symmetrical, unlabored. ABSENT: rales, rhonchi, wheezes Cardiovascular exam: PRESENT: RRR. ABSENT: diastolic murmur, rubs, systolic mu rmur Pulses: PRESENT: normal dorsalis pedis pul Vascular exam: PRESENT: normal capillary refill GI/Abdominal exam: PRESENT: normal bowel sounds, soft. ABSENT: distended, guarding, mass, organolmegaly, rebound, tenderness Rectal exam: PRESENT: deferred Extremities exam: PRESENT: full ROM. ABSENT: calf tenderness, clubbing, pedal edema Neurological exam: PRESENT: alert, awake, oriented to person, oriented to place, CN II-XII grossly intact. ABSENT: oriented to time, oriented to situation, motor sensory deficit Psychiatric exam: PRESENT: appropriate affect, normal mood. ABSENT: homicidal ideation, suicidal ideation Skin exam: PRESENT: dry, intact, warm. ABSENT: cyanosis, rash Results Laboratory Results: 01/19/19 04:07 01/19/19 04:07 01/19/19 01/19/19 04:07 04:07 WBC 7.0 RBC 3.93 L Hgb 11.4 L Hct 34.0 L MCV 87 MCH 28.9 MCHC 33.4 RDW 16.9 H Plt Count 269 Sodium 139.3 Potassium 3.9 Chloride 104 Carbon Dioxide 25 Anion Gap 10 BUN 17 Creatinine 0.84 Est GFR ( Amer) > 60 Est GFR (Non-Af Amer) > 60 Glucose 85 Calcium 9.0 Total Bilirubin 0.5 AST 24 ALT 32 Alkaline Phosphatase 103 Total Protein 6.5 Albumin 3.4 L 01/13/19 19:20 Blood Blood Culture - Final NO GROWTH IN 5 DAYS Impressions: Chest X-Ray 01/13/19 00:00 IMPRESSION: 1. Slightly worsened appearance of the chronic right lower lobe opacity representing patient's known fibrotic changes; however, findings may represent superimposed pneumonia in the appropriate clinical setting. 2. Mildly improved left lower lobe opacity. Head CT 01/13/19 18:25 IMPRESSION: MICROVASCULAR ISCHEMIA AND GENERALIZED ATROPHY. NO ACUTE IMAGING FINDINGS IN THE BRAIN EVIDENCE OF ACUTE STROKE: NO. Assessment and Plan - Diagnosis (1) Bacteremia Is this a current diagnosis for this admission?: Yes Plan: Patient has 1/4 bottles positive for MRSA. Repeat blood cultures negative at 48 hours. Unclear source. Treated for PNA this admission, though sputum cultures are still pending. No MRSA in any previous cultures on file. No skin breakdown identified. TTE negative for vegetations. Continue Vancomycin; end date 01/30/19. Consulted infectious disease for antibiotic guidance; recommends minimum 2 weeks IV antibiotics. (2) Acute on chronic respiratory failure with hypoxia Is this a current diagnosis for this admission?: Yes Plan: Resolved. Now maintaining oxygen saturations on room air with improved lung sounds. Secondary to pneumonia RLL PNA seen on CXR Blood culture (09/01) positive for MRSA. Sputum culture pending. Initially treated with azithromycin and Rocephin. Will broaden antibiotic coverage to vancomycin and Zosyn for HCAP. Zosyn stopped yesterday as lung sounds are clear, patient is afebrile with nml WBC. Supplemental oxygen via nasal cannula for SPO2> 88% Scheduled and as needed nebulizer treatments; decreased neb schedule (3) Altered mental status Qualifiers: Altered mental status type: somnolence Qualified Code(s): R40.0 - Somnolence Is this a current diagnosis for this admission?: Yes Plan: Head CT negative History of severe dementia and anoxic brain injury at the age of 27 Daughter states that the patient has the mental capacity of a 7-year-old Improved; possibly at baseline. Supportive and symptomatic care as required Fall precautions. 1:1 sitter for safety. Discussed with Dr. Robles yesterday; have resumed patient's Zyprexa and Lamictal. Continue BuSpar. IV ativan as needed. (4) Hypotension Qualifiers: Hypotension type: hypotension due to hypovolemia Qualified Code(s): I95.89 - Other hypotension; E86.1 - Hypovolemia Is this a current diagnosis for this admission?: Yes Plan: RESOLVED Secondary to dehydration and infection IVF resuscitation in the emergency department Patient is able to sustain on p.o. intake (5) Pneumonia Qualifiers: Pneumonia type: due to unspecified organism Laterality: right Lung location: lower lobe of lung Qualified Code(s): J18.1 - Lobar pneumonia, unspecified organism Is this a current diagnosis for this admission?: Yes Plan: PNA seen on CXR Plan as above - Time Time Spent with patient: 15-24 minutes Medications reviewed and adjusted accordingly: Yes Anticipated discharge: Home Within: Other - 01/30/19
[2019-01-19] MEDS: SIMVASTATIN 40 MG TABLET PO SCH (22:44)
[2019-01-19] MEDS: VANCOMYCIN HCL 1,250 MG in DEXTROSE 5%-WATER 250 ML IV SCH (22:46)
[2019-01-20] MEDS: HEPARIN SOD (PORCINE) 5,000 UNIT/ML 1 ML SYRINGE SUBCUT SCH ×3 (05:51→22:23)
[2019-01-20] MEDS: NYSTATIN 500000 UNIT/5 ML UDCUP PO SCH ×4 (05:51→23:41)
[2019-01-20] MEDS: IPRATROPIUM BROMIDE 0.02% NEB 0.5 MG/2.5 ML AMPUL NEB SCH ×2 (07:17→20:16)
[2019-01-20] MEDS: LEVALBUTEROL HCL NEB 1.25 MG/3 ML AMPUL NEB SCH ×2 (07:17→20:16)
[2019-01-20] MEDS ORDERED: BISACODYL 10 MG SUPP.RECT PR ONE (09:45)
[2019-01-20] MEDS ORDERED: MAGNESIUM HYDROXIDE SUSP 30 ML UDCUP PO PRN (10:00)
[2019-01-20] MEDS: MULTIVITAMIN TABLET PO SCH (10:24)
[2019-01-20] MEDS: FAMOTIDINE 20 MG TABLET PO SCH ×2 (10:24→17:21)
[2019-01-20] MEDS: ASPIRIN 81 MG TABLET, ENT COATED PO SCH (10:24)
[2019-01-20] MEDS: BUSPIRONE HCL 10 MG TABLET PO SCH ×2 (10:24→17:21)
[2019-01-20] MEDS: OLANZAPINE 5 MG TABLET PO SCH ×2 (10:24→22:21)
[2019-01-20] MEDS: NICOTINE 14 MG/24 HR PATCH.TD24 TD SCH (10:25)
[2019-01-20] MEDS: LAMOTRIGINE 25 MG TAB.CHEW PO SCH ×2 (10:26→22:20)
[2019-01-20] MEDS: VANCOMYCIN HCL 1,250 MG in DEXTROSE 5%-WATER 250 ML IV SCH ×2 (10:27→22:23)
[2019-01-20] MEDS: TIOTROPIUM BROMIDE DPI 5 CAP/KIT (18 MCG/CAP) IH SCH (10:27)
--- NOTE | 2019-01-20 13:14 | PDOC PROGRESS REPORT ---
Subjective Progress Note for:: 01/20/19 Subjective:: 73 y.o. M with a PMH of anoxic brain injury (at age 27 y.o.), COPD, parkinsonism and HLD. He presented to [facility] ED for acute lethargy. He currently lives at an assisted living facility, [facility]. Patient has severe dementia and is unable to provide any meaningful input. Patient was seen on morning rounds. He was found to be resting in bed comfortably on room air. He is sleeping soundly; does withdraw when I say his name, but does not fully awake. Per nursing, the patient was awake earlier today and ate 100% of his breakfast. ROS is limited secondary to mental status/participation; does deny pain and difficulty eating. No concerns per nursing. Reason For Visit: RLL PNEUMONIA Physical Exam Vital Signs: Temp Pulse Resp BP Pulse Ox 97.6 F 56 L 16 107/65 98 01/20/19 07:11 01/20/19 07:17 01/20/19 07:17 01/20/19 07:11 01/20/19 07:17 Intake & Output 01/19/19 01/20/19 01/21/19 06:59 06:59 06:59 Intake Total 460 1335 250 Output Total 375 200 Balance 85 1135 250 Weight 58.1 kg 61.4 kg General appearance: PRESENT: no acute distress, thin, well-developed Head exam: PRESENT: atraumatic, normocephalic Eye exam: PRESENT: conjunctiva pink. ABSENT: scleral icterus Ear exam: PRESENT: normal external ear exam Mouth exam: PRESENT: moist, tongue midline Teeth exam: PRESENT: poor dentation Neck exam: ABSENT: carotid bruit, JVD, lymphadenopathy, thyromegaly Respiratory exam: PRESENT: clear to auscultation gama, symmetrical, unlabored. ABSENT: rales, rhonchi, wheezes Cardiovascular exam: PRESENT: RRR, +S1, +S2. ABSENT: diastolic murmur, rubs, systolic murmur Pulses: PRESENT: normal dorsalis pedis pul Vascular exam: PRESENT: normal capillary refill GI/Abdominal exam: PRESENT: normal bowel sounds, soft. ABSENT: distended, guarding, mass, organolmegaly, rebound, tenderness Rectal exam: PRESENT: deferred Extremities exam: PRESENT: full ROM. ABSENT: calf tenderness, clubbing, pedal edema Neurological exam: PRESENT: CN II-XII grossly intact, other - Sleeping soundly; when awake, patient is oriented to self, forgetful, impulsive but following directions Skin exam: PRESENT: dry, intact, warm. ABSENT: cyanosis, rash Results Laboratory Results: 01/19/19 04:07 01/19/19 04:07 Impressions: Chest X-Ray 01/13/19 00:00 IMPRESSION: 1. Slightly worsened appearance of the chronic right lower lobe opacity representing patient's known fibrotic changes; however, findings may represent superimposed pneumonia in the appropriate clinical setting. 2. Mildly improved left lower lobe opacity. Head CT 01/13/19 18:25 IMPRESSION: MICROVASCULAR ISCHEMIA AND GENERALIZED ATROPHY. NO ACUTE IMAGING FINDINGS IN THE BRAIN EVIDENCE OF ACUTE STROKE: NO. Assessment and Plan - Diagnosis (1) Bacteremia Is this a current diagnosis for this admission?: Yes Plan: Patient has 1/4 bottles positive for MRSA. Repeat blood cultures negative at 72 hours. Unclear source. Treated for PNA this admission, though sputum cultures are still pending. No MRSA in any previous cultures on file. No skin breakdown identified. TTE negative for vegetations. Continue Vancomycin; end date 01/30/19. Consulted infectious disease for antibiotic guidance; recommends minimum 2 weeks IV antibiotics. (2) Acute on chronic respiratory failure with hypoxia Is this a current diagnosis for this admission?: Yes Plan: Resolved. Now maintaining oxygen saturations on room air with improved lung sounds. Secondary to pneumonia RLL PNA seen on CXR Blood culture (09/01) positive for MRSA. Sputum culture pending. Initially treated with azithromycin and Rocephin. Will broaden antibiotic coverage to vancomycin and Zosyn for HCAP. Zosyn since discontinued as lung sounds are clear, patient has been afebrile with nml WBC >48 hours. Supplemental oxygen via nasal cannula for SPO2> 88% Scheduled and as needed nebulizer treatments; decreased neb schedule (3) Altered mental status Qualifiers: Altered mental status type: somnolence Qualified Code(s): R40.0 - Somnolence Is this a current diagnosis for this admission?: Yes Plan: Head CT negative History of severe dementia and anoxic brain injury at the age of 27 Daughter states that the patient has the mental capacity of a 7-year-old Improved; possibly at baseline. Supportive and symptomatic care as required Fall precautions. 1:1 sitter for safety. Have resumed patient's Zyprexa and Lamictal. Continue BuSpar. IV ativan as needed. (4) Hypotension Qualifiers: Hypotension type: hypotension due to hypovolemia Qualified Code(s): I95.89 - Other hypotension; E86.1 - Hypovolemia Is this a current diagnosis for this admission?: Yes Plan: RESOLVED Secondary to dehydration and infection IVF resuscitation in the emergency department Patient is able to sustain on p.o. intake (5) Pneumonia Qualifiers: Pneumonia type: due to unspecified organism Laterality: right Lung location: lower lobe of lung Qualified Code(s): J18.1 - Lobar pneumonia, unspecified organism Is this a current diagnosis for this admission?: Yes Plan: PNA seen on CXR Plan as above - Time Time Spent with patient: 15-24 minutes Medications reviewed and adjusted accordingly: Yes Anticipated discharge: Home Within: Other - 01/30/19
[2019-01-20] MEDS: SIMVASTATIN 40 MG TABLET PO SCH (22:21)
[2019-01-21] MEDS: HEPARIN SOD (PORCINE) 5,000 UNIT/ML 1 ML SYRINGE SUBCUT SCH ×3 (06:10→21:51)
[2019-01-21] MEDS: NYSTATIN 500000 UNIT/5 ML UDCUP PO SCH ×4 (06:10→23:50)
[2019-01-21] MEDS: IPRATROPIUM BROMIDE 0.02% NEB 0.5 MG/2.5 ML AMPUL NEB SCH ×2 (09:34→20:17)
[2019-01-21] MEDS: LEVALBUTEROL HCL NEB 1.25 MG/3 ML AMPUL NEB SCH ×2 (09:34→20:17)
[2019-01-21] MEDS: MULTIVITAMIN TABLET PO SCH (09:48)
[2019-01-21] MEDS: OLANZAPINE 5 MG TABLET PO SCH ×2 (09:49→21:58)
[2019-01-21] MEDS: LAMOTRIGINE 25 MG TAB.CHEW PO SCH ×2 (09:49→21:58)
[2019-01-21] MEDS: NICOTINE 14 MG/24 HR PATCH.TD24 TD SCH (09:49)
[2019-01-21] MEDS: FAMOTIDINE 20 MG TABLET PO SCH ×2 (09:49→17:12)
[2019-01-21] MEDS: TIOTROPIUM BROMIDE DPI 5 CAP/KIT (18 MCG/CAP) IH SCH (09:50)
[2019-01-21] MEDS: VANCOMYCIN HCL 1,250 MG in DEXTROSE 5%-WATER 250 ML IV SCH ×2 (09:50→21:58)
[2019-01-21] MEDS: ASPIRIN 81 MG TABLET, ENT COATED PO SCH (09:50)
[2019-01-21] MEDS: BUSPIRONE HCL 10 MG TABLET PO SCH ×2 (09:50→16:50)
[2019-01-21 11:13] LABS: VANCOMYCIN,TROUGH 17.6 ug/mL (5.0-20.0)
--- NOTE | 2019-01-21 14:57 | PDOC PROGRESS REPORT ---
Subjective Progress Note for:: 01/21/19 Subjective:: 73 y.o. M with a PMH of anoxic brain injury (at age 27 y.o.), COPD, parkinsonism and HLD. He presented to [facility] ED for acute lethargy. He currently lives at an assisted living facility, [facility]. Patient has severe dementia and is unable to provide any meaningful input. Patient was seen on morning rounds. He was found to be resting in bed, comfortably on room air, independently eating lunch. He tells me hello and thanks me for bringing him something to eat. He states that he is feeling well today. ROS is limited secondary to mental status/participation; does deny pain and difficulty eating. No concerns per nursing. Reason For Visit: RLL PNEUMONIA Physical Exam Vital Signs: Temp Pulse Resp BP Pulse Ox 97.7 F 63 16 101/62 97 01/21/19 08:09 01/21/19 09:34 01/21/19 09:34 01/21/19 08:09 01/21/19 09:34 Intake & Output 01/20/19 01/21/19 01/22/19 06:59 06:59 06:59 Intake Total 1335 980 715 Output Total 200 400 785 Balance 1135 580 -70 Weight 61.4 kg 60 kg General appearance: PRESENT: no acute distress, cooperative, thin, well- developed Head exam: PRESENT: atraumatic, normocephalic Eye exam: PRESENT: conjunctiva pink, EOMI, PERRLA. ABSENT: scleral icterus Ear exam: PRESENT: normal external ear exam Mouth exam: PRESENT: moist, tongue midline Teeth exam: PRESENT: poor dentation Neck exam: ABSENT: carotid bruit, JVD, lymphadenopathy, thyromegaly Respiratory exam: PRESENT: clear to auscultation gama, symmetrical, unlabored. ABSENT: rales, rhonchi, wheezes Cardiovascular exam: PRESENT: RRR, +S1, +S2. ABSENT: diastolic murmur, rubs, systolic murmur Pulses: PRESENT: normal dorsalis pedis pul Vascular exam: PRESENT: normal capillary refill GI/Abdominal exam: PRESENT: normal bowel sounds, soft. ABSENT: distended, guarding, mass, organolmegaly, rebound, tenderness Rectal exam: PRESENT: deferred Extremities exam: PRESENT: full ROM. ABSENT: calf tenderness, clubbing, pedal edema Neurological exam: PRESENT: alert, awake, oriented to person, CN II-XII grossly intact, other - Socially appropriate, pleasantly confused. Sundowning at night.. ABSENT: motor sensory deficit Psychiatric exam: PRESENT: appropriate affect, normal mood. ABSENT: homicidal ideation, suicidal ideation Skin exam: PRESENT: dry, intact, warm. ABSENT: cyanosis, rash Results Laboratory Results: 01/19/19 04:07 01/21/19 09:57 01/21/19 09:57 Creatinine 0.81 Est GFR ( Amer) > 60 Est GFR (Non-Af Amer) > 60 01/16/19 12:06 Blood Blood Culture - Final NO GROWTH IN 5 DAYS 01/16/19 11:18 Blood Blood Culture - Final NO GROWTH IN 5 DAYS Impressions: Chest X-Ray 01/13/19 00:00 IMPRESSION: 1. Slightly worsened appearance of the chronic right lower lobe opacity representing patient's known fibrotic changes; however, findings may represent superimposed pneumonia in the appropriate clinical setting. 2. Mildly improved left lower lobe opacity. Head CT 01/13/19 18:25 IMPRESSION: MICROVASCULAR ISCHEMIA AND GENERALIZED ATROPHY. NO ACUTE IMAGING FINDINGS IN THE BRAIN EVIDENCE OF ACUTE STROKE: NO. Assessment and Plan - Diagnosis (1) Bacteremia Is this a current diagnosis for this admission?: Yes Plan: Patient has 1/4 bottles positive for MRSA. Repeat blood cultures negative at 5 days. Unclear source. Treated for PNA this admission, though sputum cultures are still pending. No MRSA in any previous cultures on file. No skin breakdown identified. TTE negative for vegetations. Continue Vancomycin; end date 01/30/19. Consulted infectious disease for antibiotic guidance; recommends minimum 2 weeks IV antibiotics. (2) Acute on chronic respiratory failure with hypoxia Is this a current diagnosis for this admission?: Yes Plan: Resolved. Now maintaining oxygen saturations on room air with improved lung sounds. Secondary to pneumonia RLL PNA seen on CXR Blood culture (/) positive for MRSA. Sputum culture pending. Initially treated with azithromycin and Rocephin. Contunue vancomycin as above. Zosyn since discontinued as lung sounds are clear, patient has been afebrile with nml WBC >48 hours. Supplemental oxygen via nasal cannula for SPO2> 88% Scheduled and as needed nebulizer treatments; decreased neb schedule (3) Altered mental status Qualifiers: Altered mental status type: somnolence Qualified Code(s): R40.0 - Somnolence Is this a current diagnosis for this admission?: Yes Plan: Head CT negative History of severe dementia and anoxic brain injury at the age of 27 Daughter states that the patient has the mental capacity of a 7-year-old Improved; possibly at baseline. Supportive and symptomatic care as required Fall precautions. 1:1 sitter for safety. Have resumed patient's Zyprexa and Lamictal. Continue BuSpar. IV ativan as needed. (4) Hypotension Qualifiers: Hypotension type: hypotension due to hypovolemia Qualified Code(s): I95.89 - Other hypotension; E86.1 - Hypovolemia Is this a current diagnosis for this admission?: Yes Plan: RESOLVED Secondary to dehydration and infection IVF resuscitation in the emergency department Patient is able to sustain on p.o. intake (5) Pneumonia Qualifiers: Pneumonia type: due to unspecified organism Laterality: right Lung location: lower lobe of lung Qualified Code(s): J18.1 - Lobar pneumonia, unspecified organism Is this a current diagnosis for this admission?: Yes Plan: PNA seen on CXR Plan as above - Time Time Spent with patient: 15-24 minutes Medications reviewed and adjusted accordingly: Yes Anticipated discharge: Home Within: Other - 01/30/19
[2019-01-21] MEDS: SIMVASTATIN 40 MG TABLET PO SCH (21:51)
[2019-01-22] MEDS: HEPARIN SOD (PORCINE) 5,000 UNIT/ML 1 ML SYRINGE SUBCUT SCH ×3 (05:29→21:18)
[2019-01-22] MEDS: NYSTATIN 500000 UNIT/5 ML UDCUP PO SCH ×3 (05:29→18:49)
[2019-01-22] MEDS: IPRATROPIUM BROMIDE 0.02% NEB 0.5 MG/2.5 ML AMPUL NEB SCH ×2 (08:11→20:24)
[2019-01-22] MEDS: LEVALBUTEROL HCL NEB 1.25 MG/3 ML AMPUL NEB SCH ×2 (08:11→20:24)
[2019-01-22] MEDS: BUSPIRONE HCL 10 MG TABLET PO SCH ×2 (08:54→15:45)
[2019-01-22] MEDS: OLANZAPINE 5 MG TABLET PO SCH ×2 (08:54→21:17)
[2019-01-22] MEDS: ACETAMINOPHEN 325 MG TABLET PO PRN (09:11)
[2019-01-22] MEDS: NICOTINE 14 MG/24 HR PATCH.TD24 TD SCH (10:08)
[2019-01-22] MEDS: LAMOTRIGINE 25 MG TAB.CHEW PO SCH ×2 (10:08→21:17)
[2019-01-22] MEDS: FAMOTIDINE 20 MG TABLET PO SCH ×2 (10:08→18:49)
[2019-01-22] MEDS: MULTIVITAMIN TABLET PO SCH (10:08)
[2019-01-22] MEDS: ASPIRIN 81 MG TABLET, ENT COATED PO SCH (10:08)
[2019-01-22] MEDS ORDERED: DIPHENOXYLATE HCL/ATROP SULF 2.5-0.025 MG TABLET PO PRN (10:26)
--- NOTE | 2019-01-22 11:56 | PDOC PROGRESS REPORT ---
Subjective Progress Note for:: 01/22/19 Subjective:: 73 y.o. M with a PMH of anoxic brain injury (at age 27 y.o.), COPD, parkinsonism and HLD. He presented to [facility] ED for acute lethargy. He currently lives at an assisted living facility, [facility]. Patient has severe dementia and is unable to provide any meaningful input. Patient was seen on morning rounds. He was found to be sitting in the recliner, comfortably on room air, drinking coffee. He is awake and orientated to self today; he tells me about his time in the [employer]. He states that he is feeling well today and can recall that he recently had pneumonia. ROS is limited secondary to mental status/participation; does deny pain, difficulty breathing and cough. No concerns per nursing. Reason For Visit: RLL PNEUMONIA Physical Exam Vital Signs: Temp Pulse Resp BP Pulse Ox 97.3 F 77 18 100/72 96 01/22/19 08:08 01/22/19 08:11 01/22/19 08:11 01/22/19 08:08 01/22/19 08:11 Intake & Output 01/21/19 01/22/19 01/23/19 06:59 06:59 06:59 Intake Total 980 1455 Output Total 400 1560 Balance 580 -105 Weight 60 kg General appearance: PRESENT: no acute distress, cooperative, thin, well- developed Head exam: PRESENT: atraumatic, normocephalic Eye exam: PRESENT: conjunctiva pink, EOMI, PERRLA. ABSENT: scleral icterus Ear exam: PRESENT: normal external ear exam Mouth exam: PRESENT: moist, tongue midline Neck exam: ABSENT: carotid bruit, JVD, lymphadenopathy, thyromegaly Respiratory exam: PRESENT: clear to auscultation gama. ABSENT: rales, rhonchi, wheezes Cardiovascular exam: PRESENT: RRR. ABSENT: diastolic murmur, rubs, systolic murmur Pulses: PRESENT: normal dorsalis pedis pul Vascular exam: PRESENT: normal capillary refill GI/Abdominal exam: PRESENT: normal bowel sounds, soft. ABSENT: distended, guarding, mass, organolmegaly, rebound, tenderness Rectal exam: PRESENT: deferred Extremities exam: PRESENT: full ROM. ABSENT: calf tenderness, clubbing, pedal edema Neurological exam: PRESENT: alert, awake, oriented to person, oriented to situation, CN II-XII grossly intact, other - socially appropriate. Pleasantly confused; worse at night.. ABSENT: motor sensory deficit Psychiatric exam: PRESENT: appropriate affect, normal mood. ABSENT: homicidal ideation, suicidal ideation Skin exam: PRESENT: dry, intact, warm. ABSENT: cyanosis, rash Results Laboratory Results: 01/19/19 04:07 01/21/19 09:57 01/16/19 12:06 Blood Blood Culture - Final NO GROWTH IN 5 DAYS 01/16/19 11:18 Blood Blood Culture - Final NO GROWTH IN 5 DAYS Impressions: Chest X-Ray 01/13/19 00:00 IMPRESSION: 1. Slightly worsened appearance of the chronic right lower lobe opacity representing patient's known fibrotic changes; however, findings may represent superimposed pneumonia in the appropriate clinical setting. 2. Mildly improved left lower lobe opacity. Head CT 01/13/19 18:25 IMPRESSION: MICROVASCULAR ISCHEMIA AND GENERALIZED ATROPHY. NO ACUTE IMAGING FINDINGS IN THE BRAIN EVIDENCE OF ACUTE STROKE: NO. Assessment and Plan - Diagnosis (1) Bacteremia Is this a current diagnosis for this admission?: Yes Plan: Patient has 1/4 bottles positive for MRSA. Repeat blood cultures negative at 5 days. Unclear source. Treated for PNA this admission, though sputum cultures are still pending. No MRSA in any previous cultures on file. No skin breakdown identified. TTE negative for vegetations. Continue Vancomycin; end date 01/30/19. Consulted infectious disease for antibiotic guidance; recommends minimum 2 weeks IV antibiotics. Will discuss w/ naval surface fire support planner option for PICC and home infusions to complete course. (2) Acute on chronic respiratory failure with hypoxia Is this a current diagnosis for this admission?: Yes Plan: Resolved. Now maintaining oxygen saturations on room air with improved lung sounds. Secondary to pneumonia RLL PNA seen on CXR Blood culture (09/01) positive for MRSA. Sputum culture pending. Initially treated with azithromycin and Rocephin. Contunue vancomycin as above. Zosyn since discontinued as lung sounds are clear, patient has been afebrile with nml WBC >48 hours. Supplemental oxygen via nasal cannula for SPO2> 88% Scheduled and as needed nebulizer treatments; decreased neb schedule (3) Altered mental status Qualifiers: Altered mental status type: somnolence Qualified Code(s): R40.0 - Somnolence Is this a current diagnosis for this admission?: Yes Plan: Head CT negative History of severe dementia and anoxic brain injury at the age of 27 Daughter states that the patient has the mental capacity of a 7-year-old Improved; possibly at baseline. Supportive and symptomatic care as required Fall precautions. 1:1 sitter for safety. Continue home dose Zyprexa and Lamictal. Continue BuSpar. IV ativan as needed. (4) Hypotension Qualifiers: Hypotension type: hypotension due to hypovolemia Qualified Code(s): I95.89 - Other hypotension; E86.1 - Hypovolemia Is this a current diagnosis for this admission?: Yes Plan: RESOLVED Secondary to dehydration and infection IVF resuscitation in the emergency department Patient is able to sustain on p.o. intake (5) Pneumonia Qualifiers: Pneumonia type: due to unspecified organism Laterality: right Lung location: lower lobe of lung Qualified Code(s): J18.1 - Lobar pneumonia, unspecified organism Is this a current diagnosis for this admission?: Yes Plan: PNA seen on CXR Plan as above - Time Time Spent with patient: 15-24 minutes Medications reviewed and adjusted accordingly: Yes Anticipated discharge: Home Within: Other - 01/30/19
[2019-01-22] MEDS: VANCOMYCIN HCL 1,250 MG in DEXTROSE 5%-WATER 250 ML IV SCH (13:10)
[2019-01-22] MEDS: TIOTROPIUM BROMIDE DPI 5 CAP/KIT (18 MCG/CAP) IH SCH (15:42)
[2019-01-22] MEDS: SIMVASTATIN 40 MG TABLET PO SCH (21:17)
[2019-01-22] MEDS: LORAZEPAM INJ 2 MG/1 ML VIAL IV PRN (21:18)
[2019-01-23] MEDS: HEPARIN SOD (PORCINE) 5,000 UNIT/ML 1 ML SYRINGE SUBCUT SCH ×3 (05:31→21:19)
[2019-01-23] MEDS: NYSTATIN 500000 UNIT/5 ML UDCUP PO SCH ×4 (05:31→18:00)
[2019-01-23] MEDS: LORAZEPAM INJ 2 MG/1 ML VIAL IV PRN ×4 (06:58→21:20)
[2019-01-23] MEDS: BUSPIRONE HCL 10 MG TABLET PO SCH ×2 (08:31→18:00)
[2019-01-23] MEDS: OLANZAPINE 5 MG TABLET PO SCH ×2 (08:32→21:22)
[2019-01-23] MEDS: LEVALBUTEROL HCL NEB 1.25 MG/3 ML AMPUL NEB SCH ×2 (08:40→20:43)
[2019-01-23] MEDS: IPRATROPIUM BROMIDE 0.02% NEB 0.5 MG/2.5 ML AMPUL NEB SCH ×2 (08:40→20:43)
[2019-01-23] MEDS: NICOTINE 14 MG/24 HR PATCH.TD24 TD SCH (09:13)
[2019-01-23] MEDS: HALOPERIDOL LACTATE INJ 5 MG/1 ML VIAL IV PRN ×2 (09:13→18:00)
[2019-01-23] MEDS: MULTIVITAMIN TABLET PO SCH (09:14)
[2019-01-23] MEDS: FAMOTIDINE 20 MG TABLET PO SCH ×2 (09:14→17:59)
[2019-01-23] MEDS: LAMOTRIGINE 25 MG TAB.CHEW PO SCH ×2 (09:14→21:22)
[2019-01-23] MEDS: ASPIRIN 81 MG TABLET, ENT COATED PO SCH (09:14)
[2019-01-23] MEDS: TIOTROPIUM BROMIDE DPI 5 CAP/KIT (18 MCG/CAP) IH SCH (09:15)
[2019-01-23] MEDS: VANCOMYCIN HCL 1,250 MG in DEXTROSE 5%-WATER 250 ML IV SCH ×3 (13:33)
--- NOTE | 2019-01-23 17:09 | PDOC PROGRESS REPORT ---
Subjective Progress Note for:: 01/23/19 Subjective:: 73 y.o. M with a PMH of anoxic brain injury (at age 27 y.o.), COPD, parkinsonism and HLD. He presented to [facility] for acute lethargy. He currently lives at an assisted living facility, [facility]. Patient has severe dementia and is unable to provide any meaningful input. Patient was seen this morning on rounds, he is attempting to hit and punch the nursing staff. ROS is limited secondary to mental status/participation. Patient states he "feels fine "and denies difficulty breathing, productive cough, or pain. Will remain inpatient to receive IV antibiotics for MRSA bacteremia, final treatment scheduled for February 04. Reason For Visit: RLL PNEUMONIA Physical Exam Vital Signs: Temp Pulse Resp BP Pulse Ox 98.5 F 100 20 103/67 92 01/23/19 11:28 01/23/19 11:28 01/23/19 11:28 01/23/19 11:28 01/23/19 11:28 Intake & Output 01/22/19 01/23/19 01/24/19 06:59 06:59 06:59 Intake Total 1455 3297 710 Output Total 1560 1850 Balance -105 1447 710 Weight 62.8 kg General appearance: PRESENT: no acute distress, well-developed, well-nourished Head exam: PRESENT: atraumatic, normocephalic Eye exam: PRESENT: conjunctiva pink, EOMI, PERRLA. ABSENT: scleral icterus Ear exam: PRESENT: normal external ear exam Mouth exam: PRESENT: moist, tongue midline Teeth exam: PRESENT: edentulous Neck exam: ABSENT: carotid bruit, JVD, lymphadenopathy, thyromegaly Respiratory exam: PRESENT: clear to auscultation gama, symmetrical, unlabored. ABSENT: rales, rhonchi, wheezes Cardiovascular exam: PRESENT: RRR. ABSENT: diastolic murmur, rubs, systolic murmur Pulses: PRESENT: normal radial pulses, normal dorsalis pedis pul Vascular exam: PRESENT: normal capillary refill GI/Abdominal exam: PRESENT: normal bowel sounds, soft. ABSENT: distended, guarding, mass, organolmegaly, rebound, tenderness Rectal exam: PRESENT: deferred Extremities exam: PRESENT: full ROM. ABSENT: calf tenderness, clubbing, pedal edema Musculoskeletal exam: PRESENT: full ROM, other - Currently in soft limb restraints due to agitation Neurological exam: PRESENT: alert, awake, oriented to person, oriented to place, oriented to situation, other. ABSENT: oriented to time, motor sensory deficit Psychiatric exam: PRESENT: agitated Focused psych exam: PRESENT: other - History of anoxic brain injury, patient has mental capacity "of a 7-year-old "according to the daughter Skin exam: PRESENT: dry, intact, warm. ABSENT: cyanosis, rash Results Laboratory Results: 01/19/19 04:07 01/21/19 09:57 Impressions: Chest X-Ray 01/13/19 00:00 IMPRESSION: 1. Slightly worsened appearance of the chronic right lower lobe opacity represen ting patient's known fibrotic changes; however, findings may represent superimposed pneumonia in the appropriate clinical setting. 2. Mildly improved left lower lobe opacity. Head CT 01/13/19 18:25 IMPRESSION: MICROVASCULAR ISCHEMIA AND GENERALIZED ATROPHY. NO ACUTE IMAGING FINDINGS IN THE BRAIN EVIDENCE OF ACUTE STROKE: NO. Status: Imported from PACS Assessment and Plan - Diagnosis (1) Bacteremia Is this a current diagnosis for this admission?: Yes Plan: Patient has 1/4 bottles positive for MRSA. Repeat blood cultures negative at 5 days. Unclear source. Sputum cultures show no growth No MRSA in any previous cultures on file. No skin breakdown identified. TTE negative for vegetations. Continue Vancomycin; end date 01/30/19. Consulted infectious disease for antibiotic guidance; recommends minimum 2 weeks IV antibiotics. Will discuss w/ senior production planner option for PICC and home infusions to complete course. (2) Acute on chronic respiratory failure with hypoxia Is this a current diagnosis for this admission?: Yes Plan: Resolved. Now maintaining oxygen saturations on room air with improved lung sounds. Secondary to pneumonia RLL PNA seen on CXR Blood culture (09/01) positive for MRSA. Sputum culture negative Initially treated with azithromycin and Rocephin. Contunue vancomycin as above. Zosyn since discontinued as lung sounds are clear, patient has been afebrile with nml WBC >48 hours. Supplemental oxygen via nasal cannula for SPO2> 88% Scheduled and as needed nebulizer treatments; decreased neb schedule (3) Altered mental status Qualifiers: Altered mental status type: somnolence Qualified Code(s): R40.0 - Somnolence Is this a current diagnosis for this admission?: Yes Plan: Head CT negative History of severe dementia and anoxic brain injury at the age of 27 Daughter states that the patient has the mental capacity of a 7-year-old Improved; possibly at baseline. Supportive and symptomatic care as required Fall precautions. 1:1 sitter for safety. Continue home dose Zyprexa and Lamictal. Continue BuSpar. IV ativan as needed. (4) Hypotension Qualifiers: Hypotension type: hypotension due to hypovolemia Qualified Code(s): I95.89 - Other hypotension; E86.1 - Hypovolemia Is this a current diagnosis for this admission?: Yes Plan: RESOLVED Patient is sustained on p.o. intake (5) Pneumonia Qualifiers: Pneumonia type: due to unspecified organism Laterality: right Lung location: lower lobe of lung Qualified Code(s): J18.1 - Lobar pneumonia, unspecified organism Is this a current diagnosis for this admission?: Yes Plan: PNA seen on CXR Plan as above - Time Time Spent with patient: 15-24 minutes Medications reviewed and adjusted accordingly: Yes Anticipated discharge: Other - [facility] - Inpatient Certification Based on my medical assessment, after consideration of the patient's comorbidities, presenting symptoms, or acuity I expect that the services needed warrant INPATIENT care.: Yes I certify that my determination is in accordance with my understanding of Medicare's requirements for reasonable and necessary INPATIENT services [42 CFR 412.3e].: Yes Medical Necessity: Need for IV Antibiotics, Risk of Complication if Not Cared For in Hospital
[2019-01-23] MEDS: SIMVASTATIN 40 MG TABLET PO SCH (21:22)
[2019-01-24] MEDS: VANCOMYCIN HCL 1,250 MG in DEXTROSE 5%-WATER 250 ML IV SCH ×2 (00:33→13:04)
[2019-01-24] MEDS: NYSTATIN 500000 UNIT/5 ML UDCUP PO SCH (00:33)
[2019-01-24] MEDS: LORAZEPAM INJ 2 MG/1 ML VIAL IV PRN ×2 (02:51→07:05)
[2019-01-24] MEDS: HALOPERIDOL LACTATE INJ 5 MG/1 ML VIAL IV PRN (05:45)
[2019-01-24] MEDS: HEPARIN SOD (PORCINE) 5,000 UNIT/ML 1 ML SYRINGE SUBCUT SCH ×3 (05:45→22:59)
[2019-01-24] MEDS: IPRATROPIUM BROMIDE 0.02% NEB 0.5 MG/2.5 ML AMPUL NEB SCH ×2 (07:48→20:43)
[2019-01-24] MEDS: LEVALBUTEROL HCL NEB 1.25 MG/3 ML AMPUL NEB SCH ×2 (07:48→20:43)
[2019-01-24] MEDS ORDERED: ZIPRASIDONE MESYLATE INJ/PF 20 MG SDV IM ONE (09:00)
[2019-01-24] MEDS: NICOTINE 14 MG/24 HR PATCH.TD24 TD SCH (09:56)
[2019-01-24] MEDS: BUSPIRONE HCL 10 MG TABLET PO SCH ×2 (09:56→17:07)
[2019-01-24] MEDS: ASPIRIN 81 MG TABLET, ENT COATED PO SCH (09:56)
[2019-01-24] MEDS: LAMOTRIGINE 25 MG TAB.CHEW PO SCH ×2 (09:56→22:58)
[2019-01-24] MEDS: FAMOTIDINE 20 MG TABLET PO SCH ×2 (09:57→17:07)
[2019-01-24] MEDS: MULTIVITAMIN TABLET PO SCH (09:57)
[2019-01-24] MEDS: TIOTROPIUM BROMIDE DPI 5 CAP/KIT (18 MCG/CAP) IH SCH (09:57)
[2019-01-24] MEDS: DEXTROSE 5%-1/2 NORMAL SALINE 1,000 ML IV PRN (13:04)
--- NOTE | 2019-01-24 17:15 | PDOC PROGRESS REPORT ---
Subjective Progress Note for:: 01/24/19 Subjective:: 73 y.o. M with a PMH of anoxic brain injury (at age 27 y.o.), COPD, parkinsonism and HLD. He presented to [facility] ED for acute lethargy. He currently lives at an assisted living facility, [facility]. Patient has severe dementia and is unable to provide any meaningful input. Patient was seen this morning on rounds, he remains restrained due to attempts at physical violence towards staff members. ROS is limited secondary to mental status/participation. Administered a single dose of geodon this morning. EKG confirmed that QTC was within an acceptable range. Patient has not received p.o. nutrition over 24 hours due to poor mental status and risk for aspiration. Will initiate continuous IVF. Will need to address possible nasogastric feeding tube with daughter, VAISHALI. Will remain inpatient to receive IV antibiotics for MRSA bacteremia, final treatment scheduled for February 04. Reason For Visit: RLL PNEUMONIA Physical Exam Vital Signs: Temp Pulse Resp BP Pulse Ox 97.3 F 83 18 117/85 95 01/24/19 04:01 01/24/19 07:50 01/24/19 07:50 01/24/19 04:01 01/24/19 07:50 Intake & Output 01/23/19 01/24/19 01/25/19 06:59 06:59 06:59 Intake Total 3297 960 250 Output Total 1850 Balance 1447 960 250 Weight 62.8 kg 58.5 kg General appearance: PRESENT: no acute distress, thin Head exam: PRESENT: atraumatic, normocephalic Eye exam: PRESENT: conjunctiva pink, EOMI, PERRLA. ABSENT: scleral icterus Ear exam: PRESENT: normal external ear exam Mouth exam: PRESENT: dry mucosa, tongue midline Teeth exam: PRESENT: edentulous Neck exam: ABSENT: carotid bruit, JVD, lymphadenopathy, thyromegaly Respiratory exam: PRESENT: clear to auscultation gama, symmetrical, unlabored. ABSENT: rales, rhonchi, wheezes Cardiovascular exam: PRESENT: RRR. ABSENT: diastolic murmur, rubs, systolic murmur Pulses: PRESENT: normal radial pulses, normal dorsalis pedis pul Vascular exam: PRESENT: normal capillary refill GI/Abdominal exam: PRESENT: normal bowel sounds, soft. ABSENT: distended, guarding, mass, organolmegaly, rebound, tenderness Rectal exam: PRESENT: deferred Extremities exam: PRESENT: full ROM. ABSENT: calf tenderness, clubbing, pedal edema Musculoskeletal exam: PRESENT: full ROM. ABSENT: ambulatory Neurological exam: PRESENT: alert, awake. ABSENT: oriented to person, oriented to place, oriented to time, oriented to situation Psychiatric exam: PRESENT: agitated, anxious, normal mood. ABSENT: homicidal ideation, suicidal ideation Skin exam: PRESENT: dry, intact, warm. ABSENT: cyanosis, rash Results Laboratory Results: 01/19/19 04:07 01/21/19 09:57 Impressions: Chest X-Ray 01/13/19 00:00 IMPRESSION: 1. Slightly worsened appearance of the chronic right lower lobe opacity representing patient's known fibrotic changes; however, findings may represent superimposed pneumonia in the appropriate clinical setting. 2. Mildly improved left lower lobe opacity. Head CT 01/13/19 18:25 IMPRESSION: MICROVASCULAR ISCHEMIA AND GENERALIZED ATROPHY. NO ACUTE IMAGING FINDINGS IN THE BRAIN EVIDENCE OF ACUTE STROKE: NO. Status: Imported from PACS Assessment and Plan - Diagnosis (1) Bacteremia Is this a current diagnosis for this admission?: Yes Plan: Patient has 1/4 bottles positive for MRSA. Repeat blood cultures negative at 5 days. Unclear source. Sputum cultures show no growth No MRSA in any previous cultures on file. No skin breakdown identified. TTE negative for vegetations. Continue Vancomycin; end date 01/30/19. Consulted infectious disease for antibiotic guidance; recommends minimum 2 weeks IV antibiotics. Will discuss w/ case planner option for PICC and home infusions to complete course. (2) Acute on chronic respiratory failure with hypoxia Is this a current diagnosis for this admission?: Yes Plan: Resolved. Now maintaining oxygen saturations on room air with improved lung sounds. Secondary to pneumonia RLL PNA seen on CXR Blood culture (09/01) positive for MRSA. Sputum culture negative Initially treated with azithromycin and Rocephin. Contunue vancomycin as above. Zosyn since discontinued as lung sounds are clear, patient has been afebrile with nml WBC >48 hours. Supplemental oxygen via nasal cannula for SPO2> 88% Scheduled and as needed nebulizer treatments; decreased neb schedule (3) Altered mental status Qualifiers: Altered mental status type: somnolence Qualified Code(s): R40.0 - Somnolence Is this a current diagnosis for this admission?: Yes Plan: Head CT negative History of severe dementia and anoxic brain injury at the age of 27 Daughter states that the patient has the mental capacity of a 7-year-old Improved; possibly at baseline. Supportive and symptomatic care as required Fall precautions. 1:1 sitter for safety. Continue home dose Zyprexa and Lamictal. Continue BuSpar. IV ativan as needed. (4) Hypotension Qualifiers: Hypotension type: hypotension due to hypovolemia Qualified Code(s): I95.89 - Other hypotension; E86.1 - Hypovolemia Is this a current diagnosis for this admission?: Yes Plan: RESOLVED Patient is sustained on p.o. intake (5) Pneumonia Qualifiers: Pneumonia type: due to unspecified organism Laterality: right Lung location: lower lobe of lung Qualified Code(s): J18.1 - Lobar pneumonia, unspecified organism Is this a current diagnosis for this admission?: Yes Plan: PNA seen on CXR Plan as above - Time Time Spent with patient: 15-24 minutes Medications reviewed and adjusted accordingly: Yes Anticipated discharge: Other - [facility] Within: Other - February 04 - Inpatient Certification Based on my medical assessment, after consideration of the patient's comorbidities, presenting symptoms, or acuity I expect that the services needed warrant INPATIENT care.: Yes I certify that my determination is in accordance with my understanding of Medicare's requirements for reasonable and necessary INPATIENT services [42 CFR 412.3e].: Yes Medical Necessity: Need for IV Antibiotics, Risk of Complication if Not Cared For in Hospital
--- NOTE | 2019-01-24 22:16 | EKG REPORT ---
SEVERITY:- DEFECTIVE ECG - SINUS TACHYCARDIA BASELINE ARTIFACT : Confirmed by: Vero Bravo MD 24-Jan-2019 22:15:08
[2019-01-24] MEDS: SIMVASTATIN 40 MG TABLET PO SCH (22:58)
[2019-01-24] MEDS: OLANZAPINE 5 MG TABLET PO SCH (22:58)
[2019-01-25] MEDS: VANCOMYCIN HCL 1,250 MG in DEXTROSE 5%-WATER 250 ML IV SCH ×2 (00:48→13:25)
[2019-01-25] MEDS: HALOPERIDOL LACTATE INJ 5 MG/1 ML VIAL IV PRN (03:03)
[2019-01-25 05:20] LABS: HEMATOCRIT 34.4 % (37.9-51.0); HEMOGLOBIN 11.9 g/dL (13.5-17.0); MEAN CORPUSCULAR HEMOGLOBIN 29.4 pg (27.0-33.4); MEAN CORPUSCULAR HGB CONC 34.5 g/dL (32.0-36.0); MEAN CORPUSCULAR VOLUME 85 fl (80-97); PLATELET COUNT 320 10^3/uL (150-450); RED BLOOD COUNT 4.04 10^6/uL (4.35-5.55); RED CELL DISTRIBUTION WIDTH 15.7 % (11.5-14.0); WHITE BLOOD COUNT 8.7 10^3/uL (4.0-10.5)
[2019-01-25 05:28] LABS: ALANINE AMINOTRANSFERASE 22 U/L (21-72); ALBUMIN 3.8 g/dL (3.5-5.0); ALKALINE PHOSPHATASE 116 U/L (38-126); ANION GAP 11 (5-19); ASPARTATE AMINO TRANSFERASE 26 U/L (17-59); BILIRUBIN,DIRECT 0.2 mg/dL (0.0-0.4); BILIRUBIN,TOTAL 0.4 mg/dL (0.2-1.3); BLOOD UREA NITROGEN 15 mg/dL (7-20); CALCIUM 9.3 mg/dL (8.4-10.2); CARBON DIOXIDE 26 mmol/L (22-30); CHLORIDE 101 mmol/L (98-107); GLUCOSE 99 mg/dL (75-110); PHOSPHORUS 3.8 mg/dL (2.5-4.5); POTASSIUM 4.1 mmol/L (3.6-5.0); SODIUM 138.4 mmol/L (137-145); TOTAL PROTEIN 6.6 g/dL (6.3-8.2)
[2019-01-25] MEDS: HEPARIN SOD (PORCINE) 5,000 UNIT/ML 1 ML SYRINGE SUBCUT SCH ×3 (06:15→22:15)
[2019-01-25] MEDS: DEXTROSE 5%-1/2 NORMAL SALINE 1,000 ML IV PRN ×2 (06:16→17:55)
[2019-01-25] MEDS: IPRATROPIUM BROMIDE 0.02% NEB 0.5 MG/2.5 ML AMPUL NEB SCH ×2 (07:59→19:21)
[2019-01-25] MEDS: LEVALBUTEROL HCL NEB 1.25 MG/3 ML AMPUL NEB SCH ×2 (07:59→19:21)
[2019-01-25] MEDS: OLANZAPINE 5 MG TABLET PO SCH ×2 (08:24→22:16)
[2019-01-25] MEDS: BUSPIRONE HCL 10 MG TABLET PO SCH ×2 (08:25→17:48)
[2019-01-25] MEDS: NICOTINE 14 MG/24 HR PATCH.TD24 TD SCH (09:55)
[2019-01-25] MEDS: ASPIRIN 81 MG TABLET, ENT COATED PO SCH (09:55)
[2019-01-25] MEDS: FAMOTIDINE 20 MG TABLET PO SCH ×2 (09:55→17:48)
[2019-01-25] MEDS: MULTIVITAMIN TABLET PO SCH (09:55)
[2019-01-25] MEDS: LAMOTRIGINE 25 MG TAB.CHEW PO SCH ×2 (09:55→22:16)
[2019-01-25] MEDS: TIOTROPIUM BROMIDE DPI 5 CAP/KIT (18 MCG/CAP) IH SCH (09:55)
--- NOTE | 2019-01-25 20:04 | PDOC PROGRESS REPORT ---
Subjective Progress Note for:: 01/25/19 Subjective:: 73 y.o. M with a PMH of anoxic brain injury (at age 27 y.o.), COPD, parkinsonism and HLD. He presented to [facility] ED for acute lethargy. He currently lives at an assisted living facility, [facility]. Patient has severe dementia and is unable to provide any meaningful input. Patient was seen this morning on rounds, he remains restrained due to attempts at physical violence towards staff members and removal of IV's. He is much more awake, calm and cooperative today. The patient's speech is difficult to understand at baseline, and with his severe dry mouth it is even harder. The patient is able to verbalize that he "feels alright" and was able to eat his entire breakfast. He is oriented to self only. Will remain inpatient to receive IV antibiotics for MRSA bacteremia, final treatment scheduled for January 30. The patient has remain in bed most of his hospital stay. He has suffered a great deal of muscle atrophy. Recommend PT/OT consult. Reason For Visit: RLL PNEUMONIA Physical Exam Vital Signs: Temp Pulse Resp BP Pulse Ox 97.9 F 65 18 111/60 94 01/25/19 16:03 01/25/19 19:21 01/25/19 19:21 01/25/19 16:03 01/25/19 19:21 Intake & Output 01/24/19 01/25/19 01/26/19 06:59 06:59 06:59 Intake Total 960 1880 1375 Balance 960 1880 1375 Weight 58.5 kg 58 kg General appearance: PRESENT: no acute distress, thin Head exam: PRESENT: atraumatic, normocephalic Eye exam: PRESENT: conjunctiva pink, EOMI, PERRLA. ABSENT: scleral icterus Ear exam: PRESENT: normal external ear exam Mouth exam: PRESENT: dry mucosa, tongue midline Teeth exam: PRESENT: edentulous Neck exam: ABSENT: carotid bruit, JVD, lymphadenopathy, thyromegaly Respiratory exam: PRESENT: clear to auscultation gama, symmetrical, unlabored. ABSENT: rales, rhonchi, wheezes Cardiovascular exam: PRESENT: RRR. ABSENT: diastolic murmur, rubs, systolic murmur Pulses: PRESENT: normal radial pulses, normal dorsalis pedis pul Vascular exam: PRESENT: normal capillary refill GI/Abdominal exam: PRESENT: normal bowel sounds, soft. ABSENT: distended, guarding, mass, organolmegaly, rebound, tenderness Rectal exam: PRESENT: deferred Extremities exam: PRESENT: full ROM. ABSENT: calf tenderness, clubbing, pedal e rosmery Musculoskeletal exam: PRESENT: full ROM. ABSENT: ambulatory - restrained Neurological exam: PRESENT: alert, awake, oriented to person. ABSENT: oriented to place, oriented to time, oriented to situation Psychiatric exam: PRESENT: unusual affect - secondary to anoxic brain injury Skin exam: PRESENT: dry, intact, warm. ABSENT: cyanosis, rash Results Laboratory Results: 01/25/19 04:45 01/25/19 04:45 01/25/19 01/25/19 04:45 04:45 WBC 8.7 RBC 4.04 L Hgb 11.9 L Hct 34.4 L MCV 85 MCH 29.4 MCHC 34.5 RDW 15.7 H Plt Count 320 Sodium 138.4 Potassium 4.1 Chloride 101 Carbon Dioxide 26 Anion Gap 11 BUN 15 Creatinine 0.88 Est GFR ( Amer) > 60 Est GFR (Non-Af Amer) > 60 Glucose 99 Calcium 9.3 Phosphorus 3.8 Magnesium 2.2 Total Bilirubin 0.4 AST 26 ALT 22 Alkaline Phosphatase 116 Total Protein 6.6 Albumin 3.8 Impressions: Chest X-Ray 01/13/19 00:00 IMPRESSION: 1. Slightly worsened appearance of the chronic right lower lobe opacity representing patient's known fibrotic changes; however, findings may represent superimposed pneumonia in the appropriate clinical setting. 2. Mildly improved left lower lobe opacity. Head CT 01/13/19 18:25 IMPRESSION: MICROVASCULAR ISCHEMIA AND GENERALIZED ATROPHY. NO ACUTE IMAGING FINDINGS IN THE BRAIN EVIDENCE OF ACUTE STROKE: NO. Status: Imported from PACS Assessment and Plan - Diagnosis (1) Bacteremia Is this a current diagnosis for this admission?: Yes Plan: Patient has 1/4 bottles positive for MRSA. Repeat blood cultures negative at 5 days. Unclear source. Sputum cultures show no growth No MRSA in any previous cultures on file. No skin breakdown identified. TTE negative for vegetations. Continue Vancomycin; end date 01/30/19. Consulted infectious disease for antibiotic guidance; recommends minimum 2 weeks IV antibiotics. Will discuss w/ digital media planner option for PICC and home infusions to complete course. (2) Acute on chronic respiratory failure with hypoxia Is this a current diagnosis for this admission?: Yes Plan: Resolved. Now maintaining oxygen saturations on room air with improved lung sounds. Secondary to pneumonia RLL PNA seen on CXR Blood culture (09/01) positive for MRSA. Sputum culture negative Initially treated with azithromycin and Rocephin. Contunue vancomycin as above. Zosyn since discontinued as lung sounds are clear, patient has been afebrile with nml WBC >48 hours. Supplemental oxygen via nasal cannula for SPO2> 88% Scheduled and as needed nebulizer treatments; decreased neb schedule (3) Altered mental status Qualifiers: Altered mental status type: somnolence Qualified Code(s): R40.0 - Somnolence Is this a current diagnosis for this admission?: Yes Plan: Head CT negative History of severe dementia and anoxic brain injury at the age of 27 Daughter states that the patient has the mental capacity of a 7-year-old Improved; possibly at baseline. Supportive and symptomatic care as required Fall precautions. 1:1 sitter for safety. Continue home dose Zyprexa and Lamictal. Continue BuSpar. PRN Haldol IV IV ativan as needed. (4) Hypotension Qualifiers: Hypotension type: hypotension due to hypovolemia Qualified Code(s): I95.89 - Other hypotension; E86.1 - Hypovolemia Is this a current diagnosis for this admission?: Yes Plan: RESOLVED Patient is sustained on p.o. intake (5) Pneumonia Qualifiers: Pneumonia type: due to unspecified organism Laterality: right Lung location: lower lobe of lung Qualified Code(s): J18.1 - Lobar pneumonia, unspecified organism Is this a current diagnosis for this admission?: Yes Plan: PNA seen on CXR Plan as above - Time Time Spent with patient: 15-24 minutes Medications reviewed and adjusted accordingly: Yes Anticipated discharge: Other - [facility] - [facility] [place] - Inpatient Certification Based on my medical assessment, after consideration of the patient's comorbidities, presenting symptoms, or acuity I expect that the services needed warrant INPATIENT care.: Yes I certify that my determination is in accordance with my understanding of Medicare's requirements for reasonable and necessary INPATIENT services [42 CFR 412.3e].: Yes Medical Necessity: Need for IV Antibiotics
[2019-01-25] MEDS: SIMVASTATIN 40 MG TABLET PO SCH (22:16)
[2019-01-26] MEDS: VANCOMYCIN HCL 1,250 MG in DEXTROSE 5%-WATER 250 ML IV SCH ×2 (00:09→17:40)
[2019-01-26] MEDS: HEPARIN SOD (PORCINE) 5,000 UNIT/ML 1 ML SYRINGE SUBCUT SCH ×3 (07:00→21:36)
[2019-01-26] MEDS: HALOPERIDOL LACTATE INJ 5 MG/1 ML VIAL IV PRN ×2 (07:56→17:40)
[2019-01-26] MEDS: OLANZAPINE 5 MG TABLET PO SCH ×2 (07:56→21:36)
[2019-01-26] MEDS: BUSPIRONE HCL 10 MG TABLET PO SCH ×2 (07:56→17:41)
[2019-01-26] MEDS: DEXTROSE 5%-1/2 NORMAL SALINE 1,000 ML IV PRN ×2 (07:58→17:40)
[2019-01-26] MEDS: LEVALBUTEROL HCL NEB 1.25 MG/3 ML AMPUL NEB SCH ×2 (08:19→19:45)
[2019-01-26] MEDS: IPRATROPIUM BROMIDE 0.02% NEB 0.5 MG/2.5 ML AMPUL NEB SCH ×2 (08:19→19:45)
[2019-01-26] MEDS: NICOTINE 14 MG/24 HR PATCH.TD24 TD SCH (10:55)
[2019-01-26] MEDS: MULTIVITAMIN TABLET PO SCH (10:55)
[2019-01-26] MEDS: ASPIRIN 81 MG TABLET, ENT COATED PO SCH (10:55)
[2019-01-26] MEDS: LAMOTRIGINE 25 MG TAB.CHEW PO SCH ×2 (10:55→21:36)
[2019-01-26] MEDS: FAMOTIDINE 20 MG TABLET PO SCH ×2 (10:56→17:40)
[2019-01-26] MEDS: TIOTROPIUM BROMIDE DPI 5 CAP/KIT (18 MCG/CAP) IH SCH (10:58)
[2019-01-26 13:14] LABS: VANCOMYCIN,TROUGH 25.9 ug/mL (5.0-20.0)
[2019-01-26] MEDS: SIMVASTATIN 40 MG TABLET PO SCH (21:37)
--- NOTE | 2019-01-26 21:50 | PDOC PROGRESS REPORT ---
Subjective Progress Note for:: 01/26/19 Subjective:: 73 y.o. M with a PMH of anoxic brain injury (at age 27 y.o.), COPD, parkinsonism and HLD. He presented to [facility] ED for acute lethargy. He currently lives at an assisted living facility, [facility]. Patient has severe dementia and is unable to provide any meaningful input. Patient was seen this morning on rounds, he remains restrained due to attempts at physical violence towards staff members and removal of IV's. He is much awake but not very cooperative today. The patient's speech is difficult to understand at baseline, and with his severe dry mouth it is even harder. Will remain inpatient to receive IV antibiotics for MRSA bacteremia, final treatment scheduled for January 30. The patient has remain in bed most of his hospital stay. He has suffered a great deal of muscle atrophy. Recommend PT/OT consult. Reason For Visit: RLL PNEUMONIA Physical Exam Vital Signs: Temp Pulse Resp BP Pulse Ox 97.9 F 71 16 100/67 96 01/26/19 20:05 01/26/19 20:05 01/26/19 20:05 01/26/19 20:05 01/26/19 20:05 Intake & Output 01/25/19 01/26/19 01/27/19 06:59 06:59 06:59 Intake Total 1880 2375 1320 Balance 1880 2375 1320 Weight 58 kg 59.6 kg General appearance: PRESENT: no acute distress, thin Head exam: PRESENT: atraumatic, normocephalic Eye exam: PRESENT: conjunctiva pink, EOMI, PERRLA. ABSENT: scleral icterus Ear exam: PRESENT: normal external ear exam Mouth exam: PRESENT: dry mucosa, tongue midline Neck exam: ABSENT: carotid bruit, JVD, lymphadenopathy, thyromegaly Respiratory exam: PRESENT: clear to auscultation gama, symmetrical, unlabored. ABSENT: rales, rhonchi, wheezes Cardiovascular exam: PRESENT: RRR. ABSENT: diastolic murmur, rubs, systolic murmur Pulses: PRESENT: normal radial pulses, normal dorsalis pedis pul Vascular exam: PRESENT: pallor GI/Abdominal exam: PRESENT: normal bowel sounds, soft. ABSENT: distended, guarding, mass, organolmegaly, rebound, tenderness Rectal exam: PRESENT: deferred Extremities exam: PRESENT: full ROM. ABSENT: calf tenderness, clubbing, pedal edema Musculoskeletal exam: PRESENT: full ROM. ABSENT: ambulatory Neurological exam: PRESENT: awake, oriented to person. ABSENT: alert, oriented to place, oriented to time, oriented to situation Psychiatric exam: PRESENT: appropriate affect, normal mood. ABSENT: homicidal ideation, suicidal ideation Skin exam: PRESENT: dry, intact, warm. ABSENT: cyanosis, rash Results Laboratory Results: 01/25/19 04:45 01/26/19 11:45 01/26/19 11:45 Creatinine 0.91 Est GFR ( Amer) > 60 Est GFR (Non-Af Amer) > 60 Impressions: Chest X-Ray 01/13/19 00:00 IMPRESSION: 1. Slightly worsened appearance of the chronic right lower lobe opacity representing patient's known fibrotic changes; however, findings may represent superimposed pneumonia in the appropriate clinical setting. 2. Mildly improved left lower lobe opacity. Head CT 01/13/19 18:25 IMPRESSION: MICROVASCULAR ISCHEMIA AND GENERALIZED ATROPHY. NO ACUTE IMAGING FINDINGS IN THE BRAIN EVIDENCE OF ACUTE STROKE: NO. Status: Imported from PACS Assessment and Plan - Diagnosis (1) Bacteremia Is this a current diagnosis for this admission?: Yes Plan: Patient has 1/4 bottles positive for MRSA. Repeat blood cultures negative at 5 days. Unclear source. Sputum cultures show no growth No MRSA in any previous cultures on file. No skin breakdown identified. TTE negative for vegetations. Continue Vancomycin; end date 01/30/19. Consulted infectious disease for antibiotic guidance; recommends minimum 2 weeks IV antibiotics. Will discuss w/ liaison planner option for PICC and home infusions to complete course. (2) Acute on chronic respiratory failure with hypoxia Is this a current diagnosis for this admission?: Yes Plan: Resolved. Now maintaining oxygen saturations on room air with improved lung sounds. Secondary to pneumonia RLL PNA seen on CXR Blood culture (09/01) positive for MRSA. Sputum culture negative Initially treated with azithromycin and Rocephin. Contunue vancomycin as above. Zosyn since discontinued as lung sounds are clear, patient has been afebrile with nml WBC >48 hours. Supplemental oxygen via nasal cannula for SPO2> 88% Scheduled and as needed nebulizer treatments; decreased neb schedule (3) Altered mental status Qualifiers: Altered mental status type: somnolence Qualified Code(s): R40.0 - Somnolence Is this a current diagnosis for this admission?: Yes Plan: waxes and wanes Head CT negative History of severe dementia and anoxic brain injury at the age of 27 Daughter states that the patient has the mental capacity of a 7-year-old Patient will intermittently have days when he is very lucid and cooperative, other days he is very altered and aggressive Supportive and symptomatic care as required Fall precautions. 1:1 sitter for safety. Continue home dose Zyprexa and Lamictal. Continue BuSpar. PRN Haldol IV IV ativan as needed. (4) Hypotension Qualifiers: Hypotension type: hypotension due to hypovolemia Qualified Code(s): I95.89 - Other hypotension; E86.1 - Hypovolemia Is this a current diagnosis for this admission?: Yes Plan: RESOLVED Patient is sustained on p.o. intake (5) Pneumonia Qualifiers: Pneumonia type: due to unspecified organism Laterality: right Lung location: lower lobe of lung Qualified Code(s): J18.1 - Lobar pneumonia, unspecified organism Is this a current diagnosis for this admission?: Yes Plan: PNA seen on CXR Plan as above - Time Time Spent with patient: 15-24 minutes Medications reviewed and adjusted accordingly: Yes Anticipated discharge: SNF - [facility] - Inpatient Certification Based on my medical assessment, after consideration of the patient's comorbidit ies, presenting symptoms, or acuity I expect that the services needed warrant INPATIENT care.: Yes I certify that my determination is in accordance with my understanding of [employer]'s requirements for reasonable and necessary INPATIENT services [42 CFR 412.3e].: Yes Medical Necessity: Risk of Complication if Not Cared For in Hospital
[2019-01-27] MEDS: HALOPERIDOL LACTATE INJ 5 MG/1 ML VIAL IV PRN (01:48)
[2019-01-27] MEDS: HEPARIN SOD (PORCINE) 5,000 UNIT/ML 1 ML SYRINGE SUBCUT SCH ×3 (06:11→21:23)
[2019-01-27] MEDS: VANCOMYCIN HCL 1,250 MG in DEXTROSE 5%-WATER 250 ML IV SCH ×2 (06:11→18:19)
[2019-01-27] MEDS: DEXTROSE 5%-1/2 NORMAL SALINE 1,000 ML IV PRN ×2 (06:14→15:27)
[2019-01-27] MEDS: LEVALBUTEROL HCL NEB 1.25 MG/3 ML AMPUL NEB SCH ×2 (07:45→20:25)
[2019-01-27] MEDS: IPRATROPIUM BROMIDE 0.02% NEB 0.5 MG/2.5 ML AMPUL NEB SCH ×2 (07:45→20:25)
[2019-01-27] MEDS: OLANZAPINE 5 MG TABLET PO SCH ×2 (09:59→21:23)
[2019-01-27] MEDS: ASPIRIN 81 MG TABLET, ENT COATED PO SCH (09:59)
[2019-01-27] MEDS: BUSPIRONE HCL 10 MG TABLET PO SCH ×2 (09:59→15:15)
[2019-01-27] MEDS: FAMOTIDINE 20 MG TABLET PO SCH ×2 (09:59→18:19)
[2019-01-27] MEDS: TIOTROPIUM BROMIDE DPI 5 CAP/KIT (18 MCG/CAP) IH SCH (10:00)
[2019-01-27] MEDS: MULTIVITAMIN TABLET PO SCH (10:00)
[2019-01-27] MEDS: LAMOTRIGINE 25 MG TAB.CHEW PO SCH ×2 (10:00→21:23)
[2019-01-27] MEDS: NICOTINE 14 MG/24 HR PATCH.TD24 TD SCH (10:00)
--- NOTE | 2019-01-27 13:10 | PDOC PROGRESS REPORT ---
Subjective Progress Note for:: 01/27/19 Subjective:: 73 y.o. M with a PMH of anoxic brain injury (at age 27 y.o.), COPD, parkinsonism and HLD. He presented to [facility] for acute lethargy. He currently lives at an assisted living facility, [facility]. Patient has severe dementia and is unable to provide any meaningful input. Patient was seen this morning on rounds, he remains restrained due to attempts at remove peripheral IVs. He no longer exhibits physical violence towards staff members. His behavior seems calm today. The patient erratic behavior is likely related to dementia and acute delirium, exacerbated by his active infection. His anoxic brain injury, while it does not help his situation, is not the primary culprit of his agitation. Will remain inpatient to receive IV antibiotics for MRSA bacteremia, final treatment scheduled for January 30. The patient has remain in bed most of his hospital stay. He has suffered a great deal of muscle atrophy. Recommend PT/OT consult. Reason For Visit: RLL PNEUMONIA Physical Exam Vital Signs: Temp Pulse Resp BP Pulse Ox 97.6 F 60 14 129/59 H 92 01/27/19 12:41 01/27/19 12:41 01/27/19 12:41 01/27/19 12:41 01/27/19 12:41 Intake & Output 01/26/19 01/27/19 01/28/19 06:59 06:59 06:59 Intake Total 2375 2420 480 Balance 2375 2420 480 Weight 59.6 kg 57.8 kg General appearance: PRESENT: no acute distress, thin Head exam: PRESENT: atraumatic, normocephalic Eye exam: PRESENT: conjunctiva pink, EOMI, PERRLA. ABSENT: scleral icterus Ear exam: PRESENT: normal external ear exam Mouth exam: PRESENT: dry mucosa, tongue midline Neck exam: PRESENT: full ROM. ABSENT: carotid bruit, JVD, lymphadenopathy, thyromegaly Respiratory exam: PRESENT: clear to auscultation agma, symmetrical, unlabored. ABSENT: rales, rhonchi, wheezes Cardiovascular exam: PRESENT: RRR. ABSENT: diastolic murmur, rubs, systolic murmur Pulses: PRESENT: normal radial pulses, +1 pedal pulses bilateral Vascular exam: PRESENT: normal capillary refill GI/Abdominal exam: PRESENT: normal bowel sounds, soft. ABSENT: distended, guarding, mass, organolmegaly, rebound, tenderness Rectal exam: PRESENT: deferred Extremities exam: PRESENT: full ROM. ABSENT: calf tenderness, clubbing, pedal edema Musculoskeletal exam: PRESENT: full ROM. ABSENT: ambulatory, deformity Neurological exam: PRESENT: alert, awake. ABSENT: oriented to person, oriented to place, oriented to time, oriented to situation Psychiatric exam: PRESENT: unusual affect, other - PER DAUGHTER - PATIENT HAS THE MENTAL CAPACITY OF "A 7 YEAR OLD.". ABSENT: appropriate affect Skin exam: PRESENT: dry, intact, pallor, warm. ABSENT: cyanosis, rash Results Laboratory Results: 01/25/19 04:45 01/26/19 11:45 01/26/19 11:45 Creatinine 0.91 Est GFR ( Amer) > 60 Est GFR (Non-Af Amer) > 60 Impressions: Chest X-Ray 01/13/19 00:00 IMPRESSION: 1. Slightly worsened appearance of the chronic right lower lobe opacity representing patient's known fibrotic changes; however, findings may represent superimposed pneumonia in the appropriate clinical setting. 2. Mildly improved left lower lobe opacity. Head CT 01/13/19 18:25 IMPRESSION: MICROVASCULAR ISCHEMIA AND GENERALIZED ATROPHY. NO ACUTE IMAGING FINDINGS IN THE BRAIN EVIDENCE OF ACUTE STROKE: NO. Status: Imported from PACS Assessment and Plan - Diagnosis (1) Bacteremia Is this a current diagnosis for this admission?: Yes Plan: Patient has 1/4 bottles positive for MRSA. Repeat blood cultures negative at 5 days. Unclear source. Sputum cultures show no growth No MRSA in any previous cultures on file. No skin breakdown identified. TTE negative for vegetations. Continue Vancomycin; end date 01/30/19. Consulted infectious disease for antibiotic guidance; recommends minimum 2 weeks IV antibiotics. Will discuss w/ buyer planner option for PICC and home infusions to complete course. (2) Acute on chronic respiratory failure with hypoxia Is this a current diagnosis for this admission?: Yes Plan: Resolved. Now maintaining oxygen saturations on room air with improved lung sounds. Secondary to pneumonia RLL PNA seen on CXR Blood culture (09/01) positive for MRSA. Sputum culture negative Initially treated with azithromycin and Rocephin, switched to Vanco and Zosyn. Continue vancomycin as above (for MRSA bacteremia). Zosyn since discontinued as lung sounds are clear, patient has been afebrile with nml WBC >48 hours. Supplemental oxygen via nasal cannula for SPO2> 88% Scheduled and as needed nebulizer treatments; decreased neb schedule (3) Altered mental status Qualifiers: Altered mental status type: somnolence Qualified Code(s): R40.0 - Somnolence Is this a current diagnosis for this admission?: Yes Plan: waxes and wanes Head CT negative History of severe dementia and anoxic brain injury at the age of 27 Daughter states that the patient has the mental capacity of a 7-year-old Patient will intermittently have days when he is very lucid and cooperative, other days he is very altered and agitated Supportive and symptomatic care as required Fall precautions. 1:1 sitter for safety. Continue home dose Zyprexa and Lamictal. Continue BuSpar. PRN Haldol IV IV ativan as needed. (4) Hypotension Qualifiers: Hypotension type: hypotension due to hypovolemia Qualified Code(s): I95.89 - Other hypotension; E86.1 - Hypovolemia Is this a current diagnosis for this admission?: Yes Plan: RESOLVED Patient is sustained on p.o. intake (5) Pneumonia Qualifiers: Pneumonia type: due to unspecified organism Laterality: right Lung location: lower lobe of lung Qualified Code(s): J18.1 - Lobar pneumonia, unspecified organism Is this a current diagnosis for this admission?: Yes Plan: PNA seen on CXR Plan as above - Time Time Spent with patient: 15-24 minutes Medications reviewed and adjusted accordingly: Yes Anticipated discharge: Other - [facility] care Within: - January 30 - Inpatient Certification Based on my medical assessment, after consideration of the patient's comorbidities, presenting symptoms, or acuity I expect that the services needed warrant INPATIENT care.: Yes I certify that my determination is in accordance with my understanding of Medicare's requirements for reasonable and necessary INPATIENT services [42 CFR 412.3e].: Yes Medical Necessity: Need for IV Antibiotics, Risk of Complication if Not Cared For in Hospital
[2019-01-27] MEDS: SIMVASTATIN 40 MG TABLET PO SCH (21:23)
[2019-01-28] MEDS: VANCOMYCIN HCL 1,250 MG in DEXTROSE 5%-WATER 250 ML IV SCH ×2 (05:37→18:05)
[2019-01-28] MEDS: HEPARIN SOD (PORCINE) 5,000 UNIT/ML 1 ML SYRINGE SUBCUT SCH ×3 (05:37→21:21)
[2019-01-28] MEDS: IPRATROPIUM BROMIDE 0.02% NEB 0.5 MG/2.5 ML AMPUL NEB SCH ×2 (07:49→20:20)
[2019-01-28] MEDS: LEVALBUTEROL HCL NEB 1.25 MG/3 ML AMPUL NEB SCH ×2 (07:49→20:20)
[2019-01-28] MEDS: MULTIVITAMIN TABLET PO SCH (10:53)
[2019-01-28] MEDS: ASPIRIN 81 MG TABLET, ENT COATED PO SCH (10:53)
[2019-01-28] MEDS: OLANZAPINE 5 MG TABLET PO SCH ×2 (10:53→21:21)
[2019-01-28] MEDS: BUSPIRONE HCL 10 MG TABLET PO SCH ×2 (10:53→18:05)
[2019-01-28] MEDS: LAMOTRIGINE 25 MG TAB.CHEW PO SCH ×2 (10:53→21:21)
[2019-01-28] MEDS: NICOTINE 14 MG/24 HR PATCH.TD24 TD SCH (10:54)
[2019-01-28] MEDS: TIOTROPIUM BROMIDE DPI 5 CAP/KIT (18 MCG/CAP) IH SCH (10:54)
[2019-01-28] MEDS: FAMOTIDINE 20 MG TABLET PO SCH ×2 (10:54→18:05)
--- NOTE | 2019-01-28 12:35 | PDOC PROGRESS REPORT ---
Subjective Progress Note for:: 01/28/19 Subjective:: 73 y.o. M with a PMH of anoxic brain injury (at age 27 y.o.), COPD, parkinsonism and HLD. He presented to [facility] ED for acute lethargy. He currently lives at an assisted living facility, [facility]. Patient has severe dementia and is unable to provide any meaningful input. Patient was seen this morning on rounds, he is resting in bed unrestrained eating his breakfast. The patient is much more alert today compared to the previous week. He is able to answer questions appropriately. His behavior seems calm today. Will remain inpatient to receive IV antibiotics for MRSA bacteremia, final treatment scheduled for January 30. Will decrease maintenance IVF since patient's appetite has returned. No other significant changes to treatment plan. Reason For Visit: RLL PNEUMONIA Physical Exam Vital Signs: Temp Pulse Resp BP Pulse Ox 97.5 F 55 L 16 115/72 95 01/28/19 08:16 01/28/19 08:16 01/28/19 08:16 01/28/19 08:16 01/28/19 08:16 Intake & Output 01/27/19 01/28/19 01/29/19 06:59 06:59 06:59 Intake Total 2420 2456 Output Total 375 Balance 2420 2081 Weight 57.8 kg 58.3 kg General appearance: PRESENT: no acute distress, thin Head exam: PRESENT: atraumatic, normocephalic Eye exam: PRESENT: conjunctiva pink, EOMI, PERRLA. ABSENT: scleral icterus Ear exam: PRESENT: normal external ear exam Mouth exam: PRESENT: moist, tongue midline Neck exam: ABSENT: carotid bruit, JVD, lymphadenopathy, thyromegaly Respiratory exam: PRESENT: clear to auscultation gama, symmetrical, unlabored. ABSENT: rales, rhonchi, wheezes Cardiovascular exam: PRESENT: RRR. ABSENT: diastolic murmur, rubs, systolic murmur Pulses: PRESENT: normal radial pulses, +1 pedal pulses bilateral Vascular exam: PRESENT: normal capillary refill GI/Abdominal exam: PRESENT: normal bowel sounds, soft. ABSENT: distended, guarding, mass, organolmegaly, rebound, tenderness Rectal exam: PRESENT: deferred Extremities exam: PRESENT: full ROM. ABSENT: calf tenderness, clubbing, pedal edema Musculoskeletal exam: PRESENT: full ROM. ABSENT: ambulatory Neurological exam: PRESENT: alert, awake, oriented to person. ABSENT: oriented to place, oriented to time, oriented to situation Psychiatric exam: PRESENT: appropriate affect, normal mood Skin exam: PRESENT: dry, intact, pallor, warm. ABSENT: cyanosis, rash Results Laboratory Results: 01/25/19 04:45 01/26/19 11:45 Impressions: Chest X-Ray 01/13/19 00:00 IMPRESSION: 1. Slightly worsened appearance of the chronic right lower lobe opacity representing patient's known fibrotic changes; however, findings may represent superimposed pneumonia in the appropriate clinical setting. 2. Mildly improved left lower lobe opacity. Head CT 01/13/19 18:25 IMPRESSION: MICROVASCULAR ISCHEMIA AND GENERALIZED ATROPHY. NO ACUTE IMAGING FINDINGS IN THE BRAIN EVIDENCE OF ACUTE STROKE: NO. Status: Imported from PACS Assessment and Plan - Diagnosis (1) Bacteremia Is this a current diagnosis for this admission?: Yes Plan: Patient has 1/4 bottles positive for MRSA. Repeat blood cultures negative at 5 days. Unclear source. Sputum cultures show no growth No MRSA in any previous cultures on file. No skin breakdown identified. TTE negative for vegetations. Continue Vancomycin; end date 01/30/19. Consulted infectious disease for antibiotic guidance; recommends minimum 2 weeks IV antibiotics. (2) Acute on chronic respiratory failure with hypoxia Is this a current diagnosis for this admission?: Yes Plan: Resolved. Now maintaining oxygen saturations on room air with improved lung sounds. Secondary to pneumonia RLL PNA seen on CXR Blood culture (09/01) positive for MRSA. Sputum culture negative Initially treated with azithromycin and Rocephin, switched to Vanco and Zosyn. Continue vancomycin as above (for MRSA bacteremia). Zosyn since discontinued as lung sounds are clear, patient has been afebrile with nml WBC >48 hours. Supplemental oxygen via nasal cannula for SPO2> 88% Scheduled and as needed nebulizer treatments; decreased neb schedule (3) Altered mental status Qualifiers: Altered mental status type: somnolence Qualified Code(s): R40.0 - Somnolence Is this a current diagnosis for this admission?: Yes Plan: waxes and wanes Head CT negative History of severe dementia and anoxic brain injury at the age of 27 Daughter states that the patient has the mental capacity of a 7-year-old Patient will intermittently have days when he is very lucid and cooperative, other days he is very altered and agitated The patient erratic behavior is likely related to dementia and acute delirium, exacerbated by his active infection. His anoxic brain injury, while it does not help his situation, is not the primary culprit of his agitation. Supportive and symptomatic care as required Fall precautions. 1:1 sitter for safety. Continue home dose Zyprexa and Lamictal. Continue BuSpar. PRN Haldol IV IV ativan as needed. (4) Hypotension Qualifiers: Hypotension type: hypotension due to hypovolemia Qualified Code(s): I95.89 - Other hypotension; E86.1 - Hypovolemia Is this a current diagnosis for this admission?: Yes Plan: RESOLVED Patient is sustained on p.o. intake and maintenance IVF (5) Pneumonia Qualifiers: Pneumonia type: due to unspecified organism Laterality: right Lung location: lower lobe of lung Qualified Code(s): J18.1 - Lobar pneumonia, unspecified organism Is this a current diagnosis for this admission?: Yes Plan: PNA seen on CXR Plan as above (6) Muscle atrophy Qualifiers: Muscle atrophy area: multiple sites Qualified Code(s): M62.59 - Muscle wasting and atrophy, not elsewhere classified, multiple sites Is this a current diagnosis for this admission?: Yes Plan: Patient has been retrained to the bed for multiple days at a time Likely suffered a great deal of muscle atrophy Consulting PT/OT to work with patient now that he is more lucid - Time Time Spent with patient: 15-24 minutes Medications reviewed and adjusted accordingly: Yes Anticipated discharge: Home Within: Other - january 30 - Inpatient Certification Based on my medical assessment, after consideration of the patient's comorbidities, presenting symptoms, or acuity I expect that the services needed warrant INPATIENT care.: Yes I certify that my determination is in accordance with my understanding of Medicare's requirements for reasonable and necessary INPATIENT services [42 CFR 412.3e].: Yes Medical Necessity: Risk of Complication if Not Cared For in Hospital
[2019-01-28 18:08] LABS: VANCOMYCIN,TROUGH 26.5 ug/mL (5.0-20.0)
[2019-01-28] MEDS: HALOPERIDOL LACTATE INJ 5 MG/1 ML VIAL IV PRN (19:29)
[2019-01-28] MEDS: SIMVASTATIN 40 MG TABLET PO SCH (21:21)
[2019-01-29] MEDS: HALOPERIDOL LACTATE INJ 5 MG/1 ML VIAL IV PRN (03:30)
[2019-01-29] MEDS: VANCOMYCIN HCL 1,250 MG in DEXTROSE 5%-WATER 250 ML IV SCH (05:08)
[2019-01-29] MEDS: HEPARIN SOD (PORCINE) 5,000 UNIT/ML 1 ML SYRINGE SUBCUT SCH ×3 (05:08→21:44)
[2019-01-29] MEDS: DEXTROSE 5%-1/2 NORMAL SALINE 1,000 ML IV PRN ×2 (05:10→22:01)
[2019-01-29] MEDS: IPRATROPIUM BROMIDE 0.02% NEB 0.5 MG/2.5 ML AMPUL NEB SCH ×2 (07:46→19:44)
[2019-01-29] MEDS: LEVALBUTEROL HCL NEB 1.25 MG/3 ML AMPUL NEB SCH ×2 (07:46→19:44)
[2019-01-29] MEDS: OLANZAPINE 5 MG TABLET PO SCH ×2 (11:04→21:44)
[2019-01-29] MEDS: LAMOTRIGINE 25 MG TAB.CHEW PO SCH ×2 (11:04→21:43)
[2019-01-29] MEDS: BUSPIRONE HCL 10 MG TABLET PO SCH ×2 (11:04→17:50)
[2019-01-29] MEDS: FAMOTIDINE 20 MG TABLET PO SCH ×2 (11:04→17:50)
[2019-01-29] MEDS: ASPIRIN 81 MG TABLET, ENT COATED PO SCH (11:04)
[2019-01-29] MEDS: NICOTINE 14 MG/24 HR PATCH.TD24 TD SCH (11:04)
[2019-01-29] MEDS: MULTIVITAMIN TABLET PO SCH (11:05)
[2019-01-29] MEDS: TIOTROPIUM BROMIDE DPI 5 CAP/KIT (18 MCG/CAP) IH SCH (11:07)
[2019-01-29 11:36] LABS: CREATINE KINASE MB 7.95 ng/mL (<4.55)
[2019-01-29 11:37] LABS: TROPONIN I < 0.012 ng/mL
--- NOTE | 2019-01-29 13:07 | EKG REPORT ---
SEVERITY:- NORMAL ECG - SINUS RHYTHM : Confirmed by: Fredi Blair MD 29-Jan-2019 13:07:06
[2019-01-29 15:41] LABS: TROPONIN I < 0.012 ng/mL
[2019-01-29] MEDS: SIMVASTATIN 40 MG TABLET PO SCH (21:44)
[2019-01-29 22:28] LABS: CREATINE KINASE MB 7.89 ng/mL (<4.55)
[2019-01-29 22:29] LABS: TROPONIN I < 0.012 ng/mL
[2019-01-30] MEDS: HEPARIN SOD (PORCINE) 5,000 UNIT/ML 1 ML SYRINGE SUBCUT SCH ×3 (05:12→21:34)
[2019-01-30] MEDS ORDERED: RINGERS SOLUTION,LACTATED 1,000 ML IV PRN (05:14)
[2019-01-30] MEDS ORDERED: NORMAL SALINE 1000 ML 1,000 ML IV ONE ×3 (05:14→08:36)
--- NOTE | 2019-01-30 05:31 | PDOC PROGRESS REPORT ---
Subjective Progress Note for:: 01/29/19 Subjective:: 73 y.o. M with a PMH of anoxic brain injury (at age 27 y.o.), COPD, parkinsonism and HLD. He presented to [facility] ED for acute lethargy. He currently lives at an assisted living facility, [facility]. Patient has severe dementia and is unable to provide any meaningful input. Patient was seen this morning on rounds, he is resting in bed. His behavior seems calm today. Nursing staff reports he had an episode at 0700 this morning where he was very diaphoretic. The patient's vital signs were all stable, he did not have a fever. Unfortunately, he was not hooked up to a astrochemist, so there is no telling if he had a cardiac event at the time. The patient did not endorse chest pain/tightness/SOB but he is not an accurate historian. EKG was done shortly thereafter, which was normal. Cardiac enzymes were ordered, initial troponin was normal but CK and CK-MB were elevated. D-dimer negative. Will remain inpatient to receive IV antibiotics for MRSA bacteremia, final treatment scheduled for January 30. No other significant changes to treatment plan. Reason For Visit: RLL PNEUMONIA Physical Exam Vital Signs: Temp Pulse Resp BP Pulse Ox 98.0 F 69 13 99/87 H 98 01/30/19 03:37 01/30/19 03:37 01/30/19 03:37 01/30/19 03:37 01/30/19 03:37 Intake & Output 01/28/19 01/29/19 01/30/19 06:59 06:59 06:59 Intake Total 2456 3573 1040 Output Total 375 200 Balance 2081 3373 1040 Weight 58.3 kg 59.5 kg General appearance: PRESENT: no acute distress, thin Head exam: PRESENT: atraumatic, normocephalic Eye exam: PRESENT: conjunctiva pink, EOMI, PERRLA. ABSENT: scleral icterus Ear exam: PRESENT: normal external ear exam Mouth exam: PRESENT: moist, tongue midline Neck exam: ABSENT: carotid bruit, JVD, lymphadenopathy, thyromegaly Respiratory exam: PRESENT: clear to auscultation gama, symmetrical, unlabored. ABSENT: rales, rhonchi, wheezes Cardiovascular exam: PRESENT: RRR. ABSENT: diastolic murmur, rubs, systolic murmur Pulses: PRESENT: normal radial pulses, normal dorsalis pedis pul Vascular exam: PRESENT: normal capillary refill GI/Abdominal exam: PRESENT: normal bowel sounds, soft. ABSENT: distended, guarding, mass, organolmegaly, rebound, tenderness Rectal exam: PRESENT: deferred Extremities exam: PRESENT: full ROM. ABSENT: calf tenderness, clubbing, pedal edema Musculoskeletal exam: PRESENT: full ROM. ABSENT: ambulatory Neurological exam: PRESENT: alert, awake, oriented to person, oriented to place. ABSENT: oriented to time, oriented to situation Psychiatric exam: PRESENT: appropriate affect, normal mood. ABSENT: homicidal ideation, suicidal ideation Skin exam: PRESENT: dry, intact, warm. ABSENT: cyanosis, rash Results Laboratory Results: 01/25/19 04:45 01/28/19 17:35 01/29/19 01/29/19 01/29/19 10:51 10:51 14:40 Creatine Kinase 688 H 916 H CK-MB (CK-2) 7.95 H Troponin I < 0.012 01/29/19 01/29/19 01/29/19 14:40 21:41 21:41 Creatine Kinase 928 H CK-MB (CK-2) 10.40 H 7.89 H Troponin I < 0.012 < 0.012 Impressions: Chest X-Ray 01/13/19 00:00 IMPRESSION: 1. Slightly worsened appearance of the chronic right lower lobe opacity representing patient's known fibrotic changes; however, findings may represent superimposed pneumonia in the appropriate clinical setting. 2. Mildly improved left lower lobe opacity. Head CT 01/13/19 18:25 IMPRESSION: MICROVASCULAR ISCHEMIA AND GENERALIZED ATROPHY. NO ACUTE IMAGING FINDINGS IN THE BRAIN EVIDENCE OF ACUTE STROKE: NO. Status: Imported from PACS Assessment and Plan - Diagnosis (1) Bacteremia Is this a current diagnosis for this admission?: Yes Plan: Patient has 1/4 bottles positive for MRSA. Repeat blood cultures negative at 5 days. Unclear source. Sputum cultures show no growth No MRSA in any previous cultures on file. No skin breakdown identified. TTE negative for vegetations. Continue Vancomycin; end date 01/30/19. Consulted infectious disease for antibiotic guidance; recommends minimum 2 weeks IV antibiotics. (2) Acute on chronic respiratory failure with hypoxia Is this a current diagnosis for this admission?: Yes Plan: Resolved. Now maintaining oxygen saturations on room air with improved lung sounds. Secondary to pneumonia RLL PNA seen on CXR Blood culture (09/01) positive for MRSA. Sputum culture negative Initially treated with azithromycin and Rocephin, switched to Vanco and Zosyn. Continue vancomycin as above (for MRSA bacteremia). Zosyn since discontinued as lung sounds are clear, patient has been afebrile with nml WBC >48 hours. Supplemental oxygen via nasal cannula for SPO2> 88% Scheduled and as needed nebulizer treatments; decreased neb schedule (3) Altered mental status Qualifiers: Altered mental status type: somnolence Qualified Code(s): R40.0 - Somnolence Is this a current diagnosis for this admission?: Yes Plan: waxes and wanes Head CT negative History of severe dementia and anoxic brain injury at the age of 27 Daughter states that the patient has the mental capacity of a 7-year-old Patient will intermittently have days when he is very lucid and cooperative, other days he is very altered and agitated The patient erratic behavior is likely related to dementia and acute delirium, exacerbated by his active infection. His anoxic brain injury, while it does not help his situation, is not the primary culprit of his agitation. Supportive and symptomatic care as required Fall precautions. 1:1 sitter for safety. Continue home dose Zyprexa and Lamictal. Continue BuSpar. PRN Haldol IV IV ativan as needed. (4) Hypotension Qualifiers: Hypotension type: hypotension due to hypovolemia Qualified Code(s): I95.89 - Other hypotension; E86.1 - Hypovolemia Is this a current diagnosis for this admission?: Yes Plan: RESOLVED Patient is sustained on p.o. intake and maintenance IVF (5) Pneumonia Qualifiers: Pneumonia type: due to unspecified organism Laterality: right Lung location: lower lobe of lung Qualified Code(s): J18.1 - Lobar pneumonia, unspecified organism Is this a current diagnosis for this admission?: Yes Plan: PNA seen on CXR Plan as above (6) Muscle atrophy Qualifiers: Muscle atrophy area: multiple sites Qualified Code(s): M62.59 - Muscle wasting and atrophy, not elsewhere classified, multiple sites Is this a current diagnosis for this admission?: Yes Plan: Patient has been retrained to the bed for multiple days at a time Likely suffered a great deal of muscle atrophy Consulting PT/OT to work with patient now that he is more lucid (7) Elevated CK Is this a current diagnosis for this admission?: Yes Plan: Nursing staff reported the patient was very diaphoretic this AM Entire bed sheets/gown needed changing No EKG tracings from this time Follow EKG shows NSR, no infarction or ischemia Follow up cardiac enzymes demonstrate elevated CK (688) and CK-MB (7.95), troponin normal Continue to trend cardiac enzymes Administer IVF bolus and increase maintenance IVF rate - Time Time Spent with patient: 15-24 minutes Medications reviewed and adjusted accordingly: Yes Anticipated discharge: Home Within: within 24 hours - Inpatient Certification Based on my medical assessment, after consideration of the patient's comorbidities, presenting symptoms, or acuity I expect that the services needed warrant INPATIENT care.: Yes I certify that my determination is in accordance with my understanding of Medicare's requirements for reasonable and necessary INPATIENT services [42 CFR 412.3e].: Yes Medical Necessity: Need for IV Antibiotics, Risk of Complication if Not Cared For in Hospital - Plan Summary Plan Summary: PATIENT IS SUPPOSED TO RETURN TO [facility] TOMORROW. UNCLEAR IF HE WILL QUALIFY FOR DISCHARGE TOMORROW BECAUSE THE PATIENT HAS BEEN IN RESTRAINTS AND HIS MENTAL STATUS WAXES AND WANES. WILL NEED TO DISCUSS WITH DISCHARGE PLANNING. PATIENT REMAINS IN RESTRAINTS DUE TO HIS PROPENSITY FOR PULLING OUT IVs. RECOMMEND REMOV ING PATIENT'S IV SOON POSSIBLE IN ORDER TO REMOVE HIS RESTRAINTS.
[2019-01-30 06:24] LABS: HEMATOCRIT 34.5 % (37.9-51.0); HEMOGLOBIN 11.6 g/dL (13.5-17.0); MEAN CORPUSCULAR HEMOGLOBIN 29.1 pg (27.0-33.4); MEAN CORPUSCULAR HGB CONC 33.5 g/dL (32.0-36.0); MEAN CORPUSCULAR VOLUME 87 fl (80-97); PLATELET COUNT 299 10^3/uL (150-450); RED BLOOD COUNT 3.98 10^6/uL (4.35-5.55); RED CELL DISTRIBUTION WIDTH 15.7 % (11.5-14.0); WHITE BLOOD COUNT 8.6 10^3/uL (4.0-10.5)
[2019-01-30 06:48] LABS: ALANINE AMINOTRANSFERASE 36 U/L (21-72); ALBUMIN 3.5 g/dL (3.5-5.0); ALKALINE PHOSPHATASE 89 U/L (38-126); ANION GAP 10 (5-19); ASPARTATE AMINO TRANSFERASE 69 U/L (17-59); BILIRUBIN,DIRECT 0.2 mg/dL (0.0-0.4); BILIRUBIN,TOTAL 0.4 mg/dL (0.2-1.3); BLOOD UREA NITROGEN 21 mg/dL (7-20); CALCIUM 9.2 mg/dL (8.4-10.2); CARBON DIOXIDE 26 mmol/L (22-30); CHLORIDE 106 mmol/L (98-107); CREATINE KINASE 1000 U/L (55-170); GLUCOSE 74 mg/dL (75-110); POTASSIUM 3.9 mmol/L (3.6-5.0); SODIUM 141.6 mmol/L (137-145); TOTAL PROTEIN 6.6 g/dL (6.3-8.2)
[2019-01-30] MEDS: IPRATROPIUM BROMIDE 0.02% NEB 0.5 MG/2.5 ML AMPUL NEB SCH ×2 (07:55→20:35)
[2019-01-30] MEDS: LEVALBUTEROL HCL NEB 1.25 MG/3 ML AMPUL NEB SCH ×2 (07:55→20:36)
[2019-01-30] MEDS: OLANZAPINE 5 MG TABLET PO SCH ×2 (09:10→21:34)
[2019-01-30] MEDS: LAMOTRIGINE 25 MG TAB.CHEW PO SCH ×2 (09:10→21:34)
[2019-01-30] MEDS: BUSPIRONE HCL 10 MG TABLET PO SCH ×2 (09:10→17:15)
[2019-01-30] MEDS: FAMOTIDINE 20 MG TABLET PO SCH ×2 (09:10→17:15)
[2019-01-30] MEDS: ASPIRIN 81 MG TABLET, ENT COATED PO SCH (09:10)
[2019-01-30] MEDS: MULTIVITAMIN TABLET PO SCH (09:11)
[2019-01-30] MEDS: NICOTINE 14 MG/24 HR PATCH.TD24 TD SCH (09:11)
[2019-01-30] MEDS: TIOTROPIUM BROMIDE DPI 5 CAP/KIT (18 MCG/CAP) IH SCH (09:12)
[2019-01-30] MEDS ORDERED: VANCOMYCIN HCL 750 MG in DEXTROSE 5%-WATER 250 ML IV SCH (10:00)
[2019-01-30 11:11] LABS: VANCOMYCIN,TROUGH 24.9 ug/mL (5.0-20.0)
[2019-01-30] MEDS: HALOPERIDOL LACTATE INJ 5 MG/1 ML VIAL IV PRN ×2 (12:21→23:55)
--- NOTE | 2019-01-30 15:28 | PDOC PROGRESS REPORT ---
Subjective Progress Note for:: 01/30/19 Subjective:: 73 y.o. M with a PMH of anoxic brain injury (at age 27 y.o.), COPD, parkinsonism and HLD. He presented to [facility] ED for acute lethargy. He currently lives at an assisted living facility, [facility]. Patient has severe dementia and is unable to provide any meaningful input. Patient was seen on morning rounds. He was found to be resting in bed comfortably on supplemental oxygen via NC. He is awake and orientated to self today; asks me to turn his radio on for him. ROS is limited secondary to mental status/participation; does deny pain, difficulty breathing and cough. No concerns per nursing; discussed importance of encouraging p.o. intake and remaining out of restraints (2/2 development of BRENDA w/ mild Rhabdo). Order for 1:1 sitter placed. Reason For Visit: RLL PNEUMONIA Physical Exam Vital Signs: Temp Pulse Resp BP Pulse Ox 97.8 F 58 L 20 106/66 99 01/30/19 07:42 01/30/19 07:55 01/30/19 07:55 01/30/19 07:42 01/30/19 07:55 Intake & Output 01/29/19 01/30/19 01/31/19 06:59 06:59 06:59 Intake Total 3573 2040 242 Output Total 200 Balance 3373 2040 242 Weight 59.5 kg 48.5 kg General appearance: PRESENT: no acute distress, cooperative, thin, well- developed Head exam: PRESENT: atraumatic, normocephalic Eye exam: PRESENT: conjunctiva pink, EOMI, PERRLA. ABSENT: scleral icterus Mouth exam: PRESENT: moist, tongue midline Neck exam: ABSENT: carotid bruit, JVD, lymphadenopathy, thyromegaly Respiratory exam: PRESENT: clear to auscultation gama, symmetrical, unlabored. ABSENT: rales, rhonchi, wheezes Cardiovascular exam: PRESENT: RRR. ABSENT: diastolic murmur, rubs, systolic murmur Pulses: PRESENT: normal dorsalis pedis pul Vascular exam: PRESENT: normal capillary refill GI/Abdominal exam: PRESENT: normal bowel sounds, soft. ABSENT: distended, guarding, mass, organolmegaly, rebound, tenderness Rectal exam: PRESENT: deferred Extremities exam: PRESENT: full ROM. ABSENT: calf tenderness, clubbing, pedal edema Neurological exam: PRESENT: alert, awake, oriented to person, oriented to place, CN II-XII grossly intact. ABSENT: oriented to time, oriented to situation, motor sensory deficit Psychiatric exam: PRESENT: appropriate affect, normal mood. ABSENT: homicidal ideation, suicidal ideation Skin exam: PRESENT: dry, intact, warm. ABSENT: cyanosis, rash Results Laboratory Results: 01/30/19 06:13 01/30/19 06:13 01/30/19 01/30/19 06:13 06:13 WBC 8.6 RBC 3.98 L Hgb 11.6 L Hct 34.5 L MCV 87 MCH 29.1 MCHC 33.5 RDW 15.7 H Plt Count 299 Sodium 141.6 Potassium 3.9 Chloride 106 Carbon Dioxide 26 Anion Gap 10 BUN 21 H Creatinine 1.96 H Est GFR ( Amer) 41 L Est GFR (Non-Af Amer) 34 L Glucose 74 L Calcium 9.2 Total Bilirubin 0.4 AST 69 H ALT 36 Alkaline Phosphatase 89 Total Protein 6.6 Albumin 3.5 01/29/19 01/29/19 01/29/19 10:51 10:51 14:40 Creatine Kinase 688 H 916 H CK-MB (CK-2) 7.95 H Troponin I < 0.012 01/29/19 01/29/19 01/29/19 14:40 21:41 21:41 Creatine Kinase 928 H CK-MB (CK-2) 10.40 H 7.89 H Troponin I < 0.012 < 0.012 01/30/19 06:13 Creatine Kinase 1000 H CK-MB (CK-2) Troponin I Impressions: Chest X-Ray 01/13/19 00:00 IMPRESSION: 1. Slightly worsened appearance of the chronic right lower lobe opacity representing patient's known fibrotic changes; however, findings may represent superimposed pneumonia in the appropriate clinical setting. 2. Mildly improved left lower lobe opacity. Head CT 01/13/19 18:25 IMPRESSION: MICROVASCULAR ISCHEMIA AND GENERALIZED ATROPHY. NO ACUTE IMAGING FINDINGS IN THE BRAIN EVIDENCE OF ACUTE STROKE: NO. Assessment and Plan - Diagnosis (1) Bacteremia Is this a current diagnosis for this admission?: Yes Plan: Patient has 1/4 bottles positive for MRSA. Repeat blood cultures negative at 5 days. Unclear source. Sputum cultures show no growth No MRSA in any previous cultures on file. No skin breakdown identified. TTE negative for vegetations. Continue Vancomycin; last dose today. Consulted infectious disease for antibiotic guidance; recommends minimum 2 weeks IV antibiotics. (2) Acute on chronic respiratory failure with hypoxia Is this a current diagnosis for this admission?: Yes Plan: Resolved. Secondary to pneumonia RLL PNA seen on CXR Blood culture (09/01) positive for MRSA. Sputum culture negative Initially treated with azithromycin and Rocephin, switched to Vanco and Zosyn. Continue vancomycin as above (for MRSA bacteremia). Supplemental oxygen via nasal cannula for SPO2> 88% Scheduled and as needed nebulizer treatments (3) Altered mental status Qualifiers: Altered mental status type: somnolence Qualified Code(s): R40.0 - Somnolence Is this a current diagnosis for this admission?: Yes Plan: waxes and wanes; likely at baseline Head CT negative History of severe dementia and anoxic brain injury at the age of 27 Daughter states that the patient has the mental capacity of a 7-year-old Patient will intermittently have days when he is very lucid and cooperative, other days he is very altered and agitated The patient erratic behavior is likely related to dementia and acute delirium, exacerbated by his active infection. His anoxic brain injury, while it does not help his situation, is not the primary culprit of his agitation. Supportive and symptomatic care as required Fall precautions. 1:1 sitter for safety. Continue home dose Zyprexa and Lamictal. Continue BuSpar. PRN Haldol IV IV ativan as needed. Avoid use of restraints; may consider roll belt for safety (4) Hypotension Qualifiers: Hypotension type: hypotension due to hypovolemia Qualified Code(s): I95.89 - Other hypotension; E86.1 - Hypovolemia Is this a current diagnosis for this admission?: Yes Plan: RESOLVED Oral fluids are encouraged Continue maintenance IVF (5) Muscle atrophy Qualifiers: Muscle atrophy area: multiple sites Qualified Code(s): M62.59 - Muscle wasting and atrophy, not elsewhere classified, multiple sites Is this a current diagnosis for this admission?: Yes Plan: Unfortunately, patient has been restrained to the bed for multiple days at a time; likely suffered a great deal of muscle atrophy Consulting PT/OT to work with patient now that he is more lucid Discussed w/ nursing today; keep out of restraints if at all possible. May consider roll belt only. (6) BRENDA (acute kidney injury) Is this a current diagnosis for this admission?: Yes Plan: Cr 1.21-> 0.65-> 0.84-> 1.96 Likely prerenal; decreased p.o. intake (thickened liquids, use of restrains, altered mental status). Will obtain post-void bladder scan. Avoid nephrotoxic medications as able. Continue IVF. Daily chemistries; if not improved, consult nephrology tomorrow. (7) Elevated CK Is this a current diagnosis for this admission?: Yes Plan: Nursing staff reported the patient was very diaphoretic this AM Entire bed sheets/gown needed changing No EKG tracings from this time Follow EKG shows NSR, no infarction or ischemia Follow up cardiac enzymes demonstrate elevated CK (688-> 1000) and CK-MB (7.95-> 10.4-> 7.89), troponin normal x3 Additional IVF bolus and maintenance IVF today (8) Pneumonia Qualifiers: Pneumonia type: due to unspecified organism Laterality: right Lung location: lower lobe of lung Qualified Code(s): J18.1 - Lobar pneumonia, unspecified organism Is this a current diagnosis for this admission?: Yes Plan: Resolved; recieved full antibiotic course. PNA seen on CXR - Time Time Spent with patient: 25-34 minutes Medications reviewed and adjusted accordingly: Yes Anticipated discharge: Other - LTC/Memory Care Within: within 48 hours
[2019-01-30] MEDS: RINGERS SOLUTION,LACTATED 1,000 ML IV PRN (17:14)
[2019-01-30] MEDS: NYSTATIN TOPICAL POWDER 15 GM TP SCH (21:33)
[2019-01-30] MEDS: SIMVASTATIN 40 MG TABLET PO SCH (21:34)
[2019-01-31] MEDS: RINGERS SOLUTION,LACTATED 1,000 ML IV PRN ×3 (02:26→17:54)
[2019-01-31] MEDS: HEPARIN SOD (PORCINE) 5,000 UNIT/ML 1 ML SYRINGE SUBCUT SCH ×3 (05:31→21:37)
[2019-01-31 06:25] LABS: ANION GAP 7 (5-19); BLOOD UREA NITROGEN 20 mg/dL (7-20); CALCIUM 8.9 mg/dL (8.4-10.2); CARBON DIOXIDE 28 mmol/L (22-30); CHLORIDE 108 mmol/L (98-107); CREATINE KINASE 410 U/L (55-170); GLUCOSE 74 mg/dL (75-110); POTASSIUM 3.6 mmol/L (3.6-5.0); SODIUM 142.5 mmol/L (137-145)
[2019-01-31] MEDS: OLANZAPINE 5 MG TABLET PO SCH ×2 (08:17→21:36)
[2019-01-31] MEDS: BUSPIRONE HCL 10 MG TABLET PO SCH ×2 (08:17→17:54)
[2019-01-31] MEDS: IPRATROPIUM BROMIDE 0.02% NEB 0.5 MG/2.5 ML AMPUL NEB SCH ×2 (08:27→20:42)
[2019-01-31] MEDS: LEVALBUTEROL HCL NEB 1.25 MG/3 ML AMPUL NEB SCH ×2 (08:27→20:42)
[2019-01-31] MEDS: MULTIVITAMIN TABLET PO SCH (10:13)
[2019-01-31] MEDS: LAMOTRIGINE 25 MG TAB.CHEW PO SCH ×2 (10:13→21:36)
[2019-01-31] MEDS: ASPIRIN 81 MG TABLET, ENT COATED PO SCH (10:13)
[2019-01-31] MEDS: NICOTINE 14 MG/24 HR PATCH.TD24 TD SCH (10:13)
[2019-01-31] MEDS: FAMOTIDINE 20 MG TABLET PO SCH ×2 (10:13→17:54)
[2019-01-31] MEDS: NYSTATIN TOPICAL POWDER 15 GM TP SCH ×2 (10:15→17:55)
[2019-01-31] MEDS: TIOTROPIUM BROMIDE DPI 5 CAP/KIT (18 MCG/CAP) IH SCH (14:34)
--- NOTE | 2019-01-31 18:21 | PDOC PROGRESS REPORT ---
Subjective Progress Note for:: 01/31/19 Subjective:: 73 y.o. M with a PMH of anoxic brain injury (at age 27 y.o.), COPD, parkinsonism and HLD. He presented to [facility] ED for acute lethargy. He currently lives at an assisted living facility, [facility]. Patient has severe dementia and is unable to provide any meaningful input. Patient was seen on morning rounds. He was found to be resting in bed comfortably on room air. He was sleeping but woke easily when I said his name. He smiles and nods his head when asked questions, but does not actually answer or respond appropriately this morning. He is noted to fall back to sleep during my assessment. ROS is limited secondary to mental status/participation; does deny pain, difficulty breathing and cough. No concerns per nursing; continue 1:1 sitter for safety. Reason For Visit: RLL PNEUMONIA Physical Exam Vital Signs: Temp Pulse Resp BP Pulse Ox 97.3 F 61 14 101/60 99 01/31/19 03:43 01/31/19 08:27 01/31/19 08:27 01/31/19 03:43 01/31/19 08:27 Intake & Output 01/30/19 01/31/19 02/01/19 06:59 06:59 06:59 Intake Total 2039 1760 1000 Balance 2039 1760 1000 Weight 48.5 kg 51.9 kg General appearance: PRESENT: no acute distress, cooperative, thin, well- developed Head exam: PRESENT: atraumatic, normocephalic Eye exam: PRESENT: conjunctiva pink, EOMI, PERRLA. ABSENT: scleral icterus Ear exam: PRESENT: normal external ear exam Mouth exam: PRESENT: moist, tongue midline Teeth exam: PRESENT: poor dentation Neck exam: ABSENT: carotid bruit, JVD, lymphadenopathy, thyromegaly Respiratory exam: PRESENT: rhonchi, symmetrical, unlabored. ABSENT: rales, wheezes Cardiovascular exam: PRESENT: RRR, +S1, +S2. ABSENT: diastolic murmur, rubs, systolic murmur Pulses: PRESENT: normal dorsalis pedis pul Vascular exam: PRESENT: normal capillary refill GI/Abdominal exam: PRESENT: normal bowel sounds, soft. ABSENT: distended, guarding, mass, organolmegaly, rebound, tenderness Rectal exam: PRESENT: deferred Extremities exam: PRESENT: full ROM, +1 edema - LUE. ABSENT: calf tenderness, clubbing, pedal edema Neurological exam: PRESENT: alert, awake, oriented to person, CN II-XII grossly intact, other - socially appropriate, plesantly confused, impulsive, poor safety awareness. ABSENT: motor sensory deficit Psychiatric exam: PRESENT: appropriate affect, normal mood. ABSENT: homicidal ideation, suicidal ideation Skin exam: PRESENT: dry, intact, warm. ABSENT: cyanosis, rash Results Laboratory Results: 01/30/19 06:13 01/31/19 05:46 01/31/19 05:46 Sodium 142.5 Potassium 3.6 Chloride 108 H Carbon Dioxide 28 Anion Gap 7 BUN 20 Creatinine 1.76 H Est GFR ( Amer) 46 L Est GFR (Non-Af Amer) 38 L Glucose 74 L Calcium 8.9 01/29/19 01/29/19 01/29/19 10:51 10:51 14:40 Creatine Kinase 688 H 916 H CK-MB (CK-2) 7.95 H Troponin I < 0.012 01/29/19 01/29/19 01/29/19 14:40 21:41 21:41 Creatine Kinase 928 H CK-MB (CK-2) 10.40 H 7.89 H Troponin I < 0.012 < 0.012 01/30/19 01/31/19 06:13 05:46 Creatine Kinase 1000 H 410 H CK-MB (CK-2) Troponin I Impressions: Chest X-Ray 01/13/19 00:00 IMPRESSION: 1. Slightly worsened appearance of the chronic right lower lobe opacity representing patient's known fibrotic changes; however, findings may represent superimposed pneumonia in the appropriate clinical setting. 2. Mildly improved left lower lobe opacity. Head CT 01/13/19 18:25 IMPRESSION: MICROVASCULAR ISCHEMIA AND GENERALIZED ATROPHY. NO ACUTE IMAGING FINDINGS IN THE BRAIN EVIDENCE OF ACUTE STROKE: NO. Assessment and Plan - Diagnosis (1) Bacteremia Is this a current diagnosis for this admission?: Yes Plan: Patient has 1/4 bottles positive for MRSA. Repeat blood cultures negative at 5 days. Unclear source. Sputum cultures show no growth No MRSA in any previous cultures on file. No skin breakdown identified. TTE negative for vegetations. Continue Vancomycin; last dose yesterday Consulted infectious disease for antibiotic guidance; recommends minimum 2 weeks IV antibiotics. (2) Acute on chronic respiratory failure with hypoxia Is this a current diagnosis for this admission?: Yes Plan: Resolved. Secondary to pneumonia RLL PNA seen on CXR Blood culture (09/01) positive for MRSA. Sputum culture negative Initially treated with azithromycin and Rocephin, switched to Vanco and Zosyn. Have completed full course of antibiotics. Supplemental oxygen via nasal cannula for SPO2> 88% Scheduled and as needed nebulizer treatments (3) Altered mental status Qualifiers: Altered mental status type: somnolence Qualified Code(s): R40.0 - Somnolence Is this a current diagnosis for this admission?: Yes Plan: waxes and wanes; likely at baseline Head CT negative History of severe dementia and anoxic brain injury at the age of 27 Daughter states that the patient has the mental capacity of a 7-year-old Patient will intermittently have days when he is very lucid and cooperative, other days he is very altered and agitated The patient erratic behavior is likely related to dementia and acute delirium, exacerbated by his active infection. His anoxic brain injury, while it does not help his situation, is not the primary culprit of his agitation. Supportive and symptomatic care as required Fall precautions. 1:1 sitter for safety. Continue home dose Zyprexa and Lamictal. Continue BuSpar. PRN Haldol IV IV ativan as needed. Avoid use of restraints; may consider roll belt for safety (4) Hypotension Qualifiers: Hypotension type: hypotension due to hypovolemia Qualified Code(s): I95.89 - Other hypotension; E86.1 - Hypovolemia Is this a current diagnosis for this admission?: Yes Plan: RESOLVED Oral fluids are encouraged Continue maintenance IVF for treatment of BRENDA (5) Muscle atrophy Qualifiers: Muscle atrophy area: multiple sites Qualified Code(s): M62.59 - Muscle wasting and atrophy, not elsewhere classified, multiple sites Is this a current diagnosis for this admission?: Yes Plan: Unfortunately, patient has been restrained to the bed for multiple days at a time; likely suffered a great deal of muscle atrophy Consulting PT/OT to work with patient now that he is more lucid Discussed w/ nursing; keep out of restraints if at all possible. May consider roll belt only. (6) BRENDA (acute kidney injury) Is this a current diagnosis for this admission?: Yes Plan: Beginning to improve; Cr 1.21-> 0.65-> 0.84-> 1.96-> 1.76 Likely prerenal; decreased p.o. intake (thickened liquids, use of restrains, altered mental status). Patient has had excellent urinary output; post void bladder scan unremarkable. No suspicion for postobstructive process. Avoid nephrotoxic medications as able; fortunately, no longer on vancomycin. Continue IVF. Daily chemistries (7) Elevated CK Is this a current diagnosis for this admission?: Yes Plan: Significantly improved. EKG shows NSR, no infarction or ischemia Follow up cardiac enzymes demonstrate elevated CK (688-> 1000-> 410) and CK-MB (7.95-> 10.4-> 7.89), troponin normal x3 Continue maintenance IVF (8) Pneumonia Qualifiers: Pneumonia type: due to unspecified organism Laterality: right Lung location: lower lobe of lung Qualified Code(s): J18.1 - Lobar pneumonia, unspecified organism Is this a current diagnosis for this admission?: Yes Plan: Resolved; recieved full antibiotic course. - Time Time Spent with patient: 15-24 minutes Medications reviewed and adjusted accordingly: Yes Anticipated discharge: SNF Within: within 24 hours
[2019-01-31] MEDS: HALOPERIDOL LACTATE INJ 5 MG/1 ML VIAL IV PRN (20:23)
[2019-01-31] MEDS: SIMVASTATIN 40 MG TABLET PO SCH (21:36)
[2019-01-31] MEDS ORDERED: HALOPERIDOL LACTATE INJ 5 MG/1 ML VIAL IM ONE (22:30)
[2019-01-31] MEDS ORDERED: DIPHENHYDRAMINE HCL 50 MG/ML VIAL IM ONE (22:30)
[2019-02-01] MEDS: RINGERS SOLUTION,LACTATED 1,000 ML IV PRN ×2 (05:27→14:48)
[2019-02-01] MEDS: HEPARIN SOD (PORCINE) 5,000 UNIT/ML 1 ML SYRINGE SUBCUT SCH ×3 (05:31→21:09)
[2019-02-01 06:34] LABS: ANION GAP 7 (5-19); BLOOD UREA NITROGEN 16 mg/dL (7-20); CARBON DIOXIDE 28 mmol/L (22-30); CHLORIDE 108 mmol/L (98-107); GLUCOSE 85 mg/dL (75-110); POTASSIUM 3.7 mmol/L (3.6-5.0); SODIUM 143.1 mmol/L (137-145)
[2019-02-01] MEDS: LEVALBUTEROL HCL NEB 1.25 MG/3 ML AMPUL NEB SCH (08:49)
[2019-02-01] MEDS: IPRATROPIUM BROMIDE 0.02% NEB 0.5 MG/2.5 ML AMPUL NEB SCH (08:49)
[2019-02-01] MEDS: FAMOTIDINE 20 MG TABLET PO SCH ×2 (09:43→17:14)
[2019-02-01] MEDS: MULTIVITAMIN TABLET PO SCH (09:43)
[2019-02-01] MEDS: LAMOTRIGINE 25 MG TAB.CHEW PO SCH ×2 (09:43→21:10)
[2019-02-01] MEDS: ASPIRIN 81 MG TABLET, ENT COATED PO SCH (09:43)
[2019-02-01] MEDS: OLANZAPINE 5 MG TABLET PO SCH ×2 (09:44→21:10)
[2019-02-01] MEDS: BUSPIRONE HCL 10 MG TABLET PO SCH ×2 (09:44→17:14)
[2019-02-01] MEDS: NICOTINE 14 MG/24 HR PATCH.TD24 TD SCH (09:44)
[2019-02-01] MEDS: TIOTROPIUM BROMIDE DPI 5 CAP/KIT (18 MCG/CAP) IH SCH (09:44)
[2019-02-01] MEDS: NYSTATIN TOPICAL POWDER 15 GM TP SCH ×2 (09:45→17:14)
[2019-02-01 14:29] LABS: VANCOMYCIN,TROUGH 9.8 ug/mL (5.0-20.0)
--- NOTE | 2019-02-01 17:32 | PDOC PROGRESS REPORT ---
Subjective Progress Note for:: 02/01/19 Subjective:: 73 y.o. M with a PMH of anoxic brain injury (at age 27 y.o.), COPD, parkinsonism and HLD. He presented to [facility] ED for acute lethargy. He currently lives at an assisted living facility, [facility]. Patient has severe dementia and is unable to provide any meaningful input. Patient was seen on morning rounds. He was found to be resting in bed comfortably on room air eating his breakfast. He smiles and says good morning to me; asks me to assist him with opening his apple juice. He is alert and oriented to self, conversational socially appropriate this morning; u nfortunately he did require medications for agitation and was briefly in soft restraints. This morning he tells me that he is feeling well and denies any discomfort. No concerns per nursing; continue 1:1 sitter for safety. Reason For Visit: RLL PNEUMONIA Physical Exam Vital Signs: Temp Pulse Resp BP Pulse Ox 97.4 F 58 L 18 118/72 96 02/01/19 08:20 02/01/19 08:20 02/01/19 08:20 02/01/19 08:20 02/01/19 08:20 Intake & Output 01/31/19 02/01/19 02/02/19 06:59 06:59 06:59 Intake Total 1760 2754 Balance 1760 2754 Weight 51.9 kg 51.9 kg General appearance: PRESENT: no acute distress, cooperative, thin, well- developed Head exam: PRESENT: atraumatic, normocephalic Eye exam: PRESENT: conjunctiva pink, EOMI, PERRLA. ABSENT: scleral icterus Ear exam: PRESENT: normal external ear exam Mouth exam: PRESENT: moist, tongue midline Teeth exam: PRESENT: poor dentation Neck exam: ABSENT: carotid bruit, JVD, lymphadenopathy, thyromegaly Respiratory exam: PRESENT: rhonchi, symmetrical, unlabored. ABSENT: rales, wheezes Cardiovascular exam: PRESENT: RRR, +S1, +S2. ABSENT: diastolic murmur, rubs, systolic murmur Pulses: PRESENT: normal dorsalis pedis pul Vascular exam: PRESENT: normal capillary refill GI/Abdominal exam: PRESENT: normal bowel sounds, soft. ABSENT: distended, guarding, mass, organolmegaly, rebound, tenderness Rectal exam: PRESENT: deferred Extremities exam: PRESENT: full ROM. ABSENT: calf tenderness, clubbing, pedal edema Neurological exam: PRESENT: alert, awake, oriented to person, CN II-XII grossly intact, other - Socially appropriate, conversational, slight confusion; at baseline. ABSENT: motor sensory deficit Psychiatric exam: PRESENT: appropriate affect, normal mood. ABSENT: homicidal ideation, suicidal ideation Skin exam: PRESENT: dry, intact, warm. ABSENT: cyanosis, rash Results Laboratory Results: 01/30/19 06:13 02/01/19 05:52 02/01/19 05:52 Sodium 143.1 Potassium 3.7 Chloride 108 H Carbon Dioxide 28 Anion Gap 7 BUN 16 Creatinine 1.63 H Est GFR ( Amer) 51 L Est GFR (Non-Af Amer) 42 L Glucose 85 Calcium 9.0 01/29/19 01/29/19 01/29/19 10:51 10:51 14:40 Creatine Kinase 688 H 916 H CK-MB (CK-2) 7.95 H Troponin I < 0.012 01/29/19 01/29/19 01/29/19 14:40 21:41 21:41 Creatine Kinase 928 H CK-MB (CK-2) 10.40 H 7.89 H Troponin I < 0.012 < 0.012 01/30/19 01/31/19 06:13 05:46 Creatine Kinase 1000 H 410 H CK-MB (CK-2) Troponin I Impressions: Chest X-Ray 01/13/19 00:00 IMPRESSION: 1. Slightly worsened appearance of the chronic right lower lobe opacity representing patient's known fibrotic changes; however, findings may represent superimposed pneumonia in the appropriate clinical setting. 2. Mildly improved left lower lobe opacity. Head CT 01/13/19 18:25 IMPRESSION: MICROVASCULAR ISCHEMIA AND GENERALIZED ATROPHY. NO ACUTE IMAGING FINDINGS IN THE BRAIN EVIDENCE OF ACUTE STROKE: NO. Assessment and Plan - Diagnosis (1) Bacteremia Is this a current diagnosis for this admission?: Yes Plan: Resolved. Patient has 1/4 bottles positive for MRSA. Repeat blood cultures negative at 5 days. Unclear source. Sputum cultures show no growth No MRSA in any previous cultures on file. No skin breakdown identified. TTE negative for vegetations. Has completed 2-week course of IV vancomycin. (2) Acute on chronic respiratory failure with hypoxia Is this a current diagnosis for this admission?: Yes Plan: Resolved. Secondary to pneumonia RLL PNA seen on CXR Blood culture (09/01) positive for MRSA. Sputum culture negative Initially treated with azithromycin and Rocephin, switched to Vanco and Zosyn. Have completed full course of antibiotics. Supplemental oxygen via nasal cannula for SPO2> 88% Scheduled and as needed nebulizer treatments (3) Altered mental status Qualifiers: Altered mental status type: somnolence Qualified Code(s): R40.0 - Somnolence Is this a current diagnosis for this admission?: Yes Plan: waxes and wanes; likely at baseline Head CT negative History of severe dementia and anoxic brain injury at the age of 27 Daughter states that the patient has the mental capacity of a 7-year-old Patient will intermittently have days when he is very lucid and cooperative, other days he is very altered and agitated The patient erratic behavior is likely related to dementia and acute delirium, exacerbated by his active infection. His anoxic brain injury, while it does not help his situation, is not the primary culprit of his agitation. Does seem that his symptoms worsen at night. Discussed with Dr. Bran will start melatonin and Seroquel nightly. Supportive and symptomatic care as required Fall precautions. 1:1 sitter for safety. Continue home dose Zyprexa and Lamictal. Continue BuSpar. Will start melatonin and Seroquel nightly. PRN Haldol IV IV ativan as needed. Avoid use of restraints; may consider roll belt for safety (4) Hypotension Qualifiers: Hypotension type: hypotension due to hypovolemia Qualified Code(s): I95.89 - Other hypotension; E86.1 - Hypovolemia Is this a current diagnosis for this admission?: Yes Plan: RESOLVED Oral fluids are encouraged Continue maintenance IVF for treatment of BRENDA (5) Muscle atrophy Qualifiers: Muscle atrophy area: multiple sites Qualified Code(s): M62.59 - Muscle wasting and atrophy, not elsewhere classified, multiple sites Is this a current diagnosis for this admission?: Yes Plan: Unfortunately, patient has been restrained to the bed for multiple days at a time; likely suffered a great deal of muscle atrophy PT/OT consultations requested. Discussed w/ nursing; keep out of restraints if at all possible. May consider roll belt only. (6) BRENDA (acute kidney injury) Is this a current diagnosis for this admission?: Yes Plan: Continues to improve; Cr 1.21-> 0.65-> 0.84-> 1.96-> 1.76-> 1.63 Likely prerenal; decreased p.o. intake (thickened liquids, use of restrains, altered mental status). Patient has had excellent urinary output; post void bladder scan unremarkable. No suspicion for postobstructive process. Avoid nephrotoxic medications as able; fortunately, no longer on vancomycin. Discussed with Dr. Bran today; will continue IVF until creatinine stabilizes/returns to baseline. Daily chemistries (7) Elevated CK Is this a current diagnosis for this admission?: Yes Plan: Significantly improved. EKG shows NSR, no infarction or ischemia Follow up cardiac enzymes demonstrate elevated CK (688-> 1000-> 410) and CK-MB (7.95-> 10.4-> 7.89), troponin normal x3 Continue maintenance IVF (8) Pneumonia Qualifiers: Pneumonia type: due to unspecified organism Laterality: right Lung location: lower lobe of lung Qualified Code(s): J18.1 - Lobar pneumonia, unspecified organism Is this a current diagnosis for this admission?: Yes Plan: Resolved; received full antibiotic course. - Time Time Spent with patient: 15-24 minutes Medications reviewed and adjusted accordingly: Yes Anticipated discharge: Other - Memory care Within: within 48 hours
[2019-02-01] MEDS ORDERED: VANCOMYCIN HCL 750 MG in DEXTROSE 5%-WATER 250 ML IV SCH (18:00)
[2019-02-01] MEDS: MELATONIN 3 MG TABLET PO SCH (18:11)
[2019-02-01] MEDS: QUETIAPINE FUMARATE 25 MG TABLET PO SCH (21:09)
[2019-02-01] MEDS: SIMVASTATIN 40 MG TABLET PO SCH (21:09)
[2019-02-02] MEDS: HALOPERIDOL LACTATE INJ 5 MG/1 ML VIAL IV PRN (00:07)
[2019-02-02] MEDS: RINGERS SOLUTION,LACTATED 1,000 ML IV PRN (00:23)
[2019-02-02] MEDS: HEPARIN SOD (PORCINE) 5,000 UNIT/ML 1 ML SYRINGE SUBCUT SCH ×3 (05:08→21:38)
[2019-02-02 07:06] LABS: ANION GAP 7 (5-19); BLOOD UREA NITROGEN 17 mg/dL (7-20); CALCIUM 9.1 mg/dL (8.4-10.2); CARBON DIOXIDE 28 mmol/L (22-30); CHLORIDE 105 mmol/L (98-107); GLUCOSE 76 mg/dL (75-110); POTASSIUM 3.7 mmol/L (3.6-5.0); SODIUM 140.4 mmol/L (137-145)
[2019-02-02] MEDS: NICOTINE 14 MG/24 HR PATCH.TD24 TD SCH (09:35)
[2019-02-02] MEDS: LAMOTRIGINE 25 MG TAB.CHEW PO SCH ×2 (09:35→22:44)
[2019-02-02] MEDS: ASPIRIN 81 MG TABLET, ENT COATED PO SCH (09:35)
[2019-02-02] MEDS: BUSPIRONE HCL 10 MG TABLET PO SCH ×2 (09:35→18:59)
[2019-02-02] MEDS: OLANZAPINE 5 MG TABLET PO SCH ×2 (09:35→22:45)
[2019-02-02] MEDS: MULTIVITAMIN TABLET PO SCH (09:35)
[2019-02-02] MEDS: FAMOTIDINE 20 MG TABLET PO SCH ×2 (09:35→18:59)
[2019-02-02] MEDS: NYSTATIN TOPICAL POWDER 15 GM TP SCH ×2 (09:36→17:35)
[2019-02-02] MEDS: TIOTROPIUM BROMIDE DPI 5 CAP/KIT (18 MCG/CAP) IH SCH (09:37)
[2019-02-02 16:39] LABS: ANION GAP 8 (5-19); BLOOD UREA NITROGEN 11 mg/dL (7-20); CALCIUM 8.5 mg/dL (8.4-10.2); CARBON DIOXIDE 30 mmol/L (22-30); CHLORIDE 101 mmol/L (98-107); GLUCOSE 78 mg/dL (75-110); POTASSIUM 3.7 mmol/L (3.6-5.0); SODIUM 139.1 mmol/L (137-145)
[2019-02-02] MEDS ORDERED: TUBERCULIN,PURIF.PROT.DERIV. 5 TU/0.1 ML TEST 1 ML VIAL ID ONE (18:30)
--- NOTE | 2019-02-02 18:51 | PDOC PROGRESS REPORT ---
Subjective Progress Note for:: 02/02/19 Subjective:: 73 y.o. M with a PMH of anoxic brain injury (at age 27 y.o.), COPD, parkinsonism and HLD. He presented to [facility] ED for acute lethargy. He currently lives at an assisted living facility, [facility]. Patient has severe dementia and is unable to provide any meaningful input. Patient was seen on afternoon rounds. He was found to be resting in bed comfortably on room air. He is alert and oriented to self, conversational and socially appropriate, though with impulsive/poor risk awareness. He was easily redirected for me. He tells me that he is feeling well and denies any discomfort. No concerns per nursing; continue 1:1 sitter for safety. Reason For Visit: RLL PNEUMONIA Physical Exam Vital Signs: Temp Pulse Resp BP Pulse Ox 98.0 F 57 L 22 H 121/60 100 02/02/19 14:15 02/02/19 14:15 02/02/19 14:15 02/02/19 14:15 02/02/19 14:15 Intake & Output 02/01/19 02/02/19 02/03/19 06:59 06:59 06:59 Intake Total 2754 3055 1240 Balance 2754 3055 1240 Weight 51.9 kg 50.4 kg General appearance: PRESENT: no acute distress, cooperative, thin, well- developed Head exam: PRESENT: atraumatic, normocephalic Eye exam: PRESENT: conjunctiva pink, EOMI, PERRLA. ABSENT: scleral icterus Ear exam: PRESENT: normal external ear exam Mouth exam: PRESENT: moist, tongue midline Teeth exam: PRESENT: poor dentation Neck exam: ABSENT: carotid bruit, JVD, lymphadenopathy, thyromegaly Respiratory exam: PRESENT: stridor, symmetrical, unlabored. ABSENT: rales, rhonchi, wheezes Cardiovascular exam: PRESENT: RRR, +S1, +S2. ABSENT: diastolic murmur, rubs, systolic murmur Pulses: PRESENT: normal dorsalis pedis pul Vascular exam: PRESENT: normal capillary refill GI/Abdominal exam: PRESENT: normal bowel sounds, soft. ABSENT: distended, guarding, mass, organolmegaly, rebound, tenderness Rectal exam: PRESENT: deferred Extremities exam: PRESENT: full ROM. ABSENT: calf tenderness, clubbing, pedal edema Neurological exam: PRESENT: alert, awake, oriented to person, CN II-XII grossly intact, other - Socially appropriate, conversational, disorientated; at baseline. ABSENT: motor sensory deficit Psychiatric exam: PRESENT: appropriate affect, normal mood. ABSENT: homicidal ideation, suicidal ideation Skin exam: PRESENT: dry, intact, warm. ABSENT: cyanosis, rash Results Laboratory Results: 01/30/19 06:13 02/02/19 15:53 02/02/19 02/02/19 06:46 15:53 Sodium 140.4 139.1 Potassium 3.7 3.7 Chloride 105 101 Carbon Dioxide 28 30 Anion Gap 7 8 BUN 17 11 Creatinine 1.46 H 0.72 Est GFR ( Amer) 58 L > 60 Est GFR (Non-Af Amer) 48 L > 60 Glucose 76 78 Calcium 9.1 8.5 01/29/19 01/29/19 01/29/19 10:51 10:51 14:40 Creatine Kinase 688 H 916 H CK-MB (CK-2) 7.95 H Troponin I < 0.012 01/29/19 01/29/19 01/29/19 14:40 21:41 21:41 Creatine Kinase 928 H CK-MB (CK-2) 10.40 H 7.89 H Troponin I < 0.012 < 0.012 01/30/19 01/31/19 06:13 05:46 Creatine Kinase 1000 H 410 H CK-MB (CK-2) Troponin I Impressions: Chest X-Ray 01/13/19 00:00 IMPRESSION: 1. Slightly worsened appearance of the chronic right lower lobe opacity representing patient's known fibrotic changes; however, findings may represent superimposed pneumonia in the appropriate clinical setting. 2. Mildly improved left lower lobe opacity. Head CT 01/13/19 18:25 IMPRESSION: MICROVASCULAR ISCHEMIA AND GENERALIZED ATROPHY. NO ACUTE IMAGING FINDINGS IN THE BRAIN EVIDENCE OF ACUTE STROKE: NO. Assessment and Plan - Diagnosis (1) Bacteremia Is this a current diagnosis for this admission?: Yes Plan: Resolved. Patient has 1/4 bottles positive for MRSA. Repeat blood cultures negative at 5 days. Unclear source. Sputum cultures show no growth No MRSA in any previous cultures on file. No skin breakdown identified. TTE negative for vegetations. Has completed 2-week course of IV vancomycin. (2) Acute on chronic respiratory failure with hypoxia Is this a current diagnosis for this admission?: Yes Plan: Resolved. Secondary to pneumonia RLL PNA seen on CXR Blood culture (09/01) positive for MRSA. Sputum culture negative Initially treated with azithromycin and Rocephin, switched to Vanco and Zosyn. Have completed full course of antibiotics. Supplemental oxygen via nasal cannula for SPO2> 88% Scheduled and as needed nebulizer treatments (3) Altered mental status Qualifiers: Altered mental status type: somnolence Qualified Code(s): R40.0 - Somnolence Is this a current diagnosis for this admission?: Yes Plan: Waxes and wanes; at baseline Head CT negative History of severe dementia and anoxic brain injury at the age of 27 Daughter states that the patient has the mental capacity of a 7-year-old Patient will intermittently have days when he is very lucid and cooperative, other days he is very altered and agitated The patient erratic behavior is likely related to dementia and acute delirium, exacerbated by his active infection. His anoxic brain injury, while it does not help his situation, is not the primary culprit of his agitation. Does seem that his symptoms worsen at night. Discussed with Dr. Bran will start melatonin and Seroquel nightly. Supportive and symptomatic care as required Fall precautions. 1:1 sitter for safety. Continue home dose Zyprexa and Lamictal. Continue BuSpar. Continue melatonin and Seroquel nightly; nursing reports no overnight concerns. PRN Haldol IV IV ativan as needed. Avoid use of restraints; may consider roll belt for safety (4) Hypotension Qualifiers: Hypotension type: hypotension due to hypovolemia Qualified Code(s): I95.89 - Other hypotension; E86.1 - Hypovolemia Is this a current diagnosis for this admission?: Yes Plan: RESOLVED Oral fluids are encouraged Continue maintenance IVF for treatment of BRENDA (5) Muscle atrophy Qualifiers: Muscle atrophy area: multiple sites Qualified Code(s): M62.59 - Muscle wasting and atrophy, not elsewhere classified, multiple sites Is this a current diagnosis for this admission?: Yes Plan: Unfortunately, patient has been restrained to the bed for multiple days at a time; has suffered a great deal of muscle atrophy PT/OT consultations requested. Discussed w/ nursing; keep out of restraints if at all possible. May consider roll belt only. (6) BRENDA (acute kidney injury) Is this a current diagnosis for this admission?: Yes Plan: Resolved; Cr 1.21-> 0.65-> 0.84-> 1.96-> 1.76-> 1.63-> 1.46-> 0.72 Likely prerenal; decreased p.o. intake (thickened liquids, use of restrains, altered mental status). Patient has had excellent urinary output; post void bladder scan unremarkable. No suspicion for postobstructive process. Avoid nephrotoxic medications as able; fortunately, no longer on vancomycin. (7) Elevated CK Is this a current diagnosis for this admission?: Yes Plan: Significantly improved. EKG shows NSR, no infarction or ischemia Follow up cardiac enzymes demonstrate elevated CK (688-> 1000-> 410) and CK-MB (7.95-> 10.4-> 7.89), troponin normal x3 Continue maintenance IVF (8) Pneumonia Qualifiers: Pneumonia type: due to unspecified organism Laterality: right Lung location: lower lobe of lung Qualified Code(s): J18.1 - Lobar pneumonia, unspecified organism Is this a current diagnosis for this admission?: Yes Plan: Resolved; received full antibiotic course. - Time Time Spent with patient: 15-24 minutes Anticipated discharge: Other - [facility] Within: within 72 hours - [facility] reports unable to take patient until Tuesday; have also requested PPD (placed today)
[2019-02-02] MEDS: MELATONIN 3 MG TABLET PO SCH (18:59)
[2019-02-02] MEDS: QUETIAPINE FUMARATE 25 MG TABLET PO SCH (22:44)
[2019-02-02] MEDS: SIMVASTATIN 40 MG TABLET PO SCH (22:44)
[2019-02-03] MEDS: HEPARIN SOD (PORCINE) 5,000 UNIT/ML 1 ML SYRINGE SUBCUT SCH ×3 (05:11→21:00)
[2019-02-03] MEDS: NICOTINE 14 MG/24 HR PATCH.TD24 TD SCH (09:34)
[2019-02-03] MEDS: MULTIVITAMIN TABLET PO SCH (09:35)
[2019-02-03] MEDS: FAMOTIDINE 20 MG TABLET PO SCH ×2 (09:35→17:33)
[2019-02-03] MEDS: OLANZAPINE 5 MG TABLET PO SCH ×2 (09:35→22:23)
[2019-02-03] MEDS: BUSPIRONE HCL 10 MG TABLET PO SCH ×2 (09:35→17:33)
[2019-02-03] MEDS: LAMOTRIGINE 25 MG TAB.CHEW PO SCH ×2 (09:36→22:23)
[2019-02-03] MEDS: ASPIRIN 81 MG TABLET, ENT COATED PO SCH (09:36)
[2019-02-03] MEDS: TIOTROPIUM BROMIDE DPI 5 CAP/KIT (18 MCG/CAP) IH SCH (09:38)
[2019-02-03] MEDS: NYSTATIN TOPICAL POWDER 15 GM TP SCH ×2 (09:38→17:33)
--- NOTE | 2019-02-03 14:47 | PDOC PROGRESS REPORT ---
Subjective Progress Note for:: 02/03/19 Subjective:: 73 y.o. M with a PMH of anoxic brain injury (at age 27 y.o.), COPD, parkinsonism and HLD. [facility]. He currently lives at an assisted living facility, [facility]. Patient has severe dementia and is unable to provide any meaningful input. Patient was seen on morning rounds. He was found to be resting in bed comfortably on room air. He is alert and oriented to self, conversational and socially appropriate, though with impulsive/poor risk awareness. He was attempting to get out of bed; easily redirected for me. He tells me that he is feeling well and denies any discomfort. No concerns per nursing; continue 1:1 sitter for safety. Reason For Visit: RLL PNEUMONIA Physical Exam Vital Signs: Temp Pulse Resp BP Pulse Ox 97.3 F 54 L 20 100/56 L 95 02/02/19 23:21 02/02/19 23:21 02/02/19 23:21 02/02/19 23:21 02/02/19 23:21 Intake & Output 02/02/19 02/03/19 02/04/19 06:59 06:59 06:59 Intake Total 3055 1240 800 Output Total 425 Balance 3055 1240 375 Weight 50.4 kg 50.3 kg General appearance: PRESENT: no acute distress, cooperative, thin, well- developed Head exam: PRESENT: atraumatic, normocephalic Eye exam: PRESENT: conjunctiva pink, EOMI, PERRLA. ABSENT: scleral icterus Ear exam: PRESENT: normal external ear exam Mouth exam: PRESENT: moist, tongue midline Teeth exam: PRESENT: poor dentation Neck exam: ABSENT: carotid bruit, JVD, lymphadenopathy, thyromegaly Respiratory exam: PRESENT: rhonchi, symmetrical, unlabored. ABSENT: rales, wheezes Cardiovascular exam: PRESENT: RRR. ABSENT: diastolic murmur, rubs, systolic murmur Pulses: PRESENT: normal dorsalis pedis pul Vascular exam: PRESENT: normal capillary refill GI/Abdominal exam: PRESENT: normal bowel sounds, soft. ABSENT: distended, guarding, mass, organolmegaly, rebound, tenderness Rectal exam: PRESENT: deferred Extremities exam: PRESENT: full ROM. ABSENT: calf tenderness, clubbing, pedal edema Neurological exam: PRESENT: alert, awake, oriented to person, CN II-XII grossly intact, other - at baseline. ABSENT: motor sensory deficit Psychiatric exam: PRESENT: appropriate affect, normal mood. ABSENT: homicidal ideation, suicidal ideation Skin exam: PRESENT: dry, intact, warm. ABSENT: cyanosis, rash Results Laboratory Results: 01/30/19 06:13 02/02/19 15:53 02/02/19 15:53 Sodium 139.1 Potassium 3.7 Chloride 101 Carbon Dioxide 30 Anion Gap 8 BUN 11 Creatinine 0.72 Est GFR ( Amer) > 60 Est GFR (Non-Af Amer) > 60 Glucose 78 Calcium 8.5 01/29/19 12:09 Blood Blood Culture - Final NO GROWTH IN 5 DAYS 01/29/19 10:51 Blood Blood Culture - Final NO GROWTH IN 5 DAYS 01/29/19 01/29/19 01/29/19 10:51 10:51 14:40 Creatine Kinase 688 H 916 H CK-MB (CK-2) 7.95 H Troponin I < 0.012 01/29/19 01/29/19 01/29/19 14:40 21:41 21:41 Creatine Kinase 928 H CK-MB (CK-2) 10.40 H 7.89 H Troponin I < 0.012 < 0.012 01/30/19 01/31/19 06:13 05:46 Creatine Kinase 1000 H 410 H CK-MB (CK-2) Troponin I Impressions: Chest X-Ray 01/13/19 00:00 IMPRESSION: 1. Slightly worsened appearance of the chronic right lower lobe opacity repr esenting patient's known fibrotic changes; however, findings may represent superimposed pneumonia in the appropriate clinical setting. 2. Mildly improved left lower lobe opacity. Head CT 01/13/19 18:25 IMPRESSION: MICROVASCULAR ISCHEMIA AND GENERALIZED ATROPHY. NO ACUTE IMAGING FINDINGS IN THE BRAIN EVIDENCE OF ACUTE STROKE: NO. Assessment and Plan - Diagnosis (1) Bacteremia Is this a current diagnosis for this admission?: Yes Plan: Resolved. Patient has 1/4 bottles positive for MRSA. Repeat blood cultures negative at 5 days. Unclear source. Sputum cultures show no growth No MRSA in any previous cultures on file. No skin breakdown identified. TTE negative for vegetations. Has completed 2-week course of IV vancomycin. (2) Acute on chronic respiratory failure with hypoxia Is this a current diagnosis for this admission?: Yes Plan: Resolved. Secondary to pneumonia RLL PNA seen on CXR Blood culture (09/01) positive for MRSA. Sputum culture negative Initially treated with azithromycin and Rocephin, switched to Vanco and Zosyn. Have completed full course of antibiotics. Supplemental oxygen via nasal cannula for SPO2> 88% Scheduled and as needed nebulizer treatments (3) Altered mental status Qualifiers: Altered mental status type: somnolence Qualified Code(s): R40.0 - Somnolence Is this a current diagnosis for this admission?: Yes Plan: Waxes and wanes; at baseline Head CT negative History of severe dementia and anoxic brain injury at the age of 27 Daughter states that the patient has the mental capacity of a 7-year-old Patient will intermittently have days when he is very lucid and cooperative, other days he is very altered and agitated The patient erratic behavior is likely related to dementia and acute delirium, exacerbated by his active infection. His anoxic brain injury, while it does not help his situation, is not the primary culprit of his agitation. Does seem that his symptoms worsen at night. Discussed with Dr. Bran will start melatonin and Seroquel nightly. Supportive and symptomatic care as required Fall precautions. 1:1 sitter for safety. Continue home dose Zyprexa and Lamictal. Continue BuSpar. Continue melatonin and Seroquel nightly. PRN Haldol IV IV ativan as needed. Avoid use of restraints; may consider roll belt for safety (4) Hypotension Qualifiers: Hypotension type: hypotension due to hypovolemia Qualified Code(s): I95.89 - Other hypotension; E86.1 - Hypovolemia Is this a current diagnosis for this admission?: Yes Plan: RESOLVED Oral fluids are encouraged Continue maintenance IVF for treatment of BRENDA (5) Muscle atrophy Qualifiers: Muscle atrophy area: multiple sites Qualified Code(s): M62.59 - Muscle wasting and atrophy, not elsewhere classified, multiple sites Is this a current diagnosis for this admission?: Yes Plan: Unfortunately, patient has been restrained to the bed for multiple days at a time; has suffered a great deal of muscle atrophy PT/OT consultations requested. Discussed w/ nursing; keep out of restraints if at all possible. May consider roll belt only. (6) BRENDA (acute kidney injury) Is this a current diagnosis for this admission?: Yes Plan: Resolved; Cr 1.21-> 0.65-> 0.84-> 1.96-> 1.76-> 1.63-> 1.46-> 0.72 Likely prerenal; decreased p.o. intake (thickened liquids, use of restrains, altered mental status). Patient has had excellent urinary output; post void bladder scan unremarkable. No suspicion for postobstructive process. Avoid nephrotoxic medications as able; fortunately, no longer on vancomycin. (7) Elevated CK Is this a current diagnosis for this admission?: Yes Plan: Significantly improved. EKG shows NSR, no infarction or ischemia Follow up cardiac enzymes demonstrate elevated CK (688-> 1000-> 410) and CK-MB (7.95-> 10.4-> 7.89), troponin normal x3 Continue maintenance IVF (8) Pneumonia Qualifiers: Pneumonia type: due to unspecified organism Laterality: right Lung location: lower lobe of lung Qualified Code(s): J18.1 - Lobar pneumonia, unspecified organism Is this a current diagnosis for this admission?: Yes Plan: Resolved; received full antibiotic course. - Time Time Spent with patient: Less than 15 minutes Medications reviewed and adjusted accordingly: Yes Anticipated discharge: Other - [facility] memory care Within: when bed available
[2019-02-03] MEDS: MELATONIN 3 MG TABLET PO SCH (19:23)
[2019-02-03] MEDS: SIMVASTATIN 40 MG TABLET PO SCH (22:22)
[2019-02-03] MEDS: QUETIAPINE FUMARATE 25 MG TABLET PO SCH (22:23)
[2019-02-04] MEDS: HEPARIN SOD (PORCINE) 5,000 UNIT/ML 1 ML SYRINGE SUBCUT SCH ×3 (05:16→21:38)
[2019-02-04] MEDS: NICOTINE 14 MG/24 HR PATCH.TD24 TD SCH (09:02)
[2019-02-04] MEDS: ASPIRIN 81 MG TABLET, ENT COATED PO SCH (09:02)
[2019-02-04] MEDS: MULTIVITAMIN TABLET PO SCH (09:03)
[2019-02-04] MEDS: BUSPIRONE HCL 10 MG TABLET PO SCH ×2 (09:04→16:37)
[2019-02-04] MEDS: TIOTROPIUM BROMIDE DPI 5 CAP/KIT (18 MCG/CAP) IH SCH (09:04)
[2019-02-04] MEDS: LAMOTRIGINE 25 MG TAB.CHEW PO SCH ×2 (09:04→23:06)
[2019-02-04] MEDS: FAMOTIDINE 20 MG TABLET PO SCH ×2 (09:04→18:02)
[2019-02-04] MEDS: NYSTATIN TOPICAL POWDER 15 GM TP SCH ×2 (09:05→18:01)
[2019-02-04] MEDS: OLANZAPINE 5 MG TABLET PO SCH ×2 (09:05→23:06)
--- NOTE | 2019-02-04 15:28 | PDOC PROGRESS REPORT ---
Subjective Progress Note for:: 02/04/19 Subjective:: 73 y.o. M with a PMH of anoxic brain injury (at age 27 y.o.), COPD, parkinsonism and HLD. [facility] for [facility]. He currently lives at an assisted living facility, [facility]. Patient has severe dementia and is unable to provide any meaningful input. Patient was seen on morning rounds. He was found to be resting in bed comfortably on room air. He is alert and oriented to self, conversational and socially appropriate, though with impulsive/poor risk awareness. He tells me that he is feeling well and denies any discomfort. No concerns per nursing; continue 1:1 sitter for safety. Reason For Visit: RLL PNEUMONIA Physical Exam Vital Signs: Temp Pulse Resp BP Pulse Ox 97.2 F 52 L 20 119/71 94 02/04/19 04:12 02/04/19 04:12 02/04/19 04:12 02/04/19 04:12 02/04/19 04:12 Intake & Output 02/03/19 02/04/19 02/05/19 06:59 06:59 06:59 Intake Total 1240 920 365 Output Total 1625 Balance 1240 -705 365 Weight 50.3 kg 48.6 kg General appearance: PRESENT: no acute distress, thin, well-developed Head exam: PRESENT: atraumatic, normocephalic Eye exam: PRESENT: conjunctiva pink, EOMI, PERRLA. ABSENT: scleral icterus Ear exam: PRESENT: normal external ear exam Mouth exam: PRESENT: moist, tongue midline Teeth exam: PRESENT: poor dentation Respiratory exam: PRESENT: clear to auscultation gama, symmetrical, unlabored. ABSENT: rales, rhonchi, wheezes Cardiovascular exam: PRESENT: RRR, +S1, +S2. ABSENT: diastolic murmur, rubs, systolic murmur Pulses: PRESENT: normal dorsalis pedis pul Vascular exam: PRESENT: normal capillary refill GI/Abdominal exam: PRESENT: normal bowel sounds, soft. ABSENT: distended, guarding, mass, organolmegaly, rebound, tenderness Rectal exam: PRESENT: deferred Extremities exam: PRESENT: full ROM. ABSENT: calf tenderness, clubbing, pedal edema Neurological exam: PRESENT: alert, awake, oriented to person, CN II-XII grossly intact, other - at baseline. ABSENT: motor sensory deficit Psychiatric exam: PRESENT: appropriate affect, normal mood. ABSENT: homicidal ideation, suicidal ideation Skin exam: PRESENT: dry, intact, warm. ABSENT: cyanosis, rash Results Laboratory Results: 01/30/19 06:13 02/02/19 15:53 01/29/19 12:09 Blood Blood Culture - Final NO GROWTH IN 5 DAYS 01/29/19 01/29/19 01/29/19 10:51 10:51 14:40 Creatine Kinase 688 H 916 H CK-MB (CK-2) 7.95 H Troponin I < 0.012 01/29/19 01/29/19 01/29/19 14:40 21:41 21:41 Creatine Kinase 928 H CK-MB (CK-2) 10.40 H 7.89 H Troponin I < 0.012 < 0.012 01/30/19 01/31/19 06:13 05:46 Creatine Kinase 1000 H 410 H CK-MB (CK-2) Troponin I Impressions: Chest X-Ray 01/13/19 00:00 IMPRESSION: 1. Slightly worsened appearance of the chronic right lower lobe opacity representing patient's known fibrotic changes; however, findings may represent superimposed pneumonia in the appropriate clinical setting. 2. Mildly improved left lower lobe opacity. Head CT 01/13/19 18:25 IMPRESSION: MICROVASCULAR ISCHEMIA AND GENERALIZED ATROPHY. NO ACUTE IMAGING FINDINGS IN THE BRAIN EVIDENCE OF ACUTE STROKE: NO. Assessment and Plan - Diagnosis (1) Bacteremia Is this a current diagnosis for this admission?: Yes Plan: Resolved. Patient has 1/4 bottles positive for MRSA. Repeat blood cultures negative at 5 days. Unclear source. Sputum cultures show no growth No MRSA in any previous cultures on file. No skin breakdown identified. TTE negative for vegetations. Has completed 2-week course of IV vancomycin. (2) Acute on chronic respiratory failure with hypoxia Is this a current diagnosis for this admission?: Yes Plan: Resolved. Secondary to pneumonia RLL PNA seen on CXR Blood culture (1/4) positive for MRSA. Sputum culture negative Initially treated with azithromycin and Rocephin, switched to Vanco and Zosyn. Have completed full course of antibiotics. Supplemental oxygen via nasal cannula for SPO2> 88% Scheduled and as needed nebulizer treatments (3) Altered mental status Qualifiers: Altered mental status type: somnolence Qualified Code(s): R40.0 - Somnolence Is this a current diagnosis for this admission?: Yes Plan: Waxes and wanes; at baseline Head CT negative History of severe dementia and anoxic brain injury at the age of 27 Daughter states that the patient has the mental capacity of a 7-year-old Patient will intermittently have days when he is very lucid and cooperative, other days he is very altered and agitated The patient erratic behavior is likely related to dementia and acute delirium, exacerbated by his active infection. His anoxic brain injury, while it does not help his situation, is not the primary culprit of his agitation. Does seem that his symptoms worsen at night. Discussed with Dr. Bran will start melatonin and Seroquel nightly. Supportive and symptomatic care as required Fall precautions. 1:1 sitter for safety. Continue home dose Zyprexa and Lamictal. Continue BuSpar. Continue melatonin and Seroquel nightly. PRN Haldol IV IV ativan as needed. Avoid use of restraints; may consider roll belt for safety (4) Hypotension Qualifiers: Hypotension type: hypotension due to hypovolemia Qualified Code(s): I95.89 - Other hypotension; E86.1 - Hypovolemia Is this a current diagnosis for this admission?: Yes Plan: RESOLVED Oral fluids are encouraged Continue maintenance IVF for treatment of BRENDA (5) Muscle atrophy Qualifiers: Muscle atrophy area: multiple sites Qualified Code(s): M62.59 - Muscle wasting and atrophy, not elsewhere classified, multiple sites Is this a current diagnosis for this admission?: Yes Plan: Unfortunately, patient has been restrained to the bed for multiple days at a time; has suffered a great deal of muscle atrophy PT/OT consultations requested. Discussed w/ nursing; keep out of restraints if at all possible. May consider roll belt only. (6) BRENDA (acute kidney injury) Is this a current diagnosis for this admission?: Yes Plan: Resolved; Cr 1.21-> 0.65-> 0.84-> 1.96-> 1.76-> 1.63-> 1.46-> 0.72 Likely prerenal; decreased p.o. intake (thickened liquids, use of restrains, altered mental status). Patient has had excellent urinary output; post void bladder scan unremarkable. No suspicion for postobstructive process. Avoid nephrotoxic medications as able; fortunately, no longer on vancomycin. (7) Elevated CK Is this a current diagnosis for this admission?: Yes Plan: Significantly improved. EKG shows NSR, no infarction or ischemia Follow up cardiac enzymes demonstrate elevated CK (688-> 1000-> 410) and CK-MB (7.95-> 10.4-> 7.89), troponin normal x3 Continue maintenance IVF (8) Pneumonia Qualifiers: Pneumonia type: due to unspecified organism Laterality: right Lung location: lower lobe of lung Qualified Code(s): J18.1 - Lobar pneumonia, unspecified organism Is this a current diagnosis for this admission?: Yes Plan: Resolved; received full antibiotic course. - Time Time Spent with patient: Less than 15 minutes Medications reviewed and adjusted accordingly: Yes Anticipated discharge: Other - [facility] memory care Within: when bed available
[2019-02-04 19:31] LABS: ABSOLUTE BASOPHILS # (AUTO) 0.1 10^3/uL (0.0-0.2); ABSOLUTE EOSINOPHILS # (AUTO) 0.3 10^3/uL (0.0-0.6); ABSOLUTE LYMPHOCYTES (AUTO) 1.5 10^3/uL (0.5-4.7); ABSOLUTE MONOCYTES (AUTO) 1.1 10^3/uL (0.1-1.4); ABSOLUTE NEUT (AUTO) 8.7 10^3/uL (1.7-8.2); BASOPHILS % (AUTO) 0.7 % (0-2); EOSINOPHILS % (AUTO) 2.4 % (0-6); HEMATOCRIT 34.7 % (37.9-51.0); HEMOGLOBIN 11.4 g/dL (13.5-17.0); LYMPHOCYTES % (AUTO) 12.5 % (13-45); MEAN CORPUSCULAR HEMOGLOBIN 28.7 pg (27.0-33.4); MEAN CORPUSCULAR VOLUME 87 fl (80-97); MONOCYTES % (AUTO) 9.8 % (3-13); PLATELET COUNT 352 10^3/uL (150-450); RED BLOOD COUNT 3.98 10^6/uL (4.35-5.55); RED CELL DISTRIBUTION WIDTH 15.6 % (11.5-14.0); SEGMENTED NEUTROPHILS % (AUTO) 74.6 % (42-78); TOTAL CELLS COUNTED % (AUTO) 100 %; WHITE BLOOD COUNT 11.7 10^3/uL (4.0-10.5)
[2019-02-04 19:42] LABS: ALANINE AMINOTRANSFERASE 34 U/L (21-72); ALBUMIN 3.5 g/dL (3.5-5.0); ALKALINE PHOSPHATASE 76 U/L (38-126); ANION GAP 10 (5-19); ASPARTATE AMINO TRANSFERASE 31 U/L (17-59); BILIRUBIN,DIRECT 0.2 mg/dL (0.0-0.4); BILIRUBIN,TOTAL 0.3 mg/dL (0.2-1.3); BLOOD UREA NITROGEN 22 mg/dL (7-20); CALCIUM 9.2 mg/dL (8.4-10.2); CARBON DIOXIDE 28 mmol/L (22-30); CHLORIDE 101 mmol/L (98-107); GLUCOSE 119 mg/dL (75-110); POTASSIUM 4.2 mmol/L (3.6-5.0); SODIUM 138.7 mmol/L (137-145); TOTAL PROTEIN 6.5 g/dL (6.3-8.2)
[2019-02-04] MEDS: MELATONIN 3 MG TABLET PO SCH (23:05)
[2019-02-04] MEDS: SIMVASTATIN 40 MG TABLET PO SCH (23:06)
[2019-02-04] MEDS: QUETIAPINE FUMARATE 25 MG TABLET PO SCH (23:06)
[2019-02-05] MEDS: HEPARIN SOD (PORCINE) 5,000 UNIT/ML 1 ML SYRINGE SUBCUT SCH ×3 (05:11→23:53)
[2019-02-05] MEDS: BUSPIRONE HCL 10 MG TABLET PO SCH ×2 (07:58→16:57)
[2019-02-05] MEDS: OLANZAPINE 5 MG TABLET PO SCH ×2 (07:59→22:51)
[2019-02-05] MEDS: NICOTINE 14 MG/24 HR PATCH.TD24 TD SCH (12:02)
[2019-02-05] MEDS: FAMOTIDINE 20 MG TABLET PO SCH ×2 (12:03→17:41)
[2019-02-05] MEDS: MULTIVITAMIN TABLET PO SCH (12:03)
[2019-02-05] MEDS: ASPIRIN 81 MG TABLET, ENT COATED PO SCH (12:03)
[2019-02-05] MEDS: LAMOTRIGINE 25 MG TAB.CHEW PO SCH ×2 (12:04→22:56)
[2019-02-05] MEDS: TIOTROPIUM BROMIDE DPI 5 CAP/KIT (18 MCG/CAP) IH SCH (12:04)
[2019-02-05] MEDS: NYSTATIN TOPICAL POWDER 15 GM TP SCH ×2 (12:33→18:04)
--- NOTE | 2019-02-05 14:02 | PDOC TRANSFER SUMMARY ---
Addendum entered and electronically signed by CHAPITO SANTILLAN NP 02/06/19 11:02: Provider Note Provider Note: Patient seen this morning on rounds. He is resting comfortably in bed on room air. The patient states he has no complaints this morning. Noted that the patient's 24hr TMAX was 101.9. He was treated with PO tylenol. Upon assessment, the patient's lungs are clear to auscultation, he denies SOB, does not exhibit s/s respiratory distress. S1S2. No peripheral edema. Patient denies dysuria, frequency or urgency. Clinically, the patient looks well. Plan to send to [facility] today. Original Note: General - Admit/Disc Date/PCP Admission Date/Primary Care Provider: 01/13/19 22:05 [facility] Discharge Date: 02/06/19 - Discharge Diagnosis (1) Bacteremia Is this a current diagnosis for this admission?: Yes Summary: Resolved. Patient has 1/4 bottles positive for MRSA. Repeat blood cultures negative at 5 days. Unclear source. Sputum cultures show no growth No MRSA in any previous cultures on file. No skin breakdown identified. TTE negative for vegetations. Has completed 2-week course of IV vancomycin. (2) Acute on chronic respiratory failure with hypoxia Is this a current diagnosis for this admission?: Yes Summary: Resolved. Secondary to pneumonia RLL PNA seen on CXR Blood culture (/4) positive for MRSA. Sputum culture negative Initially treated with azithromycin and Rocephin, switched to Vanco and Zosyn. Have completed full course of antibiotics. Supplemental oxygen via nasal cannula for SPO2> 88% Scheduled and as needed nebulizer treatments (3) Altered mental status Is this a current diagnosis for this admission?: Yes Summary: Waxes and wanes; at baseline Head CT negative History of severe dementia and anoxic brain injury at the age of 27 Daughter states that the patient has the mental capacity of a 7-year-old Patient will intermittently have days when he is very lucid and cooperative, other days he is very altered and agitated The patient erratic behavior is likely related to dementia and acute delirium, exacerbated by his active infection. His anoxic brain injury, while it does not help his situation, is not the primary culprit of his agitation. Does seem that his symptoms worsen at night. Recommend continuing his long-term home medications; Zyprexa and Lamictal. He has done well with the addition of twice daily BuSpar, early evening melatonin, and nightly Seroquel during this admission. (4) Hypotension Is this a current diagnosis for this admission?: Yes Summary: RESOLVED Oral fluids are encouraged (5) Muscle atrophy Is this a current diagnosis for this admission?: Yes Summary: Recommend continued physical therapy. PT/OT services were consulted; patient was found to have a posterior lean and poor foot placement resulting in impaired balance. (6) BRENDA (acute kidney injury) Is this a current diagnosis for this admission?: Yes Summary: Resolved; at patient's baseline. Cr 1.21-> 0.65-> 1.96-> 0.72 -> 1.46 Likely prerenal; decreased p.o. intake (thickened liquids, use of restrains, altered mental status). Patient has had excellent urinary output; post void bladder scan unremarkable. No suspicion for postobstructive process. Avoid nephrotoxic medications as able Encourage p.o. fluids. Recommend supervised/assisted fluid intake. (7) Elevated CK Is this a current diagnosis for this admission?: Yes Summary: Resolved. (8) Pneumonia Is this a current diagnosis for this admission?: Yes Summary: Resolved; received full antibiotic course. - Additional Information Resuscitation Status: Do Not Resuscitate Home Medications: Albuterol Sulfate [Proair Hfa Inhalation Aerosol 8.5 gm Mdi] 2 puff IH Q4HP PRN 01/14/19 Albuterol Sulfate [Ventolin 0.083% Neb 2.5 mg/3 ml Ampul] 1 vial NEB Q4HP PRN 01/14/19 Aspirin [Adult Low Dose Aspirin EC] 81 mg PO DAILY 01/14/19 Benzonatate [Tessalon Perle 100 mg Capsule] 100 mg PO Q8HP PRN 01/14/19 Lamotrigine [Lamictal] 25 mg PO BID 01/14/19 Multivitamin [Multiple Vitamins] 1 each PO DAILY 01/14/19 Olanzapine [Zyprexa] 5 mg PO Q12 01/14/19 Olanzapine [Zyprexa] 10 mg PO QHS 01/14/19 Ranitidine HCl [Zantac 150 mg Tablet] 150 mg PO BID 01/14/19 Simvastatin [Zocor 40 mg Tablet] 20 mg PO QHS 01/14/19 Tiotropium [place] [Spiriva Handihaler 5 Cap/Kit (18 Mcg/Cap)] 1 cap IH DAILY 01/14/19 History of Present Illness Admission Date/PCP: 01/13/19 22:05 [facility] History of Present Illness: Per H&P by Dr. Garcia: JUMANA HENDRIX is a 73 year old male who presented to the emergency room via EMS due to acute lethargy developed at a [facility] where he lives a short time prior to his emergency room arrival. Patient has severe dementia and is unable to provide any meaningful input into his medical care. Information obtained from the [facility]ci indicates that he was noted to be progressively lethargic over the course of the afternoon on observation by his caretakers. EMS noted upon their arrival that his oxygen saturation was 92% on room air and he was somewhat hypotensive with a systolic blood pressure in the 70s and febrile with a temperature of 100.5 F. In the emergency room he was found to have mild arterial hypotension with blood pressure of 91/52 and his oxygen saturation continued to be 92 to 93% without supplemental oxygen support. He did respond well to IV fluids, supplemental oxygen via nasal cannula and Tylenol. A chest x-ray revealed an increase in the opacity of his right lower lung field and a likelihood of pneumonia due to the clinical situation was entertained. Patient was subsequently admitted to the hospital for further evaluation and treatment. Physical Exam Vital Signs: Temp Pulse Resp BP Pulse Ox 97.5 F 67 18 113/69 97 02/05/19 10:00 02/05/19 10:00 02/05/19 10:00 02/05/19 10:00 02/05/19 10:00 Intake & Output 02/04/19 02/05/19 02/06/19 06:59 06:59 06:59 Intake Total 920 485 Output Total 162 650 Balance -705 -165 Weight 48.6 kg 63.1 kg General appearance: PRESENT: no acute distress, cooperative, thin, well- developed Head exam: PRESENT: atraumatic, normocephalic Eye exam: PRESENT: conjunctiva pink, EOMI, PERRLA. ABSENT: scleral icterus Ear exam: PRESENT: normal external ear exam Mouth exam: PRESENT: moist, tongue midline Respiratory exam: PRESENT: rhonchi, symmetrical, unlabored. ABSENT: rales, wheezes Cardiovascular exam: PRESENT: RRR. ABSENT: diastolic murmur, rubs, systolic murmur Pulses: PRESENT: normal dorsalis pedis pul Vascular exam: PRESENT: normal capillary refill GI/Abdominal exam: PRESENT: normal bowel sounds, soft. ABSENT: distended, guarding, mass, organolmegaly, rebound, tenderness Rectal exam: PRESENT: deferred Extremities exam: PRESENT: full ROM. ABSENT: calf tenderness, clubbing, pedal edema Neurological exam: PRESENT: alert, awake, oriented to person, CN II-XII grossly intact. ABSENT: motor sensory deficit Psychiatric exam: PRESENT: appropriate affect, normal mood. ABSENT: homicidal ideation, suicidal ideation Skin exam: PRESENT: dry, intact, warm. ABSENT: cyanosis, rash Results Laboratory Results: 02/04/19 18:55 02/04/19 18:55 02/04/19 02/04/19 18:55 18:55 WBC 11.7 H RBC 3.98 L Hgb 11.4 L Hct 34.7 L MCV 87 MCH 28.7 MCHC 33.0 RDW 15.6 H Plt Count 352 Seg Neutrophils % 74.6 Lymphocytes % 12.5 L Monocytes % 9.8 Eosinophils % 2.4 Basophils % 0.7 Absolute Neutrophils 8.7 H Absolute Lymphocytes 1.5 Absolute Monocytes 1.1 Absolute Eosinophils 0.3 Absolute Basophils 0.1 Sodium 138.7 Potassium 4.2 Chloride 101 Carbon Dioxide 28 Anion Gap 10 BUN 22 H Creatinine 1.48 H Est GFR ( Amer) 57 L Est GFR (Non-Af Amer) 47 L Glucose 119 H Calcium 9.2 Magnesium 1.9 Total Bilirubin 0.3 AST 31 ALT 34 Alkaline Phosphatase 76 Total Protein 6.5 Albumin 3.5 01/29/19 01/29/19 01/29/19 10:51 10:51 14:40 Creatine Kinase 688 H 916 H CK-MB (CK-2) 7.95 H Troponin I < 0.012 01/29/19 01/29/19 01/29/19 14:40 21:41 21:41 Creatine Kinase 928 H CK-MB (CK-2) 10.40 H 7.89 H Troponin I < 0.012 < 0.012 01/30/19 01/31/19 06:13 05:46 Creatine Kinase 1000 H 410 H CK-MB (CK-2) Troponin I Impressions: Chest X-Ray 01/13/19 00:00 IMPRESSION: 1. Slightly worsened appearance of the chronic right lower lobe opacity representing patient's known fibrotic changes; however, findings may represent superimposed pneumonia in the appropriate clinical setting. 2. Mildly improved left lower lobe opacity. Head CT 01/13/19 18:25 IMPRESSION: MICROVASCULAR ISCHEMIA AND GENERALIZED ATROPHY. NO ACUTE IMAGING FINDINGS IN THE BRAIN EVIDENCE OF ACUTE STROKE: NO. Transfer Plan - Disposition Transfer Plan: Discharge to [facility]. - Time Spent with Patient Time spent with patient: Less than 30 Minutes Qualifiers - * PATIENT BEING DISCHARGED WITH ANY OF THE FOLLOWING DIAGNOSIS: No Acute Heart Failure - Is this a Heart Failure Patient?: No LVEF < 40%?: No- if no continue to question #3 Plan Discharge Plan: Discharge to [facility] for terminal manager care.
[2019-02-05 22:47] LABS: APPEARANCE,URINE SLIGHTLY-CLOUDY; BILIRUBIN,URINE NEGATIVE (NEGATIVE); COLOR,URINE YELLOW; GLUCOSE, URINE NEGATIVE (NEGATIVE); KETONES,URINE NEGATIVE (NEGATIVE); LEUKOCYTE ESTERASE,URINE NEGATIVE (NEGATIVE); NITRITE,URINE NEGATIVE (NEGATIVE); PROTEIN,URINE NEGATIVE (NEGATIVE); URINE SPECIFIC GRAVITY 1.014; UROBILINOGEN,URINE NEGATIVE mg/dL (<2.0)
[2019-02-05] MEDS: ACETAMINOPHEN 325 MG TABLET PO PRN (22:51)
[2019-02-05] MEDS: SIMVASTATIN 40 MG TABLET PO SCH (22:51)
[2019-02-05] MEDS: MELATONIN 3 MG TABLET PO SCH (22:52)
[2019-02-05] MEDS: QUETIAPINE FUMARATE 25 MG TABLET PO SCH (22:56)
[2019-02-06] MEDS: HEPARIN SOD (PORCINE) 5,000 UNIT/ML 1 ML SYRINGE SUBCUT SCH ×3 (05:06→21:25)
[2019-02-06] MEDS: BUSPIRONE HCL 10 MG TABLET PO SCH ×2 (10:00→16:23)
[2019-02-06] MEDS: OLANZAPINE 5 MG TABLET PO SCH ×2 (10:00→21:23)
[2019-02-06] MEDS: NYSTATIN TOPICAL POWDER 15 GM TP SCH ×2 (10:01→16:24)
[2019-02-06] MEDS: ASPIRIN 81 MG TABLET, ENT COATED PO SCH (10:01)
[2019-02-06] MEDS: NICOTINE 14 MG/24 HR PATCH.TD24 TD SCH (10:01)
[2019-02-06] MEDS: LAMOTRIGINE 25 MG TAB.CHEW PO SCH ×2 (10:01→21:24)
[2019-02-06] MEDS: FAMOTIDINE 20 MG TABLET PO SCH ×2 (10:02→16:23)
[2019-02-06] MEDS: TIOTROPIUM BROMIDE DPI 5 CAP/KIT (18 MCG/CAP) IH SCH (10:02)
[2019-02-06] MEDS: MULTIVITAMIN TABLET PO SCH (10:02)
[2019-02-06] MEDS: MELATONIN 3 MG TABLET PO SCH (20:09)
[2019-02-06] MEDS: SIMVASTATIN 40 MG TABLET PO SCH (21:24)
[2019-02-06] MEDS: QUETIAPINE FUMARATE 25 MG TABLET PO SCH (21:24)
[2019-02-07] MEDS: HEPARIN SOD (PORCINE) 5,000 UNIT/ML 1 ML SYRINGE SUBCUT SCH ×3 (05:18→22:02)
[2019-02-07] MEDS: NICOTINE 14 MG/24 HR PATCH.TD24 TD SCH (09:47)
[2019-02-07] MEDS: TIOTROPIUM BROMIDE DPI 5 CAP/KIT (18 MCG/CAP) IH SCH (09:48)
[2019-02-07] MEDS: OLANZAPINE 5 MG TABLET PO SCH ×2 (09:48→22:02)
[2019-02-07] MEDS: MULTIVITAMIN TABLET PO SCH (09:48)
[2019-02-07] MEDS: ASPIRIN 81 MG TABLET, ENT COATED PO SCH (09:48)
[2019-02-07] MEDS: BUSPIRONE HCL 10 MG TABLET PO SCH ×2 (09:48→15:02)
[2019-02-07] MEDS: LAMOTRIGINE 25 MG TAB.CHEW PO SCH ×2 (09:48→22:02)
[2019-02-07] MEDS: FAMOTIDINE 20 MG TABLET PO SCH ×2 (09:48→17:09)
[2019-02-07] MEDS: MELATONIN 3 MG TABLET PO SCH (18:17)
[2019-02-07] MEDS: QUETIAPINE FUMARATE 25 MG TABLET PO SCH (22:02)
[2019-02-07] MEDS: SIMVASTATIN 40 MG TABLET PO SCH (22:02)
[2019-02-08] MEDS: HEPARIN SOD (PORCINE) 5,000 UNIT/ML 1 ML SYRINGE SUBCUT SCH ×3 (05:49→21:39)
[2019-02-08] MEDS: OLANZAPINE 5 MG TABLET PO SCH ×2 (08:12→21:39)
[2019-02-08] MEDS: BUSPIRONE HCL 10 MG TABLET PO SCH ×2 (08:12→16:23)
[2019-02-08] MEDS: NICOTINE 14 MG/24 HR PATCH.TD24 TD SCH (09:34)
[2019-02-08] MEDS: TIOTROPIUM BROMIDE DPI 5 CAP/KIT (18 MCG/CAP) IH SCH (09:34)
[2019-02-08] MEDS: LAMOTRIGINE 25 MG TAB.CHEW PO SCH ×2 (09:34→21:39)
[2019-02-08] MEDS: ASPIRIN 81 MG TABLET, ENT COATED PO SCH (09:34)
[2019-02-08] MEDS: FAMOTIDINE 20 MG TABLET PO SCH ×2 (09:34→17:54)
[2019-02-08] MEDS: MULTIVITAMIN TABLET PO SCH (09:34)
--- NOTE | 2019-02-08 15:11 | PDOC PROGRESS REPORT ---
Subjective Progress Note for:: 02/08/19 Subjective:: 73 y.o. M with a PMH of anoxic brain injury (at age 27 y.o.), COPD, parkinsonism and HLD. [facility]. He currently lives at an assisted living facility, [facility]. Patient has severe dementia and is unable to provide any meaningful input. The patient was treated for healthcare associated PNA and subsequetly developed MRSA bacteremia. He completed antibiotic treatment on January 30. Currently awaiting placement in a detention care facility. No other significant changes to treatment plan. Reason For Visit: RLL PNEUMONIA Physical Exam Vital Signs: Temp Pulse Resp BP Pulse Ox 98.0 F 60 20 121/78 94 02/08/19 12:00 02/08/19 12:00 02/08/19 12:00 02/08/19 12:00 02/08/19 12:00 Intake & Output 02/07/19 02/08/19 02/09/19 06:59 06:59 06:59 Intake Total 550 2460 Balance 550 2460 Weight 51.7 kg 52.9 kg General appearance: PRESENT: no acute distress, thin Head exam: PRESENT: atraumatic, normocephalic Eye exam: PRESENT: conjunctiva pink, EOMI, PERRLA. ABSENT: scleral icterus Ear exam: PRESENT: normal external ear exam Mouth exam: PRESENT: moist, tongue midline Neck exam: ABSENT: carotid bruit, JVD, lymphadenopathy, thyromegaly Respiratory exam: PRESENT: clear to auscultation gama, symmetrical, unlabored. ABSENT: rales, rhonchi, wheezes Cardiovascular exam: PRESENT: RRR. ABSENT: diastolic murmur, rubs, systolic murmur Pulses: PRESENT: normal radial pulses Vascular exam: PRESENT: normal capillary refill GI/Abdominal exam: PRESENT: normal bowel sounds, soft. ABSENT: distended, guarding, mass, organolmegaly, rebound, tenderness Rectal exam: PRESENT: deferred Extremities exam: PRESENT: full ROM. ABSENT: calf tenderness, clubbing, pedal edema Neurological exam: PRESENT: alert, awake, oriented to person. ABSENT: oriented to place, oriented to time, oriented to situation Psychiatric exam: PRESENT: appropriate affect, normal mood Skin exam: PRESENT: dry, intact, warm. ABSENT: cyanosis, rash Results Laboratory Results: 02/04/19 18:55 02/04/19 18:55 01/29/19 01/29/19 01/29/19 10:51 10:51 14:40 Creatine Kinase 688 H 916 H CK-MB (CK-2) 7.95 H Troponin I < 0.012 01/29/19 01/29/19 01/29/19 14:40 21:41 21:41 Creatine Kinase 928 H CK-MB (CK-2) 10.40 H 7.89 H Troponin I < 0.012 < 0.012 01/30/19 01/31/19 06:13 05:46 Creatine Kinase 1000 H 410 H CK-MB (CK-2) Troponin I Impressions: Chest X-Ray 01/13/19 00:00 IMPRESSION: 1. Slightly worsened appearance of the chronic right lower lobe opacity representing patient's known fibrotic changes; however, findings may represent superimposed pneumonia in the appropriate clinical setting. 2. Mildly improved left lower lobe opacity. Head CT 01/13/19 18:25 IMPRESSION: MICROVASCULAR ISCHEMIA AND GENERALIZED ATROPHY. NO ACUTE IMAGING FINDINGS IN THE BRAIN EVIDENCE OF ACUTE STROKE: NO. Status: Imported from PACS Assessment and Plan - Diagnosis (1) Bacteremia Is this a current diagnosis for this admission?: Yes Plan: Resolved. Patient has 1/4 bottles positive for MRSA. Repeat blood cultures negative at 5 days. Unclear source. Sputum cultures show no growth No MRSA in any previous cultures on file. No skin breakdown identified. TTE negative for vegetations. Has completed 2-week course of IV vancomycin. (2) Acute on chronic respiratory failure with hypoxia Is this a current diagnosis for this admission?: Yes Plan: Resolved. Secondary to pneumonia Patient now maintains SPO2 > 88% on room air (3) Altered mental status Qualifiers: Altered mental status type: somnolence Qualified Code(s): R40.0 - Somnolence Is this a current diagnosis for this admission?: Yes Plan: Waxes and wanes; at baseline Head CT negative History of severe dementia and anoxic brain injury at the age of 27 Daughter states that the patient has the mental capacity of a 7-year-old Patient will intermittently have days when he is very lucid and cooperative, other days he is very altered and agitated The patient erratic behavior is likely related to dementia and acute delirium, exacerbated by his active infection. His anoxic brain injury, while it does not help his situation, is not the primary culprit of his agitation. Melatonin and Seroquel nightly. Supportive and symptomatic care as required Fall precautions. 1:1 sitter for safety. Continue home dose Zyprexa and Lamictal. Continue BuSpar. Continue melatonin and Seroquel nightly. PRN Haldol IV IV ativan as needed. Avoid use of restraints; may consider roll belt for safety (4) Hypotension Qualifiers: Hypotension type: hypotension due to hypovolemia Qualified Code(s): I95.89 - Other hypotension; E86.1 - Hypovolemia Is this a current diagnosis for this admission?: Yes Plan: RESOLVED Oral fluids are encouraged (5) Pneumonia Qualifiers: Pneumonia type: due to unspecified organism Laterality: right Lung location: lower lobe of lung Qualified Code(s): J18.1 - Lobar pneumonia, unspecified organism Is this a current diagnosis for this admission?: Yes Plan: Resolved; received full antibiotic course. (6) Muscle atrophy Qualifiers: Muscle atrophy area: multiple sites Qualified Code(s): M62.59 - Muscle wasting and atrophy, not elsewhere classified, multiple sites Is this a current diagnosis for this admission?: Yes Plan: Unfortunately, patient was restrained to the bed for multiple days at a time; has suffered a great deal of muscle atrophy Continue PT/OT Discussed w/ nursing; keep out of restraints if at all possible. 1:1 sitter for safety (7) Elevated CK Is this a current diagnosis for this admission?: Yes Plan: Resolved - Time Time Spent with patient: 15-24 minutes Medications reviewed and adjusted accordingly: Yes Anticipated discharge: Home Within: within 24 hours, within 48 hours - Inpatient Certification Based on my medical assessment, after consideration of the patient's comorbidities, presenting symptoms, or acuity I expect that the services needed warrant INPATIENT care.: Yes I certify that my determination is in accordance with my understanding of Medicare's requirements for reasonable and necessary INPATIENT services [42 CFR 412.3e].: Yes Medical Necessity: Risk of Complication if Not Cared For in Hospital, Other - Awaiting placement in long-term care facility. Patient is unable to care for himself. Family unable to care for patient.
[2019-02-08] MEDS: MELATONIN 3 MG TABLET PO SCH (19:17)
[2019-02-08] MEDS: SIMVASTATIN 40 MG TABLET PO SCH (21:39)
[2019-02-08] MEDS: QUETIAPINE FUMARATE 25 MG TABLET PO SCH (21:39)
[2019-02-09] MEDS: HEPARIN SOD (PORCINE) 5,000 UNIT/ML 1 ML SYRINGE SUBCUT SCH ×3 (05:08→21:42)
[2019-02-09] MEDS: FAMOTIDINE 20 MG TABLET PO SCH ×2 (09:12→17:30)
[2019-02-09] MEDS: OLANZAPINE 5 MG TABLET PO SCH ×2 (09:12→21:42)
[2019-02-09] MEDS: BUSPIRONE HCL 10 MG TABLET PO SCH ×2 (09:12→15:41)
[2019-02-09] MEDS: MULTIVITAMIN TABLET PO SCH (09:12)
[2019-02-09] MEDS: ASPIRIN 81 MG TABLET, ENT COATED PO SCH (09:12)
[2019-02-09] MEDS: LAMOTRIGINE 25 MG TAB.CHEW PO SCH ×2 (09:13→21:42)
[2019-02-09] MEDS: NICOTINE 14 MG/24 HR PATCH.TD24 TD SCH (09:13)
[2019-02-09] MEDS: TIOTROPIUM BROMIDE DPI 5 CAP/KIT (18 MCG/CAP) IH SCH (09:14)
[2019-02-09] MEDS ORDERED: HALOPERIDOL 2 MG TABLET PO PRN (15:07)
[2019-02-09] MEDS ORDERED: HALOPERIDOL LACTATE INJ 5 MG/1 ML VIAL IV ONE (15:30)
[2019-02-09] MEDS: MELATONIN 3 MG TABLET PO SCH (18:34)
[2019-02-09] MEDS: QUETIAPINE FUMARATE 25 MG TABLET PO SCH (21:42)
[2019-02-09] MEDS: SIMVASTATIN 40 MG TABLET PO SCH (21:42)
[2019-02-09] MEDS: HALOPERIDOL LACTATE ORAL SOLN 10 MG/5 ML UDCUP PO PRN (21:43)
--- NOTE | 2019-02-09 22:47 | PDOC PROGRESS REPORT ---
Subjective Progress Note for:: 02/09/19 Subjective:: 73 y.o. M with a PMH of anoxic brain injury (at age 27 y.o.), COPD, parkinsonism and HLD. He presented to [facility] ED for acute lethargy. He currently lives at an assisted living facility, [facility]. Patient has severe dementia and is unable to provide any meaningful input. The patient was treated for healthcare associated PNA and subsequetly developed MRSA bacteremia. He completed antibiotic treatment on January 30. Currently awaiting placement in a halfway care facility. Patient attempting to get OOB. He is unstable on his feet, significant fall risk. [facility] nursing staff to use roll belt restraint and administer IM haldol. Additionally, patient should be working with PT/OT to regain strength he lost during this hospitalization. No other significant changes to treatment plan. Reason For Visit: RLL PNEUMONIA Physical Exam Vital Signs: Temp Pulse Resp BP Pulse Ox 98.2 F 84 21 H 115/70 99 02/09/19 21:31 02/09/19 21:31 02/09/19 21:31 02/09/19 21:31 02/09/19 21:31 Intake & Output 02/08/19 02/09/19 02/10/19 06:59 06:59 06:59 Intake Total 2460 240 600 Balance 2460 240 600 Weight 52.9 kg 51.3 kg General appearance: PRESENT: no acute distress, thin Head exam: PRESENT: atraumatic, normocephalic Eye exam: PRESENT: conjunctiva pink, EOMI, PERRLA. ABSENT: scleral icterus Ear exam: PRESENT: normal external ear exam Mouth exam: PRESENT: moist, tongue midline Teeth exam: PRESENT: edentulous Neck exam: ABSENT: carotid bruit, JVD, lymphadenopathy, thyromegaly Respiratory exam: PRESENT: clear to auscultation gama, symmetrical, unlabored. ABSENT: rales, rhonchi, wheezes Cardiovascular exam: PRESENT: RRR. ABSENT: diastolic murmur, rubs, systolic murmur Pulses: PRESENT: normal radial pulses, normal dorsalis pedis pul Vascular exam: PRESENT: pallor GI/Abdominal exam: PRESENT: normal bowel sounds, soft. ABSENT: distended, guarding, mass, organolmegaly, rebound, tenderness Rectal exam: PRESENT: deferred Extremities exam: PRESENT: full ROM. ABSENT: calf tenderness, clubbing, pedal edema Neurological exam: PRESENT: alert, awake, oriented to person, oriented to place. ABSENT: oriented to time, oriented to situation Psychiatric exam: PRESENT: normal mood. ABSENT: appropriate affect - mental capacity of a young child due to anoxic brain injury Skin exam: PRESENT: dry, intact, warm. ABSENT: cyanosis, rash Results Laboratory Results: 02/04/19 18:55 02/04/19 18:55 01/29/19 01/29/19 01/29/19 10:51 10:51 14:40 Creatine Kinase 688 H 916 H CK-MB (CK-2) 7.95 H Troponin I < 0.012 01/29/19 01/29/19 01/29/19 14:40 21:41 21:41 Creatine Kinase 928 H CK-MB (CK-2) 10.40 H 7.89 H Troponin I < 0.012 < 0.012 01/30/19 01/31/19 06:13 05:46 Creatine Kinase 1000 H 410 H CK-MB (CK-2) Troponin I Impressions: Chest X-Ray 01/13/19 00:00 IMPRESSION: 1. Slightly worsened appearance of the chronic right lower lobe opacity representing patient's known fibrotic changes; however, findings may represent superimposed pneumonia in the appropriate clinical setting. 2. Mildly improved left lower lobe opacity. Head CT 01/13/19 18:25 IMPRESSION: MICROVASCULAR ISCHEMIA AND GENERALIZED ATROPHY. NO ACUTE IMAGING FINDINGS IN THE BRAIN EVIDENCE OF ACUTE STROKE: NO. Status: Imported from PACS Assessment and Plan - Diagnosis (1) Bacteremia Is this a current diagnosis for this admission?: Yes Plan: Resolved. Patient has 1/4 bottles positive for MRSA. Repeat blood cultures negative at 5 days. Unclear source. Sputum cultures show no growth No MRSA in any previous cultures on file. No skin breakdown identified. TTE negative for vegetations. Has completed 2-week course of IV vancomycin. (2) Acute on chronic respiratory failure with hypoxia Is this a current diagnosis for this admission?: Yes Plan: Resolved. Secondary to pneumonia Patient now maintains SPO2 > 88% on room air (3) Altered mental status Qualifiers: Altered mental status type: somnolence Qualified Code(s): R40.0 - Somnolence Is this a current diagnosis for this admission?: Yes Plan: Waxes and wanes; at baseline Head CT negative History of severe dementia and anoxic brain injury at the age of 27 Daughter states that the patient has the mental capacity of a 7-year-old Patient will intermittently have days when he is very lucid and cooperative, other days he is very altered and agitated The patient erratic behavior is likely related to dementia and acute delirium, exacerbated by his active infection. His anoxic brain injury, while it does not help his situation, is not the primary culprit of his agitation. Melatonin and Seroquel nightly. Supportive and symptomatic care as required Fall precautions. 1:1 sitter for safety. Continue home dose Zyprexa and Lamictal. Continue BuSpar. Continue melatonin and Seroquel nightly. PRN Haldol IV IV ativan as needed. Avoid use of restraints; may consider roll belt for safety (4) Hypotension Qualifiers: Hypotension type: hypotension due to hypovolemia Qualified Code(s): I95.89 - Other hypotension; E86.1 - Hypovolemia Is this a current diagnosis for this admission?: Yes Plan: RESOLVED Oral fluids are encouraged (5) Pneumonia Qualifiers: Pneumonia type: due to unspecified organism Laterality: right Lung location: lower lobe of lung Qualified Code(s): J18.1 - Lobar pneumonia, unspecified organism Is this a current diagnosis for this admission?: Yes Plan: Resolved; received full antibiotic course. (6) Muscle atrophy Qualifiers: Muscle atrophy area: multiple sites Qualified Code(s): M62.59 - Muscle wasting and atrophy, not elsewhere classified, multiple sites Is this a current diagnosis for this admission?: Yes Plan: Unfortunately, patient was restrained to the bed for multiple days at a time; has suffered a great deal of muscle atrophy Continue PT/OT Discussed w/ nursing; keep out of restraints if at all possible. 1:1 sitter for safety (7) Elevated CK Is this a current diagnosis for this admission?: Yes Plan: Resolved - Time Time Spent with patient: 15-24 minutes Medications reviewed and adjusted accordingly: Yes Anticipated discharge: Other - oysterman care - Inpatient Certification Based on my medical assessment, after consideration of the patient's comorbidities, presenting symptoms, or acuity I expect that the services needed warrant INPATIENT care.: Yes I certify that my determination is in accordance with my understanding of Medicare's requirements for reasonable and necessary INPATIENT services [42 CFR 412.3e].: Yes Medical Necessity: Risk of Complication if Not Cared For in Hospital
[2019-02-10] MEDS: HEPARIN SOD (PORCINE) 5,000 UNIT/ML 1 ML SYRINGE SUBCUT SCH ×3 (06:02→21:31)
[2019-02-10] MEDS: BUSPIRONE HCL 10 MG TABLET PO SCH ×2 (08:13→17:12)
[2019-02-10] MEDS: OLANZAPINE 5 MG TABLET PO SCH ×2 (08:13→21:31)
[2019-02-10] MEDS: TIOTROPIUM BROMIDE DPI 5 CAP/KIT (18 MCG/CAP) IH SCH (09:59)
[2019-02-10] MEDS: MULTIVITAMIN TABLET PO SCH (09:59)
[2019-02-10] MEDS: NICOTINE 14 MG/24 HR PATCH.TD24 TD SCH (10:00)
[2019-02-10] MEDS: ASPIRIN 81 MG TABLET, ENT COATED PO SCH (10:00)
[2019-02-10] MEDS: FAMOTIDINE 20 MG TABLET PO SCH ×2 (10:00→17:12)
[2019-02-10] MEDS: LAMOTRIGINE 25 MG TAB.CHEW PO SCH ×2 (10:00→21:31)
[2019-02-10] MEDS: NYSTATIN TOPICAL POWDER 15 GM TP SCH ×2 (14:36→17:13)
[2019-02-10] MEDS: MELATONIN 3 MG TABLET PO SCH (19:29)
[2019-02-10] MEDS: HALOPERIDOL LACTATE ORAL SOLN 10 MG/5 ML UDCUP PO PRN (19:40)
[2019-02-10] MEDS: QUETIAPINE FUMARATE 25 MG TABLET PO SCH (21:31)
[2019-02-10] MEDS: SIMVASTATIN 40 MG TABLET PO SCH (21:31)
--- NOTE | 2019-02-10 22:24 | PDOC PROGRESS REPORT ---
Subjective Progress Note for:: 02/10/19 Subjective:: 73 y.o. M with a PMH of anoxic brain injury (at age 27 y.o.), COPD, parkinsonism and HLD. He presented to [facility] for acute lethargy. He currently lives at an assisted living facility, [facility]. Patient has severe dementia and is unable to provide any meaningful input. The patient was treated for healthcare associated PNA and subsequetly developed MRSA bacteremia. He completed antibiotic treatment on January 30. Currently awaiting placement in a long-term care facility. Patient is very well behaved today. He is cooperating with staff and participatory in care. No other significant changes to treatment plan. Reason For Visit: RLL PNEUMONIA Physical Exam Vital Signs: Temp Pulse Resp BP Pulse Ox 98.2 F 79 20 153/77 H 100 02/10/19 21:34 02/10/19 21:34 02/10/19 21:34 02/10/19 21:34 02/10/19 21:34 Intake & Output 02/09/19 02/10/19 02/11/19 06:59 06:59 06:59 Intake Total 825 558 4094 Output Total 500 900 Balance 240 460 300 Weight 51.3 kg 52.1 kg General appearance: PRESENT: no acute distress, thin Head exam: PRESENT: atraumatic, normocephalic Eye exam: PRESENT: conjunctiva pink, EOMI, PERRLA. ABSENT: scleral icterus Ear exam: PRESENT: normal external ear exam Mouth exam: PRESENT: moist, tongue midline Teeth exam: PRESENT: edentulous Neck exam: PRESENT: full ROM. ABSENT: carotid bruit, JVD, lymphadenopathy, thyromegaly Respiratory exam: PRESENT: clear to auscultation gama, symmetrical, unlabored. ABSENT: rales, rhonchi, wheezes Cardiovascular exam: PRESENT: RRR. ABSENT: diastolic murmur, rubs, systolic murmur Pulses: PRESENT: normal radial pulses, normal dorsalis pedis pul Vascular exam: PRESENT: pallor GI/Abdominal exam: PRESENT: normal bowel sounds, soft. ABSENT: distended, guarding, mass, organolmegaly, rebound, tenderness Rectal exam: PRESENT: deferred Extremities exam: PRESENT: full ROM. ABSENT: calf tenderness, clubbing, pedal edema Musculoskeletal exam: PRESENT: full ROM. ABSENT: ambulatory Neurological exam: PRESENT: alert, awake, oriented to person, oriented to place, oriented to time, oriented to situation Psychiatric exam: PRESENT: appropriate affect, normal mood Skin exam: PRESENT: dry, intact, warm. ABSENT: cyanosis, rash Results Laboratory Results: 02/04/19 18:55 02/04/19 18:55 01/29/19 01/29/19 01/29/19 10:51 10:51 14:40 Creatine Kinase 688 H 916 H CK-MB (CK-2) 7.95 H Troponin I < 0.012 01/29/19 01/29/19 01/29/19 14:40 21:41 21:41 Creatine Kinase 928 H CK-MB (CK-2) 10.40 H 7.89 H Troponin I < 0.012 < 0.012 01/30/19 01/31/19 06:13 05:46 Creatine Kinase 1000 H 410 H CK-MB (CK-2) Troponin I Impressions: Chest X-Ray 01/13/19 00:00 IMPRESSION: 1. Slightly worsened appearance of the chronic right lower lobe opacity representing patient's known fibrotic changes; however, findings may represent superimposed pneumonia in the appropriate clinical setting. 2. Mildly improved left lower lobe opacity. Head CT 01/13/19 18:25 IMPRESSION: MICROVASCULAR ISCHEMIA AND GENERALIZED ATROPHY. NO ACUTE IMAGING FINDINGS IN THE BRAIN EVIDENCE OF ACUTE STROKE: NO. Status: Imported from PACS Assessment and Plan - Diagnosis (1) Bacteremia Is this a current diagnosis for this admission?: Yes Plan: Resolved. Patient has 1/4 bottles positive for MRSA. Repeat blood cultures negative at 5 days. Unclear source. Sputum cultures show no growth No MRSA in any previous cultures on file. No skin breakdown identified. TTE negative for vegetations. Has completed 2-week course of IV vancomycin. (2) Acute on chronic respiratory failure with hypoxia Is this a current diagnosis for this admission?: Yes Plan: Resolved. Secondary to pneumonia Patient now maintains SPO2 > 88% on room air (3) Altered mental status Qualifiers: Altered mental status type: somnolence Qualified Code(s): R40.0 - Somnolence Is this a current diagnosis for this admission?: Yes Plan: Waxes and wanes; at baseline Head CT negative History of severe dementia and anoxic brain injury at the age of 27 Daughter states that the patient has the mental capacity of a 7-year-old Patient will intermittently have days when he is very lucid and cooperative, other days he is very altered and agitated The patient erratic behavior is likely related to dementia and acute delirium, exacerbated by his active infection. His anoxic brain injury, while it does not help his situation, is not the primary culprit of his agitation. Melatonin and Seroquel nightly. Supportive and symptomatic care as required Fall precautions. 1:1 sitter for safety. Continue home dose Zyprexa and Lamictal. Continue BuSpar. Continue melatonin and Seroquel nightly. PRN Haldol PO Avoid use of restraints; may consider roll belt for safety (4) Hypotension Qualifiers: Hypotension type: hypotension due to hypovolemia Qualified Code(s): I95.89 - Other hypotension; E86.1 - Hypovolemia Is this a current diagnosis for this admission?: Yes Plan: RESOLVED Oral fluids are encouraged (5) Pneumonia Qualifiers: Pneumonia type: due to unspecified organism Laterality: right Lung location: lower lobe of lung Qualified Code(s): J18.1 - Lobar pneumonia, unspecified organism Is this a current diagnosis for this admission?: Yes Plan: Resolved; received full antibiotic course. (6) Muscle atrophy Qualifiers: Muscle atrophy area: multiple sites Qualified Code(s): M62.59 - Muscle wasting and atrophy, not elsewhere classified, multiple sites Is this a current diagnosis for this admission?: Yes Plan: Unfortunately, patient was restrained to the bed for multiple days at a time; has suffered a great deal of muscle atrophy Continue PT/OT Discussed w/ nursing; keep out of restraints if at all possible. 1:1 sitter for safety (7) Elevated CK Is this a current diagnosis for this admission?: Yes Plan: Resolved - Time Time Spent with patient: 15-24 minutes Medications reviewed and adjusted accordingly: Yes Anticipated discharge: Home - Inpatient Certification Based on my medical assessment, after consideration of the patient's comorbidities, presenting symptoms, or acuity I expect that the services needed warrant INPATIENT care.: Yes I certify that my determination is in accordance with my understanding of Medicare's requirements for reasonable and necessary INPATIENT services [42 CFR 412.3e].: Yes Medical Necessity: Need Close Monitoring Due to Risk of Patient Decompensation, Risk of Complication if Not Cared For in Hospital
[2019-02-11] MEDS: HALOPERIDOL LACTATE ORAL SOLN 10 MG/5 ML UDCUP PO PRN ×3 (02:48→20:40)
[2019-02-11] MEDS: HEPARIN SOD (PORCINE) 5,000 UNIT/ML 1 ML SYRINGE SUBCUT SCH ×3 (05:41→22:07)
[2019-02-11] MEDS: BUSPIRONE HCL 10 MG TABLET PO SCH ×2 (08:15→15:57)
[2019-02-11] MEDS: OLANZAPINE 5 MG TABLET PO SCH ×2 (08:15→22:08)
[2019-02-11] MEDS: LAMOTRIGINE 25 MG TAB.CHEW PO SCH ×2 (09:16→22:08)
[2019-02-11] MEDS: FAMOTIDINE 20 MG TABLET PO SCH ×2 (09:16→16:52)
[2019-02-11] MEDS: NYSTATIN TOPICAL POWDER 15 GM TP SCH ×2 (09:16→16:54)
[2019-02-11] MEDS: NICOTINE 14 MG/24 HR PATCH.TD24 TD SCH (09:16)
[2019-02-11] MEDS: ASPIRIN 81 MG TABLET, ENT COATED PO SCH (09:16)
[2019-02-11] MEDS: MULTIVITAMIN TABLET PO SCH (09:16)
[2019-02-11] MEDS: TIOTROPIUM BROMIDE DPI 5 CAP/KIT (18 MCG/CAP) IH SCH (09:17)
--- NOTE | 2019-02-11 14:41 | PDOC PROGRESS REPORT ---
Subjective Progress Note for:: 02/11/19 Subjective:: 73 y.o. M with a PMH of anoxic brain injury (at age 27 y.o.), COPD, parkinsonism and HLD. He presented to [facility] ED for acute lethargy. He currently lives at an assisted living facility, [facility]. Patient has severe dementia and is unable to provide any meaningful input. The patient was treated for healthcare associated PNA and subsequetly developed MRSA bacteremia. He completed antibiotic treatment on January 30. Currently awaiting placement in a shelter care facility. Patient is very well behaved today. He is cooperating with staff and participatory in care. No other significant changes to treatment plan. Reason For Visit: RLL PNEUMONIA Physical Exam Vital Signs: Temp Pulse Resp BP Pulse Ox 98.8 F 120 H 24 H 120/79 91 L 02/11/19 07:32 02/11/19 07:32 02/11/19 07:32 02/11/19 07:32 02/11/19 07:32 Intake & Output 02/10/19 02/11/19 02/12/19 06:59 06:59 06:59 Intake Total 960 1680 240 Output Total 500 1101 Balance 460 579 240 Weight 52.1 kg General appearance: PRESENT: no acute distress, thin Head exam: PRESENT: atraumatic, normocephalic Eye exam: PRESENT: conjunctiva pink, EOMI, PERRLA. ABSENT: scleral icterus Ear exam: PRESENT: normal external ear exam Mouth exam: PRESENT: moist, tongue midline Teeth exam: PRESENT: edentulous Neck exam: ABSENT: carotid bruit, JVD, lymphadenopathy, thyromegaly Respiratory exam: PRESENT: clear to auscultation gama, symmetrical, unlabored. ABSENT: rales, rhonchi, wheezes Cardiovascular exam: PRESENT: RRR. ABSENT: diastolic murmur, rubs, systolic murmur Pulses: PRESENT: normal radial pulses, +1 pedal pulses bilateral Vascular exam: PRESENT: normal capillary refill GI/Abdominal exam: PRESENT: normal bowel sounds, soft. ABSENT: distended, guarding, mass, organolmegaly, rebound, tenderness Rectal exam: PRESENT: deferred Extremities exam: PRESENT: full ROM. ABSENT: calf tenderness, clubbing, pedal edema Neurological exam: PRESENT: alert, awake, oriented to person. ABSENT: oriented to place, oriented to time, oriented to situation Psychiatric exam: PRESENT: appropriate affect, normal mood Skin exam: PRESENT: dry, intact, warm. ABSENT: cyanosis, rash Results Laboratory Results: 02/04/19 18:55 02/04/19 18:55 01/29/19 01/29/19 01/29/19 10:51 10:51 14:40 Creatine Kinase 688 H 916 H CK-MB (CK-2) 7.95 H Troponin I < 0.012 01/29/19 01/29/19 01/29/19 14:40 21:41 21:41 Creatine Kinase 928 H CK-MB (CK-2) 10.40 H 7.89 H Troponin I < 0.012 < 0.012 01/30/19 01/31/19 06:13 05:46 Creatine Kinase 1000 H 410 H CK-MB (CK-2) Troponin I Impressions: Chest X-Ray 01/13/19 00:00 IMPRESSION: 1. Slightly worsened appearance of the chronic right lower lobe opacity representing patient's known fibrotic changes; however, findings may represent superimposed pneumonia in the appropriate clinical setting. 2. Mildly improved left lower lobe opacity. Head CT 01/13/19 18:25 IMPRESSION: MICROVASCULAR ISCHEMIA AND GENERALIZED ATROPHY. NO ACUTE IMAGING FINDINGS IN THE BRAIN EVIDENCE OF ACUTE STROKE: NO. Status: Imported from PACS Assessment and Plan - Diagnosis (1) Bacteremia Is this a current diagnosis for this admission?: Yes Plan: Resolved. Patient has 1/4 bottles positive for MRSA. Repeat blood cultures negative at 5 days. Unclear source. Sputum cultures show no growth No MRSA in any previous cultures on file. No skin breakdown identified. TTE negative for vegetations. Has completed 2-week course of IV vancomycin. (2) Acute on chronic respiratory failure with hypoxia Is this a current diagnosis for this admission?: Yes Plan: Resolved. Secondary to pneumonia Patient now maintains SPO2 > 88% on room air (3) Altered mental status Qualifiers: Altered mental status type: somnolence Qualified Code(s): R40.0 - Somnolence Is this a current diagnosis for this admission?: Yes Plan: Waxes and wanes; at baseline Head CT negative History of severe dementia and anoxic brain injury at the age of 27 Daughter states that the patient has the mental capacity of a 7-year-old Patient will intermittently have days when he is very lucid and cooperative, other days he is very altered and agitated The patient erratic behavior is likely related to dementia and acute delirium, exacerbated by his active infection. His anoxic brain injury, while it does not help his situation, is not the primary culprit of his agitation. Melatonin and Seroquel nightly. Supportive and symptomatic care as required Fall precautions. 1:1 sitter for safety. Continue home dose Zyprexa and Lamictal. Continue BuSpar. Continue melatonin and Seroquel nightly. PRN Haldol PO Avoid use of restraints; may consider roll belt for safety (4) Hypotension Qualifiers: Hypotension type: hypotension due to hypovolemia Qualified Code(s): I95.89 - Other hypotension; E86.1 - Hypovolemia Is this a current diagnosis for this admission?: Yes Plan: RESOLVED Oral fluids are encouraged (5) Pneumonia Qualifiers: Pneumonia type: due to unspecified organism Laterality: right Lung location: lower lobe of lung Qualified Code(s): J18.1 - Lobar pneumonia, unspecified organism Is this a current diagnosis for this admission?: Yes Plan: Resolved; received full antibiotic course. (6) Muscle atrophy Qualifiers: Muscle atrophy area: multiple sites Qualified Code(s): M62.59 - Muscle wasting and atrophy, not elsewhere classified, multiple sites Is this a current diagnosis for this admission?: Yes Plan: Unfortunately, patient was restrained to the bed for multiple days at a time; has suffered a great deal of muscle atrophy Continue PT/OT Discussed w/ nursing; keep out of restraints if at all possible. 1:1 sitter for safety (7) Elevated CK Is this a current diagnosis for this admission?: Yes Plan: Resolved - Time Time Spent with patient: 15-24 minutes Medications reviewed and adjusted accordingly: Yes Anticipated discharge: Other - Long-term care - Inpatient Certification Based on my medical assessment, after consideration of the patient's comorbidities, presenting symptoms, or acuity I expect that the services needed warrant INPATIENT care.: Yes I certify that my determination is in accordance with my understanding of Medicare's requirements for reasonable and necessary INPATIENT services [42 CFR 412.3e].: Yes Medical Necessity: Risk of Complication if Not Cared For in Hospital
[2019-02-11] MEDS: MELATONIN 3 MG TABLET PO SCH (20:41)
[2019-02-11] MEDS: SIMVASTATIN 40 MG TABLET PO SCH (22:07)
[2019-02-11] MEDS: QUETIAPINE FUMARATE 25 MG TABLET PO SCH (22:08)
[2019-02-12] MEDS ORDERED: ACETAMINOPHEN 325 MG TABLET PO PRN (04:31)
[2019-02-12] MEDS: HEPARIN SOD (PORCINE) 5,000 UNIT/ML 1 ML SYRINGE SUBCUT SCH ×3 (05:56→22:37)
--- NOTE | 2019-02-12 09:57 | PDOC PROGRESS REPORT ---
Subjective Progress Note for:: 02/12/19 Subjective:: 73 y.o. M with a PMH of anoxic brain injury (at age 27 y.o.), COPD, parkinsonism and HLD. [facility]. He currently lives at an assisted living facility, [facility]. Patient has severe dementia and is unable to provide any meaningful input. The patient was treated for healthcare associated PNA and subsequetly developed MRSA bacteremia. He completed antibiotic treatment on January 30. Currently awaiting placement in a nursing home care facility. Patient is very well behaved today. He is cooperating with staff and participatory in care. No other significant changes to treatment plan. Reason For Visit: RLL PNEUMONIA Physical Exam Vital Signs: Temp Pulse Resp BP Pulse Ox 98.3 F 98 21 H 147/58 H 94 02/11/19 20:16 02/11/19 20:16 02/11/19 20:16 02/11/19 20:16 02/11/19 20:16 Intake & Output 02/11/19 02/12/19 02/13/19 06:59 06:59 06:59 Intake Total 1680 420 Output Total 1101 600 Balance 579 -180 Weight 50.9 kg General appearance: PRESENT: no acute distress, thin Head exam: PRESENT: atraumatic, normocephalic Eye exam: PRESENT: conjunctiva pink, EOMI, PERRLA. ABSENT: scleral icterus Ear exam: PRESENT: normal external ear exam Mouth exam: PRESENT: moist, tongue midline Teeth exam: PRESENT: edentulous Neck exam: PRESENT: full ROM. ABSENT: carotid bruit, JVD, lymphadenopathy, thyromegaly Respiratory exam: PRESENT: clear to auscultation gama, symmetrical, unlabored. ABSENT: rales, rhonchi, wheezes Cardiovascular exam: PRESENT: RRR. ABSENT: diastolic murmur, rubs, systolic murmur Pulses: PRESENT: normal radial pulses, normal dorsalis pedis pul Vascular exam: PRESENT: pallor GI/Abdominal exam: PRESENT: normal bowel sounds, soft. ABSENT: distended, guarding, mass, organolmegaly, rebound, tenderness Rectal exam: PRESENT: deferred Extremities exam: PRESENT: full ROM. ABSENT: calf tenderness, clubbing, pedal edema Musculoskeletal exam: PRESENT: full ROM. ABSENT: ambulatory - very unsteady. requires 2 person assist Neurological exam: PRESENT: alert, awake, oriented to person. ABSENT: oriented to place, oriented to time, oriented to situation Psychiatric exam: PRESENT: unusual affect, other - MENTAL CAPACITY OF A YOUNG CHILD SECONDARY TO ANOXIC BRAIN INJURY AT 27 Y.O.. ABSENT: appropriate affect Skin exam: PRESENT: dry, intact, warm. ABSENT: cyanosis, rash Results Laboratory Results: 02/04/19 18:55 02/04/19 18:55 01/29/19 01/29/19 01/29/19 10:51 10:51 14:40 Creatine Kinase 688 H 916 H CK-MB (CK-2) 7.95 H Troponin I < 0.012 01/29/19 01/29/19 01/29/19 14:40 21:41 21:41 Creatine Kinase 928 H CK-MB (CK-2) 10.40 H 7.89 H Troponin I < 0.012 < 0.012 01/30/19 01/31/19 06:13 05:46 Creatine Kinase 1000 H 410 H CK-MB (CK-2) Troponin I Impressions: Chest X-Ray 01/13/19 00:00 IMPRESSION: 1. Slightly worsened appearance of the chronic right lower lobe opacity representing patient's known fibrotic changes; however, findings may represent superimposed pneumonia in the appropriate clinical setting. 2. Mildly improved left lower lobe opacity. Head CT 01/13/19 18:25 IMPRESSION: MICROVASCULAR ISCHEMIA AND GENERALIZED ATROPHY. NO ACUTE IMAGING FINDINGS IN THE BRAIN EVIDENCE OF ACUTE STROKE: NO. Status: Imported from PACS Assessment and Plan - Diagnosis (1) Bacteremia Is this a current diagnosis for this admission?: Yes Plan: Resolved. Patient has 1/4 bottles positive for MRSA. Repeat blood cultures negative at 5 days. Unclear source. Sputum cultures show no growth No MRSA in any previous cultures on file. No skin breakdown identified. TTE negative for vegetations. Has completed 2-week course of IV vancomycin. (2) Acute on chronic respiratory failure with hypoxia Is this a current diagnosis for this admission?: Yes Plan: Resolved. Secondary to pneumonia Patient now maintains SPO2 > 88% on room air (3) Altered mental status Qualifiers: Altered mental status type: somnolence Qualified Code(s): R40.0 - Somnolence Is this a current diagnosis for this admission?: Yes Plan: Waxes and wanes; at baseline Head CT negative History of severe dementia and anoxic brain injury at the age of 27 Daughter states that the patient has the mental capacity of a 7-year-old Patient will intermittently have days when he is very lucid and cooperative, other days he is very altered and agitated The patient erratic behavior is likely related to dementia and acute delirium, exacerbated by his active infection. His anoxic brain injury, while it does not help his situation, is not the primary culprit of his agitation. Melatonin and Seroquel nightly. Supportive and symptomatic care as required Fall precautions. 1:1 sitter for safety. Continue home dose Zyprexa and Lamictal. Continue BuSpar. Continue melatonin and Seroquel nightly. PRN Haldol PO Avoid use of restraints; may consider roll belt for safety (4) Hypotension Qualifiers: Hypotension type: hypotension due to hypovolemia Qualified Code(s): I95.89 - Other hypotension; E86.1 - Hypovolemia Is this a current diagnosis for this admission?: Yes Plan: RESOLVED Oral fluids are encouraged (5) Pneumonia Qualifiers: Pneumonia type: due to unspecified organism Laterality: right Lung location: lower lobe of lung Qualified Code(s): J18.1 - Lobar pneumonia, unspecified organism Is this a current diagnosis for this admission?: Yes Plan: Resolved; received full antibiotic course. (6) Muscle atrophy Qualifiers: Muscle atrophy area: multiple sites Qualified Code(s): M62.59 - Muscle wasting and atrophy, not elsewhere classified, multiple sites Is this a current diagnosis for this admission?: Yes Plan: Unfortunately, patient was restrained to the bed for multiple days at a time; has suffered a great deal of muscle atrophy Continue PT/OT Discussed w/ nursing; keep out of restraints if at all possible. 1:1 sitter for safety (7) Elevated CK Is this a current diagnosis for this admission?: Yes Plan: Resolved - Time Time Spent with patient: Less than 15 minutes Medications reviewed and adjusted accordingly: Yes Anticipated discharge: [facility], Other - Inpatient Certification Based on my medical assessment, after consideration of the patient's comorbidities, presenting symptoms, or acuity I expect that the services needed warrant INPATIENT care.: Yes I certify that my determination is in accordance with my understanding of Medicare's requirements for reasonable and necessary INPATIENT services [42 CFR 412.3e].: Yes Medical Necessity: Need Close Monitoring Due to Risk of Patient Decompensation, Risk of Complication if Not Cared For in Hospital, Other - UNABLE TO CARE FOR HIMSELF. PATIENT MUST REMAIN [facility] UNTIL CASE MANAGEMENT IS ABLE TO FIND PLACEMENT FOR HIM
[2019-02-12] MEDS: NICOTINE 14 MG/24 HR PATCH.TD24 TD SCH (11:25)
[2019-02-12] MEDS: FAMOTIDINE 20 MG TABLET PO SCH ×2 (11:26→17:15)
[2019-02-12] MEDS: ASPIRIN 81 MG TABLET, ENT COATED PO SCH (11:26)
[2019-02-12] MEDS: BUSPIRONE HCL 10 MG TABLET PO SCH ×2 (11:26→17:06)
[2019-02-12] MEDS: MULTIVITAMIN TABLET PO SCH (11:26)
[2019-02-12] MEDS: NYSTATIN TOPICAL POWDER 15 GM TP SCH ×2 (11:27→17:15)
[2019-02-12] MEDS: OLANZAPINE 5 MG TABLET PO SCH ×2 (11:27→22:38)
[2019-02-12] MEDS: LAMOTRIGINE 25 MG TAB.CHEW PO SCH ×2 (11:27→22:37)
[2019-02-12] MEDS: TIOTROPIUM BROMIDE DPI 5 CAP/KIT (18 MCG/CAP) IH SCH (11:28)
[2019-02-12] MEDS: MELATONIN 3 MG TABLET PO SCH (21:05)
[2019-02-12] MEDS: SIMVASTATIN 40 MG TABLET PO SCH (22:37)
[2019-02-12] MEDS: QUETIAPINE FUMARATE 25 MG TABLET PO SCH (22:38)
[2019-02-13] MEDS: OLANZAPINE 5 MG TABLET PO SCH ×2 (08:26→21:17)
[2019-02-13] MEDS: BUSPIRONE HCL 10 MG TABLET PO SCH ×2 (08:27→16:41)
[2019-02-13] MEDS: ASPIRIN 81 MG TABLET, ENT COATED PO SCH (08:59)
[2019-02-13] MEDS: FAMOTIDINE 20 MG TABLET PO SCH ×2 (08:59→17:32)
[2019-02-13] MEDS: MULTIVITAMIN TABLET PO SCH (08:59)
[2019-02-13] MEDS: LAMOTRIGINE 25 MG TAB.CHEW PO SCH ×2 (08:59→21:17)
[2019-02-13] MEDS: NYSTATIN TOPICAL POWDER 15 GM TP SCH ×2 (08:59→17:32)
[2019-02-13] MEDS: NICOTINE 14 MG/24 HR PATCH.TD24 TD SCH (08:59)
[2019-02-13] MEDS: TIOTROPIUM BROMIDE DPI 5 CAP/KIT (18 MCG/CAP) IH SCH (08:59)
[2019-02-13] MEDS: HALOPERIDOL LACTATE ORAL SOLN 10 MG/5 ML UDCUP PO PRN ×2 (14:20→23:42)
--- NOTE | 2019-02-13 15:45 | PDOC PROGRESS REPORT ---
Subjective Progress Note for:: 02/13/19 Subjective:: JUMANA HENDRIX is a 73 year old male who presented to the emergency room via EMS due to acute lethargy developed at a senior living where he lives a short time prior to his emergency room arrival. Patient has severe dementia and is unable to provide any meaningful input into his medical care. Information obtained from the senior living indicates that he was noted to be progressively lethargic over the course of the afternoon on observation by his caretakers. EMS noted u ryanne their arrival that his oxygen saturation was 92% on room air and he was somewhat hypotensive with a systolic blood pressure in the 70s and febrile with a temperature of 100.5 F. In the emergency room he was found to have mild arterial hypotension with blood pressure of 91/52 and his oxygen saturation continued to be 92 to 93% without supplemental oxygen support. He did respond well to IV fluids, supplemental oxygen via nasal cannula and Tylenol. A chest x-ray revealed an increase in the opacity of his right lower lung field and a likelihood of pneumonia due to the clinical situation was entertained. Patient was subsequently admitted to the hospital for further evaluation and treatment. 02/13/2019: I seen patient sitting up in bed and watching video. He is awake alert he is not in pain or distress. He is awaiting placement to residential. Reason For Visit: RLL PNEUMONIA Physical Exam Vital Signs: Temp Pulse Resp BP Pulse Ox 98.2 F 66 18 114/66 97 02/13/19 11:40 02/13/19 11:40 02/13/19 11:40 02/13/19 11:40 02/13/19 11:40 Intake & Output 02/12/19 02/13/19 02/14/19 06:59 06:59 06:59 Intake Total 420 522 236 Output Total 600 Balance -180 522 236 Weight 50.9 kg 52.2 kg Results Laboratory Results: 02/04/19 18:55 02/04/19 18:55 01/29/19 01/29/19 01/29/19 10:51 10:51 14:40 Creatine Kinase 688 H 916 H CK-MB (CK-2) 7.95 H Troponin I < 0.012 01/29/19 01/29/19 01/29/19 14:40 21:41 21:41 Creatine Kinase 928 H CK-MB (CK-2) 10.40 H 7.89 H Troponin I < 0.012 < 0.012 01/30/19 01/31/19 06:13 05:46 Creatine Kinase 1000 H 410 H CK-MB (CK-2) Troponin I Impressions: Chest X-Ray 01/13/19 00:00 IMPRESSION: 1. Slightly worsened appearance of the chronic right lower lobe opacity representing patient's known fibrotic changes; however, findings may represent superimposed pneumonia in the appropriate clinical setting. 2. Mildly improved left lower lobe opacity. Head CT 01/13/19 18:25 IMPRESSION: MICROVASCULAR ISCHEMIA AND GENERALIZED ATROPHY. NO ACUTE IMAGING FINDINGS IN THE BRAIN EVIDENCE OF ACUTE STROKE: NO. Assessment and Plan - Diagnosis (1) Acute on chronic respiratory failure with hypoxemia Is this a current diagnosis for this admission?: Yes Plan: Has been resolving. (2) Pneumonia Is this a current diagnosis for this admission?: Yes Plan: Treated (3) Hypotension Is this a current diagnosis for this admission?: Yes Plan: Has resolved (4) Altered mental status Is this a current diagnosis for this admission?: Yes Plan: Possibly due to metabolic encephalopathy. Has resolved.
[2019-02-13] MEDS: SIMVASTATIN 40 MG TABLET PO SCH (21:17)
[2019-02-13] MEDS: MELATONIN 3 MG TABLET PO SCH (21:17)
[2019-02-13] MEDS: QUETIAPINE FUMARATE 25 MG TABLET PO SCH (21:17)
[2019-02-14] MEDS: NYSTATIN TOPICAL POWDER 15 GM TP SCH ×2 (10:00→21:13)
[2019-02-14] MEDS: BUSPIRONE HCL 10 MG TABLET PO SCH ×2 (10:11→16:49)
[2019-02-14] MEDS: OLANZAPINE 5 MG TABLET PO SCH ×2 (10:12→21:20)
[2019-02-14] MEDS: FAMOTIDINE 20 MG TABLET PO SCH (10:12)
[2019-02-14] MEDS: NICOTINE 14 MG/24 HR PATCH.TD24 TD SCH (10:13)
[2019-02-14] MEDS: LAMOTRIGINE 25 MG TAB.CHEW PO SCH ×2 (10:13→21:20)
[2019-02-14] MEDS: HALOPERIDOL LACTATE ORAL SOLN 10 MG/5 ML UDCUP PO PRN (15:23)
--- NOTE | 2019-02-14 17:20 | PDOC PROGRESS REPORT ---
Subjective Progress Note for:: 02/14/19 Subjective:: No significant event overnight. Reason For Visit: RLL PNEUMONIA Physical Exam Vital Signs: Temp Pulse Resp BP Pulse Ox 97.3 F 73 20 137/83 H 98 02/13/19 23:19 02/14/19 09:04 02/14/19 09:04 02/14/19 09:04 02/14/19 09:04 Intake & Output 02/13/19 02/14/19 02/15/19 06:59 06:59 06:59 Intake Total 522 1124 Output Total 200 Balance 522 924 Weight 52.2 kg 52.6 kg General appearance: PRESENT: no acute distress Head exam: PRESENT: atraumatic Neurological exam: PRESENT: alert, awake Results Laboratory Results: 02/04/19 18:55 02/04/19 18:55 01/29/19 01/29/19 01/29/19 10:51 10:51 14:40 Creatine Kinase 688 H 916 H CK-MB (CK-2) 7.95 H Troponin I < 0.012 01/29/19 01/29/19 01/29/19 14:40 21:41 21:41 Creatine Kinase 928 H CK-MB (CK-2) 10.40 H 7.89 H Troponin I < 0.012 < 0.012 01/30/19 01/31/19 06:13 05:46 Creatine Kinase 1000 H 410 H CK-MB (CK-2) Troponin I Impressions: Chest X-Ray 01/13/19 00:00 IMPRESSION: 1. Slightly worsened appearance of the chronic right lower lobe opacity representing patient's known fibrotic changes; however, findings may represent superimposed pneumonia in the appropriate clinical setting. 2. Mildly improved left lower lobe opacity. Head CT 01/13/19 18:25 IMPRESSION: MICROVASCULAR ISCHEMIA AND GENERALIZED ATROPHY. NO ACUTE IMAGING FINDINGS IN THE BRAIN EVIDENCE OF ACUTE STROKE: NO. Assessment and Plan - Diagnosis (1) Acute on chronic respiratory failure with hypoxemia Is this a current diagnosis for this admission?: Yes Plan: Has been resolving. (2) Pneumonia Is this a current diagnosis for this admission?: Yes Plan: Treated (3) Hypotension Is this a current diagnosis for this admission?: Yes Plan: Has resolved (4) Altered mental status Is this a current diagnosis for this admission?: Yes Plan: Possibly due to metabolic encephalopathy. Has resolved.
[2019-02-14] MEDS: QUETIAPINE FUMARATE 25 MG TABLET PO SCH (21:20)
[2019-02-14] MEDS: MELATONIN 3 MG TABLET PO SCH (21:20)
[2019-02-15] MEDS: BUSPIRONE HCL 10 MG TABLET PO SCH ×2 (11:20→17:09)
[2019-02-15] MEDS: OLANZAPINE 5 MG TABLET PO SCH ×2 (11:21→21:12)
[2019-02-15] MEDS: LAMOTRIGINE 25 MG TAB.CHEW PO SCH ×2 (11:22→21:12)
[2019-02-15] MEDS: NYSTATIN TOPICAL POWDER 15 GM TP SCH ×2 (11:23→17:09)
--- NOTE | 2019-02-15 17:56 | PDOC PROGRESS REPORT ---
Subjective Progress Note for:: 02/15/19 Subjective:: No significant event overnight. Reason For Visit: RLL PNEUMONIA Physical Exam Vital Signs: Temp Pulse Resp BP Pulse Ox 97.8 F 72 20 121/64 98 02/15/19 13:02 02/15/19 13:02 02/15/19 13:02 02/15/19 13:02 02/15/19 13:02 Intake & Output 02/14/19 02/15/19 02/16/19 06:59 06:59 06:59 Intake Total 1124 2320 Output Total 200 Balance 924 2320 Weight 52.6 kg 50.6 kg Results Laboratory Results: 02/04/19 18:55 02/04/19 18:55 01/29/19 01/29/19 01/29/19 10:51 10:51 14:40 Creatine Kinase 688 H 916 H CK-MB (CK-2) 7.95 H Troponin I < 0.012 01/29/19 01/29/19 01/29/19 14:40 21:41 21:41 Creatine Kinase 928 H CK-MB (CK-2) 10.40 H 7.89 H Troponin I < 0.012 < 0.012 01/30/19 01/31/19 06:13 05:46 Creatine Kinase 1000 H 410 H CK-MB (CK-2) Troponin I Impressions: Chest X-Ray 01/13/19 00:00 IMPRESSION: 1. Slightly worsened appearance of the chronic right lower lobe opacity representing patient's known fibrotic changes; however, findings may represent superimposed pneumonia in the appropriate clinical setting. 2. Mildly improved left lower lobe opacity. Head CT 01/13/19 18:25 IMPRESSION: MICROVASCULAR ISCHEMIA AND GENERALIZED ATROPHY. NO ACUTE IMAGING FINDINGS IN THE BRAIN EVIDENCE OF ACUTE STROKE: NO. Assessment and Plan - Diagnosis (1) Acute on chronic respiratory failure with hypoxemia Is this a current diagnosis for this admission?: Yes Plan: Has been resolving. (2) Pneumonia Is this a current diagnosis for this admission?: Yes Plan: Treated (3) Hypotension Is this a current diagnosis for this admission?: Yes Plan: Has resolved (4) Altered mental status Is this a current diagnosis for this admission?: Yes Plan: Possibly due to metabolic encephalopathy. Has resolved.
[2019-02-15] MEDS: QUETIAPINE FUMARATE 25 MG TABLET PO SCH (21:12)
[2019-02-15] MEDS: MELATONIN 3 MG TABLET PO SCH (21:12)
[2019-02-16] MEDS: OLANZAPINE 5 MG TABLET PO SCH (07:31)
[2019-02-16] MEDS: BUSPIRONE HCL 10 MG TABLET PO SCH ×2 (07:31→15:48)
[2019-02-16] MEDS: LAMOTRIGINE 25 MG TAB.CHEW PO SCH (09:31)
[2019-02-16] MEDS: NYSTATIN TOPICAL POWDER 15 GM TP SCH ×2 (09:31→17:12)
--- NOTE | 2019-02-16 16:08 | PDOC PROGRESS REPORT ---
Subjective Progress Note for:: 02/16/19 Subjective:: Patient seen resting in bed. No significant change overnight. Still patient has been waiting for placement Reason For Visit: RLL PNEUMONIA Physical Exam Vital Signs: Temp Pulse Resp BP Pulse Ox 98.9 F 103 H 18 138/68 H 94 02/16/19 10:00 02/16/19 10:00 02/16/19 10:00 02/16/19 10:00 02/16/19 10:00 Intake & Output 02/15/19 02/16/19 02/17/19 06:59 06:59 06:59 Intake Total 2320 1330 Balance 2320 1330 Weight 50.6 kg 51.2 kg Results Laboratory Results: 02/04/19 18:55 02/04/19 18:55 01/29/19 01/29/19 01/29/19 10:51 10:51 14:40 Creatine Kinase 688 H 916 H CK-MB (CK-2) 7.95 H Troponin I < 0.012 01/29/19 01/29/19 01/29/19 14:40 21:41 21:41 Creatine Kinase 928 H CK-MB (CK-2) 10.40 H 7.89 H Troponin I < 0.012 < 0.012 01/30/19 01/31/19 06:13 05:46 Creatine Kinase 1000 H 410 H CK-MB (CK-2) Troponin I Impressions: Chest X-Ray 01/13/19 00:00 IMPRESSION: 1. Slightly worsened appearance of the chronic right lower lobe opacity representing patient's known fibrotic changes; however, findings may represent superimposed pneumonia in the appropriate clinical setting. 2. Mildly improved left lower lobe opacity. Head CT 01/13/19 18:25 IMPRESSION: MICROVASCULAR ISCHEMIA AND GENERALIZED ATROPHY. NO ACUTE IMAGING FINDINGS IN THE BRAIN EVIDENCE OF ACUTE STROKE: NO. Assessment and Plan - Diagnosis (1) Acute on chronic respiratory failure with hypoxemia Is this a current diagnosis for this admission?: Yes Plan: Has been resolving. (2) Pneumonia Is this a current diagnosis for this admission?: Yes Plan: Treated (3) Hypotension Is this a current diagnosis for this admission?: Yes Plan: Has resolved (4) Altered mental status Is this a current diagnosis for this admission?: Yes
[2019-02-16] MEDS: MELATONIN 3 MG TABLET PO SCH (18:44)
[2019-02-17] MEDS: LAMOTRIGINE 25 MG TAB.CHEW PO SCH (03:32)
[2019-02-17] MEDS: OLANZAPINE 5 MG TABLET PO SCH ×2 (03:32→07:34)
[2019-02-17] MEDS: QUETIAPINE FUMARATE 25 MG TABLET PO SCH ×2 (03:32→21:52)
[2019-02-17] MEDS: NYSTATIN TOPICAL POWDER 15 GM TP SCH (09:23)
--- NOTE | 2019-02-17 11:45 | PDOC PROGRESS REPORT ---
Subjective Progress Note for:: 02/17/19 Subjective:: Patient seen while sitting up in bed and watching video. No significant change overnight. Reason For Visit: RLL PNEUMONIA Physical Exam Vital Signs: Temp Pulse Resp BP Pulse Ox 97.3 F 97 20 149/81 H 94 02/17/19 08:28 02/17/19 08:28 02/17/19 08:28 02/17/19 08:28 02/17/19 08:28 Intake & Output 02/16/19 02/17/19 02/18/19 06:59 06:59 06:59 Intake Total 1330 200 Balance 1330 200 Weight 51.2 kg 50.3 kg Results Laboratory Results: 02/04/19 18:55 02/04/19 18:55 01/29/19 01/29/19 01/29/19 10:51 10:51 14:40 Creatine Kinase 688 H 916 H CK-MB (CK-2) 7.95 H Troponin I < 0.012 01/29/19 01/29/19 01/29/19 14:40 21:41 21:41 Creatine Kinase 928 H CK-MB (CK-2) 10.40 H 7.89 H Troponin I < 0.012 < 0.012 01/30/19 01/31/19 06:13 05:46 Creatine Kinase 1000 H 410 H CK-MB (CK-2) Troponin I Impressions: Chest X-Ray 01/13/19 00:00 IMPRESSION: 1. Slightly worsened appearance of the chronic right lower lobe opacity representing patient's known fibrotic changes; however, findings may represent superimposed pneumonia in the appropriate clinical setting. 2. Mildly improved left lower lobe opacity. Head CT 01/13/19 18:25 IMPRESSION: MICROVASCULAR ISCHEMIA AND GENERALIZED ATROPHY. NO ACUTE IMAGING FINDINGS IN THE BRAIN EVIDENCE OF ACUTE STROKE: NO. Assessment and Plan - Diagnosis (1) Acute on chronic respiratory failure with hypoxemia Is this a current diagnosis for this admission?: Yes Plan: Has been resolving. (2) Pneumonia Is this a current diagnosis for this admission?: Yes Plan: Treated (3) Hypotension Is this a current diagnosis for this admission?: Yes Plan: Has resolved (4) Altered mental status Is this a current diagnosis for this admission?: Yes Plan: Possibly due to metabolic encephalopathy. Has resolved.
[2019-02-17] MEDS ORDERED: HALOPERIDOL LACTATE INJ 5 MG/1 ML VIAL ONE (12:12)
[2019-02-17] MEDS ORDERED: HALOPERIDOL LACTATE INJ 5 MG/1 ML VIAL IM ONE (12:30)
[2019-02-17] MEDS: MELATONIN 3 MG TABLET PO SCH (18:00)
[2019-02-18] MEDS: OLANZAPINE 5 MG TABLET PO SCH (07:35)
--- NOTE | 2019-02-18 11:54 | PDOC PROGRESS REPORT ---
Subjective Progress Note for:: 02/18/19 Subjective:: Yesterday patient had an episode of agitation and combativeness and he was given 5 mg of Haldol IM. This morning patient seen sitting up in bed and enjoying his breakfast. Reason For Visit: RLL PNEUMONIA Physical Exam Vital Signs: Temp Pulse Resp BP Pulse Ox 98.4 F 62 21 H 129/77 H 97 02/18/19 08:20 02/18/19 08:20 02/18/19 08:20 02/18/19 08:20 02/18/19 08:20 Intake & Output 02/17/19 02/18/19 02/19/19 06:59 06:59 06:59 Intake Total 200 1200 Balance 200 1200 Weight 50.3 kg 49.8 kg Results Laboratory Results: 02/04/19 18:55 02/04/19 18:55 01/29/19 01/29/19 01/29/19 10:51 10:51 14:40 Creatine Kinase 688 H 916 H CK-MB (CK-2) 7.95 H Troponin I < 0.012 01/29/19 01/29/19 01/29/19 14:40 21:41 21:41 Creatine Kinase 928 H CK-MB (CK-2) 10.40 H 7.89 H Troponin I < 0.012 < 0.012 01/30/19 01/31/19 06:13 05:46 Creatine Kinase 1000 H 410 H CK-MB (CK-2) Troponin I Impressions: Chest X-Ray 01/13/19 00:00 IMPRESSION: 1. Slightly worsened appearance of the chronic right lower lobe opacity representing patient's known fibrotic changes; however, findings may represent superimposed pneumonia in the appropriate clinical setting. 2. Mildly improved left lower lobe opacity. Head CT 01/13/19 18:25 IMPRESSION: MICROVASCULAR ISCHEMIA AND GENERALIZED ATROPHY. NO ACUTE IMAGING FINDINGS IN THE BRAIN EVIDENCE OF ACUTE STROKE: NO. Assessment and Plan - Diagnosis (1) Acute on chronic respiratory failure with hypoxemia Is this a current diagnosis for this admission?: Yes Plan: Has been resolving. (2) Pneumonia Is this a current diagnosis for this admission?: Yes Plan: Treated (3) Hypotension Is this a current diagnosis for this admission?: Yes Plan: Has resolved (4) Altered mental status Is this a current diagnosis for this admission?: Yes Plan: Possibly due to metabolic encephalopathy. Has resolved.
[2019-02-18] MEDS: MELATONIN 3 MG TABLET PO SCH (18:42)
[2019-02-18] MEDS: QUETIAPINE FUMARATE 25 MG TABLET PO SCH (21:15)
[2019-02-19] MEDS ORDERED: HALOPERIDOL LACTATE ORAL SOLN 10 MG/5 ML UDCUP ONE (03:40)
[2019-02-19] MEDS: HALOPERIDOL LACTATE ORAL SOLN 10 MG/5 ML UDCUP PO PRN (03:43)
[2019-02-19] MEDS: OLANZAPINE 5 MG TABLET PO SCH (07:12)
--- NOTE | 2019-02-19 11:25 | PDOC PROGRESS REPORT ---
Subjective Progress Note for:: 02/19/19 Subjective:: Patient seen sitting up in bed and watching video. He is awake alert. He is less agitated. Still patient is awaiting [facility] placement. Reason For Visit: RLL PNEUMONIA Physical Exam Vital Signs: Temp Pulse Resp BP Pulse Ox 97.7 F 88 18 116/65 100 02/19/19 08:31 02/19/19 08:31 02/19/19 08:31 02/19/19 08:31 02/19/19 08:31 Intake & Output 02/18/19 02/19/19 02/20/19 06:59 06:59 06:59 Intake Total 1200 2270 Output Total 1250 Balance 1200 1020 Weight 49.8 kg 50.6 kg General appearance: PRESENT: no acute distress Neurological exam: PRESENT: alert, awake Results Laboratory Results: 02/04/19 18:55 02/04/19 18:55 01/29/19 01/29/19 01/29/19 10:51 10:51 14:40 Creatine Kinase 688 H 916 H CK-MB (CK-2) 7.95 H Troponin I < 0.012 01/29/19 01/29/19 01/29/19 14:40 21:41 21:41 Creatine Kinase 928 H CK-MB (CK-2) 10.40 H 7.89 H Troponin I < 0.012 < 0.012 01/30/19 01/31/19 06:13 05:46 Creatine Kinase 1000 H 410 H CK-MB (CK-2) Troponin I Impressions: Chest X-Ray 01/13/19 00:00 IMPRESSION: 1. Slightly worsened appearance of the chronic right lower lobe opacity representing patient's known fibrotic changes; however, findings may represent superimposed pneumonia in the appropriate clinical setting. 2. Mildly improved left lower lobe opacity. Head CT 01/13/19 18:25 IMPRESSION: MICROVASCULAR ISCHEMIA AND GENERALIZED ATROPHY. NO ACUTE IMAGING FINDINGS IN THE BRAIN EVIDENCE OF ACUTE STROKE: NO. Assessment and Plan - Diagnosis (1) Acute on chronic respiratory failure with hypoxemia Is this a current diagnosis for this admission?: Yes Plan: Has been resolving. (2) Pneumonia Is this a current diagnosis for this admission?: Yes Plan: Treated (3) Hypotension Is this a current diagnosis for this admission?: Yes Plan: Has resolved (4) Altered mental status Is this a current diagnosis for this admission?: Yes Plan: Possibly due to metabolic encephalopathy. Has resolved.
[2019-02-19] MEDS: MELATONIN 3 MG TABLET PO SCH (18:47)
[2019-02-19] MEDS: QUETIAPINE FUMARATE 25 MG TABLET PO SCH (22:36)
[2019-02-20] MEDS: OLANZAPINE 5 MG TABLET PO SCH (08:33)
--- NOTE | 2019-02-20 12:49 | PDOC PROGRESS REPORT ---
Subjective Progress Note for:: 02/20/19 Subjective:: No new complaints or significant event overnight. Reason For Visit: RLL PNEUMONIA Physical Exam Vital Signs: Temp Pulse Resp BP Pulse Ox 98.3 F 124 H 20 124/56 L 94 02/19/19 19:39 02/19/19 19:39 02/19/19 19:39 02/19/19 19:39 02/19/19 19:39 Intake & Output 02/19/19 02/20/19 02/21/19 06:59 06:59 06:59 Intake Total 2270 460 Output Total 1250 Balance 1020 460 Weight 50.6 kg 51.5 kg Results Laboratory Results: 02/04/19 18:55 02/04/19 18:55 01/29/19 01/29/19 01/29/19 10:51 10:51 14:40 Creatine Kinase 688 H 916 H CK-MB (CK-2) 7.95 H Troponin I < 0.012 01/29/19 01/29/19 01/29/19 14:40 21:41 21:41 Creatine Kinase 928 H CK-MB (CK-2) 10.40 H 7.89 H Troponin I < 0.012 < 0.012 01/30/19 01/31/19 06:13 05:46 Creatine Kinase 1000 H 410 H CK-MB (CK-2) Troponin I Impressions: Chest X-Ray 01/13/19 00:00 IMPRESSION: 1. Slightly worsened appearance of the chronic right lower lobe opacity representing patient's known fibrotic changes; however, findings may represent superimposed pneumonia in the appropriate clinical setting. 2. Mildly improved left lower lobe opacity. Head CT 01/13/19 18:25 IMPRESSION: MICROVASCULAR ISCHEMIA AND GENERALIZED ATROPHY. NO ACUTE IMAGING FINDINGS IN THE BRAIN EVIDENCE OF ACUTE STROKE: NO. Assessment and Plan - Diagnosis (1) Acute on chronic respiratory failure with hypoxemia Is this a current diagnosis for this admission?: Yes Plan: Has been resolving. (2) Pneumonia Is this a current diagnosis for this admission?: Yes Plan: Treated (3) Hypotension Is this a current diagnosis for this admission?: Yes Plan: Has resolved (4) Altered mental status Is this a current diagnosis for this admission?: Yes Plan: Possibly due to metabolic encephalopathy. Has resolved.
[2019-02-20] MEDS: QUETIAPINE FUMARATE 25 MG TABLET PO SCH (21:25)
[2019-02-20] MEDS: MELATONIN 3 MG TABLET PO SCH (21:25)
[2019-02-21] MEDS: OLANZAPINE 5 MG TABLET PO SCH (08:29)
--- NOTE | 2019-02-21 14:55 | PDOC PROGRESS REPORT ---
Subjective Progress Note for:: 02/21/19 Subjective:: JUMANA HENDRIX is a 73 year old male who presented to the emergency room via EMS due to acute lethargy developed at a snf where he lives a short time prior to his emergency room arrival. Patient has severe dementia and is unable to provide any meaningful input into his medical care. Information obtained from the snf indicates that he was noted to be progressively lethargic over the course of the afternoon on observation by his caretakers. EMS noted u ryanne their arrival that his oxygen saturation was 92% on room air and he was somewhat hypotensive with a systolic blood pressure in the 70s and febrile with a temperature of 100.5 F. In the emergency room he was found to have mild arterial hypotension with blood pressure of 91/52 and his oxygen saturation continued to be 92 to 93% without supplemental oxygen support. He did respond well to IV fluids, supplemental oxygen via nasal cannula and Tylenol. A chest x-ray revealed an increase in the opacity of his right lower lung field and a likelihood of pneumonia due to the clinical situation was entertained. Patient was subsequently admitted to the hospital for further evaluation and treatment. 02/21/2019. No acute events overnight. Alert oriented x3, cooperative with physical examination, no apparent distress, p.o. tolerant, having normal bowel and bladder movements. Pending placement. Reason For Visit: RLL PNEUMONIA Physical Exam Vital Signs: Temp Pulse Resp BP Pulse Ox 97.5 F 63 18 128/76 H 99 02/20/19 20:17 02/20/19 20:17 02/20/19 20:17 02/20/19 20:17 02/20/19 20:17 Intake & Output 02/20/19 02/21/19 02/22/19 06:59 06:59 06:59 Intake Total 460 1742 240 Balance 460 1742 240 Weight 51.5 kg 51.8 kg General appearance: PRESENT: no acute distress, well-developed, well-nourished Head exam: PRESENT: atraumatic, normocephalic Respiratory exam: PRESENT: clear to auscultation gama. ABSENT: rales, rhonchi, wheezes Cardiovascular exam: PRESENT: RRR. ABSENT: diastolic murmur, rubs, systolic murmur GI/Abdominal exam: PRESENT: normal bowel sounds, soft. ABSENT: distended, guarding, mass, organolmegaly, rebound, tenderness Neurological exam: PRESENT: alert, awake, oriented to person, oriented to place, CN II-XII grossly intact. ABSENT: motor sensory deficit Results Laboratory Results: 02/04/19 18:55 02/04/19 18:55 01/29/19 01/29/19 01/29/19 10:51 10:51 14:40 Creatine Kinase 688 H 916 H CK-MB (CK-2) 7.95 H Troponin I < 0.012 01/29/19 01/29/19 01/29/19 14:40 21:41 21:41 Creatine Kinase 928 H CK-MB (CK-2) 10.40 H 7.89 H Troponin I < 0.012 < 0.012 01/30/19 01/31/19 06:13 05:46 Creatine Kinase 1000 H 410 H CK-MB (CK-2) Troponin I Impressions: Chest X-Ray 01/13/19 00:00 IMPRESSION: 1. Slightly worsened appearance of the chronic right lower lobe opacity r epresenting patient's known fibrotic changes; however, findings may represent superimposed pneumonia in the appropriate clinical setting. 2. Mildly improved left lower lobe opacity. Head CT 01/13/19 18:25 IMPRESSION: MICROVASCULAR ISCHEMIA AND GENERALIZED ATROPHY. NO ACUTE IMAGING FINDINGS IN THE BRAIN EVIDENCE OF ACUTE STROKE: NO. Assessment and Plan - Diagnosis (1) Acute on chronic respiratory failure with hypoxemia Is this a current diagnosis for this admission?: Yes Plan: Resolved. SPO2 WNL on RA. Secondary to pneumonia RLL PNA seen on CXR Blood culture (09/01) positive for MRSA. Sputum culture negative Initially treated with azithromycin and Rocephin, switched to Vanco and Zosyn. Have completed full course of antibiotics. Supplemental oxygen via nasal cannula for SPO2> 88% Scheduled and as needed nebulizer treatments (2) Bacteremia Is this a current diagnosis for this admission?: Yes Plan: Resolved. Vitals WNL. Patient has 1/4 bottles positive for MRSA. Repeat blood cultures negative at 5 days. Unclear source. Sputum cultures show no growth No MRSA in any previous cultures on file. No skin breakdown identified. TTE negative for vegetations. Has completed 2-week course of IV vancomycin. (3) Altered mental status Is this a current diagnosis for this admission?: Yes Plan: Resolved. Metabolic encephalopathy likely caused by underlying infectious process. Back to Baseline. Scheduled Seroquel, Zyprexa, Lamictal, melatonin and Haldol as needed. Head CT negative History of severe dementia and anoxic brain injury at the age of 27 Daughter states that the patient has the mental capacity of a 7-year-old Patient will intermittently have days when he is very lucid and cooperative, other days he is very altered and agitated The patient erratic behavior is likely related to dementia and acute delirium, exacerbated by his active infection. His anoxic brain injury, while it does not help his situation, is not the primary culprit of his agitation. Does seem that his symptoms worsen at night. (4) Hypotension Is this a current diagnosis for this admission?: Yes Plan: Resolved. Vitals WNL. Monitor vitals. Oral fluids are encouraged (5) Pneumonia Qualifiers: Pneumonia type: due to unspecified organism Laterality: right Lung loc ation: lower lobe of lung Qualified Code(s): J18.1 - Lobar pneumonia, unspecified organism Is this a current diagnosis for this admission?: Yes Plan: Resolved. Due to gram positive cocci. Blood culture positive for MRSA. Sputum cultures remain negative. Received full antibiotic course. As per problem #1 #2. (6) BRENDA (acute kidney injury) Is this a current diagnosis for this admission?: Yes Plan: Resolved. Likely prerenal; decreased p.o. intake (thickened liquids, use of restrains, altered mental status). Avoid nephrotoxic medications as able; fortunately, no longer on vancomycin.
[2019-02-21] MEDS: MELATONIN 3 MG TABLET PO SCH (21:04)
[2019-02-21] MEDS: QUETIAPINE FUMARATE 25 MG TABLET PO SCH (21:05)
[2019-02-22] MEDS: OLANZAPINE 5 MG TABLET PO SCH (09:05)
--- NOTE | 2019-02-22 11:11 | PDOC PROGRESS REPORT ---
Subjective Progress Note for:: 02/22/19 Subjective:: No acute events overnight. Pending placement. Reason For Visit: RLL PNEUMONIA Physical Exam Vital Signs: Temp Pulse Resp BP Pulse Ox 97.7 F 75 18 100/68 97 02/21/19 20:26 02/21/19 20:26 02/21/19 20:26 02/21/19 20:26 02/21/19 20:26 Intake & Output 02/21/19 02/22/19 02/23/19 06:59 06:59 06:59 Intake Total 1742 480 Balance 1742 480 Weight 51.8 kg 50.2 kg General appearance: PRESENT: no acute distress, well-developed, well-nourished Head exam: PRESENT: atraumatic, normocephalic Eye exam: PRESENT: conjunctiva pink, EOMI, PERRLA. ABSENT: scleral icterus Ear exam: PRESENT: normal external ear exam Mouth exam: PRESENT: moist, tongue midline Neck exam: ABSENT: carotid bruit, JVD, lymphadenopathy, thyromegaly Respiratory exam: PRESENT: clear to auscultation gama. ABSENT: rales, rhonchi, wheezes Cardiovascular exam: PRESENT: RRR. ABSENT: diastolic murmur, rubs, systolic murmur Pulses: PRESENT: normal dorsalis pedis pul Vascular exam: PRESENT: normal capillary refill GI/Abdominal exam: PRESENT: normal bowel sounds, soft. ABSENT: distended, guarding, mass, organolmegaly, rebound, tenderness Rectal exam: PRESENT: deferred Extremities exam: PRESENT: full ROM. ABSENT: calf tenderness, clubbing, pedal edema Neurological exam: PRESENT: alert, awake, oriented to person, CN II-XII grossly intact. ABSENT: motor sensory deficit Psychiatric exam: PRESENT: appropriate affect, normal mood. ABSENT: homicidal ideation, suicidal ideation Skin exam: PRESENT: dry, intact, warm. ABSENT: cyanosis, rash Results Laboratory Results: 02/04/19 18:55 02/04/19 18:55 01/29/19 01/29/19 01/29/19 10:51 10:51 14:40 Creatine Kinase 688 H 916 H CK-MB (CK-2) 7.95 H Troponin I < 0.012 01/29/19 01/29/19 01/29/19 14:40 21:41 21:41 Creatine Kinase 928 H CK-MB (CK-2) 10.40 H 7.89 H Troponin I < 0.012 < 0.012 01/30/19 01/31/19 06:13 05:46 Creatine Kinase 1000 H 410 H CK-MB (CK-2) Troponin I Impressions: Chest X-Ray 01/13/19 00:00 IMPRESSION: 1. Slightly worsened appearance of the chronic right lower lobe opacity representing patient's known fibrotic changes; however, findings may represent superimposed pneumonia in the appropriate clinical setting. 2. Mildly improved left lower lobe opacity. Head CT 01/13/19 18:25 IMPRESSION: MICROVASCULAR ISCHEMIA AND GENERALIZED ATROPHY. NO ACUTE IMAGING FINDINGS IN THE BRAIN EVIDENCE OF ACUTE STROKE: NO. Assessment and Plan - Diagnosis (1) Acute on chronic respiratory failure with hypoxemia Is this a current diagnosis for this admission?: Yes Plan: Resolved. SPO2 WNL on RA. Secondary to pneumonia RLL PNA seen on CXR Blood culture (/) positive for MRSA. Sputum culture negative Initially treated with azithromycin and Rocephin, switched to Vanco and Zosyn. Have completed full course of antibiotics. Supplemental oxygen via nasal cannula for SPO2> 88% Scheduled and as needed nebulizer treatments (2) Bacteremia Is this a current diagnosis for this admission?: Yes Plan: Resolved. Vitals WNL. Patient has 1/4 bottles positive for MRSA. Repeat blood cultures negative at 5 days. Unclear source. Sputum cultures show no growth No MRSA in any previous cultures on file. No skin breakdown identified. TTE negative for vegetations. Has completed 2-week course of IV vancomycin. (3) Altered mental status Qualifiers: Altered mental status type: somnolence Qualified Code(s): R40.0 - Somnolence Is this a current diagnosis for this admission?: Yes Plan: Resolved. Metabolic encephalopathy likely caused by underlying infectious process. Back to Baseline. Scheduled Seroquel, Zyprexa, Lamictal, melatonin and Haldol as needed. Head CT negative History of severe dementia and anoxic brain injury at the age of 27 Daughter states that the patient has the mental capacity of a 7-year-old Patient will intermittently have days when he is very lucid and cooperative, other days he is very altered and agitated The patient erratic behavior is likely related to dementia and acute delirium, exacerbated by his active infection. His anoxic brain injury, while it does not help his situation, is not the primary culprit of his agitation. Does seem that his symptoms worsen at night. (4) Pneumonia Qualifiers: Pneumonia type: due to methicillin-resistant Staphylococcus aureus (MRSA) Laterality: right Lung location: lower lobe of lung Qualified Code(s): J15.212 - Pneumonia due to Methicillin resistant Staphylococcus aureus Is this a current diagnosis for this admission?: Yes Plan: Resolved. Due to gram positive cocci. Blood culture positive for MRSA. Sputum cultures remain negative. Received full antibiotic course. As per problem #1 #2. (5) BRENDA (acute kidney injury) Is this a current diagnosis for this admission?: Yes Plan: Resolved. Likely prerenal; decreased p.o. intake (thickened liquids, use of restrains, altered mental status). Avoid nephrotoxic medications as able; fortunately, no longer on vancomycin. (6) Hypotension Qualifiers: Hypotension type: hypotension due to hypovolemia Qualified Code(s): I95.89 - Other hypotension; E86.1 - Hypovolemia Is this a current diagnosis for this admission?: Yes Plan: Resolved. Vitals WNL. Monitor vitals. Oral fluids are encouraged
[2019-02-23] MEDS: MELATONIN 3 MG TABLET PO SCH ×2 (00:42→21:01)
[2019-02-23] MEDS: QUETIAPINE FUMARATE 25 MG TABLET PO SCH ×2 (00:42→21:01)
[2019-02-23] MEDS: OLANZAPINE 5 MG TABLET PO SCH (08:53)
--- NOTE | 2019-02-23 16:22 | PDOC PROGRESS REPORT ---
Subjective Progress Note for:: 02/23/19 Subjective:: No acute events overnight. Pending placement. Reason For Visit: RLL PNEUMONIA Physical Exam Vital Signs: Temp Pulse Resp BP Pulse Ox 97.8 F 77 22 H 124/55 L 98 02/23/19 12:22 02/23/19 12:22 02/23/19 12:22 02/23/19 12:22 02/23/19 12:22 Intake & Output 02/22/19 02/23/19 02/24/19 06:59 06:59 06:59 Intake Total 480 586 Output Total 100 Balance 480 486 Weight 50.2 kg 50.6 kg General appearance: PRESENT: no acute distress, thin, well-developed Head exam: PRESENT: atraumatic, normocephalic Respiratory exam: PRESENT: clear to auscultation gama. ABSENT: rales, rhonchi, wheezes Cardiovascular exam: PRESENT: RRR. ABSENT: diastolic murmur, rubs, systolic murmur GI/Abdominal exam: PRESENT: normal bowel sounds, soft. ABSENT: distended, guarding, mass, organolmegaly, rebound, tenderness Extremities exam: PRESENT: full ROM. ABSENT: calf tenderness, clubbing, pedal edema Neurological exam: PRESENT: alert, awake, oriented to person, CN II-XII grossly intact, motor sensory deficit Skin exam: PRESENT: dry, intact, warm. ABSENT: cyanosis, rash Results Laboratory Results: 02/04/19 18:55 02/04/19 18:55 01/29/19 01/29/19 01/29/19 10:51 10:51 14:40 Creatine Kinase 688 H 916 H CK-MB (CK-2) 7.95 H Troponin I < 0.012 01/29/19 01/29/19 01/29/19 14:40 21:41 21:41 Creatine Kinase 928 H CK-MB (CK-2) 10.40 H 7.89 H Troponin I < 0.012 < 0.012 01/30/19 01/31/19 06:13 05:46 Creatine Kinase 1000 H 410 H CK-MB (CK-2) Troponin I Impressions: Chest X-Ray 01/13/19 00:00 IMPRESSION: 1. Slightly worsened appearance of the chronic right lower lobe opacity representing patient's known fibrotic changes; however, findings may represent superimposed pneumonia in the appropriate clinical setting. 2. Mildly improved left lower lobe opacity. Head CT 01/13/19 18:25 IMPRESSION: MICROVASCULAR ISCHEMIA AND GENERALIZED ATROPHY. NO ACUTE IMAGING FINDINGS IN THE BRAIN EVIDENCE OF ACUTE STROKE: NO. Assessment and Plan - Diagnosis (1) Acute on chronic respiratory failure with hypoxemia Is this a current diagnosis for this admission?: Yes Plan: Resolved. SPO2 WNL on RA. Secondary to pneumonia RLL PNA seen on CXR Blood culture (09/01) positive for MRSA. Sputum culture negative Initially treated with azithromycin and Rocephin, switched to Vanco and Zosyn. Have completed full course of antibiotics. Supplemental oxygen via nasal cannula for SPO2> 88% Scheduled and as needed nebulizer treatments (2) Bacteremia Is this a current diagnosis for this admission?: Yes Plan: Resolved. Vitals WNL. Patient has 1/4 bottles positive for MRSA. Repeat blood cultures negative at 5 days. Unclear source. Sputum cultures show no growth No MRSA in any previous cultures on file. No skin breakdown identified. TTE negative for vegetations. Has completed 2-week course of IV vancomycin. (3) Altered mental status Qualifiers: Altered mental status type: somnolence Qualified Code(s): R40.0 - Somnolence Is this a current diagnosis for this admission?: Yes Plan: Resolved. Metabolic encephalopathy likely caused by underlying infectious process. Back to Baseline. Scheduled Seroquel, Zyprexa, Lamictal, melatonin and Haldol as needed. Head CT negative History of severe dementia and anoxic brain injury at the age of 27 Daughter states that the patient has the mental capacity of a 7-year-old Patient will intermittently have days when he is very lucid and cooperative, other days he is very altered and agitated The patient erratic behavior is likely related to dementia and acute delirium, exacerbated by his active infection. His anoxic brain injury, while it does not help his situation, is not the primary culprit of his agitation. Does seem that his symptoms worsen at night. (4) Hypotension Qualifiers: Hypotension type: hypotension due to hypovolemia Qualified Code(s): I95.89 - Other hypotension; E86.1 - Hypovolemia Is this a current diagnosis for this admission?: Yes Plan: Resolved. Vitals WNL. Monitor vitals. Oral fluids are encouraged (5) BRENDA (acute kidney injury) Is this a current diagnosis for this admission?: Yes Plan: Resolved. Likely prerenal; decreased p.o. intake (thickened liquids, use of restrains, altered mental status). Avoid nephrotoxic medications as able; fortunately, no longer on vancomycin. (6) Pneumonia Qualifiers: Pneumonia type: due to methicillin-resistant Staphylococcus aureus (MRSA) Laterality: right Lung location: lower lobe of lung Qualified Code(s): J15.212 - Pneumonia due to Methicillin resistant Staphylococcus aureus Is this a current diagnosis for this admission?: Yes Plan: Resolved. Due to gram positive cocci. Blood culture positive for MRSA. Sputum cultures remain negative. Received full antibiotic course. As per problem #1 #2.
--- NOTE | 2019-02-24 13:24 | PDOC PROGRESS REPORT ---
Subjective Progress Note for:: 02/24/19 Subjective:: JUMANA HENDRIX is a 73 year old male who presented to the emergency room via EMS due to acute lethargy developed at a retirement where he lives a short time prior to his emergency room arrival. Patient has severe dementia and is unable to provide any meaningful input into his medical care. Information obtained from the retirement indicates that he was noted to be progressively lethargic over the course of the afternoon on observation by his caretakers. EMS noted u ryanne their arrival that his oxygen saturation was 92% on room air and he was somewhat hypotensive with a systolic blood pressure in the 70s and febrile with a temperature of 100.5 F. In the emergency room he was found to have mild arterial hypotension with blood pressure of 91/52 and his oxygen saturation continued to be 92 to 93% without supplemental oxygen support. He did respond well to IV fluids, supplemental oxygen via nasal cannula and Tylenol. A chest x-ray revealed an increase in the opacity of his right lower lung field and a likelihood of pneumonia due to the clinical situation was entertained. Patient was subsequently admitted to the hospital for further evaluation and treatment. 02/24/2019. No acute events overnight. No need for sitter, DC'd on 02/23/2019. Alert oriented x3, cooperative with physical examination, no apparent distress, p.o. tolerant, having normal bowel and bladder movements. Pending placement. Reason For Visit: RLL PNEUMONIA Physical Exam Vital Signs: Temp Pulse Resp BP Pulse Ox 98.1 F 72 15 114/61 96 02/23/19 19:59 02/23/19 19:59 02/23/19 19:59 02/23/19 19:59 02/23/19 19:59 Intake & Output 02/23/19 02/24/19 02/25/19 06:59 06:59 06:59 Intake Total 586 1340 Output Total 100 100 Balance 486 1240 Weight 50.6 kg 49.8 kg General appearance: PRESENT: no acute distress, well-developed, well-nourished Head exam: PRESENT: atraumatic, normocephalic Respiratory exam: PRESENT: clear to auscultation gama. ABSENT: rales, rhonchi, wheezes GI/Abdominal exam: PRESENT: normal bowel sounds, soft. ABSENT: distended, guarding, mass, organolmegaly, rebound, tenderness Extremities exam: PRESENT: full ROM. ABSENT: calf tenderness, clubbing, pedal edema Neurological exam: PRESENT: alert, awake, oriented to person, oriented to place, CN II-XII grossly intact. ABSENT: motor sensory deficit Results Laboratory Results: 02/04/19 18:55 02/04/19 18:55 01/29/19 01/29/19 01/29/19 10:51 10:51 14:40 Creatine Kinase 688 H 916 H CK-MB (CK-2) 7.95 H Troponin I < 0.012 01/29/19 01/29/19 01/29/19 14:40 21:41 21:41 Creatine Kinase 928 H CK-MB (CK-2) 10.40 H 7.89 H Troponin I < 0.012 < 0.012 01/30/19 01/31/19 06:13 05:46 Creatine Kinase 1000 H 410 H CK-MB (CK-2) Troponin I Impressions: Chest X-Ray 01/13/19 00:00 IMPRESSION: 1. Slightly worsened appearance of the chronic right lower lobe opacity representing patient's known fibrotic changes; however, findings may represent superimposed pneumonia in the appropriate clinical setting. 2. Mildly improved left lower lobe opacity. Head CT 01/13/19 18:25 IMPRESSION: MICROVASCULAR ISCHEMIA AND GENERALIZED ATROPHY. NO ACUTE IMAGING FINDINGS IN THE BRAIN EVIDENCE OF ACUTE STROKE: NO. Assessment and Plan - Diagnosis (1) Acute on chronic respiratory failure with hypoxemia Is this a current diagnosis for this admission?: Yes Plan: Resolved. SPO2 WNL on RA. Secondary to pneumonia RLL PNA seen on CXR Blood culture (09/01) positive for MRSA. Sputum culture negative Initially treated with azithromycin and Rocephin, switched to Vanco and Zosyn. Have completed full course of antibiotics. Supplemental oxygen via nasal cannula for SPO2> 88% Scheduled and as needed nebulizer treatments (2) Altered mental status Qualifiers: Altered mental status type: somnolence Qualified Code(s): R40.0 - Somnolence Is this a current diagnosis for this admission?: Yes Plan: Resolved. No need for sitter, DC'd on 02/23/2019. Metabolic encephalopathy likely caused by underlying infectious process. Back to Baseline. Scheduled Seroquel, Zyprexa, Lamictal, melatonin and Haldol as needed. Head CT negative History of severe dementia and anoxic brain injury at the age of 27 Daughter states that the patient has the mental capacity of a 7-year-old Patient will intermittently have days when he is very lucid and cooperative, other days he is very altered and agitated The patient erratic behavior is likely related to dementia and acute delirium, exacerbated by his active infection. His anoxic brain injury, while it does not help his situation, is not the primary culprit of his agitation. Does seem that his symptoms worsen at night. (3) Bacteremia Is this a current diagnosis for this admission?: Yes Plan: Resolved. Vitals WNL. Patient has 1/4 bottles positive for MRSA. Repeat blood cultures negative at 5 days. Unclear source. Sputum cultures show no growth No MRSA in any previous cultures on file. No skin breakdown identified. TTE negative for vegetations. Has completed 2-week course of IV vancomycin. (4) BRENDA (acute kidney injury) Is this a current diagnosis for this admission?: Yes Plan: Resolved. Likely prerenal; decreased p.o. intake (thickened liquids, use of restrains, alt ered mental status). Avoid nephrotoxic medications as able; fortunately, no longer on vancomycin. (5) Hypotension Qualifiers: Hypotension type: hypotension due to hypovolemia Qualified Code(s): I95.89 - Other hypotension; E86.1 - Hypovolemia Is this a current diagnosis for this admission?: Yes Plan: Resolved. Vitals WNL. Monitor vitals. Oral fluids are encouraged (6) Pneumonia Qualifiers: Pneumonia type: due to methicillin-resistant Staphylococcus aureus (MRSA) Laterality: right Lung location: lower lobe of lung Qualified Code(s): J15.212 - Pneumonia due to Methicillin resistant Staphylococcus aureus Is this a current diagnosis for this admission?: Yes Plan: Resolved. Due to gram positive cocci. Blood culture positive for MRSA. Sputum cultures remain negative. Received full antibiotic course. As per problem #1 #2.
[2019-02-24] MEDS: MELATONIN 3 MG TABLET PO SCH (18:06)
[2019-02-24] MEDS: QUETIAPINE FUMARATE 25 MG TABLET PO SCH (21:10)
--- NOTE | 2019-02-25 11:07 | PDOC PROGRESS REPORT ---
Subjective Progress Note for:: 02/25/19 Subjective:: JUMANA HENDRIX is a 73 year old male who presented to the emergency room via EMS due to acute lethargy developed at a [facility] where he lives a short time prior to his emergency room arrival. Patient has severe dementia and is unable to provide any meaningful input into his medical care. Information obtained from the [facility] indicates that he was noted to be progressively lethargic over the course of the afternoon on observation by his caretakers. EMS noted u ryanne their arrival that his oxygen saturation was 92% on room air and he was somewhat hypotensive with a systolic blood pressure in the 70s and febrile with a temperature of 100.5 F. In the emergency room he was found to have mild arterial hypotension with blood pressure of 91/52 and his oxygen saturation continued to be 92 to 93% without supplemental oxygen support. He did respond well to IV fluids, supplemental oxygen via nasal cannula and Tylenol. A chest x-ray revealed an increase in the opacity of his right lower lung field and a likelihood of pneumonia due to the clinical situation was entertained. Patient was subsequently admitted to the hospital for further evaluation and treatment. 02/24/2019. No acute events overnight. No need for sitter, DC'd on 02/23/2019. Alert oriented x2, cooperative with physical examination, no apparent distress, p.o. tolerant, having normal bowel and bladder movements. Pending placement. 02/25/2019. No acute events overnight. Alert oriented x2, cooperative with physical examination, no apparent distress, p.o. tolerant, having normal bowel a nd bladder movements. Pending placement. Reason For Visit: RLL PNEUMONIA Physical Exam Vital Signs: Temp Pulse Resp BP Pulse Ox 98.6 F 76 17 92/51 L 95 02/24/19 22:00 02/24/19 22:00 02/24/19 22:00 02/24/19 22:00 02/24/19 22:00 Intake & Output 02/24/19 02/25/19 02/26/19 06:59 06:59 06:59 Intake Total 1340 598 Output Total 100 Balance 1240 598 Weight 49.8 kg 51.9 kg General appearance: PRESENT: no acute distress, well-developed, well-nourished Head exam: PRESENT: atraumatic, normocephalic Respiratory exam: PRESENT: clear to auscultation gama. ABSENT: rales, rhonchi, wheezes Cardiovascular exam: PRESENT: RRR. ABSENT: diastolic murmur, rubs, systolic mu rmur GI/Abdominal exam: PRESENT: normal bowel sounds, soft. ABSENT: distended, guarding, mass, organolmegaly, rebound, tenderness Neurological exam: PRESENT: alert, awake, oriented to person, CN II-XII grossly intact, motor sensory deficit Results Laboratory Results: 02/04/19 18:55 02/04/19 18:55 01/29/19 01/29/19 01/29/19 10:51 10:51 14:40 Creatine Kinase 688 H 916 H CK-MB (CK-2) 7.95 H Troponin I < 0.012 01/29/19 01/29/19 01/29/19 14:40 21:41 21:41 Creatine Kinase 928 H CK-MB (CK-2) 10.40 H 7.89 H Troponin I < 0.012 < 0.012 01/30/19 01/31/19 06:13 05:46 Creatine Kinase 1000 H 410 H CK-MB (CK-2) Troponin I Impressions: Chest X-Ray 01/13/19 00:00 IMPRESSION: 1. Slightly worsened appearance of the chronic right lower lobe opacity representing patient's known fibrotic changes; however, findings may represent superimposed pneumonia in the appropriate clinical setting. 2. Mildly improved left lower lobe opacity. Head CT 01/13/19 18:25 IMPRESSION: MICROVASCULAR ISCHEMIA AND GENERALIZED ATROPHY. NO ACUTE IMAGING FINDINGS IN THE BRAIN EVIDENCE OF ACUTE STROKE: NO. Assessment and Plan - Diagnosis (1) Acute on chronic respiratory failure with hypoxemia Is this a current diagnosis for this admission?: Yes Plan: Resolved. SPO2 WNL on RA. Secondary to pneumonia RLL PNA seen on CXR Blood culture (09/01) positive for MRSA. Sputum culture negative Initially treated with azithromycin and Rocephin, switched to Vanco and Zosyn. Have completed full course of antibiotics. Supplemental oxygen via nasal cannula for SPO2> 88% Scheduled and as needed nebulizer treatments (2) Altered mental status Qualifiers: Altered mental status type: somnolence Qualified Code(s): R40.0 - Somnolence Is this a current diagnosis for this admission?: Yes Plan: Resolved. No need for sitter, DC'd on 02/23/2019. Metabolic encephalopathy likely caused by underlying infectious process. Back to Baseline. Scheduled Seroquel, Zyprexa, Lamictal, melatonin and Haldol as needed. Head CT negative History of severe dementia and anoxic brain injury at the age of 27 Daughter states that the patient has the mental capacity of a 7-year-old Patient will intermittently have days when he is very lucid and cooperative, other days he is very altered and agitated The patient erratic behavior is likely related to dementia and acute delirium, exacerbated by his active infection. His anoxic brain injury, while it does not help his situation, is not the primary culprit of his agitation. Does seem that his symptoms worsen at night. (3) Bacteremia Is this a current diagnosis for this admission?: Yes Plan: Resolved. Vitals WNL. Patient has 1/4 bottles positive for MRSA. Repeat blood cultures negative at 5 days. Unclear source. Sputum cultures show no growth No MRSA in any previous cultures on file. No skin breakdown identified. TTE negative for vegetations. Has completed 2-week course of IV vancomycin. (4) BRENDA (acute kidney injury) Is this a current diagnosis for this admission?: Yes Plan: Resolved. Likely prerenal; decreased p.o. intake (thickened liquids, use of restrains, altered mental status). Avoid nephrotoxic medications as able; fortunately, no longer on vancomycin. (5) Hypotension Qualifiers: Hypotension type: hypotension due to hypovolemia Qualified Code(s): I95.89 - Other hypotension; E86.1 - Hypovolemia Is this a current diagnosis for this admission?: Yes Plan: Resolved. Vitals WNL. Monitor vitals. Oral fluids are encouraged (6) Pneumonia Qualifiers: Pneumonia type: due to methicillin-resistant Staphylococcus aureus (MRSA) Laterality: right Lung location: lower lobe of lung Qualified Code(s): J15.212 - Pneumonia due to Methicillin resistant Staphylococcus aureus Is this a current diagnosis for this admission?: Yes Plan: Resolved. Due to gram positive cocci. Blood culture positive for MRSA. Sputum cultures remain negative. Received full antibiotic course. As per problem #1 #2.
[2019-02-25] MEDS: MELATONIN 3 MG TABLET PO SCH (20:32)
[2019-02-25] MEDS: OLANZAPINE 5 MG TABLET PO SCH (21:21)
[2019-02-25] MEDS: QUETIAPINE FUMARATE 25 MG TABLET PO SCH (21:21)
[2019-02-26] MEDS: QUETIAPINE FUMARATE 25 MG TABLET PO SCH ×2 (09:03→21:35)
[2019-02-26 09:42] LABS: ABSOLUTE BASOPHILS # (AUTO) 0.2 10^3/uL (0.0-0.2); ABSOLUTE EOSINOPHILS # (AUTO) 0.1 10^3/uL (0.0-0.6); ABSOLUTE LYMPHOCYTES (AUTO) 0.9 10^3/uL (0.5-4.7); ABSOLUTE MONOCYTES (AUTO) 0.7 10^3/uL (0.1-1.4); ABSOLUTE NEUT (AUTO) 13.7 10^3/uL (1.7-8.2); BASOPHILS % (AUTO) 1.3 % (0-2); EOSINOPHILS % (AUTO) 0.3 % (0-6); HEMATOCRIT 35.5 % (37.9-51.0); HEMOGLOBIN 11.9 g/dL (13.5-17.0); LYMPHOCYTES % (AUTO) 5.8 % (13-45); MEAN CORPUSCULAR HGB CONC 33.6 g/dL (32.0-36.0); MEAN CORPUSCULAR VOLUME 86 fl (80-97); MONOCYTES % (AUTO) 4.6 % (3-13); PLATELET COUNT 230 10^3/uL (150-450); RED BLOOD COUNT 4.12 10^6/uL (4.35-5.55); RED CELL DISTRIBUTION WIDTH 15.3 % (11.5-14.0); TOTAL CELLS COUNTED % (AUTO) 100 %; WHITE BLOOD COUNT 15.5 10^3/uL (4.0-10.5)
[2019-02-26 10:07] LABS: ANION GAP 7 (5-19); BLOOD UREA NITROGEN 22 mg/dL (7-20); CALCIUM 9.1 mg/dL (8.4-10.2); CARBON DIOXIDE 32 mmol/L (22-30); CHLORIDE 97 mmol/L (98-107); GLUCOSE 95 mg/dL (75-110); POTASSIUM 4.1 mmol/L (3.6-5.0); SODIUM 136.3 mmol/L (137-145)
--- NOTE | 2019-02-26 12:46 | PDOC PROGRESS REPORT ---
Subjective Progress Note for:: 02/26/19 Subjective:: JUMANA HENDRIX is a 73 year old male who presented to the emergency room via EMS due to acute [facility]argy developed [facility] a [facility] time prior to his emergency room arrival. Patient has severe dementia and is unable to provide any meaningful input into his medical care. Information obtained from the [facility]iary indicates that he was noted to be progressively lethargic over the course of the afternoon on observation by his caretakers. EMS noted u ryanne their arrival that his oxygen saturation was 92% on room air and he was somewhat hypotensive with a systolic blood pressure in the 70s and febrile with a temperature of 100.5 F. In the emergency room he was found to have mild arterial hypotension with blood pressure of 91/52 and his oxygen saturation continued to be 92 to 93% without supplemental oxygen support. He did respond well to IV fluids, supplemental oxygen via nasal cannula and Tylenol. A chest x-ray revealed an increase in the opacity of his right lower lung field and a likelihood of pneumonia due to the clinical situation was entertained. Patient was subsequently admitted to the hospital for further evaluation and treatment. 02/24/2019. No acute events overnight. No need for sitter, DC'd on 02/23/2019. Alert oriented x2, cooperative with physical examination, no apparent distress, p.o. tolerant, having normal bowel and bladder movements. Pending placement. 02/25/2019. No acute events overnight. Alert oriented x2, cooperative with physical examination, no apparent distress, p.o. tolerant, having normal bowel a nd bladder movements. Pending placement. 02/26/2019. No acute events overnight, as per EMR patient tachypneic and hypoxic. A repeat CBC showed WBC of 17,000. Patient high risk for developing pneumonia. Patient at his baseline , denies any fever, chills, nausea, vomiting, diarrhea, constipation or any urinary symptoms. Reason For Visit: RLL PNEUMONIA Physical Exam Vital Signs: Temp Pulse Resp BP Pulse Ox 99.2 F 113 H 24 H 121/67 91 L 02/25/19 19:45 02/25/19 19:45 02/25/19 19:45 02/25/19 19:45 02/25/19 19:45 Intake & Output 02/25/19 02/26/19 02/27/19 06:59 06:59 06:59 Intake Total 598 1006 Output Total 300 Balance 598 706 Weight 51.9 kg 51.7 kg General appearance: PRESENT: no acute distress, well-developed, well-nourished Head exam: PRESENT: atraumatic, normocephalic Respiratory exam: PRESENT: clear to auscultation gama. ABSENT: rales, rhonchi, wheezes GI/Abdominal exam: PRESENT: normal bowel sounds, soft. ABSENT: distended, guarding, mass, organolmegaly, rebound, tenderness Extremities exam: PRESENT: full ROM. ABSENT: calf tenderness, clubbing, pedal edema Neurological exam: PRESENT: alert, awake, oriented to person, oriented to place, oriented to time, oriented to situation, CN II-XII grossly intact. ABSENT: motor sensory deficit Results Laboratory Results: 02/26/19 09:13 02/26/19 09:13 02/26/19 02/26/19 09:13 09:13 WBC 15.5 H RBC 4.12 L Hgb 11.9 L Hct 35.5 L MCV 86 MCH 29.0 MCHC 33.6 RDW 15.3 H Plt Count 230 Seg Neutrophils % 88.0 H Lymphocytes % 5.8 L Monocytes % 4.6 Eosinophils % 0.3 Basophils % 1.3 Absolute Neutrophils 13.7 H Absolute Lymphocytes 0.9 Absolute Monocytes 0.7 Absolute Eosinophils 0.1 Absolute Basophils 0.2 Sodium 136.3 L Potassium 4.1 Chloride 97 L Carbon Dioxide 32 H Anion Gap 7 BUN 22 H Creatinine 0.82 Est GFR ( Amer) > 60 Est GFR (Non-Af Amer) > 60 Glucose 95 Calcium 9.1 01/29/19 01/29/19 01/29/19 10:51 10:51 14:40 Creatine Kinase 688 H 916 H CK-MB (CK-2) 7.95 H Troponin I < 0.012 01/29/19 01/29/19 01/29/19 14:40 21:41 21:41 Creatine Kinase 928 H CK-MB (CK-2) 10.40 H 7.89 H Troponin I < 0.012 < 0.012 01/30/19 01/31/19 06:13 05:46 Creatine Kinase 1000 H 410 H CK-MB (CK-2) Troponin I Impressions: Chest X-Ray 01/13/19 00:00 IMPRESSION: 1. Slightly worsened appearance of the chronic right lower lobe opacity representing patient's known fibrotic changes; however, findings may represent superimposed pneumonia in the appropriate clinical setting. 2. Mildly improved left lower lobe opacity. Head CT 01/13/19 18:25 IMPRESSION: MICROVASCULAR ISCHEMIA AND GENERALIZED ATROPHY. NO ACUTE IMAGING FINDINGS IN THE BRAIN EVIDENCE OF ACUTE STROKE: NO. Assessment and Plan - Diagnosis (1) Acute on chronic respiratory failure with hypoxemia Is this a current diagnosis for this admission?: Yes Plan: Resolved. SPO2 WNL on RA. Secondary to pneumonia RLL PNA seen on CXR Blood culture (09/01) positive for MRSA. Sputum culture negative Initially treated with azithromycin and Rocephin, switched to Vanco and Zosyn. Have completed full course of antibiotics. Supplemental oxygen via nasal cannula for SPO2> 88% Scheduled and as needed nebulizer treatments (2) Altered mental status Qualifiers: Altered mental status type: somnolence Qualified Code(s): R40.0 - Somnolence Is this a current diagnosis for this admission?: Yes Plan: Resolved. No need for sitter, DC'd on 02/23/2019. Metabolic encephalopathy likely caused by underlying infectious process. Back to Baseline. Scheduled Seroquel, Zyprexa, Lamictal, melatonin and Haldol as needed. Head CT negative History of severe dementia and anoxic brain injury at the age of 27 Daughter states that the patient has the mental capacity of a 7-year-old Patient will intermittently have days when he is very lucid and cooperative, other days he is very altered and agitated The patient erratic behavior is likely related to dementia and acute delirium, exacerbated by his active infection. His anoxic brain injury, while it does not help his situation, is not the primary culprit of his agitation. Does seem that his symptoms worsen at night. (3) Bacteremia Is this a current diagnosis for this admission?: Yes Plan: Resolved. Vitals WNL. Patient has 1/4 bottles positive for MRSA. Repeat blood cultures negative at 5 days. Unclear source. Sputum cultures show no growth No MRSA in any previous cultures on file. No skin breakdown identified. TTE negative for vegetations. Has completed 2-week course of IV vancomycin. (4) BRENDA (acute kidney injury) Is this a current diagnosis for this admission?: Yes Plan: Resolved. Likely prerenal; decreased p.o. intake (thickened liquids, use of restrains, a ltered mental status). Avoid nephrotoxic medications as able; fortunately, no longer on vancomycin. (5) Hypotension Qualifiers: Hypotension type: hypotension due to hypovolemia Qualified Code(s): I95.89 - Other hypotension; E86.1 - Hypovolemia Is this a current diagnosis for this admission?: Yes Plan: Resolved. Vitals WNL. Monitor vitals. Oral fluids are encouraged (6) Pneumonia Qualifiers: Pneumonia type: due to methicillin-resistant Staphylococcus aureus (MRSA) Laterality: right Lung location: lower lobe of lung Qualified Code(s): J15. 212 - Pneumonia due to Methicillin resistant Staphylococcus aureus Is this a current diagnosis for this admission?: Yes Plan: Resolved. Due to gram positive cocci. Blood culture positive for MRSA. Sputum cultures remain negative. Received full antibiotic course. As per problem #1 #2.
[2019-02-26] MEDS: LEVOFLOXACIN 750 MG TABLET PO SCH (13:06)
--- NOTE | 2019-02-26 14:14 | RADIOLOGY REPORT (SQ) ---
EXAM DESCRIPTION: CHEST SINGLE VIEW COMPLETED DATE/TIME: 02/26/2019 1:32 pm REASON FOR STUDY: Hypoxia COMPARISON: 01/13/2019 NUMBER OF VIEWS: One view. TECHNIQUE: Single frontal radiographic view of the chest acquired. LIMITATIONS: None. FINDINGS: LUNGS AND PLEURA: No opacities, masses or pneumothorax. No pleural effusion. Attenuated bl ood vessels and flattened alona-diaphragms. MEDIASTINUM AND HILAR STRUCTURES: No masses. Contour normal. HEART AND VASCULAR STRUCTURES: Heart normal in size. Normal vasculature. BONES: No acute findings. HARDWARE: None in the chest. OTHER: No other significant finding. IMPRESSION: COPD. NO ACUTE RADIOGRAPHIC FINDING IN THE CHEST. TECHNICAL DOCUMENTATION: JOB ID: [id number] [employer]- All Rights Reserved Reading location - IP/workstation name: [email or web address]
[2019-02-26] MEDS: MELATONIN 3 MG TABLET PO SCH (18:55)
[2019-02-26] MEDS: OLANZAPINE 5 MG TABLET PO SCH (21:35)
[2019-02-27] MEDS: QUETIAPINE FUMARATE 25 MG TABLET PO SCH ×2 (08:05→21:13)
[2019-02-27] MEDS: LEVOFLOXACIN 750 MG TABLET PO SCH (09:37)
--- NOTE | 2019-02-27 11:49 | PDOC PROGRESS REPORT ---
Subjective Progress Note for:: 02/27/19 Subjective:: JUMANA HENDRIX is a 73 year old male who presented to the emergency room via EMS due to acute lethargy developed at a long-term where he lives a short time prior to his emergency room arrival. Patient has severe dementia and is unable to provide any meaningful input into his medical care. Information obtained from the long-term indicates that he was noted to be progressively lethargic over the course of the afternoon on observation by his caretakers. EMS noted u ryanne their arrival that his oxygen saturation was 92% on room air and he was somewhat hypotensive with a systolic blood pressure in the 70s and febrile with a temperature of 100.5 F. In the emergency room he was found to have mild arterial hypotension with blood pressure of 91/52 and his oxygen saturation continued to be 92 to 93% without supplemental oxygen support. He did respond well to IV fluids, supplemental oxygen via nasal cannula and Tylenol. A chest x-ray revealed an increase in the opacity of his right lower lung field and a likelihood of pneumonia due to the clinical situation was entertained. Patient was subsequently admitted to the hospital for further evaluation and treatment. 02/24/2019. No acute events overnight. No need for sitter, DC'd on 02/23/2019. Alert oriented x2, cooperative with physical examination, no apparent distress, p.o. tolerant, having normal bowel and bladder movements. Pending placement. 02/25/2019. No acute events overnight. Alert oriented x2, cooperative with physical examination, no apparent distress, p.o. tolerant, having normal bowel a nd bladder movements. Pending placement. 02/26/2019. No acute events overnight, as per EMR patient tachypneic and hypoxic. A repeat CBC showed WBC of 17,000. Patient high risk for developing pneumonia. Patient at his baseline , denies any fever, chills, nausea, vomiting, diarrhea, constipation or any urinary symptoms. 02/28/2019. No acute events overnight, patient hypoxia and tachypnea have i mproved, denies any shortness of breath, chest pain, nausea, vomiting, diarrhea constipation or any urinary symptoms. Patient is p.o. tolerant and having normal bowel and bladder movements. Pending placement. Reason For Visit: RLL PNEUMONIA Physical Exam Vital Signs: Temp Pulse Resp BP Pulse Ox 97.8 F 61 18 111/65 98 02/27/19 08:00 02/27/19 08:00 02/27/19 08:00 02/27/19 08:00 02/27/19 08:00 Intake & Output 02/26/19 02/27/19 02/28/19 06:59 06:59 06:59 Intake Total 1006 1000 Output Total 300 Balance 706 1000 Weight 51.7 kg 52.3 kg General appearance: PRESENT: no acute distress, thin, well-developed, well- nourished Head exam: PRESENT: atraumatic, normocephalic Respiratory exam: PRESENT: clear to auscultation gama. ABSENT: rales, rhonchi, wheezes Cardiovascular exam: PRESENT: RRR. ABSENT: diastolic murmur, rubs, systolic murmur Extremities exam: PRESENT: full ROM. ABSENT: calf tenderness, clubbing, pedal edema Neurological exam: PRESENT: alert, awake, oriented to person, oriented to place, oriented to time, oriented to situation, CN II-XII grossly intact. ABSENT: motor sensory deficit Results Laboratory Results: 02/26/19 09:13 02/26/19 09:13 01/29/19 01/29/19 01/29/19 10:51 10:51 14:40 Creatine Kinase 688 H 916 H CK-MB (CK-2) 7.95 H Troponin I < 0.012 01/29/19 01/29/19 01/29/19 14:40 21:41 21:41 Creatine Kinase 928 H CK-MB (CK-2) 10.40 H 7.89 H Troponin I < 0.012 < 0.012 01/30/19 01/31/19 06:13 05:46 Creatine Kinase 1000 H 410 H CK-MB (CK-2) Troponin I Impressions: Head CT 01/13/19 18:25 IMPRESSION: MICROVASCULAR ISCHEMIA AND GENERALIZED ATROPHY. NO ACUTE IMAGING FINDINGS IN THE BRAIN EVIDENCE OF ACUTE STROKE: NO. Chest X-Ray 02/26/19 00:00 IMPRESSION: COPD. NO ACUTE RADIOGRAPHIC FINDING IN THE CHEST. Assessment and Plan - Diagnosis (1) Acute on chronic respiratory failure with hypoxemia Is this a current diagnosis for this admission?: Yes Plan: Resolved. SPO2 WNL RA. On 02/26/2019 patient had SPO2 of 91, mildly tachypneic and WBC went up to 15,000. Patient high risk for hospital-acquired pneumonia. Started on IV levofloxacin for presumptive pneumonia. Antibiotics day #2. Cultures no growth so far. Initially patient did have acute hypoxic respiratory failure which had resolved. RLL PNA seen on CXR Blood culture (1/) positive for MRSA. Sputum culture negative Initially treated with azithromycin and Rocephin, switched to Vanco and Zosyn. Have completed full course of antibiotics. Supplemental oxygen via nasal cannula for SPO2> 88% Scheduled and as needed nebulizer treatments (2) Altered mental status Qualifiers: Altered mental status type: somnolence Qualified Code(s): R40.0 - Somnolence Is this a current diagnosis for this admission?: Yes Plan: Resolved. No need for sitter, DC'd on 02/23/2019. Metabolic encephalopathy likely caused by underlying infectious process. Back to Baseline. Scheduled Seroquel, Zyprexa, Lamictal, melatonin and Haldol as needed. Head CT negative History of severe dementia and anoxic brain injury at the age of 27 Daughter states that the patient has the mental capacity of a 7-year-old Patient will intermittently have days when he is very lucid and cooperative, other days he is very altered and agitated The patient erratic behavior is likely related to dementia and acute delirium, exacerbated by his active infection. His anoxic brain injury, while it does not help his situation, is not the primary culprit of his agitation. Does seem that his symptoms worsen at night. (3) Bacteremia Is this a current diagnosis for this admission?: Yes Plan: Resolved. Vitals WNL. Patient has 1/4 bottles positive for MRSA. Repeat blood cultures negative at 5 days. Unclear source. Sputum cultures show no growth No MRSA in any previous cultures on file. No skin breakdown identified. TTE negative for vegetations. Has completed 2-week course of IV vancomycin. (4) BRENDA (acute kidney injury) Is this a current diagnosis for this admission?: Yes Plan: Resolved. Likely prerenal; decreased p.o. intake (thickened liquids, use of restrains, altered mental status). Avoid nephrotoxic medications as able; fortunately, no longer on vancomycin. (5) Hypotension Qualifiers: Hypotension type: hypotension due to hypovolemia Qualified Code(s): I95.89 - Other hypotension; E86.1 - Hypovolemia Is this a current diagnosis for this admission?: Yes Plan: Resolved. Vitals WNL. Monitor vitals. Oral fluids are encouraged (6) Pneumonia Qualifiers: Pneumonia type: due to methicillin-resistant Staphylococcus aureus (MRSA) Laterality: right Lung location: lower lobe of lung Qualified Code(s): J15.212 - Pneumonia due to Methicillin resistant Staphylococcus aureus Is this a current diagnosis for this admission?: Yes Plan: Resolved. Due to gram positive cocci. Blood culture positive for MRSA. Sputum cultures remain negative. Received full antibiotic course. As per problem #1 #2.
[2019-02-27] MEDS: MELATONIN 3 MG TABLET PO SCH (21:13)
[2019-02-27] MEDS: OLANZAPINE 5 MG TABLET PO SCH (21:14)
[2019-02-27 23:33] VITALS: BP 95/76
[2019-02-28 07:25] LABS: ABSOLUTE BASOPHILS # (AUTO) 0.1 10^3/uL (0.0-0.2); ABSOLUTE EOSINOPHILS # (AUTO) 0.3 10^3/uL (0.0-0.6); ABSOLUTE LYMPHOCYTES (AUTO) 1.2 10^3/uL (0.5-4.7); ABSOLUTE NEUT (AUTO) 5.5 10^3/uL (1.7-8.2); BASOPHILS % (AUTO) 0.6 % (0-2); EOSINOPHILS % (AUTO) 4.2 % (0-6); HEMATOCRIT 36.7 % (37.9-51.0); HEMOGLOBIN 12.3 g/dL (13.5-17.0); LYMPHOCYTES % (AUTO) 14.8 % (13-45); MEAN CORPUSCULAR HEMOGLOBIN 28.7 pg (27.0-33.4); MEAN CORPUSCULAR HGB CONC 33.4 g/dL (32.0-36.0); MEAN CORPUSCULAR VOLUME 86 fl (80-97); MONOCYTES % (AUTO) 11.9 % (3-13); PLATELET COUNT 306 10^3/uL (150-450); RED BLOOD COUNT 4.27 10^6/uL (4.35-5.55); RED CELL DISTRIBUTION WIDTH 15.4 % (11.5-14.0); SEGMENTED NEUTROPHILS % (AUTO) 68.5 % (42-78); TOTAL CELLS COUNTED % (AUTO) 100 %; WHITE BLOOD COUNT 8.1 10^3/uL (4.0-10.5)
[2019-02-28 07:48] LABS: ALANINE AMINOTRANSFERASE 19 U/L (21-72); ALBUMIN 3.8 g/dL (3.5-5.0); ALKALINE PHOSPHATASE 95 U/L (38-126); ANION GAP 9 (5-19); ASPARTATE AMINO TRANSFERASE 17 U/L (17-59); BILIRUBIN,DIRECT 0.2 mg/dL (0.0-0.4); BILIRUBIN,TOTAL 0.3 mg/dL (0.2-1.3); BLOOD UREA NITROGEN 25 mg/dL (7-20); CALCIUM 9.3 mg/dL (8.4-10.2); CARBON DIOXIDE 30 mmol/L (22-30); CHLORIDE 99 mmol/L (98-107); GLUCOSE 75 mg/dL (75-110); POTASSIUM 4.3 mmol/L (3.6-5.0); SODIUM 137.7 mmol/L (137-145); TOTAL PROTEIN 7.2 g/dL (6.3-8.2)
[2019-02-28] MEDS: QUETIAPINE FUMARATE 25 MG TABLET PO SCH (09:04)
[2019-02-28] MEDS: LEVOFLOXACIN 750 MG TABLET PO SCH (09:04)
--- NOTE | 2019-02-28 09:32 | PDOC TRANSFER SUMMARY ---
General Admission Date/PCP: 01/13/19 22:05 [facility] Resuscitation Status: Do Not Resuscitate - Transfer Diagnosis (1) Acute on chronic respiratory failure with hypoxemia Is this a current diagnosis for this admission?: Yes (2) Altered mental status Is this a current diagnosis for this admission?: Yes (3) Bacteremia Is this a current diagnosis for this admission?: Yes (4) BRENDA (acute kidney injury) Is this a current diagnosis for this admission?: Yes (5) Hypotension Is this a current diagnosis for this admission?: Yes (6) Pneumonia Is this a current diagnosis for this admission?: Yes - Transfer Medications Home Medications: Albuterol Sulfate [Proair HFA Inhalation Aerosol 8.5 gm MDI] 2 puff IH Q4HP PRN 01/14/19 Albuterol Sulfate [Ventolin 0.083% Neb 2.5 mg/3 mL Ampul] 1 vial NEB Q4HP PRN 01/14/19 Aspirin [Adult Low Dose Aspirin EC] 81 mg PO DAILY 01/14/19 Multivitamin [Multiple Vitamins] 1 each PO DAILY 01/14/19 Ranitidine HCl [Zantac 150 mg Tablet] 150 mg PO BID 01/14/19 Simvastatin [Zocor 40 mg Tablet] 20 mg PO QHS 01/14/19 Tiotropium Arena [Spiriva Handihaler 5 Cap/Kit (18 Mcg/Cap)] 1 cap IH DAILY 01/14/19 Transfer Medications: Current Medications Acetaminophen (Tylenol 325 Mg Tablet) 650 mg PO Q4HP PRN PRN Reason: pain or temp greater than 101F Stop: 03/14/19 04:30 Last Admin: 02/26/19 17:54 Dose: 650 mg Documented by: Haloperidol Lactate (Haldol Oral Soln 10 Mg/5 Ml Udcup) 2 mg PO Q6HP PRN PRN Reason: FOR AGITATION Stop: 03/11/19 19:32 Last Admin: 02/19/19 03:43 Dose: 2 mg Documented by: Levofloxacin (Levaquin 750 Mg Tablet) 750 mg PO DAILY [facility] Stop: 03/05/19 11:59 Last Admin: 02/28/19 09:04 Dose: 750 mg Documented by: Melatonin (Melatonin 3 Mg Tablet) 6 mg PO DAILY@1900 [facility] Stop: 03/25/19 18:59 Last Admin: 02/27/19 21:13 Dose: 6 mg Documented by: Olanzapine (Zyprexa 5 Mg Tablet) 5 mg PO QHS [facility] Stop: 03/27/19 21:59 Last Admin: 02/27/19 21:14 Dose: 5 mg Documented by: Quetiapine Fumarate (Seroquel 25 Mg Tablet) 50 mg PO QHS [facility] Stop: 03/25/19 21:59 Last Admin: 02/27/19 21:13 Dose: 50 mg Documented by: Quetiapine Fumarate (Seroquel 25 Mg Tablet) 25 mg PO [facility] Stop: 03/28/19 07:59 Last Admin: 02/28/19 09:04 Dose: 25 mg Documented by: - Allergies Allergies/Adverse Reactions: No Known Allergies Allergy (Verified 12/30/18 00:13) - Diet/Activity Discharge Diet: As Tolerated - pureed w/ nectar thick liquids Hospital Course Hospital Course: JUMANA HENDRIX is a 73 year old male who presented to the emergency room via EMS due to acute lethargy developed at a senior living where he lives a short time prior to his emergency room arrival. Patient has severe dementia and is unable to provide any meaningful input into his medical care. Information obtained from the senior living indicates that he was noted to be progressively lethargic over the course of the afternoon on observation by his caretakers. EMS noted upon their arrival that his oxygen saturation was 92% on room air and he was somewhat hypotensive with a systolic blood pressure in the 70s and febrile with a temperature of 100.5 F. In the emergency room he was found to have mild arterial hypotension with blood pressure of 91/52 and his oxygen saturation continued to be 92 to 93% without supplemental oxygen support. He did respond well to IV fluids, supplemental oxygen via nasal cannula and Tylenol. A chest x-ray revealed an increase in the opacity of his right lower lung field and a likelihood of pneumonia due to the clinical situation was entertained. Patient was subsequently admitted to the hospital for further evaluation and treatment. (1) Acute on chronic respiratory failure with hypoxemia Resolved. SPO2 WNL RA. 02/28/2019. SPO2 WNL RA. Vitals WNL. WBC WNL. Cultures no growth. On 02/26/2019 patient had SPO2 of 91, mildly tachypneic and WBC went up to 15,000 Due to patient being high risk for hospital-acquired pneumonia was started on IV levofloxacin for presumptive HCAP. Antibiotics day #3/5 Received 3 days of IV levofloxacin. Switch to p.o. 500 mg daily for another 2 days. Cultures no growth so far. Initially patient did have acute hypoxic respiratory failure which had resolved. RLL PNA seen on CXR Blood culture (09/01) positive for MRSA. Sputum culture negative Initially treated with azithromycin and Rocephin, switched to Vanco and Zosyn. Have completed full course of antibiotics. Supplemental oxygen via nasal cannula for SPO2> 88% Scheduled and as needed nebulizer treatments (2) Altered mental status Resolved. No need for sitter, DC'd on 02/23/2019. Metabolic encephalopathy likely caused by underlying infectious process. Back to Baseline. Scheduled Seroquel 2 mg p.o. nightly, 25 mg p.o. every morning and Zyprexa, Lamictal, melatonin QPM Haldol as needed. Head CT negative History of severe dementia and anoxic brain injury at the age of 27 Daughter states that the patient has the mental capacity of a 7-year-old Patient will intermittently have days when he is very lucid and cooperative, other days he is very altered and agitated The patient erratic behavior is likely related to dementia and acute delirium, exacerbated by his active infection. His anoxic brain injury, while it does not help his situation, is not the primary culprit of his agitation. does seem that his symptoms worsen at night. (3) Bacteremia Resolved. Vitals WNL. Patient has 1/4 bottles positive for MRSA. Repeat blood cultures negative at 5 days. Unclear source. Sputum cultures show no growth No MRSA in any previous cultures on file. No skin breakdown identified. TTE negative for vegetations. Has completed 2-week course of IV vancomycin. (4) BRENDA (acute kidney injury) Resolved. Likely prerenal; decreased p.o. intake (thickened liquids, use of restrains, altered mental status). Avoid nephrotoxic medications as able; fortunately, no longer on vancomycin. (5) Hypotension Resolved. Vitals WNL. Monitor vitals. Oral fluids are encouraged (6) Pneumonia Resolved. Due to gram positive cocci. Blood culture positive for MRSA. Sputum cultures remain negative. Received full antibiotic course. As per problem #1 #2. Physical Exam Vital Signs: Temp Pulse Resp BP Pulse Ox 97.6 F 82 20 95/76 L 97 02/27/19 19:26 02/27/19 23:21 02/27/19 23:21 02/27/19 23:21 02/27/19 23:21 Intake & Output 02/27/19 02/28/19 03/01/19 06:59 06:59 06:59 Intake Total 1000 1546 Balance 1000 1546 Weight 52.3 kg 53.3 kg General appearance: PRESENT: no acute distress, thin, well-developed, well- nourished Head exam: PRESENT: atraumatic, normocephalic Eye exam: PRESENT: conjunctiva pink, EOMI, PERRLA. ABSENT: scleral icterus Ear exam: PRESENT: normal external ear exam Mouth exam: PRESENT: moist, tongue midline Neck exam: ABSENT: carotid bruit, JVD, lymphadenopathy, thyromegaly Respiratory exam: PRESENT: clear to auscultation gama. ABSENT: rales, rhonchi, wheezes Cardiovascular exam: PRESENT: RRR. ABSENT: diastolic murmur, rubs, systolic murmur Pulses: PRESENT: normal dorsalis pedis pul Vascular exam: PRESENT: normal capillary refill GI/Abdominal exam: PRESENT: normal bowel sounds, soft. ABSENT: distended, guarding, mass, organolmegaly, rebound, tenderness Rectal exam: PRESENT: deferred Extremities exam: PRESENT: full ROM. ABSENT: calf tenderness, clubbing, pedal edema Neurological exam: PRESENT: alert, awake, oriented to person, CN II-XII grossly intact. ABSENT: motor sensory deficit Psychiatric exam: PRESENT: appropriate affect, normal mood. ABSENT: homicidal i deation, suicidal ideation Skin exam: PRESENT: dry, intact, warm. ABSENT: cyanosis, rash Results Laboratory Results: 02/28/19 06:37 02/28/19 06:37 02/28/19 02/28/19 06:37 06:37 WBC 8.1 RBC 4.27 L Hgb 12.3 L Hct 36.7 L MCV 86 MCH 28.7 MCHC 33.4 RDW 15.4 H Plt Count 306 Seg Neutrophils % 68.5 Lymphocytes % 14.8 Monocytes % 11.9 Eosinophils % 4.2 Basophils % 0.6 Absolute Neutrophils 5.5 Absolute Lymphocytes 1.2 Absolute Monocytes 1.0 Absolute Eosinophils 0.3 Absolute Basophils 0.1 Sodium 137.7 Potassium 4.3 Chloride 99 Carbon Dioxide 30 Anion Gap 9 BUN 25 H Creatinine 0.90 Est GFR ( Amer) > 60 Est GFR (Non-Af Amer) > 60 Glucose 75 Calcium 9.3 Total Bilirubin 0.3 AST 17 ALT 19 L Alkaline Phosphatase 95 Total Protein 7.2 Albumin 3.8 01/29/19 01/29/19 01/29/19 10:51 10:51 14:40 Creatine Kinase 688 H 916 H CK-MB (CK-2) 7.95 H Troponin I < 0.012 01/29/19 01/29/19 01/29/19 14:40 21:41 21:41 Creatine Kinase 928 H CK-MB (CK-2) 10.40 H 7.89 H Troponin I < 0.012 < 0.012 01/30/19 01/31/19 06:13 05:46 Creatine Kinase 1000 H 410 H CK-MB (CK-2) Troponin I Impressions: Head CT 01/13/19 18:25 IMPRESSION: MICROVASCULAR ISCHEMIA AND GENERALIZED ATROPHY. NO ACUTE IMAGING FINDINGS IN THE BRAIN EVIDENCE OF ACUTE STROKE: NO. Chest X-Ray 02/26/19 00:00 IMPRESSION: COPD. NO ACUTE RADIOGRAPHIC FINDING IN THE CHEST.
== END 2019-02-28 13:11 | disposition short-term general hospital (02) | DRG 193 ==
LOC: ER 17:08 → EH 22:05 → 3N 01-14 00:33 → 3W 01-21 18:00 → 4N 02-04 23:40 → 4W 02-12 14:25 → 4S 02-14 12:37
PROVIDERS: ADMIT Emergency Medicine; ATTEND Emergency Medicine
DX: J18.1 Lobar pneumonia, unspecified organism (principal); J96.21 Acute and chronic respiratory failure with hypoxia; G93.41 Metabolic encephalopathy; G93.1 Anoxic brain damage, not elsewhere classified; N17.9 Acute kidney failure, unspecified; R78.81 Bacteremia; Z66 Do not resuscitate; E78.00 Pure hypercholesterolemia, unspecified; J44.9 Chronic obstructive pulmonary disease, unspecified; G20 Parkinson's disease; E86.0 Dehydration; E86.1 Hypovolemia; M62.59 Muscle wasting and atrophy, not elsewhere classified, multiple sites; B95.62 Methicillin resistant Staphylococcus aureus infection as the cause of diseases classified elsewhere; E11.8 Type 2 diabetes mellitus with unspecified complications; F03.90 Unspecified dementia, unspecified severity, without behavioral disturbance, psychotic disturbance, mood disturbance, and anxiety; F17.210 Nicotine dependence, cigarettes, uncomplicated; Z79.2 Long term (current) use of antibiotics; Z79.82 Long term (current) use of aspirin; Z79.51 Long term (current) use of inhaled steroids; Z79.899 Other long term (current) drug therapy; Z78.1 Physical restraint status
CPT/HCPCS: 36415; 70450; 71045; 80048; 80053; 80202; 81001; 82550; 82553; 82565; 82803; 82962; 83605; 83735; 84100; 84484; 85025; 85027; 85379; 85610; 87040; 87077; 87086; 87186; 87205; 93005; 93010; 93306; 94640; 96361; 96365; 96366; 96368; 96375; 99291; J0153; J0456; J0692; J0696; J1200; J1630; J1644; J2060; J2543; J3370; J3486; J3490; J7030; J7050; J7060; J7120; J7614